=== PATIENT | female | born 1935 | race Hispanic/Latino ===

== ENCOUNTER 2018-05-26 19:24 | Inpatient (IN) | payer OTHER ==
--- OUTSIDE RECORDS SUMMARY | 2018-05-26 19:30 | XMS REPORT | Continuity of Care Document ---
:1935 Author Organization Interface Problems Problem Status Onset Classification Date Comments Source Date Reported WEAK/FEVER Active 10/25/19 [place] 16 PNEUMONIA Active 10/25/19 [place] 16 SYNCOPE, Active 12/17/19 [facility] VOMITING, UTI 14 ESOPHAGITIS Active 04/16/20 [facility] 11 SOB Active 04/12/20 [facility] 11 368.40 - VISUAL Active 04/06/20 [facility] FIELD DE 11 [place] 571.8 - CHRONIC Active 03/12/20 [facility] L[facility] D 789.01 11 [place] - ABDMNAL PAIN RT CHEST PAIN Active 03/07/20 [facility] 11 Diabetes 07/22/19 Problem 06/11/2016 4FBS Surgical mellitus<sup>4< 10 90-110, Specialty /sup> MED X1 [facility] COPD - Chronic 07/22/18 Problem 06/11/2016 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 DR SUGGS Specialty pulmonary [facility] of disease<sup>2</ YR, NO [place] sup> PULN STUDY, USES ADVAIR BID AND NEB TX TID Hypertension<akhtar 07/22/18 Problem 06/11/2016 5MED X1 Surgical p>5</sup> 75 [facility] Diabetes Resolved Problem 11/02/2015 [facility] Hypertension Resolved Problem 11/02/2015 [facility] Seasonal Resolved Problem 11/02/2015 [facility] allergies Allergy<sup>1</ Problem 06/11/2016 1SEASONAL, Surgical sup> MED X1 [facility] Cough<sup>3</akhtar Problem 06/11/2016 3OCCASSION Surgical p> AL COUGH Specialty WITH COPD, [facility] HAS A MED [place] FOR THIS, I SPENT 45 MIN WITH HER IN PAT AND SHE DID NOT COUGH OR CLEAR THROAT ONCE Ventral hernia Problem 06/11/2016 Surgical Specialty [facility] UPDATE Active [facility] PNEUMONIA, Active [place] UNSPECIFIED ORGANISM Medications Medication Details Route Status Patient Ordering Order Source Instructions Provider Date insulin regular 2 - 10 units, Inactive [place] 06/09/ Surgical sliding scale Injection, 2015 Specialty LOW Subcutaneous, Hospital first dose [place] 06/09/16 [place] 11:30:00 QUALITY CONTROL INSPECTOR insulin regular 2 - 10 units, Inactive [place] 06/09/ Surgical sliding scale Injection, 2015 Specialty LOW Subcutaneous, Hospital first dose [place] 06/09/16 [place] 7:30:00 QUALITY CONTROL INSPECTOR insulin regular 2 - 10 units, Inactive [place] 06/09/ Surgical sliding scale Injection, 2015 Specialty LOW Subcutaneous, Hospital first dose [place] 06/08/16 [place] 18:00:00 QUALITY CONTROL INSPECTOR Lasix 40 mg=4 mL, Inactive [place] 06/08/ Surgical Injection, IV 2015 Specialty Push, Once, Hospital first dose [place] 06/08/16 [place] 9:30:00 QUALITY CONTROL INSPECTOR, stop date 06/08/16 9:30:00 QUALITY CONTROL INSPECTOR Xanax 0.5 mg=2 tabs, No Longer [place] 06/08/ Surgical Tab, Oral, TID Active 2015 Specialty PRN for Hospital anxiety, first [place] dose 06/08/16 [place] 9:19:00 QUALITY CONTROL INSPECTOR lisinopril 10 mg=1 tabs, Inactive [place] 06/08/ Surgical Tab, Oral, 2015 Specialty Daily, first Hospital dose 06/08/16 [place] 7:30:00 QUALITY CONTROL INSPECTOR [place] hydrALAZINE 10 mg=0.5 mL, No Longer [place] 06/08/ Surgical Injection, IV Active 2015 Specialty Push, q4hr PRN Hospital for of [place] hypertension, [place] first dose 06/08/16 5:22:00 QUALITY CONTROL INSPECTOR, SBP >150 D5W 1,000 mL 1,000 mL, IV, No Longer [place] 06/08/ Surgical 50 mL/hr, Active 2015 Specialty start date Hospital 06/07/16 [place] 19:07:00 QUALITY CONTROL INSPECTOR [place] albuterol 2.5 2.5 mg=3 mL, Inactive [place] 06/07/ Surgical mg/3 mL (0.083%) JOSE LUIS Bush, 2016 Specialty inhalation Once PRN for Hospital solution wheezing, of [place] first dose [place] 06/07/16 16:35:00 QUALITY CONTROL INSPECTOR albuterol 180 mcg=2 inh, Inactive [place] 06/07/ Surgical Aerosol, INH, 2015 Specialty Once PRN for Hospital wheezing, of [place] first dose [place] 06/07/16 16:30:00 QUALITY CONTROL INSPECTOR Lasix 40 mg=4 mL, Inactive [place] 06/07/ Surgical Injection, IV 2016 Specialty Push, Once PRN Hospital for wheezing, [place] first dose [place] 06/07/16 16:29:00 QUALITY CONTROL INSPECTOR D5W 1000 mL 1,000 mL, IV, Inactive [place] 06/07/ Surgical 125 mL/hr, 2016 Specialty start date Hospital 06/07/16 [place] 13:55:00 QUALITY CONTROL INSPECTOR [place] D5W with NS 1,000 mL, IV, No Longer [place] 06/06/ Surgical 1,000 mL 125 mL/hr, Active 2015 Specialty start date Hospital 06/06/16 [place] 17:12:00 QUALITY CONTROL INSPECTOR [place] albuterol 2.5 2.5 mg=3 mL, No Longer [place] 06/06/ Surgical mg/3 mL (0.083%) JOSE LUIS Bush, Active 2015 Specialty inhalation q6hr, first Hospital solution dose 06/06/16 [place] 12:00:00 QUALITY CONTROL INSPECTOR [place] insulin regular 2 - 10 units, No Longer [place] 06/05/ Surgical sliding scale Injection, Active 2015 Specialty LOW Subcutaneous, [facility], first of [place] dose 06/05/16 [place] 7:30:00 QUALITY CONTROL INSPECTOR NS 1,000 mL 1,000 mL, IV, No Longer [place] 06/05/ Surgical 125 mL/hr, Active 2015 Specialty start date [facility] 06/05/16 of [place] 7:03:00 QUALITY CONTROL INSPECTOR [place] NS bolus 1,000 1,000 mL, IV, No Longer [place] 06/05/ Surgical mL BOLUS, start Active 2015 Specialty date 06/05/16 [facility] 7:02:00 QUALITY CONTROL INSPECTOR of [place] insulin regular 2 - 10 units, No Longer [place] 06/05/ Surgical sliding scale Injection, Active 2015 Specialty LOW Subcutaneous, [facility] q6hr, first of [place] dose 06/05/16 [place] 0:00:00 QUALITY CONTROL INSPECTOR levofloxacin 500 mg, Inactive [facility] 06/05/ Surgical IVPB Soln-IV, IV 2015 [facility], infuse [place] over 1 hr, [place] first dose 06/04/16 23:00:00 QUALITY CONTROL INSPECTOR, stop date 06/04/16 23:00:00 QUALITY CONTROL INSPECTOR, Prophylaxis Flagyl IVPB 500 mg, [id number] [facility] 06/05/ Surgical Soln-IV, IV [facility] infuse [place] over 60 [place] minutes, order duration: 3 doses, first dose 06/04/16 23:00:00 QUALITY CONTROL INSPECTOR, stop date 06/05/16 22:59:00 QUALITY CONTROL INSPECTOR, Prophylaxis Zofran 4 mg=2 mL, No Longer [facility] 06/05/ Surgical Injection, IV Active 2015 Specialty Push, q6hr PRN Hospital for of [place] nausea/vomitin [place] g, first dose 06/04/16 22:19:00 QUALITY CONTROL INSPECTOR morphine 2 mg=0.2 mL, No Longer [facility] 06/05/ Surgical Injection, IV Active 2015 Specialty Push, q1hr PRN Hospital for pain, of [place] first dose [place] 06/04/16 22:19:00 QUALITY CONTROL INSPECTOR NS 1,000 mL 1,000 mL, IV, No Longer [place] 06/05/ Surgical 75 mL/hr, Active 2015 Specialty start date Hospital 06/04/16 [place] 22:19:00 QUALITY CONTROL INSPECTOR [place] Lactated Ringers IV, start date Inactive Nj 06/05/ Surgical Injection 06/04/16 2016 Specialty 20:35:00 QUALITY CONTROL INSPECTOR, Hospital stop date [place] 06/04/16 [place] 20:35:00 QUALITY CONTROL INSPECTOR acetaminophen 1,000 mg, Inactive [place] 06/05/ Surgical Soln-IV, IV, 2015 Specialty Once, first Hospital dose 06/04/16 [place] 20:25:00 QUALITY CONTROL INSPECTOR, [place] stop date 06/04/16 20:25:00 QUALITY CONTROL INSPECTOR traMADol 50 mg 50 mg=1 tabs, Active [facility] 06/05/ Surgical oral tablet Oral, q6hr, 2016 Specialty PRN for pain, Hospital # 24 tabs, 0 [place] Refill(s) [facility] fentaNYL 25 mcg=0.5 mL, Inactive [place] 06/05/ Surgical Injection, IV, 2015 Specialty Once, first Hospital dose 06/04/16 [place] 20:06:00 QUALITY CONTROL INSPECTOR, [place] stop date 06/04/16 20:06:00 QUALITY CONTROL INSPECTOR fentaNYL 50 mcg=1 mL, Inactive [place] 06/05/ Surgical Injection, IV, 2015 Specialty Once, first Hospital dose 06/04/16 [place] 19:48:00 QUALITY CONTROL INSPECTOR, [place] stop date 06/04/16 19:48:00 QUALITY CONTROL INSPECTOR neostigmine 4 mg=8 mL, Inactive [place] 06/05/ Surgical Injection, IV, 2015 Specialty Once, first Hospital dose 06/04/16 [place] 19:44:00 QUALITY CONTROL INSPECTOR, [place] stop date 06/04/16 19:44:00 QUALITY CONTROL INSPECTOR glycopyrrolate 0.6 mg=3 mL, Inactive [place] 06/05/ Surgical Injection, IV, 2016 Specialty Once, first Hospital dose 06/04/16 [place] 19:44:00 QUALITY CONTROL INSPECTOR, [place] stop date 06/04/16 19:44:00 QUALITY CONTROL INSPECTOR ondansetron 4 mg=2 mL, Inactive [place] 06/05/ Surgical Injection, IV, 2016 Specialty Once, first Hospital dose 06/04/16 [place] 19:35:00 QUALITY CONTROL INSPECTOR, [place] stop date 06/04/16 19:35:00 QUALITY CONTROL INSPECTOR ePHEDrine 5 mg=0.1 mL, Inactive [place] 06/05/ Surgical Injection, IV, 2016 Specialty Once, first Hospital dose 06/04/16 [place] 19:19:00 QUALITY CONTROL INSPECTOR, [place] stop date 06/04/16 19:19:00 QUALITY CONTROL INSPECTOR vecuronium 1 mg=1 mL, Inactive [place] 06/05/ Surgical Powder-Inj, 2016 Specialty IV, Once, Hospital first dose [place] 06/04/16 [place] 19:10:00 QUALITY CONTROL INSPECTOR, stop date 06/04/16 19:10:00 QUALITY CONTROL INSPECTOR ePHEDrine 5 mg=0.1 mL, Inactive [place] 06/05/ Surgical Injection, IV, 2016 Specialty Once, first Hospital dose 06/04/16 [place] 19:02:00 QUALITY CONTROL INSPECTOR, [place] stop date 06/04/16 19:02:00 QUALITY CONTROL INSPECTOR vecuronium 1 mg=1 mL, Inactive [place] 06/05/ Surgical Powder-Inj, 2016 Specialty IV, Once, Hospital first dose [place] 06/04/16 [place] 18:28:00 QUALITY CONTROL INSPECTOR, stop date 06/04/16 18:28:00 QUALITY CONTROL INSPECTOR vecuronium 1 mg=1 mL, Inactive [place] 06/05/ Surgical Powder-Inj, 2016 Specialty IV, Once, Hospital first dose [place] 06/04/16 [place] 18:13:00 QUALITY CONTROL INSPECTOR, stop date 06/04/16 18:13:00 QUALITY CONTROL INSPECTOR ePHEDrine 5 mg=0.1 mL, Inactive [place] 06/05/ Surgical Injection, IV, 2016 Specialty Once, first Hospital dose 06/04/16 [place] 18:10:00 QUALITY CONTROL INSPECTOR, [place] stop date 06/04/16 18:10:00 QUALITY CONTROL INSPECTOR vecuronium 1 mg=1 mL, Inactive [place] 06/05/ Surgical Powder-Inj, 2016 Specialty IV, Once, Hospital first dose [place] 06/04/16 [place] 18:04:00 QUALITY CONTROL INSPECTOR, stop date 06/04/16 18:04:00 QUALITY CONTROL INSPECTOR vecuronium 1 mg=1 mL, Inactive [place] 06/04/ Surgical Powder-Inj, 2016 Specialty IV, Once, Hospital first dose of [place] 06/04/16 [place] 17:49:00 QUALITY CONTROL INSPECTOR, stop date 06/04/16 17:49:00 QUALITY CONTROL INSPECTOR ePHEDrine 5 mg=0.1 mL, Inactive [place] 06/04/ Surgical Injection, IV, MANHOLE STRIPPER 2016 Specialty Once, first Hospital dose 06/04/16 [place] 17:40:00 QUALITY CONTROL INSPECTOR, [place] stop date 06/04/16 17:40:00 QUALITY CONTROL INSPECTOR vecuronium 1 mg=1 mL, Inactive Jorge 06/04/ Surgical Powder-Inj, MANHOLE STRIPPER 2016 Specialty IV, Once, Hospital first dose [place] 06/04/16 [place] 17:21:00 QUALITY CONTROL INSPECTOR, stop date 06/04/16 17:21:00 QUALITY CONTROL INSPECTOR ceFAZolin 1 gm, Inactive [place] 06/04/ Surgical Powder-Inj, MANHOLE STRIPPER 2016 Specialty IV, Once, Hospital first dose [place] 06/04/16 [place] 17:16:00 QUALITY CONTROL INSPECTOR, stop date 06/04/16 17:16:00 QUALITY CONTROL INSPECTOR Lactated Ringers IV, start date Inactive Jorge 06/04/ Surgical Injection 06/04/16 MANHOLE STRIPPER 2016 Specialty 17:04:00 QUALITY CONTROL INSPECTOR, Hospital stop date of [place] 06/04/16 [place] 17:04:00 QUALITY CONTROL INSPECTOR vecuronium 1 mg=1 mL, Inactive Jorge 06/04/ Surgical Powder-Inj, MANHOLE STRIPPER 2016 Specialty IV, Once, Hospital first dose of [place] 06/04/16 [place] 16:45:00 QUALITY CONTROL INSPECTOR, stop date 06/04/16 16:45:00 QUALITY CONTROL INSPECTOR ePHEDrine 5 mg=0.1 mL, Inactive Jorge 06/04/ Surgical Injection, IV, MANHOLE STRIPPER 2016 Specialty Once, first Hospital dose 06/04/16 [place] 16:38:00 QUALITY CONTROL INSPECTOR, [place] stop date 06/04/16 16:38:00 QUALITY CONTROL INSPECTOR ePHEDrine 5 mg=0.1 mL, Inactive Jorge 06/04/ Surgical Injection, IV, MANHOLE STRIPPER 2016 Specialty Once, first Hospital dose 06/04/16 [place] 16:34:00 QUALITY CONTROL INSPECTOR, [place] stop date 06/04/16 16:34:00 QUALITY CONTROL INSPECTOR ePHEDrine 5 mg=0.1 mL, Inactive Jroge 06/04/ Surgical Injection, IV, MANHOLE STRIPPER 2016 Specialty Once, first Hospital dose 06/04/16 [place] 15:54:00 QUALITY CONTROL INSPECTOR, [place] stop date 06/04/16 15:54:00 QUALITY CONTROL INSPECTOR vecuronium 2 mg=2 mL, Inactive Jorge 06/04/ Surgical Powder-Inj, MANHOLE STRIPPER 2016 Specialty IV, Once, Hospital first dose of [place] 06/04/16 [place] 15:53:00 QUALITY CONTROL INSPECTOR, stop date 06/04/16 15:53:00 QUALITY CONTROL INSPECTOR promethazine 12.5 mg=0.5 Inactive [place] 06/04/ Surgical mL, Injection, 2016 Specialty IM, Once PRN Hospital for severe of [place] nausea, first [place] dose 06/04/16 15:24:00 QUALITY CONTROL INSPECTOR ondansetron 4 mg=2 mL, Inactive [place] 06/04/ Surgical Injection, IV 2016 Specialty Push, q15min Hospital PRN for of [place] nausea/vomitin [place] g, order duration: 2 doses, first dose 06/04/16 15:24:00 QUALITY CONTROL INSPECTOR, stop date Limited # of times Xopenex 0.63 0.63 mg=3 mL, Inactive [place] 06/04/ Surgical mg/3 mL JOSE LUIS Bush, 2016 Specialty inhalation Once PRN for Hospital solution shortness of of [place] breath or [place] wheezing, first dose 06/04/16 15:24:00 QUALITY CONTROL INSPECTOR Saline Lock 10 mL, Soln, Erasto Mauro 06/04/ Surgical Flush IV Push, As 2016 Specialty Indicated PRN Hospital for flush, of [place] first dose [place] 06/04/16 15:24:00 QUALITY CONTROL INSPECTOR Dilaudid 0.5 mg=0.25 Inactive [place] 06/04/ Surgical mL, Injection, 2016 Specialty IV Push, Hospital q10min PRN for of [place] pain severe [place] (7-10), first dose 06/04/16 15:24:00 QUALITY CONTROL INSPECTOR vecuronium 2 mg=2 mL, Inactive Jorge 06/04/ Surgical Powder-Inj, MANHOLE STRIPPER 2016 Specialty IV, Once, Hospital first dose of [place] 06/04/16 [place] 15:10:00 QUALITY CONTROL INSPECTOR, stop date 06/04/16 15:10:00 QUALITY CONTROL INSPECTOR ePHEDrine 10 mg=0.2 mL, Inactive Jorge 06/04/ Surgical Injection, IV, MANHOLE STRIPPER 2016 Specialty Once, first Hospital dose 06/04/16 [place] 15:08:00 QUALITY CONTROL INSPECTOR, [place] stop date 06/04/16 15:08:00 QUALITY CONTROL INSPECTOR glycopyrrolate 0.2 mg=1 mL, Inactive Jorge 06/04/ Surgical Injection, IV, MANHOLE STRIPPER 2016 Specialty Once, first Hospital dose 06/04/16 [place] 15:01:00 QUALITY CONTROL INSPECTOR, [place] stop date 06/04/16 15:01:00 QUALITY CONTROL INSPECTOR fentaNYL 50 mcg=1 mL, Inactive Jorge 06/04/ Surgical Injection, IV, MANHOLE STRIPPER 2016 Specialty Once, first Hospital dose 06/04/16 [place] 14:55:00 QUALITY CONTROL INSPECTOR, [place] stop date 06/04/16 14:55:00 QUALITY CONTROL INSPECTOR dexamethasone 4 mg=1 mL, Inactive Jorge 06/04/ Surgical Injection, IV, MANHOLE STRIPPER 2016 Specialty Once, first Hospital dose 06/04/16 [place] 14:41:00 QUALITY CONTROL INSPECTOR, [place] stop date 06/04/16 14:41:00 QUALITY CONTROL INSPECTOR Xopenex 0.63 0.63 mg=3 mL, Inactive Jorge 06/04/ Surgical mg/3 mL Soln, NEB, MANHOLE STRIPPER 2016 Specialty inhalation Once PRN for Hospital solution wheezing, of [place] first dose [place] 06/04/16 14:38:00 QUALITY CONTROL INSPECTOR ondansetron 4 mg=2 mL, Inactive Jorge 06/04/ Surgical Injection, IV MANHOLE STRIPPER 2016 Specialty Push, q15min Hospital PRN for of [place] nausea/vomitin [place] g, order duration: 2 doses, first dose 06/04/16 14:38:00 QUALITY CONTROL INSPECTOR, stop date Limited # of times promethazine 12.5 mg=0.5 Inactive Jorge 06/04/ Surgical mL, Injection, MANHOLE STRIPPER 2016 Specialty IM, Once PRN Hospital for severe of [place] nausea, first [place] dose 06/04/16 14:38:00 QUALITY CONTROL INSPECTOR Dilaudid 0.5 mg=0.25 Inactive Jorge 06/04/ Surgical mL, Injection, MANHOLE STRIPPER 2016 Specialty IV Push, Hospital q10min PRN for of [place] pain severe [place] (7-10), first dose 06/04/16 14:38:00 QUALITY CONTROL INSPECTOR Saline Lock 10 mL, Soln, Erasto Patel 06/04/ Surgical Flush IV Push, As MANHOLE STRIPPER 2016 Specialty Indicated PRN Hospital for flush, of [place] first dose [place] 06/04/16 14:38:00 QUALITY CONTROL INSPECTOR LR 1,000 mL 1,000 mL, IV, Inactive Jorge 06/04/ Surgical 75 mL/hr, MANHOLE STRIPPER 2016 Specialty start date Hospital 06/04/16 [place] 14:38:00 QUALITY CONTROL INSPECTOR [place] lidocaine 2.5 mL, Inactive Jorge 06/04/ Surgical Injection, IV, MANHOLE STRIPPER 2016 Specialty Once, first Hospital dose 06/04/16 [place] 14:26:00 QUALITY CONTROL INSPECTOR, [place] stop date 06/04/16 14:26:00 QUALITY CONTROL INSPECTOR vecuronium 5 mg=5 mL, Inactive Jorge 06/04/ Surgical Powder-Inj, MANHOLE STRIPPER 2016 Specialty IV, Once, Hospital first dose of [place] 06/04/16 [place] 14:26:00 QUALITY CONTROL INSPECTOR, stop date 06/04/16 14:26:00 QUALITY CONTROL INSPECTOR propofol 50 mg=5 mL, Inactive Jorge 06/04/ Surgical Emulsion, IV, MANHOLE STRIPPER 2016 Specialty Once, first Hospital dose 06/04/16 [place] 14:26:00 QUALITY CONTROL INSPECTOR, [place] stop date 06/04/16 14:26:00 QUALITY CONTROL INSPECTOR fentaNYL 50 mcg=1 mL, Inactive Jorge 06/04/ Surgical Injection, IV, MANHOLE STRIPPER 2016 Specialty Once, first Hospital dose 06/04/16 [place] 14:21:00 QUALITY CONTROL INSPECTOR, [place] stop date 06/04/16 14:21:00 QUALITY CONTROL INSPECTOR ceFAZolin 2 gm, Soln-IV, Inactive Joreg 06/04/ Surgical IV Piggyback, MANHOLE STRIPPER 2016 Specialty Once, first Hospital dose 06/04/16 [place] 14:17:00 QUALITY CONTROL INSPECTOR, [place] stop date 06/04/16 14:17:00 QUALITY CONTROL INSPECTOR fentaNYL 50 mcg=1 mL, Inactive Jorge 06/04/ Surgical Injection, IV, MANHOLE STRIPPER 2016 Specialty Once, first Hospital dose 06/04/16 [place] 14:09:00 QUALITY CONTROL INSPECTOR, [place] stop date 06/04/16 14:09:00 QUALITY CONTROL INSPECTOR Misc Medication 1,000 mL, Inactive Jorge 06/04/ Surgical Soln-IV, IV, MANHOLE STRIPPER 2016 Specialty Once, first Hospital dose 06/04/16 [place] 14:08:00 QUALITY CONTROL INSPECTOR, [place] stop date 06/04/16 14:08:00 QUALITY CONTROL INSPECTOR ceFAZolin 2 gm, Soln-IV, Inactive Eduard 06/04/ Surgical IV Piggyback, 2016 Specialty Once, infuse Hospital over 30 of [place] minutes, first [place] dose 06/04/16 9:00:00 QUALITY CONTROL INSPECTOR, stop date 06/04/16 9:00:00 QUALITY CONTROL INSPECTOR, patient weight 50-120 kg, Prophylaxis Lidocaine 2% 0.2 0.2 mL, Inactive [place] 06/04/ Surgical mL IV Start Injection, [facility] Once PRN for of [place] other (see [place] comment), first dose 06/04/16 8:30:00 QUALITY CONTROL INSPECTOR LR 1,000 mL 1,000 mL, IV, Inactive Mauro Surgical 30 mL/hr, 2016 Specialty start date Hospital 06/04/16 [place] 8:30:00 QUALITY CONTROL INSPECTOR [place] lisinopril 20 mg 1/2 tabs, Active Surgical oral tablet Oral, qPM, 0 2015 Specialty Refill(s), Hospital HYPERTENSION of [place] NEBULIZER NEBULIZER, Active Surgical INH, TID, PT 2016 Specialty INST TO USE AM Hospital OF SX, 0 of [place] Refill(s), [place] COPDPT INST TO USE AM OF SX Advair Diskus 1 puffs, INH, Active Surgical 250 mcg-50 mcg BID, PT INST 2016 Specialty inhalation TO USE AM OF Hospital powder SX, # 28 EA, 0 of [place] Refill(s), [place] COPDPT INST TO USE AM OF SX benzonatate 100 100 mg=1 caps, Active 05/30/ Surgical mg oral capsule Oral, BID, PRN 2016 Specialty as needed for Hospital cough, INS TO of [place] USE IF NEEDED [place] AM OF SX, 0 Refill(s), COUGH/COPDINS TO USE IF NEEDED AM OF SX Calcium 500+D 1 tabs, Oral, No Longer Surgical Daily, 0 Active 2015 Specialty Refill(s), Hospital SUPPLEMENT of [place] Iron-150 oral 1 tabs, Oral, Active Surgical tablet Daily, 0 2015 Specialty Refill(s), Hospital SUPPLEMENT of [place] montelukast 10 10 mg=1 tabs, Active 05/30/ Surgical mg oral tablet Oral, qAM, PT 2016 Specialty INST TO TAKE Hospital AM OF SX IF of [place] NEEDED, 0 [place] Refill(s), ALLERGYPT INST TO TAKE AM OF SX IF NEEDED Tylenol Regular 325 mg, Oral, Active 05/30/ Surgical Strength q4hr, 0 2015 Specialty Refill(s), Hospital PAIN of [place] metFORMIN 500 mg 500 mg=1 tabs, Active 05/30/ Surgical oral tablet Oral, BID, PT 2016 Specialty INST TO NOT Hospital TAKE THE AM OF of [place] SX, # 60 tabs, [place] 0 Refill(s), DIABETESPT INST TO NOT TAKE THE AM OF SX Tylenol Oral, 0 Active 05/30/ Surgical Refill(s) 2015 [facility] lisinopril Oral, Daily, 0 Active 05/30/ Surgical Refill(s) 2015 [facility] Levofloxacin 750 750 mg=1 tab, Active [place] MG Oral Tablet PO, Q24H, X 10 2015 [facility] [Levaquin] day, # 10 tab, 0 Refill(s) Levaquin 750 mg, 150 No Longer [place] mL, Route: IV, Active 2015 [facility] Drug form: SOLN, [id number], Start date: 10/28/15 2:00:00, Duration: 30 day, Stop date: 11/25/15 2:00:00Notes: (Same as:Levaquin) montelukast 10 mg, 1 tab, No Longer [place] Route: PO, Active 2015 [facility] Drug form: TAB, Daily, Dosing Weight 49.773, kg, Start date: 10/27/15 9:00:00, Duration: 30 day, Stop date: 11/25/15 9:00:00Notes: (Same as:Singulair) budesonide-formo 2 inhalation, No Longer [place] terol 160 Route: Active 2015 mcg-4.5 mcg/inh INHALATION, inhalation Drug Form: aerosol with AERO/A, BID, adapter Start date: 10/26/15 17:00:00, Duration: 30 day, Stop date: 11/25/15 9:00:00Notes: (Same as: Symbicort) WASTE: Aerosol - Return to Pharmacy Advair Diskus 1 puff, Route: Inactive [place] 500 mcg-50 mcg INHALATION, 2015 inhalation Drug Form: powder AERO, Dosing Weight 49.773, kg, BID, Start date: 10/26/15 17:00:00, Duration: 30 day, Stop date: 11/25/15 9:00:00 benzonatate 200 mg, 2 cap, No Longer [place] Route: PO, Active 2015 [facility] Drug form: CAP, TID, Dosing Weight 49.773, kg, PRN Cough, Start date: 10/26/15 13:00:00, Duration: 30 day, Stop date: 11/25/15 12:59:00Notes: (Same As: Qian Parra) "Do Not Crush" Advair Diskus 1 puff, Active [place] 500 mcg-50 mcg INHALATION, 2015 inhalation BID, # 1 ea, 0 powder Refill(s) benzonatate 200 200 mg=1 cap, Active [place] mg oral capsule PO, TID, PRN 2015 cough, do not crush or chew, # 30 cap, 0 Refill(s) lisinopril 20 mg 20 mg=1 tab, Active [place] oral tablet PO, Daily, # 2015 [place] 30 tab, 0 Refill(s) montelukast 10 10 mg=1 tab, Active [place] mg oral tablet PO, Daily, # 2015 [place] 90 tab, 0 Refill(s) Albuterol 0.833 3 ml, Route: No Longer [place] MG/ML / NEB, Drug Active 2015 Ipratropium Form: SOLN, [place] 0.167 Dosing Weight MG/ML Inhalant 49.773, kg, Solution [id number], Start date: 10/26/15 8:00:00, Duration: 30 day, Stop date: 11/25/15 2:00:00Notes: (Same as: Jaelyn) Levofloxacin 750 mg, Route: Inactive [place] IVPB, Drug 2015 form: SOLN, [id number], Dosing Weight 49.773, kg, Start date: 10/26/15 8:00:00, Duration: 30 day, Stop date: 11/24/15 8:00:00 Insulin, Aspart, 4 unit, 0.04 No Longer [place] Human mL, Route: Active 2015 SUB-Q, Drug form: SOLN, Bedtime, Dosing Weight 49.773, kg, PRN Blood Glucose Results, Start date: 10/26/15 7:23:00, Duration: 30 day, Stop date: 11/25/15 7:22:00Notes: Roll in palms of hands gently; Do not shake vigorously. (Same as: NovoLOG) "single patient use only" WASTE: F/P - Black; E - Municipal Trash Bin Stable for 28 days at room temperature. Expires in days from Date Glucagon 1 mg, Route: No Longer [place] IM, Drug form: Active 2015 [facility] PDR/INJ, PRN, Dosing Weight 49.773, kg, PRN Blood Glucose Results, Start date: 10/26/15 7:23:00, Duration: 30 day, Stop date: 11/25/15 7:22:00 Dextrose 50% 25 gm, 50 mL, No Longer [place] Syringe Route: IVP, Active 2015 [facility] Drug Form: INJ, Dosing Weight 49.773, kg, PRN, PRN Blood Glucose Results, Start date: 10/26/15 7:23:00, Duration: 30 day, Stop date: 11/25/15 7:22:00 Tylenol 650 mg, Route: Inactive [place] PO, Drug form: 2015 TAB, Q6H, Dosing Weight 49.773, kg, PRN Pain Score 1-3, Start date: 10/26/15 7:23:00, Duration: 30 day, Stop date: 11/25/15 7:22:00 Zofran 4 mg, 2 mL, No Longer [place] Route: IV, Active 2015 [facility] Drug form: INJ, Q4H, Dosing Weight 49.773, kg, PRN Nausea, Start date: 10/26/15 7:23:00, Duration: 30 day, Stop date: 11/25/15 7:22:00Notes: (Same as: Zofran) MEDICATION WASTE Product Size: 4 mg Product Wasted: ___ mg Morphine 1 mg, 1 mL, No Longer [place] Route: IVP, Active 2015 [facility] Drug form: INJ, Q6H, Dosing Weight 49.773, kg, PRN Chest Pain, Start date: 10/26/15 7:23:00, Duration: 30 day, Stop date: 11/25/15 7:22:00Notes: (Same as: Astramorph-PF) Albuterol 0.833 3 ml, Route: No Longer Sugar MG/ML / NEB, Drug Active 2015 [facility] Ipratropium Form: SOLN, [place] 0.167 Dosing Weight MG/ML Inhalant 49.773, kg, Solution RQ6H, PRN Shortness of breath, Start date: 10/26/15 7:23:00, Duration: 30 day, Stop date: 11/25/15 7:22:00Notes: (Same as: Duoneb) NS + KCL 20mEq/L 1,000 mL, No Longer Sugar 1000ml (Premix) Rate: 125 Active 2015 [facility] 1,000 mL ml/hr, Infuse over: 8 hr, Route: IV, Dosing Weight 49.773 kg, Total Volume: 1,000, Start date: 10/26/15 7:22:00, Duration: 30 day, Stop date: 11/25/15 7:21:00Notes: PREMIX IV - Do Not Alter WASTE: F/P - Sink; E - [facility] Ceftriaxone 1 gm, Route: Inactive Sugar IVPB, ONCE, 2015 [facility] Dosing Weight 48.636, kg, Priority: STAT, Start date: 10/26/15 0:39:00, Stop date: 10/26/15 0:39:00Notes: (Same As: Rocephin). Use with 100 mL NS and infuse over 30 min MEDICATION WASTE Product Size: 1000 mg Product Wasted: ___ mg Levofloxacin 750 mg, 150 Inactive Sugar mL, Route: 2015 [facility] IVPB, Drug form: SOLN, ONCE, Dosing Weight 48.636, kg, Priority: STAT, Start date: 10/26/15 0:39:00, Stop date: 10/26/15 0:39:00Notes: (Same as:Levaquin) Albuterol 0.833 3 mL, Route: Inactive Sugar MG/ML / NEB, Drug 2015 [facility] Ipratropium Form: SOLN, [place] 0.167 Dosing Weight MG/ML Inhalant 48.636, kg, Solution ONCE, STAT, Start date: 10/25/15 23:22:00, Stop date: 10/25/15 23:22:00Notes: (Same as: Duoneb) Amoxicillin 875 1 tab, Route: Inactive Sugar MG / Clavulanate PO, Dosing 2016 [place] 125 MG Oral Weight 48.636, Tablet kg, ONCE, [Augmentin Start date: 875-mg] 10/25/15 23:13:00, Stop date: 10/25/15 23:13:00 Saline Flush 10 mL, Route: No Longer Sugar 0.9% IVP, Drug Active 2015 [place] Form: INJ, Dosing Weight 48.636, kg, PRN, PRN Line Flush, Start date: 10/25/15 23:02:00, Duration: 30 day, Stop date: 11/24/15 23:01:00Notes: (Same as: BD Posiflush) Sodium Chloride 1,500 mL, Inactive [place] 0.154 MEQ/ML 1,000 ml/hr, 2015 Injectable Infuse Over: Solution 1.5 hr, Route: IV, 1,500, Drug form: INJ, ONCE, Priority: STAT, Dosing Weight 48.636 kg, Start date: 10/25/15 23:02:00, Duration: 1 doses or times, Stop date: 10/25/15 23:02:00 Albuterol 0.833 3 ml, Active MG/ML / INHALATION, 2013 Ipratropium Q6H, as needed [place] 0.167 for shortness MG/ML Inhalant of breath or Solution wheezing, # 30 ea, 0 Refill(s) simvastatin 10 10 mg=1 tab, Active mg oral tablet PO, Bedtime, # 2013 30 tab, 0 Refill(s) lisinopril 20 mg 20 mg=1 tab, Inactive oral tablet PO, Daily, # 2013 30 tab, 0 Refill(s) tiotropium 0.018 18 microgram=1 Active MG/ACTUAT cap, 2013 Inhalant Powder INHALATION, [Spiriva] Daily, # 90 cap, 0 Refill(s) Metformin 500 mg=1 tab, Active hydrochloride PO, BID, # 30 2013 500 MG Oral tab, 0 Tablet Refill(s) Cetirizine 10 mg, PO, Active Bedtime, 0 2013 Refill(s) pantoprazole 40 mg, Route: Inactive IVP, Drug 2013 [facility] form: INJ, Daily, Dosing Weight 47.273, kg, Priority: Routine, Start date: 12/17/13 9:00:00, Duration: 30 day, Stop date: 01/15/14 9:00:00Notes: For IV push reconstitute with 10 ml 0.9% sodium chloride and push over 2 minutes. (Same as: Protonix) nitroglycerin 0.4 mg, 1 tab, Inactive 0.4 mg Route: SL, 2013 [facility] sublingual Drug form: tablet TAB, Q5Min, PRN Chest Pain, Start date: 12/17/13 7:25:00, Duration: 30 day, Stop date: 01/16/14 7:24:00Notes: (Same as:Nitroquick, Nitrostat) "Do Not Crush" Sublingual tablet atropine 0.5 mg, 5 mL, Inactive Route: IV2013 [facility] Drug form: INJ, PRN, PRN Bradycardia, Start date: 12/17/13 7:24:00, Duration: 30 day, Stop date: 01/16/14 7:23:00 Acetaminophen 650 mg, 20.3 Inactive mL, Route: PO, 2013 [facility] Drug form: LIQ, Q4H, Dosing Weight 47.273, kg, PRN Pain 1-3/Temp > 100.4 F, Start date: 12/17/13 6:29:00, Duration: 30 day, Stop date: 01/16/14 6:28:00Notes: Max acetaminophen= 4000mg/day (4 gm/day). (Same as: Tylenol) Morphine 2 mg, 1 mL, Inactive Route: IVP2013 [facility] Drug form: INJ, Q3H, Dosing Weight 47.273, kg, PRN Pain Score 4-6, Start date: 12/17/13 6:29:00, Duration: 30 day, Stop date: 01/16/14 6:28:00Notes: (Same as:MORPhine Sulfate) Ondansetron 4 mg, 2 mL, Inactive Route: IVP2013 [facility] Drug form: INJ, Q4H, Dosing Weight 47.273, kg, PRN Nausea & Vomiting, Start date: 12/17/13 6:29:00, Duration: 30 day, Stop date: 01/16/14 6:28:00Notes: (Same as: Zofran) Sodium Chloride 1,000 mL, Inactive 0.154 MEQ/ML Rate: 90 2013 [facility] Injectable ml/hr, Infuse Solution over: 11.1 hr, Route: IV, Dosing Weight 47.273 kg, Total Volume: 1,000, Start date: 12/17/13 6:29:00, Duration: 30 day, Stop date: 01/16/14 6:28:00 Saline Flush 5 ml, Route: Inactive 0.9% IVP, Drug 2013 [facility] Form: INJ, Dosing Weight 47.273, kg, PRN, PRN Line Flush, Start date: 12/17/13 6:29:00, Duration: 30 day, Stop date: 01/16/14 6:28:00Notes: (Same as: BD Posiflush) Magnesium 1 gm, 100 mL, Inactive Sulfate Route: IVPB, 2013 [facility] Drug form: INJ, ONCE, Dosing Weight 47.273, kg, Start date: 12/17/13 6:27:00, Stop date: 12/17/13 6:27:00 Sodium Chloride 500 mL, 500 Inactive 0.154 MEQ/ML ml/hr, Infuse 2013 [facility] Injectable Over: 1 hr, Solution Route: IV, ONCE, Priority: STAT, Dosing Weight 54.545 kg, Start date: 12/17/13 5:02:00, Duration: 1 doses or times, Stop date: 12/17/13 5:02:00 Ceftriaxone 1 gm, Route: Inactive IVPB, Drug 2013 [facility] form: PDR/INJ, ONCE, Dosing Weight 54.545, kg, Priority: STAT, Start date: 12/17/13 3:56:00, Stop date: 12/17/13 3:56:00 Saline Flush 5 mL, Route: No Longer 0.9% IVP, Drug Active 2013 [facility] Form: INJ, Dosing Weight 54.545, kg, Q8H, PRN Line Flush, Start date: 12/16/13 22:42:00, Duration: 30 day, Stop date: 01/15/14 22:41:00, Administer at least once every 8 hoursSpecial Instructions: Administer at least once every 8 hoursNotes: (Same as: BD Posiflush) Allergies, Adverse Reactions, Alerts Substance Category Reaction Severity Reaction Status Date Comments Source type Reported codeine drug Unknown Allergy Surgical allergy (qualifie Specialty r value) [facility] hydrocodone Assertion Drug Active MH Sugar allergy [facility] Benadryl Assertion Drug Active [facility] Sugar Allergy allergy [facility] Benadryl drug Unknown Allergy Surgical allergy (qualifie Specialty r value) [facility] Immunizations Immunization Date Given Site Status Last Updated Comments Source Results Order Name Results Value Reference Date Interpretation Comments Source Range LABORATORY Blood 118 mg/dL 74 - 106 06/09 HI Surgical Glucose, [facility] LABORATORY Blood 104 mg/dL 74 - 106 06/09 Surgical Glucose, [facility] LABORATORY Blood 104 mg/dL 74 - 106 06/09 Surgical Glucose, [facility] LABORATORY AGAP 14.1 meq/L 10.0 - 06/09 1Reference Surgical 20.0 Lab: [facility], [address] [address] LABORATORY Carbon 28 meq/L 24 - 32 06/09 69Reference Surgical Dioxide Lab: [facility], [address] [address] LABORATORY Sodium Level 147 meq/L 135 - 145 06/09 HI 90Reference Surgical /2016 Lab: [address] [address] LABORATORY Chloride 109 meq/L 95 - 109 06/09 74Reference Surgical Level Lab: [address] [address] LABORATORY Potassium 4.1 meq/L 3.5 - 5.1 06/09 83Reference Surgical Level Lab: [address] [address] LABORATORY Creatinine 0.80 mg/dL 0.50 - 06/09 97Reference Surgical 1.40 /2015 Lab: [facility], [facility] [address] [place] [address] LABORATORY BUN 16 mg/dL 7 - 22 06/09 59Reference Surgical /2016 Lab: [facility], [facility] [address] [place] [address] LABORATORY Glucose Lvl 102 mg/dL 70 - 99 06/09 HI 7Result Comment: Adult reference range values reflect the clinical guidelines Surgical /2016 of the [place] [employer]. [facility] LABORATORY eGFR 69 06/09 49Result Comment: The eGFR is calculated using the CKD-EPI formula. In most young, healthy Surgical mL/min/1.7 /2016 individuals the eGFR will be >90 mL/min/1.73m2. The eGFR declines with age. An Specialty 3m2 eGFR of 60-89 may be normal in some populations, particularly the elderly, for Hospital whom the CKD-EPI formula has not been extensively validated. Use of the eGFR is of Sugar not recommended in the following populations: [facility] Individuals with unstable creatinine concentrations, including patients and those with serious co-morbid conditions. Patients with extremes in muscle mass or diet. The data above are obtained from the National Kidney Disease Education Program (NKDEP) which additionally recommends that when the eGFR is used in patients with extremes of body mass index for purposes of drug dosing, the eGFR should be multiplied by the estimated BMI. LABORATORY Calcium 8.6 mg/dL 8.5 - 10.5 06/09 64Reference Surgical Level /2016 Lab: [facility], [facility] [address] [place] [address] LABORATORY Blood 106 mg/dL 74 - 106 06/09 Surgical Glucose, /2016 [facility] LABORATORY Blood 118 mg/dL 74 - 106 06/09 HI Surgical Glucose, /2016 [facility] LABORATORY Blood 118 mg/dL 74 - 106 06/09 HI Surgical Glucose, /2016 [facility] LABORATORY Calcium 8.5 mg/dL 8.5 - 10.5 06/08 65Reference Surgical Level /2016 Lab: [facility], [facility] [address] [place] [address] LABORATORY eGFR 64 06/08 51Result Comment: The eGFR is calculated using the CKD-EPI formula. In most young, healthy Surgical mL/min/1.7 /2016 individuals the eGFR will be >90 mL/min/1.73m2. The eGFR declines with age. An Specialty 3m2 eGFR of 60-89 may be normal in some populations, particularly the elderly, for Hospital whom the CKD-EPI formula has not been extensively validated. Use of the eGFR is of Sugar not recommended in the following populations: [place] Individuals with unstable creatinine concentrations, including patients and those with serious co-morbid conditions. Patients with extremes in muscle mass or diet. The data above are obtained from the National Kidney Disease Education Program (NKDEP) which additionally recommends that when the eGFR is used in patients with extremes of body mass index for purposes of drug dosing, the eGFR should be multiplied by the estimated BMI. LABORATORY AGAP 13.9 meq/L 10.0 - 06/08 2Reference Surgical 20.0 /2016 Lab: [address] [address] LABORATORY Carbon 26 meq/L 24 - 32 06/08 70Reference Surgical Dioxide /2016 Lab: [address] [address] LABORATORY Creatinine 0.86 mg/dL 0.50 - 06/08 98Reference Surgical 1.40 /2016 Lab: [address] [address] LABORATORY BUN 11 mg/dL 7 - 22 06/08 60Reference Surgical /2016 Lab: [address] [address] LABORATORY Sodium Level 149 meq/L 135 - 145 06/08 HI 91Reference Surgical /2016 Lab: [address] [address] LABORATORY Potassium 3.9 meq/L 3.5 - 5.1 06/08 84Reference Surgical Level /2016 Lab: [address] [address] LABORATORY Chloride 113 meq/L 95 - 109 06/08 HI 75Reference Surgical Level /2016 Lab: [facility], [place] [address] LABORATORY Glucose Lvl 104 mg/dL 70 - 99 06/08 HI 9Result Comment: Adult reference range values reflect the clinical guidelines Surgical /2016 of the [place] [employer]. [facility] LABORATORY Carbon 21 meq/L 24 - 32 06/07 LOW 71Reference Surgical Dioxide /2016 Lab: [facility], [place] [address] LABORATORY Sodium Level 147 meq/L 135 - 145 06/07 HI 92Reference Surgical /2016 Lab: [facility], [place] [address] LABORATORY Potassium 4.1 meq/L 3.5 - 5.1 06/07 85Reference Surgical Level /2016 Lab: [facility], [place] [id number] LABORATORY AGAP 15.1 meq/L 10.0 - 06/07 3Reference Surgical 20.0 /2016 Lab: [place] [address]79 LABORATORY Calcium 8.0 mg/dL 8.5 - 10.5 06/07 LOW 66Reference Surgical Level /2016 Lab: [place] [id number] LABORATORY eGFR 59 06/07 53Result Comment: The eGFR is calculated using the CKD-EPI formula. In most young, healthy Surgical mL/min/1.7 /2016 individuals the eGFR will be >90 mL/min/1.73m2. The eGFR declines with age. An Specialty 3m2 eGFR of 60-89 may be normal in some populations, particularly the elderly, for Hospital whom the CKD-EPI formula has not been extensively validated. Use of the eGFR is of Sugar not recommended in the following populations: [place] Individuals with unstable creatinine concentrations, including patients and those with serious co-morbid conditions. Patients with extremes in muscle mass or diet. The data above are obtained from the National Kidney Disease Education Program (NKDEP) which additionally recommends that when the eGFR is used in patients with extremes of body mass index for purposes of drug dosing, the eGFR should be multiplied by the estimated BMI. LABORATORY Chloride 115 meq/L 95 - 109 06/07 HI 76Reference Surgical Level /2016 Lab: [place] [address] LABORATORY BUN 15 mg/dL 7 - 22 06/07 61Reference Surgical /2016 Lab: [place] [address] LABORATORY Creatinine 0.92 mg/dL 0.50 - 06/07 99Reference Surgical 1.40 Lab: [place] [address] LABORATORY Glucose Lvl 139 mg/dL 70 - 99 06/07 HI 11Result Comment: Adult reference range values reflect the clinical guidelines Surgical /2016 of the [place] [employer]. [facility] LABORATORY Basophil # 0.1 K/CMM 0.0 - 0.2 06/06 42Reference Surgical /2015 Lab: [place] [address] LABORATORY Neutrophil # 9.2 K/CMM 1.5 - 8.1 06/06 HI 34Reference Surgical /2015 Lab: [place] [address] LABORATORY Lymphocyte # 1.1 K/CMM 1.0 - 5.5 06/06 36Reference Surgical /2015 Lab: [place] [id number] LABORATORY Basophil % 0.8 % 0.0 - 1.0 06/06 32Reference Surgical /2015 Lab: [place] [address] LABORATORY Monocyte # 1.2 K/CMM 0.0 - 0.8 06/06 HI 38Reference Surgical /2016 Lab: [facility], [address] [address] LABORATORY Eosinophil % 0.0 K/CMM 0.0 - 0.5 06/06 30Reference Surgical /2015 Lab: [facility], [address] [address] LABORATORY Eosinophil # 0.0 % 0.0 - 4.0 06/06 40Reference Surgical /2015 Lab: [address] [address] LABORATORY Monocyte % 10.4 % 2.0 - 12.0 06/06 28Reference Surgical /2015 Lab: [address] [address] LABORATORY Lymphocyte % 9.4 % 20.0 - 06/06 LOW 26Reference Surgical 40.0 /2016 Lab: [address] [address] LABORATORY Neutrophil % 79.4 % 45.0 - 06/06 HI 24Reference Surgical 75.0 /2016 Lab: [address] [address] LABORATORY Results Reported 06/06 Surgical /2016 Specialty (06/06/2016 04:16:00) [facility] LABORATORY Potassium 4.8 meq/L 3.5 - 5.1 06/06 86Reference Surgical Level /2016 Lab: [address] [address] LABORATORY Chloride 113 meq/L 95 - 109 06/06 HI 77Reference Surgical Level /2015 Lab: [address] [address] LABORATORY Calcium 7.6 mg/dL 8.5 - 10.5 06/06 LOW 67Reference Surgical Level /2015 Lab: [address] [address] LABORATORY Carbon 20 meq/L 24 - 32 06/06 LOW 72Reference Surgical Lab: [facility], [facility] [address] [place] [address] LABORATORY AGAP 16.8 meq/L 10.0 - 06/06 4Reference Surgical 20.0 /2015 Lab: [facility], [facility] [id number] [place] [address] LABORATORY Glucose Lvl 61 mg/dL 70 - 99 06/06 LOW 13Result Comment: Adult reference range values reflect the clinical guidelines Surgical of the [place] [employer]. [facility] LABORATORY Sodium Level 145 meq/L 135 - 145 06/06 93Reference Surgical Lab: [facility], [facility] [address] [place], [place] [address] LABORATORY BUN 18 mg/dL 7 - 22 06/06 62Reference Lab: [facility], [address] [address] LABORATORY Creatinine 0.91 mg/dL 0.50 - 06/06 100Reference Surgical 1.40 /2016 Lab: [facility], [place] [id number] LABORATORY eGFR 60 06/06 55Result Comment: The eGFR is calculated using the CKD-EPI formula. In most young, healthy Surgical mL/min/1.7 individuals the eGFR will be >90 mL/min/1.73m2. The eGFR declines with age. An Specialty 3m2 eGFR of 60-89 may be normal in some populations, particularly the elderly, for Hospital whom the CKD-EPI formula has not been extensively validated. Use of the eGFR is of Sugar not recommended in the following populations: [place] Individuals with unstable creatinine concentrations, including patients and those with serious co-morbid conditions. Patients with extremes in muscle mass or diet. The data above are obtained from the National Kidney Disease Education Program (NKDEP) which additionally recommends that when the eGFR is used in patients with extremes of body mass index for purposes of drug dosing, the eGFR should be multiplied by the estimated BMI. LABORATORY Results Reported 06/06 Surgical /2016 Specialty (06/06/2016 04:16:00) [facility] LABORATORY Results Reported 06/06 Surgical /2016 Specialty (06/06/2016 04:16:00) [facility] LABORATORY White Blood 11.6 K/CMM 3.7 - 10.4 06/06 HI 95Reference Surgical Count /2016 Lab: [facility], [facility] [address] [place] [address] LABORATORY Red Blood 3.30 M/CMM 4.20 - 06/06 LOW 88Reference Surgical Cell Count 5.40 /2016 Lab: [facility], [address] [address] LABORATORY Hemoglobin 9.7 g/dL 12.0 - 06/06 LOW 81Reference Surgical 16.0 /2016 Lab: [facility], [address] [address] LABORATORY Hematocrit 30.1 % 36.0 - 06/06 LOW 79Reference Surgical 48.0 2016 Lab: [facility], [address] [address] LABORATORY MCH 29.4 pg 27.0 - 06/06 16Reference Surgical 31.0 /2016 Lab: [facility], [address] [address] LABORATORY MCV 91.1 fL 80.0 - 06/06 46Reference Surgical 98.0 /2016 Lab: [facility], [address] [address] LABORATORY RDW 16.3 % 11.5 - 06/06 HI 20Reference Surgical 14.5 /2016 Lab: [facility], [address] [address] LABORATORY MCHC 32.3 g/dL 32.0 - 06/06 18Reference Surgical 36.0 /2016 Lab: [facility], [place] [address] [place] [address] LABORATORY Platelet 207 K/CMM 133 - 450 06/06 44Reference Surgical /2016 Lab: [facility], [facility] [address] [place] [address] LABORATORY MPV 10.0 fL 7.4 - 10.4 06/06 22Reference Surgical /2015 Lab: [facility], [facility] [address] [place] [address] LABORATORY Carbon 22 mmol/L 24 - 29 06/06 LOW Surgical Dioxide /2015 [facility] LABORATORY Calcium 1.09 1.12 - 06/06 LOW Surgical Level mmol/L 1.32 /2015 [facility] LABORATORY Sodium Level 141.0 138.0 - 06/06 Surgical mmol/L 146.0 [facility] LABORATORY Potassium 5.0 mmol/L 3.5 - 4.9 06/06 [place] Surgical Level /2016 [facility] LABORATORY AGAP 16 meq/L 8 - 16 06/06 Surgical /2016 [facility] LABORATORY Results Reported 06/06 Surgical /2016 Specialty (06/05/2016 19:25:00) [facility] LABORATORY Hematocrit 35 % 38 - 51 06/06 LOW Surgical /2016 [facility] LABORATORY BUN 25 mg/dL 8 - 26 06/06 Surgical /2016 [facility] LABORATORY Creatinine 1.1 mg/dL 0.6 - 1.3 06/06 Surgical /2016 [facility] LABORATORY Chloride 109 mmol/L 98 - 109 06/06 Surgical Level /2016 [facility] LABORATORY Hemoglobin 11.9 g/dL 12.0 - 06/06 LOW Surgical 17.0 2016 [facility] LABORATORY Glucose Lvl 88 mg/dL 70 - 105 06/06 Surgical /2016 [facility] LABORATORY Results Reported 06/05 Surgical 2016 Specialty (06/05/2016 06:37:00) [facility] LABORATORY Lymphocyte % 6.1 % 20.0 - 06/05 LOW 27Reference Surgical 40.0 /2016 Lab: [facility], [address] [address] LABORATORY Eosinophil # 0.0 % 0.0 - 4.0 06/05 41Reference Surgical Lab: [address], [place] [address] LABORATORY Monocyte % 11.2 % 2.0 - 12.0 06/05 29Reference Surgical Lab: [place] [address] LABORATORY Neutrophil # 11.6 K/CMM 1.5 - 8.1 06/05 HI 35Reference Surgical Lab: [place] [id number] LABORATORY Lymphocyte # 0.9 K/CMM 1.0 - 5.5 06/05 LOW 37Reference Surgical Lab: [place] [address] LABORATORY Monocyte # 1.6 K/CMM 0.0 - 0.8 06/05 HI 39Reference Surgical Lab: [place] [id number] LABORATORY Basophil % 0.2 % 0.0 - 1.0 06/05 33Reference Surgical Lab: [place] [id number] LABORATORY Basophil # 0.0 K/CMM 0.0 - 0.2 06/05 43Reference Surgical Lab: [address] [address] LABORATORY Hypochrom 1+ None Seen 06/05 58Reference Surgical Lab: [address] [address] LABORATORY Eosinophil % 0.0 K/CMM 0.0 - 0.5 06/05 31Reference Surgical Lab: [place] [id number] LABORATORY Neutrophil % 82.5 % 45.0 - 06/05 HI 25Reference Surgical 75.0 2016 Lab: [address], [place] [address] LABORATORY Results Reported 06/05 Surgical /2015 Specialty (06/05/2016 06:37:00) [facility] LABORATORY eGFR 44 06/05 57Result Comment: The eGFR is calculated using the CKD-EPI formula. In most young, healthy Surgical mL/min/1.7 2016 individuals the eGFR will be >90 mL/min/1.73m2. The eGFR declines with age. An Specialty 3m2 eGFR of 60-89 may be normal in some populations, particularly the elderly, for Hospital whom the CKD-EPI formula has not been extensively validated. Use of the eGFR is of Sugar not recommended in the following populations: [facility] Individuals with unstable creatinine concentrations, including patients and those with serious co-morbid conditions. Patients with extremes in muscle mass or diet. The data above are obtained from the National Kidney Disease Education Program (NKDEP) which additionally recommends that when the eGFR is used in patients with extremes of body mass index for purposes of drug dosing, the eGFR should be multiplied by the estimated BMI. LABORATORY Calcium 8.1 mg/dL 8.5 - 10.5 06/05 LOW 68Reference Surgical Level /2015 Lab: [address] [address] LABORATORY AGAP 13.3 meq/L 10.0 - 06/05 5Reference Surgical 20.0 Lab: [address] [address] LABORATORY Carbon 27 meq/L 24 - 32 06/05 73Reference Surgical Dioxide /2015 Lab: [address] [address] LABORATORY Chloride 108 meq/L 95 - 109 06/05 78Reference Surgical Level /2015 Lab: [address] [address] LABORATORY Potassium 5.3 meq/L 3.5 - 5.1 06/05 HI 87Reference Surgical Level /2015 Lab: [address] [address] LABORATORY Sodium Level 143 meq/L 135 - 145 06/05 94Reference Surgical /2016 Lab: [facility], [facility] [address] [place] [address] LABORATORY Glucose Lvl 115 mg/dL 70 - 99 06/05 HI 15Result Comment: Adult reference range values reflect the clinical guidelines Surgical /2016 of the [place] [employer]. [facility] LABORATORY Creatinine 1.16 mg/dL 0.50 - 06/05 101Reference Surgical 1.40 /2016 Lab: [facility], [facility] [address] [place] [address] LABORATORY BUN 24 mg/dL 7 - 22 06/05 HI 63Reference Surgical /2016 Lab: [facility], [address] [address] LABORATORY White Blood 14.1 K/CMM 3.7 - 10.4 06/05 HI 96Reference Surgical Count /2016 Lab: [facility], [address] [address] LABORATORY Red Blood 3.85 M/CMM 4.20 - 06/05 LOW 89Reference Surgical Cell Count 5.40 /2016 Lab: [facility], [address] [address] LABORATORY Hematocrit 34.7 % 36.0 - 06/05 LOW 80Reference Surgical 48.0 /2016 Lab: [facility], [address] [address] LABORATORY Hemoglobin 11.1 g/dL 12.0 - 06/05 LOW 82Reference Surgical 16.0 /2016 Lab: [facility], [address] [address] LABORATORY MCV 90.1 fL 80.0 - 06/05 47[facility] Surgical 98.0 /2016 Lab: [facility], [address] [address] LABORATORY MCHC 32.0 g/dL 32.0 - 06/05 19[facility] Surgical 36.0 /2016 Lab: [facility], [facility] [id number] [place] [id number] LABORATORY RDW 15.2 % 11.5 - 06/05 HI 21[facility] Surgical 14.5 Lab: [facility], [facility] [id number] [place] [id number] LABORATORY MCH 28.8 pg 27.0 - 06/05 17[facility] Surgical 31.0 Lab: [facility], [address] [address] LABORATORY MPV 9.7 fL 7.4 - 10.4 06/05 23[facility] Surgical Lab: [facility], [address] [address] LABORATORY Platelet 237 K/CMM 133 - 450 06/05 45[facility] Surgical Lab: [facility], [address] [address] LABORATORY Results Reported 06/05 Specialty (06/05/2016 06:37:00) [facility] CHEM PANEL eGFR 68 10/29 Result Comment: The eGFR is calculated using the CKD-EPI formula. In most young, healthy individuals the eGFR will be >90 mL/ min/1.73m2. The eGFR declines with age. An eGFR of 60-89 may be normal in [facility] mL/min/1. some populations, particularly the elderly, for whom the CKD-EPI formula has not been extensively validated. Use of the eGFR is not recommended in the following populations: [facility] 3m2 Individuals with unstable creatinine concentrations, including patients and those with serious co-morbid conditions. Patients with extremes in muscle mass or diet. The data above are obtained from the National Kidney Disease Education Program (NKDEP) which additionally recommends that when the eGFR is used in patients with extremes of body mass index for purposes of drug dosing, the eGFR should be multiplied by the estimated BMI. CHEM PANEL Creatinine 0.82 mg/dL 0.50 - 10/29 [place] Lvl 1.40 [facility] CHEM PANEL Calcium Lvl 8.4 mg/dL 8.5 - 10.5 04/10 [facility] [place] /2016 [place] CHEM PANEL CO2 21 meq/L 24 - 32 04/10 [place] /2016 [place] CHEM PANEL Sodium Lvl 141 meq/L 135 - 145 04/10 [facility] [place] /2015 [place] CHEM PANEL Potassium 4.4 meq/L 3.5 - 5.1 04/10 [facility] [place] Lvl /2015 [place] CHEM PANEL Chloride Lvl 111 meq/L 95 - 109 04/ [place] /2015 [place] CHEM PANEL Glucose Lvl 100 mg/dL 70 - 99 04/ [place] /2015 [place] CHEM PANEL BUN 9 mg/dL 7 - 22 04/10 [place] /2016 [place] CHEM PANEL AGAP 13.4 meq/L 10.0 - 04 [place] 20.0 /2015 [place] HEMATOLOGY MCV 92.9 fL 80.0 - 10/29 [place] 98.0 /2015 [place] HEMATOLOGY MCH 30.1 pg 27.0 - 10/29 [place] 31.0 /2015 [place] HEMATOLOGY MCHC 32.4 g/dL 32.0 - 10/29 [place] 36.0 /2015 [place] HEMATOLOGY RDW 14.1 % 11.5 - 10/29 [place] 14.5 [place] HEMATOLOGY MPV 8.4 fL 7.4 - 10.4 10/29 [place] /2015 [place] HEMATOLOGY Platelet 367 K/CMM 133 - 450 04 [place] /2015 [place] HEMATOLOGY WBC 10.8 K/CMM 3.7 - 10.4 10/29 [place] /2015 [place] HEMATOLOGY RBC 3.01 M/CMM 4.20 - 10/29 [place] 5.40 /2015 [place] HEMATOLOGY Hgb 9.1 g/dL 12.0 - 10/29 [place] 16.0 /2015 [place] HEMATOLOGY Hct 28.0 % 36.0 - 10/29 [place] 48.0 /2015 [place] HEMATOLOGY Basophils # 0.1 K/CMM 0.0 - 0.2 04/10 [place] /2016 [place] HEMATOLOGY Monocytes # 1.1 K/CMM 0.0 - 0.8 04/10 [facility] [place] /2016 [place] HEMATOLOGY Eosinophils 0.0 K/CMM 0.0 - 0.5 04/10 [facility] [place] # /2016 [place] HEMATOLOGY Basophils 0.6 % 0.0 - 1.0 10 [place] /2016 [place] HEMATOLOGY Lymphocytes 1.0 K/CMM 1.0 - 5.5 10 [facility] [place] # /2015 [place] HEMATOLOGY Segs-Bands # 8.6 K/CMM 1.5 - 8.1 10/29 [facility] HEMATOLOGY Eosinophils 0.0 % 0.0 - 4.0 10/29 [facility] HEMATOLOGY Segs 79.8 % 45.0 - 10/29 [place] 75.0 [facility] HEMATOLOGY Lymphocytes 9.1 % 20.0 - 10/29 [place] 40.0 [facility] HEMATOLOGY Monocytes 10.5 % 2.0 - 12.0 10/29 [facility] SPECIAL Hgb A1C 5.5 % <=5.6 % 10/29 [place] CHEMISTRY [facility] Chest wo Chest wo EXAM: 10/28 - [facility] contrast contrast CT - [facility] CT CT chest without contrast. Read by: Korey Kong MD Dictated Date/time: 10/29/15 16:06 INDICATION: Electronically Signed by: Korey Kong MD 10/29/15 16:25 FINAL REPORT Cough. Fever. TECHNIQUE: Contiguous axial CT images of the chest. Intravenous contrast: Absent. DLP 333.33 mGy-cm. COMPARISON: Chest x-ray: Earlier today. CT abdomen and pelvis: 08/29/2010 FINDINGS: Upper abdomen: Partially imaged. STOMACH: Trace sliding-type hiatal hernia. Thoracic aorta: Moderate to severe atherosclerosis. Heart: Marked coronary artery calcifications. Mediastinum: Limited evaluation for adenopathy in the absence of intravenous contrast. Within this limitation, there are reactive size subcentimeter mediastinal and neck lymph nodes. Tracheobronchial tree: Unremarkable. Lungs: Posterior costophrenic angles of the lung bases are excluded. Lobar consolidation: Right lower lobe consolidation with air bronchograms and surrounding interstitial thickening/groundglass opacities. A few small scattered bilateral upper lobe areas of peripheral groundglass density. Pleural effusion: Moderate right pleural effusion. Pneumothorax: Negative. Nodule: 0.2 cm right upper lobe pulmonary nodule (series 2 image 33). Calcified granuloma right upper lobe. 0.7 cm subpleural right middle lobe nodular density (image 62). Other: Large fatty density in the region of the right posterior costophrenic angle likely represents large fat-containing diaphragmatic hernia. Bones: Unremarkable. IMPRESSION: 1. Stable right lower lobe pneumonia and parapneumonic effusion. Advise radiographic follow-up until clearance. 2. A few small scattered bilateral upper lobe areas of peripheral groundglass density. These are nonspecific and could represent atelectasis or focal infectious/inflammatory processes. 3. Large fatty density in the region of the right posterior costophrenic angle which likely represents large fat-containing diaphragmatic hernia. Similar appearance was present on prior CT abdomen. 4. Right lung pulmonary nodules, the larger of which measures 0.7 cm. Consider follow-up CT chest in 6-12 months if this is a low risk patient or 3-6 months if this is a high-risk patient, based on Fleischner criteria (as below). Fleischner Society recommendations for incidentally detected pulmonary nodules (Radiology. 2005 [id number]:[id number]. Guidelines for management of small pulmonary nodules detected on CT scans: a statement fro m the Fleischner Society. Viond H, Tayo STERLING, Emmanuel G, et. al): 1. Low Risk Patient: a. <0.4 cm: No followup. b. 0.4-0.6 cm: Repeat CT at 12 months; no further follow up if unchanged. c. 0.7-0.8 cm: Repeat CT at 6-12 months; no further follow up if unchanged. d. >0.8 cm: Repeat CT at 3, 9, and 24 months; PET-CT; or biopsy. 2. High Risk Patient (eg. smoker, history of malignancy, etc.): a. <0.4 cm: Repeat CT at 12 months; no further follow up if unchanged. b. 0.4-0.6 cm: Repeat CT at 6-12 months then at 18-24 months if unchanged. c. 0.7-0.8 cm: Repeat CT at 3-6 months, 9-12 months, and 24 months if no change. d. >0.8 cm: Repeat CT at 3, 9, and 24 months; PET-CT; or biopsy. Fleischner Society recommendations for management of subsolid pulmonary nodules: 1. Groundglass nodules: a. <0.6 cm: No CT followup. Obtain 0.1 cm thick slices to confirm that nodule is pure groundglass. b. >/=0.6 cm: Followup CT at 3 months to confirm persistence then annual surveillance CT for at least 3 years. PET-CT is of limited value and is not recommended. 2. Partly solid nodule: a. Solid component <0.6 cm: Followup CT at 3 months to confirm persistence then annual surveillance CT for at least 3 years. b. Solid component >/=0.6 cm: Followup CT at 3 months and if persistent, then biopsy or surgery. PET/CT can be considered for partly solid nodules greater than 1 cm. Chest Chest 1view EXAM: 10/28 - [place] 1view DX - [place] 1 view(s) of the chest. Read by: Korey Kong MD Dictated Date/time: 10/29/15 11:10 INDICATION: Electronically Signed by: Korey Kong MD 10/29/15 11:11 FINAL REPORT Abnormal chest sounds. COMPARISON: Chest x-ray: 10/27/2015. IMPRESSION: 1. Support apparatus: None. 2. Stable right lower lobe consolidation with parapneumonic effusion. Consider continued follow-up until resolution. 3. Left basilar atelectasis with small pleural effusion. 4. No pneumothorax. ELECTROLYT AGAP 12.4 meq/L 10.0 - 10/28 [place] ES 20.0 [place] ELECTROLYT BUN 9 mg/dL 7 - 22 10/28 [place] ES [place] ELECTROLYT Glucose Lvl 105 mg/dL 70 - 99 10/28 [place] ELECTROLYT Creatinine 0.82 mg/dL 0.50 - 10/28 [place] ES Lvl 1.40 /2015 [place] ELECTROLYT Potassium 4.4 meq/L 3.5 - 5.1 10/28 [place] [facility] Lvl /2015 [place] ELECTROLYT Sodium Lvl 142 meq/L 135 - 145 10/28 [place] ELECTROLYT CO2 22 meq/L 24 - 32 10/28 [facility] [place] ELECTROLYT Chloride Lvl 112 meq/L 95 - 109 10/28 [place] ELECTROLYT Calcium Lvl 8.4 mg/dL 8.5 - 10.5 10/28 [place] ELECTROLYT eGFR 67 10/28 Result Comment: The eGFR is calculated using the CKD-EPI formula. In most young, healthy individuals the eGFR will be >90 mL/ min/1.73m2. The eGFR declines with age. An eGFR of 60-89 may be normal in [place] mL/min/1.7 some populations, particularly the elderly, for whom the CKD-EPI formula has not been extensively validated. Use of the eGFR is not recommended in the following populations: [place] 3m2 Individuals with unstable creatinine concentrations, including patients and those with serious co-morbid conditions. Patients with extremes in muscle mass or diet. The data above are obtained from the National Kidney Disease Education Program (NKDEP) which additionally recommends that when the eGFR is used in patients with extremes of body mass index for purposes of drug dosing, the eGFR should be multiplied by the estimated BMI. HEMATOLOGY MCHC 32.0 g/dL 32.0 - 10/28 [facility] [place] 36.0 /2015 [place] HEMATOLOGY MCH 29.6 pg 27.0 - 10/28 [facility] [place] 31.0 /2015 [place] HEMATOLOGY Platelet 356 K/CMM 133 - 450 10/28 [place] /2015 [facility] HEMATOLOGY MPV 7.4 fL 7.4 - 10.4 10/28 [place] /2015 [facility] HEMATOLOGY RDW 14.1 % 11.5 - 10/28 [facility] [place] 14.5 /2015 [place] HEMATOLOGY MCV 92.6 fL 80.0 - 10/28 [facility] [place] 98.0 /2015 [facility] HEMATOLOGY Hct 28.9 % 36.0 - 10/28 [facility] [place] 48.0 /2015 [place] HEMATOLOGY Hgb 9.2 g/dL 12.0 - 10/28 [facility] [place] 16.0 /2015 [facility] HEMATOLOGY RBC 3.12 M/CMM 4.20 - 10/28 [facility] [place] 5.40 /2015 [facility] HEMATOLOGY WBC 12.8 K/CMM 3.7 - 10.4 10/28 [place] /2015 [facility] HEMATOLOGY Basophils # 0.0 K/CMM 0.0 - 0.2 10/28 [facility] [place] /2015 [facility] HEMATOLOGY Segs-Bands # 10.1 K/CMM 1.5 - 8.1 10/28 [facility] [place] /2016 [place] HEMATOLOGY Lymphocytes 1.2 K/CMM 1.0 - 5.5 / [facility] [place] # /2016 [place] HEMATOLOGY Basophils 0.1 % 0.0 - 1.0 10/28 [facility] [place] /2015 [place] HEMATOLOGY Monocytes # 1.4 K/CMM 0.0 - 0.8 10/28 [facility] [place] /2015 [place] HEMATOLOGY Eosinophils 0.0 K/CMM 0.0 - 0.5 10/28 [facility] [place] # /2016 [place] HEMATOLOGY Monocytes 11.3 % 2.0 - 12.0 10/28 [place] /2015 [place] HEMATOLOGY Eosinophils 0.0 % 0.0 - 4.0 04/09 [facility] [place] /2016 [place] HEMATOLOGY Segs 79.3 % 45.0 - 10/28 [facility] [place] 75.0 /2016 [place] HEMATOLOGY Lymphocytes 9.3 % 20.0 - 10/28 [facility] [place] 40.0 /2015 [place] ELECTROLYT AGAP 13.6 meq/L 10.0 - 10/27 [facility] [place] ES 20.0 [place] ELECTROLYT eGFR 70 10/27 Result Comment: The eGFR is calculated using the CKD-EPI formula. In most young, healthy individuals the eGFR will be >90 mL/ min/1.73m2. The eGFR declines with age. An eGFR of 60-89 may be normal in [place] mL/min/1.7 /2015 some populations, particularly the elderly, for whom the CKD-EPI formula has not been extensively validated. Use of the eGFR is not recommended in the following populations: [place] 3m2 Individuals with unstable creatinine concentrations, including patients and those with serious co-morbid conditions. Patients with extremes in muscle mass or diet. The data above are obtained from the National Kidney Disease Education Program (NKDEP) which additionally recommends that when the eGFR is used in patients with extremes of body mass index for purposes of drug dosing, the eGFR should be multiplied by the estimated BMI. ELECTROLYT Creatinine 0.80 mg/dL 0.50 - 10/27 [facility] [place] Lvl 1.40 [place] ELECTROLYT Sodium Lvl 141 meq/L 135 - 145 10/27 [facility] [place] ELECTROLYT Calcium Lvl 8.2 mg/dL 8.5 - 10.5 10/27 [facility] [place] ELECTROLYT CO2 20 meq/L 24 - 32 10/27 [facility] [place] ELECTROLYT Chloride Lvl 112 meq/L 95 - 109 10/27 [facility] [place] ELECTROLYT Potassium 4.6 meq/L 3.5 - 5.1 10/27 [facility] [place] Lvl /2015 [place] ELECTROLYT BUN 10 mg/dL 7 - 22 10/27 [facility] [place] ES /2015 [place] ELECTROLYT Glucose Lvl 103 mg/dL 70 - 99 / [place] ES /2015 [place] HEMATOLOGY Segs-Bands # 10.7 K/CMM 1.5 - 8.1 04 [facility] [place] HEMATOLOGY Eosinophils 0.0 K/CMM 0.0 - 0.5 10/27 [place] # [place] HEMATOLOGY Basophils # 0.0 K/CMM 0.0 - 0.2 04/ /2015 [facility] HEMATOLOGY Lymphocytes 1.2 K/CMM 1.0 - 5.5 10/27 [place] # /2016 [facility] HEMATOLOGY Monocytes # 1.3 K/CMM 0.0 - 0.8 10/27 [facility] HEMATOLOGY Basophils 0.2 % 0.0 - 1.0 10/27 /2015 [facility] HEMATOLOGY Monocytes 9.5 % 2.0 - 12.0 10/27 [facility] HEMATOLOGY Segs 81.0 % 45.0 - 10/27 [place] 75.0 /2015 [facility] HEMATOLOGY Eosinophils 0.0 % 0.0 - 4.0 10/27 [facility] HEMATOLOGY Lymphocytes 9.3 % 20.0 - 10/27 [place] 40.0 /2015 [facility] HEMATOLOGY MCV 92.8 fL 80.0 - 10/27 [place] 98.0 /2015 [facility] HEMATOLOGY Hct 28.2 % 36.0 - 10/27 [place] 48.0 [facility] HEMATOLOGY Hgb 9.1 g/dL 12.0 - 10/27 [place] 16.0 /2015 [facility] HEMATOLOGY MCHC 32.3 g/dL 32.0 - 10/27 [place] 36.0 /2015 [facility] HEMATOLOGY RDW 14.3 % 11.5 - 10/27 [place] 14.5 /2015 [facility] HEMATOLOGY MCH 29.9 pg 27.0 - 10/27 [place] 31.0 /2015 [facility] HEMATOLOGY Platelet 324 K/CMM 133 - 450 10/27 [facility] HEMATOLOGY MPV 7.5 fL 7.4 - 10.4 10/27 [facility] HEMATOLOGY RBC 3.04 M/CMM 4.20 - 10/27 [place] 5.40 /2015 [facility] HEMATOLOGY WBC 13.2 K/CMM 3.7 - 10.4 10/27 [facility] Chest Chest 1view Chest x-ray 1 view 10/26 - [facility] 1view DX - [place] Comparison:10/25/15 Findings: Heart size and central vasculature are within normal limits. There is continued right basilar (probable lower lobe) consolidation with slight silhouetting of the lateral right hemidiaphragm. M Read by: Omar Manzano MD inimal patchy opacities are noted in the left lung base. No acute osseus pathology. Dictated Date/time: 10/27/15 07:23 Electronically Signed by: Omar Manzano MD 10/27/15 07:25 FINAL REPORT Impression: Right greater than left basilar consolidation may be due to pneumonia or less likely atelectasis. Suspected small right pleural effusion. HEMATOLOGY RBC Morph Normal 10/25 [facility] (10/26/15 11:46 AM) HEMATOLOGY Plt Morph Normal 10/25 [facility] (10/26/15 11:46 AM) URINE AND UA RBC 0-2 /HPF 0 - 2 10/25 [facility] URINE AND UA WBC 0-2 /HPF None Seen 10/25 [place] STOOL /HPF [facility] URINE AND UA Bacteria Occasional None Seen 10/25 [place] STOOL /HPF /HPF [facility] URINE AND UA Bili Negative Negative 10/25 [facility] *NA* (10/26/15 12:50 AM) URINE AND UA Blood Negative Negative 10/25 [place] STOOL [facility] (10/26/15 12:50 AM) URINE AND UA 0.2 EU/dL 0.1 - 1.0 10/25 [facility] Urobilinogen [facility] URINE AND UA Leuk Est Negative Negative 10/25 [place] STOOL [facility] (10/26/15 12:50 AM) URINE AND UA Sq Epi Few /LPF Few /LPF 10/25 [facility] URINE AND UA Nitrite Negative Negative 10/25 [place] STOOL [facility] (10/26/15 12:50 AM) URINE AND UA Color Yellow Yellow 10/25 [place] STOOL [facility] *NA* (10/26/15 12:50 AM) URINE AND UA Spec Grav <=1.005 <=1.030 10/25 [place] STOOL
*NA*< [place] br/>( 12:50 AM) URINE AND UA Turbidity Clear Clear 10/25 [place] STOOL [facility] (10/26/15 12:50 AM) URINE AND UA pH 6.0 5.0 - 8.0 10/25 [place] STOOL [facility] URINE AND UA Glucose Negative Negative 10/25 [place] STOOL [facility] (10/26/15 12:50 AM) URINE AND UA Protein 30 mg/dL Negative 10/25 [place] STOOL mg/dL [facility] URINE AND UA Ketones Negative Negative 10/25 [place] STOOL [place] *NA* (10/26/15 12:50 AM) VIRAL - Influ B Negative Negative 10/25 [place] SEROLOGY [facility] (10/25/15 11:34 PM) VIRAL - Influ A Negative Negative 10/25 [place] SEROLOGY [facility] (10/25/15 11:34 PM) CARDIAC Total CK 64 unit/L 12 - 191 10/25 [place] ENZYMES [facility] CARDIAC Troponin-I null 0.00 - 04 [place] ENZYMES 0.40 /2015 [facility] CARDIAC CK MB null 0.5 - 3.6 04 [place] ENZYMES [facility] CARDIAC CK MB Index null 0.0 - 2.5 04 [place] ENZYMES [facility] CHEM PANEL Procalcitoni 0.43 ng/mL 0.00 - 04 [place] n Lvl 0.10 [place] CHEM PANEL Lactic Acid 1.2 mMol/L 0.5 - 2.2 10/25 [place] Lvl [place] CHEM PANEL A/G Ratio 0.7 0.7 - 1.6 04 [place] CHEM PANEL Globulin 4.4 g/dL 2.0 - 4.0 04/ [place] CHEM PANEL B/C Ratio 12 6 - 25 10/25 [place] CHEM PANEL Total 7.3 g/dL 6.4 - 8.4 10/25 [place] CHEM PANEL Alk Phos 78 unit/L 39 - 136 / [place] CHEM PANEL Albumin Lvl 2.9 g/dL 3.5 - 5.0 / [place] CHEM PANEL AST 13 unit/L 0 - 37 04/ [place] CHEM PANEL ALT 24 unit/L 0 - 65 04/ [place] CHEM PANEL Bili Total 0.5 mg/dL 0.2 - 1.3 04 [place] HEMATOLOGY PT 15.4 s 12.0 - 04/06 [place] 14.7 /2015 [place] HEMATOLOGY INR 1.19 0.85 - 04/ [place] 1.17 /2015 [facility] HEMATOLOGY PTT 41.9 s 22.9 - 04/06 [place] 35.8 /2015 [place] HEMATOLOGY Plt Morph Normal 10/25 [facility] (10/25/15 11:13 PM) HEMATOLOGY RBC Morph Normal 10/25 [place] /2015 [place] (10/25/15 11:13 PM) Chest Chest 1view EXAM: 10/24 - [place] 1view DX DX - [facility] Single view chest. Read by: Christiano Garcia MD Dictated Date/time: 10/25/15 23:49 INDICATION: Electronically Signed by: Christiano Garcia MD 10/25/15 23:50 FINAL REPORT Chest pain. COMPARISON: Chest x-ray: 12/16/2013. FINDINGS: There is a right basilar airspace opacity with small right pleural effusion. There are left basilar interstitial opacities. The heart is normal in size. There is no pneumothorax. The bones are unremarkable IMPRESSION: Right basilar pneumonia with small right pleural effusion. Left basilar interstitial opacities, which may represent atelectasis or pneumonia CHEM PANEL Magnesium 1.5 mg/dL 1.8 - 2.4 12/17 [facility] CHEM PANEL Phosphorus 2.8 mg/dL 2.5 - 4.5 12/17 [place] ELECT[facility]OLYT Chloride Lvl 110 meq/L 95 - 109 12/17 [place] ELECT[facility]OLYT CO2 24 meq/L 24 - 32 12/17 [place] [facility] Calcium Lvl 7.8 mg/dL 8.5 - 10.5 12/17 [place] ELECT[facility]OLYT Total 5.1 g/dL 6.4 - 8.4 12/17 [facility] ELECTROLYT Albumin Lvl 2.7 g/dL 3.5 - 5.0 12/17 [facility] ELECTROLYT Glucose Lvl 95 mg/dL 70 - 99 12/17 3Interpretive Data: Adult reference range values reflect the clinical guidelines of the [place] [employer]. [place] ELECTROLYT BUN 15 mg/dL 7 - 22 12/17 [place] [facility]T Creatinine 0.9 mg/dL 0.5 - 1.4 12/17 ES Lv [place] ELECT[facility]OLYT Sodium Lvl 144 meq/L 135 - 145 12/17 [facility] ELECTROLYT Potassium 4.1 meq/L 3.5 - 5.1 12/17 ES Lv [place] ELECTROLYT eGFR 61 12/17 1Result Comment: The eGFR is calculated using the CKD-EPI formula. In most young, healthy individuals the eGFR will be >90 mL/ min/1.73m2. The eGFR declines with age. An eGFR of 60-89 may be normal in mL/min/1.7 /2013 some populations, particularly the elderly, for whom the CKD-EPI formula has not been extensively validated. Use of the eGFR is not recommended in the following populations: [facility] 3m2 Individuals with unstable creatinine concentrations, including patients and those with serious co-morbid conditions. Patients with extremes in muscle mass or diet. The data above are obtained from the National Kidney Disease Education Program (NKDEP) which additionally recommends that when the eGFR is used in patients with extremes of body mass index for purposes of drug dosing, the eGFR should be multiplied by the estimated BMI. ELECTROLYT ALT 11 unit/L 0 - 65 12/17 [facility] ELECTROLYT AST 10 unit/L 0 - 37 12/17 [facility] ELECTROLYT Alk Phos 48 unit/L 39 - 136 12/17 [facility] ELECTROLYT Bili Total 0.3 mg/dL 0.2 - 1.3 12/17 [facility] ELECTROLYT AGAP 14.1 meq/L 10.0 - 12/17 ES 20.0 [facility] ELECTROLYT B/C Ratio 17 6 - 25 12/17 [facility] ELECTROLYT Globulin 2.4 g/dL 2.0 - 4.0 12/17 ES [facility] ELECTROLYT A/G Ratio 1.1 0.7 - 1.6 12/17 [facility] HEMATOLOGY Lymphocytes 1.1 K/CMM 1.0 - 5.5 12/17 # /2014 [facility] HEMATOLOGY Basophils 0.5 % 0.0 - 1.0 12/17 [facility] HEMATOLOGY Segs-Bands # 3.4 K/CMM 1.5 - 8.1 12/17 [facility] HEMATOLOGY Monocytes 15.5 % 2.0 - 12.0 12/17 [facility] HEMATOLOGY Lymphocytes 20.8 % 20.0 - 12/17 40.0 [facility] HEMATOLOGY Eosinophils 0.7 % 0.0 - 4.0 12/17 [facility] HEMATOLOGY Basophils # 0.0 K/CMM 0.0 - 0.2 12/17 [facility] HEMATOLOGY Segs 62.5 % 45.0 - 12/17 75.0 /2014 [facility] HEMATOLOGY Monocytes # 0.8 K/CMM 0.0 - 0.8 12/17 MH /2013 [facility] HEMATOLOGY Eosinophils 0.0 K/CMM 0.0 - 0.5 12/17 MH # /2014 [facility] HEMATOLOGY MCV 91.6 fL 81.0 - 12/17 99.0 /2013 [facility] HEMATOLOGY MCH 31.2 pg 27.0 - 12/17 31.0 /2013 [facility] HEMATOLOGY RBC 3.15 M/CMM 4.20 - 12/17 5.40 /2014 [facility] HEMATOLOGY Hgb 9.8 g/dL 12.0 - 12/17 16.0 /2013 [facility] HEMATOLOGY Hct 28.9 % 36.0 - 12/17 48.0 /2013 [facility] HEMATOLOGY MPV 8.2 fL 7.4 - 10.4 12/17 [facility] HEMATOLOGY Platelet 266 K/CMM 133 - 450 12/17 /2013 [facility] HEMATOLOGY WBC 5.4 K/CMM 3.7 - 10.4 12/17 /2013 [facility] HEMATOLOGY RDW 14.3 % 11.5 - 12/17 14.5 /2013 [facility] HEMATOLOGY MCHC 34.0 g/dL 32.0 - 12/17 36.0 /2013 [facility] URINE AND UA Ketones Negative Negative 12/17 STOOL mg/dL mg/dL /2013 [facility] URINE AND UA Blood Negative Negative 12/17 STOOL [facility] (12/17/13 1:36 AM) URINE AND UA Sq Epi Occasional Few /LPF 12/17 STOOL /LPF /2013 [facility] URINE AND UA Leuk Est Trace Negative 12/17 [facility] *ABN* (12/17/13 1:36 AM) URINE AND UA RBC 2 /HPF 0 - 2 12/17 STOOL [facility] URINE AND UA Nitrite Negative Negative 12/17 STOOL [facility] (12/17/13 1:36 AM) URINE AND UA WBC 9 /HPF 0 - 5 12/17 [facility] URINE AND UA Color Yellow Yellow 12/17 STOOL [facility] *NA* (12/17/13 1:36 AM) URINE AND UA Turbidity Clear Clear 12/17 STOOL [facility] (12/17/13 1:36 AM) URINE AND UA Spec Grav 1.018 <=1.030 12/17 [facility] URINE AND UA pH 5.0 5.0 - 8.0 12/17 STOOL /2013 [facility] URINE AND UA Glucose Negative Negative 12/17 STOOL mg/dL mg/dL [facility] URINE AND UA Bili Negative Negative 12/17 STOOL [facility] *NA* (12/17/13 1:36 AM) URINE AND UA Protein Negative Negative 12/17 STOOL mg/dL mg/dL [facility] URINE AND UA <=1.0 0.1 - 1.0 12/17 STOOL Urobilinogen mg/dL /2013 [facility] CARDIAC CK MB Index 2.3 0.0 - 2.5 12/17 ENZYMES [facility] CARDIAC BNP 13 pg/mL <=100 12/17 5Interpretive Data: Elevated results are in line with increasing severity of ENZYMES pg/mL /2013 congestive heart failure. Minor elevations between 100 and [address] [place] may be seen with Myocardial Ischemia, Sodium retaining drugs, and compensated/treated heart failure. CARDIAC CK MB 1.1 ng/mL 0.5 - 3.6 12/17 ENZYMES [facility] CARDIAC Total CK 48 unit/L 12 - 191 12/17 ENZYMES [facility] CARDIAC Troponin-I null 0.00 - 12/17 ENZYMES 0.40 [facility] CHEM PANEL Phosphorus 2.8 mg/dL 2.5 - 4.5 12/17 [facility] CHEM PANEL eGFR 61 12/17 2Result Comment: The eGFR is calculated using the CKD-EPI formula. In most young, healthy individuals the eGFR will be >90 mL/ min/1.73m2. The eGFR declines with age. An eGFR of 60-89 may be normal in mL/min/1.7 /2013 some populations, particularly the elderly, for whom the CKD-EPI formula has not been extensively validated. Use of the eGFR is not recommended in the following populations: [facility] 3m2 Individuals with unstable creatinine concentrations, including patients and those with serious co-morbid conditions. Patients with extremes in muscle mass or diet. The data above are obtained from the National Kidney Disease Education Program (NKDEP) which additionally recommends that when the eGFR is used in patients with extremes of body mass index for purposes of drug dosing, the eGFR should be multiplied by the estimated BMI. CHEM PANEL AGAP 12.8 meq/L 10.0 - 12/17 MH 20.0 [facility] CHEM PANEL Alk Phos 53 unit/L 39 - 136 12/17 [facility] CHEM PANEL Bili Total 0.3 mg/dL 0.2 - 1.3 12/17 [facility] CHEM PANEL B/C Ratio 21 6 - 25 12/17 [facility] CHEM PANEL AST 11 unit/L 0 - 37 12/17 [facility] CHEM PANEL ALT 15 unit/L 0 - 65 12/17 [facility] CHEM PANEL Globulin 3.1 g/dL 2.0 - 4.0 12/17 [facility] CHEM PANEL Potassium 3.8 meq/L 3.5 - 5.1 12/17 [facility] CHEM PANEL A/G Ratio 1.0 0.7 - 1.6 12/17 [facility] CHEM PANEL Sodium Lvl 141 meq/L 135 - 145 12/17 [facility] CHEM PANEL Total 6.2 g/dL 6.4 - 8.4 12/17 [facility] CHEM PANEL BUN 19 mg/dL 7 - 22 12/17 [facility] CHEM PANEL Creatinine 0.9 mg/dL 0.5 - 1.4 12/17 [facility] CHEM PANEL Calcium Lvl 8.3 mg/dL 8.5 - 10.5 12/17 [facility] CHEM PANEL CO2 26 meq/L 24 - 32 12/17 [facility] CHEM PANEL Chloride Lvl 106 meq/L 95 - 109 12/17 [facility] CHEM PANEL Albumin Lvl 3.1 g/dL 3.5 - 5.0 12/17 [facility] CHEM PANEL Glucose Lvl 104 mg/dL 70 - 99 12/17 4Interpretive Data: Adult reference range values reflect the clinical guidelines of the [place] [employer]. [facility] CHEM PANEL Magnesium 1.5 mg/dL 1.8 - 2.4 12/17 [facility] HEMATOLOGY Basophils # 0.0 K/CMM 0.0 - 0.2 12/17 [facility] HEMATOLOGY Segs 81.4 % 45.0 - 12/17 75.0 [facility] HEMATOLOGY Eosinophils 0.3 % 0.0 - 4.0 12/17 [facility] HEMATOLOGY Lymphocytes 9.6 % 20.0 - 12/17 MH 40.0 [facility] HEMATOLOGY Monocytes 8.3 % 2.0 - 12.0 12/17 [facility] HEMATOLOGY Monocytes # 0.6 K/CMM 0.0 - 0.8 12/17 [facility] HEMATOLOGY Eosinophils 0.0 K/CMM 0.0 - 0.5 12/17 # /2013 [facility] HEMATOLOGY Lymphocytes 0.7 K/CMM 1.0 - 5.5 12/17 MH # /2013 [facility] HEMATOLOGY Segs-Bands # 5.8 K/CMM 1.5 - 8.1 12/17 [facility] HEMATOLOGY Basophils 0.4 % 0.0 - 1.0 12/17 [facility] WBC 7.1 K/CMM 3.7 - 10.4 12/17 [facility] HEMATOLOGY RBC 3.51 M/CMM 4.20 - 12/17 5.40 /2013 [facility] Hgb 10.9 g/dL 12.0 - 12/17 16.0 [facility] Hct 31.7 % 36.0 - 12/17 48.0 /2013 [facility] MCV 90.4 fL 81.0 - 12/17 99.0 /2013 [facility] MCH 31.1 pg 27.0 - 12/17 31.0 /2013 [facility] MCHC 34.4 g/dL 32.0 - 12/17 36.0 /2013 [facility] RDW 13.8 % 11.5 - 12/17 14. [facility] Platelet 297 K/CMM 133 - 450 12/17 [facility] MPV 8.3 fL 7.4 - 10.4 12/17 [facility] INR 0.99 0.85 - 12/17 6Interpretive Data: RECOMMENDED RANGES FOR PROTIME INR: 1. 2.0-3.0 for most medical and surgical thromboembolic states. [facility] 2.5-3.5 for artificial heart valves and recurrent embolism. INR SHOULD BE USED ONLY FOR PATIENTS ON STABLE ANTICOAGULANT THERAPY. HEMATOLOGY PT 13.0 s 12.0 - 12/17 14.7 [facility] HEMATOLOGY PTT 28.4 s 22.9 - 12/17 7Interpretive 35.8 Data: Heparin [facility] Therapeutic Range: 57 - 92 Seconds Vital Signs Vital Sign Value Date Comments Source Respitory Rate 18 06/09/2016 [facility] Heart Rate 98 06/09/2016 [facility] Systolic (mm Hg) <content 06/09/2016 [facility] ID='[id number] [facility] 449'>152</[place] nt>/<content ID='[id number] 451'>92</c ontent> Temperature Oral (F) 36.5 Sissy 06/09/2016 [facility] Systolic (mm Hg) <content 06/09/2016 [facility] ID='[id number] [facility] 195'>142</[place] nt>/<content ID='[id number] 197'>70</c ontent> Systolic (mm Hg) <content 06/09/2016 [facility] ID='[id number] [facility] 838'>155</[place] nt>/<content ID='[id number]'>84</c ontent> Respitory Rate 18 06/09/2016 [facility] Heart Rate 100 06/09/2016 [facility] Temperature Oral (F) 36.5 Sissy 06/09/2016 [facility] Temperature Oral (F) 36.5 Sissy 06/09/2016 [facility] Heart Rate 99 06/09/2016 [facility] Respitory Rate 18 06/09/2016 [facility] Temperature Oral (F) 36.6 Sissy 06/05/2016 [facility] Temperature Oral (F) 36.9 Sissy 06/05/2016 [facility] Weight 20.51 06/04/2016 [facility] Weight 47.63 06/04/2016 [facility] Height 152.4 cm 06/04/2016 [facility] Peripheral Pulse Rate 64 06/04/2016 [facility] Height 152.4 cm 05/30/2016 [facility] Weight 47.63 05/30/2016 [facility] Weight 20.51 05/30/2016 [facility] Peripheral Pulse Rate 67 05/30/2016 [facility] Heart Rate 92 10/30/2015 [place] Respitory Rate 18 10/30/2015 [place] Temperature Oral (F) 98.2 F 10/30/2015 [place] Systolic (mm Hg) 125 10/30/2015 [place] Diastolic (mm Hg) 72 10/30/2015 [place] Temperature Oral (F) 98.4 F 10/30/2015 [place] Heart Rate 81 10/30/2015 [place] Respitory Rate 18 10/30/2015 [place] Systolic (mm Hg) 131 10/30/2015 [place] Diastolic (mm Hg) 72 10/30/2015 [place] Temperature Oral (F) 98.5 F 10/30/2015 [place] Heart Rate 81 10/30/2015 [place] Respitory Rate 18 10/30/2015 [place] Systolic (mm Hg) 112 10/30/2015 [place] Diastolic (mm Hg) 63 10/30/2015 [place] Weight 49.773 10/26/2015 [place] BMI Calculated 21.43 10/26/2015 [place] Height 152.4 cm 10/26/2015 [place] Weight 48.636 10/26/2015 [place] Systolic (mm Hg) 94 12/17/2013 [facility] Respitory Rate 18 12/17/2013 [facility] Diastolic (mm Hg) 49 12/17/2013 [facility] Diastolic (mm Hg) 50 12/17/2013 [facility] Systolic (mm Hg) 84 12/17/2013 [facility] Respitory Rate 20 12/17/2013 [facility] Heart Rate 71 12/17/2013 [facility] Temperature Oral (F) 98.1 F 12/17/2013 [facility] Height 147.32 cm 12/17/2013 [facility] BMI Calculated 30.58 12/17/2013 [facility] Weight 66.364 12/17/2013 [facility] Respitory Rate 20 12/17/2013 [facility] Systolic (mm Hg) 100 12/17/2013 [facility] Diastolic (mm Hg) 58 12/17/2013 [facility] Temperature Oral (F) 98.7 F 12/17/2013 [facility] Heart Rate 76 12/17/2013 [facility] Temperature Oral (F) 98.5 F 12/17/2013 [facility] Height 149.86 cm 12/17/2013 [facility] Weight 47.273 12/17/2013 [facility] BMI Calculated 21.05 12/17/2013 [facility] Heart Rate 82 12/17/2013 [facility] Encounters Location Location Encounter Encounter Reason Attending ADM DC Status Source Details Type Number For Provider Date Date Visit Emergency [id number] CHEST MATTHIAS 03/07 03/07 Active [facility] 3 PAIN [place]AYAR[place] /2010 [place] [id number] 571.8 - YUDI HARRY 03/15 03/15 Active [facility] 0 CHRONIC /2010 [facility] LIVER D ood 789.01 - ABDMNAL PAIN RT Emergency [id number] SHARI GREEN 03/30 03/31 Active [facility] 4 JR [facility] Emergency [id number] SOB SHARI GREEN 04/12 04/13 Active [id number] Rj [place] 12/17 12/17 [place] [facility] Inpatient [id number] [place] 10/25 10/29 [place] [address] [place] [facility] Inpatient [id number] Adam 06/04 06/09 Active [facility] /2015 [facility] Outpatient [id number] EILEEN DOWNEY 02/21 Active [facility] [id number] EILEENKaylee DOWNEY 03/27 Active [facility] Out[facility] [id number] LILIA 04/09 Active [facility] 2 CI [place] [facility] [id number] EILEEN DOWNEY 04/14 Active [facility] Outpatient [id number] EILEENKaylee DOWNEY 04/28 Active [facility] Outpatient [id number] ESOPHAGI YUDI HARRY Cancel [place] 6 TIS [facility] OD [id number] 368.40 - YUDI HARRY Active [facility] 1 VISUAL [facility] FIELD DE ood Procedures Procedure Code Date Perfomer Comments Source IMPLANTATION OF [place] 2auto-populated Surgical BIOLOGIC IMPLANT 6 from documented Specialty 57004 surgical case [facility] (Other[facility]sup>2</sup> [place] REPAIR HERNIA [facility] 3[facility]-populated [facility] INCISIONAL OR 6 from documented Specialty VENTRAL-W/MESH 58974 surgical case [facility] (Other)<sup>3</sup> [place] REPAIR INITIAL HERNIA [place] 4auto-populated Surgical INCISIONAL OR 6 from documented Specialty VENTRAL-REDUCIBLE surgical case [facility] [id number] [place] (Other)<sup>4</sup> COLONOSCOPY Surgical 1 Specialty [facility] HERNIA 1X2 Surgical REPAIR<sup>1</sup> 1 Specialty [facility] Cholecystectomy [id number] [facility] Hernia repair [id number] [facility] Resection of colon [id number] [facility] for interposition Cholecystectomy [id number] [place] Hernia repair [id number] [facility] Resection of colon [id number] [facility] for interposition
--- OUTSIDE RECORDS SUMMARY | 2018-05-26 19:31 | XMS REPORT | CCD ---
:1935 Author Organization [facility] Care Team Providers Name Role Phone Karey Ely Consulting Provider Unavailable [employer], Login Consulting Provider Unavailable Loraine Rivera Consulting Provider [phone] Ag Blair Referring Provider Josefina Blair Consulting Provider [phone] Jr Cross Consulting Provider Allergies, Adverse Reactions, Alerts Substance Reaction Status codeine ?? Active hydrocodone ?? Active NKDA ?? Canceled
--- OUTSIDE RECORDS SUMMARY | 2018-05-26 19:31 | XMS REPORT | Summary of Care ---
:1935 Author Encounter EVERETTE Velazquez(GALINA) [id number] Date(s): 12/16/13 - 12/17/13 [facility] [address] Discharge Disposition: Home Physician Attending: Rj Lazo MD Physician Admitting: Rj Lazo MD Reason for Visit SYNCOPE, VOMITING, UTI Vital Signs Most recent to oldest 1 2 3 [Reference Range]: Height 147.32 cm 149.86 cm (12/17/13 8:24 AM) (12/17/13 5:03 AM) Temperature Oral [96.4-99.1 98.1 DegF 98.7 DegF 98.5 DegF DegF] (12/17/13 11:47 AM) (12/17/13 7:59 AM) (12/17/13 5:57 AM) Systolic Blood Pressure 94 mmHg 84 mmHg 100 mmHg [90-140 mmHg] (12/17/13 2:43 PM) *LOW* (12/17/13 7:59 AM) (12/17/13 11:47 AM) Diastolic Blood Pressure 49 mmHg 50 mmHg 58 mmHg [60-90 mmHg] *LOW* *LOW* *LOW* (12/17/13 2:43 PM) (12/17/13 11:47 AM) (12/17/13 7:59 AM) Respiratory Rate [14-20 18 BRMIN 20 BRMIN 20 BRMIN BRMIN] (12/17/13 2:43 PM) (12/17/13 11:47 AM) (12/17/13 7:59 AM) Peripheral Pulse Rate 71 bpm 76 bpm 82 bpm [60-100 bpm] (12/17/13 11:47 AM) (12/17/13 7:59 AM) (12/16/13 11:45 PM) Weight 66.364 kg 47.273 kg (12/17/13 8:24 AM) (12/17/13 5:03 AM) Body Mass Index 30.58 m2 21.05 m2 (12/17/13 8:24 AM) (12/17/13 5:03 AM) Problem List Condition Effective Dates Status Health Status Informant Hypertension(Confirmed) Resolved Allergies, Adverse Reactions, Alerts Substance Reaction Severity Status codeine Active hydrocodone Active Medications acetaminophen 650 mg, 20.3 mL, Route: PO, Drug form: LIQ, Q4H, Dosing Weight 47.273, kg, PRN Pain 1-3/Temp > 100.4 F, Start date: 12/17/13 6:29:00, Duration: 30 day, Stop date: 01/16/14 6:28:00 Notes: Max huluisnkxdrrs=6611rg/day (4 gm/day). (Same as: Tylenol) Start Date: 12/17/13 Stop Date: 12/17/13 Status: Discontinuedalbuterol-ipratropium 2.5-0.5 mg inhalation solution 3 ml, INHALATION, Q6H, as needed for shortness of breath or wheezing, # 30 ea, 0 Refill(s) Start Date: 12/17/13 Status: Orderedatropine 0.5 mg, 5 mL, Route: IVP, Drug form: INJ, PRN, PRN Bradycardia, Start date: 7:24:00, Duration: 30 day, Stop date: 01/16/14 7:23:00 Start Date: 12/17/13 Stop Date: 12/17/13 Status: DiscontinuedcefTRIAXone 1 gm, Route: IVPB, Drug form: PDR/INJ, ONCE, Dosing Weight 54.545, kg, Priority : STAT, Start date: 12/17/13 3:56:00, Stop date: 12/17/13 3:56:00 Start Date: 12/17/13 Stop Date: 12/17/13 Status: Completedcetirizine 10 mg, PO, Bedtime, 0 Refill(s) Start Date: 12/17/13 Status: Orderedlisinopril 20 mg oral tablet 20 mg=1 tab, PO, Daily, # 30 tab, 0 Refill(s) Start Date: 12/17/13 Stop Date: 12/17/13 Status: Discontinuedmagnesium sulfate 1 gm, 100 mL, Route: IVPB, Drug form: INJ, ONCE, Dosing Weight 47.273, kg, Start date: 12/17/13 6:27:00, Stop date: 12/17/13 6:27:00 Start Date: 12/17/13 Stop Date: 12/17/13 Status: CompletedmetFORMIN 500 mg oral tablet 500 mg=1 tab, PO, BID, # 30 tab, 0 Refill(s) Start Date: 12/17/13 Status: Orderedmorphine Sulfate 2 mg, 1 mL, Route: IVP, Drug form: INJ, Q3H, Dosing Weight 47.273, kg, PRN Pain Score 4-6, Start date: 12/17/13 6:29:00, Duration: 30 day, Stop date: 01/16/14 6 :28:00 Notes: (Same as:MORPhine Sulfate) Start Date: 12/17/13 Stop Date: 12/17/13 Status: Discontinuednitroglycerin 0.4 mg sublingual tablet 0.4 mg, 1 tab, Route: SL, Drug form: TAB, Q5Min, PRN Chest Pain, Start date: 7:25:00, Duration: 30 day, Stop date: 01/16/14 7:24:00 Notes: (Same as:Nitroquick, Nitrostat)"Do Not Crush" Sublingual tablet Start Date: 12/17/13 Stop Date: 12/17/13 Status: Discontinuedondansetron 4 mg, 2 mL, Route: IVP, Drug form: INJ, Q4H, Dosing Weight 47.273, kg, PRN Nausea & Vomiting, Start date: 12/17/13 6:29:00, Duration: 30 day, Stop date : 01/16/14 6:28:00 Notes: (Same as: Zofran) Start Date: 12/17/13 Stop Date: 12/17/13 Status: Discontinuedpantoprazole 40 mg, Route: IVP, Drug form: INJ, Daily, Dosing Weight 47.273, kg, Priority: Routine, Start date: 12/17/13 9:00:00, Duration: 30 day, Stop date: 01/15/14 9: 00:00 Notes: For IV push reconstitute with 10 ml 0.9% sodium chloride and push over 2 minutes. (Same as: Protonix) Start Date: 12/17/13 Stop Date: 12/17/13 Status: DiscontinuedSaline Flush 0.9% 5 ml, Route: IVP, Drug Form: INJ, Dosing Weight 47.273, kg, PRN, PRN Line Flush , Start date: 12/17/13 6:29:00, Duration: 30 day, Stop date: 01/16/14 6:28:00 Notes: (Same as: BD Posiflush) Start Date: 12/17/13 Stop Date: 12/17/13 Status: DiscontinuedSaline Flush 0.9% 5 mL, Route: IVP, Drug Form: INJ, Dosing Weight 54.545, kg, Q8H, PRN Line Flush , Start date: 12/16/13 22:42:00, Duration: 30 day, Stop date: 01/15/14 22:41:00 , Administer at least once every 8 hours Special Instructions: Administer at least once every 8 hours Notes: (Same as: BD Posiflush) Start Date: 12/16/13 Stop Date: 12/17/13 Status: Discontinuedsimvastatin 10 mg oral tablet 10 mg=1 tab, PO, Bedtime, # 30 tab, 0 Refill(s) Start Date: 12/17/13 Status: OrderedSodium Chloride 0.9% (Bolus) IV - - 500 mL, 500 ml/hr, Infuse Over: 1 hr, Route: IV, ONCE, Priority: STAT, Dosing Weight 54.545 kg, Start date: 12/17/13 5:02:00, Duration: 1 doses or times, Stop date: 12/17/13 5:02:00 Start Date: 12/17/13 Stop Date: 12/17/13 Status: CompletedSodium Chloride 0.9% IV 1,000 mL 1,000 mL, Rate: 90 ml/hr, Infuse over: 11.1 hr, Route: IV, Dosing Weight 47.273 kg, Total Volume: 1,000, Start date: 12/17/13 6:29:00, Duration: 30 day, Stop date: 01/16/14 6:28:00 Start Date: 12/17/13 Stop Date: 12/17/13 Status: DiscontinuedSpiriva 18 mcg inhalation capsule 18 microgram=1 cap, INHALATION, Daily, # 90 cap, 0 Refill(s) Start Date: 12/17/13 Status: Ordered Results ELECTROLYTES Most recent to oldest [Reference Range]: 1 2 Sodium Lvl [135-145 mEq/L] 144 mEq/L 141 mEq/L (12/17/13 7:46 AM) (12/16/13 10:42 PM) Potassium Lvl [3.5-5.1 mEq/L] 4.1 mEq/L 3.8 mEq/L (12/17/13 7:46 AM) (12/16/13 10:42 PM) Chloride Lvl [95-109 mEq/L] 110 mEq/L 106 mEq/L *HI* (12/16/13 10:42 PM) (12/17/13 7:46 AM) CO2 [24-32 mEq/L] 24 mEq/L 26 mEq/L (12/17/13 7:46 AM) (12/16/13 10:42 PM) AGAP [10.0-20.0 mEq/L] 14.1 mEq/L 12.8 mEq/L (12/17/13 7:46 AM) (12/16/13 10:42 PM) CHEM PANEL Most recent to oldest [Reference Range]: 1 2 Creatinine Lvl [0.5-1.4 mg/dL] 0.9 mg/dL 0.9 mg/dL (12/17/13 7:46 AM) (12/16/13 10:42 PM) eGFR 61 mL/min/1.73m2 1 61 mL/min/1.73m2 2 *NA* *NA* (12/17/13 7:46 AM) (12/16/13 10:42 PM) BUN [7-22 mg/dL] 15 mg/dL 19 mg/dL (12/17/13 7:46 AM) (12/16/13 10:42 PM) B/C Ratio [6-25] 17 21 (12/17/13 7:46 AM) (12/16/13 10:42 PM) Glucose Lvl [70-99 mg/dL] 95 mg/dL 3 104 mg/dL 4 (12/17/13 7:46 AM) *HI* (12/16/13 10:42 PM) Total Protein [6.4-8.4 g/dL] 5.1 g/dL 6.2 g/dL *LOW* *LOW* (12/17/13 7:46 AM) (12/16/13 10:42 PM) Albumin Lvl [3.5-5.0 g/dL] 2.7 g/dL 3.1 g/dL *LOW* *LOW* (12/17/13 7:46 AM) (12/16/13 10:42 PM) Globulin [2.0-4.0 g/dL] 2.4 g/dL 3.1 g/dL (12/17/13 7:46 AM) (12/16/13 10:42 PM) A/G Ratio [0.7-1.6] 1.1 1.0 (12/17/13 7:46 AM) (12/16/13 10:42 PM) Calcium Lvl [8.5-10.5 mg/dL] 7.8 mg/dL 8.3 mg/dL *LOW* *LOW* (12/17/13 7:46 AM) (12/16/13 10:42 PM) Phosphorus [2.5-4.5 mg/dL] 2.8 mg/dL 2.8 mg/dL (12/17/13 7:46 AM) (12/16/13 10:42 PM) Magnesium Lvl [1.8-2.4 mg/dL] 1.5 mg/dL 1.5 mg/dL *LOW* *LOW* (12/17/13 7:46 AM) (12/16/13 10:42 PM) ALT [0-65 unit/L] 11 unit/L 15 unit/L (12/17/13 7:46 AM) (12/16/13 10:42 PM) AST [0-37 unit/L] 10 unit/L 11 unit/L (12/17/13 7:46 AM) (12/16/13 10:42 PM) Alk Phos [39-136 unit/L] 48 unit/L 53 unit/L (12/17/13 7:46 AM) (12/16/13 10:42 PM) Bili Total [0.2-1.3 mg/dL] 0.3 mg/dL 0.3 mg/dL (12/17/13 7:46 AM) (12/16/13 10:42 PM) 1Result Comment: The eGFR is calculated using the CKD-EPI formula. In most young , healthy individualsthe eGFR will be >90 mL/min/1.73m2. The eGFR declines with age. An eGFR of 60-89 may be normal in some populations, particularly the elderly, for whom the CKD-EPI formula has not been extensively validated. Use of the eGFR is not recommended in the following populations: Individuals with unstable creatinine concentrations, including patients and those with serious co-morbid conditions. Patients with extremes in muscle mass or diet. The data above are obtained from the National Kid[employer] Disease Education Program ( NK[employer]) which additionally recommends that when the eGFR is used in patients with extremes of body mass index for purposesof drug dosing, the eGFR should be multiplied by the estimated BMI.2Result Comment: The eGFR is calculated using the CKD-EPI formula. In most young, healthy individualsthe eGFR will be >90 mL/ min/1.73m2. The eGFR declines with age. An eGFR of 60-89 may be normal in some populations, particularly the elderly, for whom the CKD-EPI formula has not been extensively validated. Use of the eGFR is not recommended in the following populations: Individuals with unstable creatinine concentrations, including patients and those with serious co-morbid conditions. Patients with extremes in muscle mass or diet. The data above are obtained from the National Kid[employer] Disease Education Program ( NKDEP) which additionally recommends that when the eGFR is used in patients with extremes of body mass index for purposesof drug dosing, the eGFR should be multiplied by the estimated BMI.3Interpretive Data: Adult reference range values reflect the clinical guidelines of the [place] [employer].4Interpretive Data: Adult reference range values reflect the clinical guidelines of the [place] [employer].CARDIAC ENZYMES Most recent to oldest [Reference Range]: 1 2 Total CK [12-191 unit/L] 48 unit/L (12/16/13 10:42 PM) CK MB [0.5-3.6 ng/mL] 1.1 ng/mL (12/16/13 10:42 PM) CK MB Index [0.0-2.5] 2.3 (12/16/13 10:42 PM) Troponin-I [0.00-0.40 ng/mL] <0.02 ng/mL (12/16/13 10:42 PM) BNP [<=100 pg/mL] 13 pg/mL 5 (12/16/13 10:42 PM) 5Interpretive Data: Elevated results are in line with increasing severity of congestive heart failure. Minor elevations between 100 and 300 may be seen with Myocardial Ischemia, Sodium retaining drugs, and compensated/treated heart failure.URINE AND STOOL Most recent to oldest [Reference Range]: 1 2 UA Turbidity [Clear] Clear (12/17/13 1:36 AM) UA Color [Yellow] Yellow *NA* (12/17/13 1:36 AM) UA pH [5.0-8.0] 5.0 (12/17/13 1:36 AM) UA Spec Grav [<=1.030] 1.018 (12/17/13 1:36 AM) UA Glucose [Negative mg/dL] Negative mg/dL *NA* (12/17/13 1:36 AM) UA Blood [Negative] Negative (12/17/13 1:36 AM) UA Ketones [Negative mg/dL] Negative mg/dL *NA* (12/17/13 1:36 AM) UA Protein [Negative mg/dL] Negative mg/dL (12/17/13 1:36 AM) UA Urobilinogen [0.1-1.0 mg/dL] <=1.0 mg/dL *NA* (12/17/13 1:36 AM) UA Bili [Negative] Negative *NA* (12/17/13 1:36 AM) UA Leuk Est [Negative] Trace *ABN* (12/17/13 1:36 AM) UA Nitrite [Negative] Negative (12/17/13 1:36 AM) UA WBC [0-5 /HPF] 9 /HPF *HI* (12/17/13 1:36 AM) UA RBC [0-2 /HPF] 2 /HPF (12/17/13 1:36 AM) UA Sq Epi [Few /LPF] Occasional /LPF *NA* (12/17/13 1:36 AM) HEMATOLOGY Most recent to oldest [Reference Range]: 1 2 WBC [3.7-10.4 K/CMM] 5.4 K/CMM 7.1 K/CMM (12/17/13 7:46 AM) (12/16/13 10:42 PM) RBC [4.20-5.40 M/CMM] 3.15 M/CMM 3.51 M/CMM *LOW* *LOW* (12/17/13 7:46 AM) (12/16/13 10:42 PM) Hgb [12.0-16.0 g/dL] 9.8 g/dL 10.9 g/dL *LOW* *LOW* (12/17/13 7:46 AM) (12/16/13 10:42 PM) Hct [36.0-48.0 %] 28.9 % 31.7 % *LOW* *LOW* (12/17/13 7:46 AM) (12/16/13 10:42 PM) MCV [81.0-99.0 fL] 91.6 fL 90.4 fL (12/17/13 7:46 AM) (12/16/13 10:42 PM) MCH [27.0-31.0 pg] 31.2 pg 31.1 pg *HI* *HI* (12/17/13 7:46 AM) (12/16/13 10:42 PM) MCHC [32.0-36.0 g/dL] 34.0 g/dL 34.4 g/dL (12/17/13 7:46 AM) (12/16/13 10:42 PM) RDW [11.5-14.5 %] 14.3 % 13.8 % (12/17/13 7:46 AM) (12/16/13 10:42 PM) Platelet [133-450 K/CMM] 266 K/CMM 297 K/CMM (12/17/13 7:46 AM) (12/16/13 10:42 PM) MPV [7.4-10.4 fL] 8.2 fL 8.3 fL (12/17/13 7:46 AM) (12/16/13 10:42 PM) Segs [45.0-75.0 %] 62.5 % 81.4 % (12/17/13 7:46 AM) *HI* (12/16/13 10:42 PM) Lymphocytes [20.0-40.0 %] 20.8 % 9.6 % (12/17/13 7:46 AM) *LOW* (12/16/13 10:42 PM) Monocytes [2.0-12.0 %] 15.5 % 8.3 % *HI* (12/16/13 10:42 PM) (12/17/13 7:46 AM) Eosinophils [0.0-4.0 %] 0.7 % 0.3 % (12/17/13 7:46 AM) (12/16/13 10:42 PM) Basophils [0.0-1.0 %] 0.5 % 0.4 % (12/17/13 7:46 AM) (12/16/13 10:42 PM) Segs-Bands # [1.5-8.1 K/CMM] 3.4 K/CMM 5.8 K/CMM (12/17/13 7:46 AM) (12/16/13 10:42 PM) Lymphocytes # [1.0-5.5 K/CMM] 1.1 K/CMM 0.7 K/CMM (12/17/13 7:46 AM) *LOW* (12/16/13 10:42 PM) Monocytes # [0.0-0.8 K/CMM] 0.8 K/CMM 0.6 K/CMM (12/17/13 7:46 AM) (12/16/13 10:42 PM) Eosinophils # [0.0-0.5 K/CMM] 0.0 K/CMM 0.0 K/CMM (12/17/13 7:46 AM) (12/16/13 10:42 PM) Basophils # [0.0-0.2 K/CMM] 0.0 K/CMM 0.0 K/CMM (12/17/13 7:46 AM) (12/16/13 10:42 PM) PT [12.0-14.7 seconds] 13.0 seconds (12/16/13 10:42 PM) INR [0.85-1.17] 0.99 6 (12/16/13 10:42 PM) PTT [22.9-35.8 seconds] 28.4 seconds 7 (12/16/13 10:42 PM) 6Interpretive Data: RECOMMENDED RANGES FOR PROTIME INR: 2.0-3.0 for most medical and surgical thromboembolic states. 2.5-3.5 for artificial heart valves and recurrent embolism. INR SHOULD BE USED ONLY FOR PATIENTS ON STABLE ANTICOAGULANT THERAPY.7Interpretive Data: Heparin Therapeutic Range: 57 - 92 Seconds Medications Administered During Your Visit No data available for this section Immunizations No data available for this section Procedures Procedure Type Body Site Date of Procedure Related Diagnosis Cholecystectomy Hernia repair Resection of colon for interposition Social History Social History Type Response
--- OUTSIDE RECORDS SUMMARY | 2018-05-26 19:31 | XMS REPORT | Summary of Care ---
:1935 Author Organization [facility] Address [address], [place] [address]- Encounter HQ Caroline(GALINA) [id number] Date(s): 10/25/15 - 10/30/15 [facility] [address] [place] [address]- Discharge Disposition: Home Attending Physician: Chago Elliott MD Admitting Physician: Chago Elliott MD Vital Signs Most recent to oldest 1 2 3 [Reference Range]: Height 152.4 cm (10/26/15 2:35 AM) Temperature Oral [96.4-99.1 98.2 DegF 98.4 DegF 98.5 DegF DegF] (10/30/15 10:46 AM) (10/30/15 7:40 AM) (10/30/15 3:52 AM) Blood Pressure [90-140/60-90 125/72 mmHg 131/72 mmHg 112/63 mmHg mmHg] (10/30/15 10:46 AM) (10/30/15 7:40 AM) (10/30/15 3:52 AM) Respiratory Rate [14-20 BRMIN] 18 BRMIN 18 BRMIN 18 BRMIN (10/30/15 10:46 AM) (10/30/15 7:40 AM) (10/30/15 3:52 AM) Peripheral Pulse Rate [60-100 92 bpm 81 bpm 81 bpm bpm] (10/30/15 10:46 AM) (10/30/15 7:40 AM) (10/30/15 3:52 AM) Weight 49.773 kg 48.636 kg (10/26/15 2:35 AM) (10/25/15 10:56 PM) Body Mass Index 21.43 m2 (10/26/15 2:35 AM) Problem List Condition Effective Dates Status Health Status Informant Diabetes(Confirmed) Resolved Hypertension(Confirmed) Resolved Seasonal allergies(Confirmed) Resolved Allergies, Adverse Reactions, Alerts Substance Reaction Severity Status Benadryl Allergy Active codeine Active hydrocodone Active Medications Advair Diskus 500 mcg-50 mcg inhalation powder 1 puff, INHALATION, BID, # 1 ea, 0 Refill(s) Start Date: 10/26/15 Stop Date: 11/09/15 Status: OrderedAdvair Diskus 500 mcg-50 mcg inhalation powder 1 puff, Route: INHALATION, Drug Form: AERO, Dosing Weight 49.773, kg, BID, Start date: 10/26/15 17:00:00, Duration: 30 day, Stop date: 11/25/15 9:00:00 Start Date: 10/26/15 Stop Date: 10/26/15 Status: Deletedalbuterol-ipratropium 2.5-0.5 mg inhalation solution 3 mL, Route: NEB, Drug Form: SOLN, Dosing Weight 48.636, kg, ONCE, STAT, Start date: 10/25/15 23:22:00, Stop date: 10/25/15 23:22:00 Notes: (Same as: Jaelyn) Start Date: 10/25/15 Stop Date: 10/25/15 Status: Completedalbuterol-ipratropium 2.5-0.5 mg inhalation solution 3 ml, Route: NEB, Drug Form: SOLN, Dosing Weight 49.773, kg, RQ6H, PRN Shortness of breath, Start date: 10/26/15 7:23:00, Duration: 30 day, Stop date: 11/25/15 7:22:00 Notes: (Same as: Jaelyn) Start Date: 10/26/15 Stop Date: 10/30/15 Status: Discontinuedalbuterol-ipratropium 2.5-0.5 mg inhalation solution 3 ml, Route: NEB, Drug Form: SOLN, Dosing Weight 49.773, kg, [id number], Start date : 10/26/15 8:00:00, Duration: 30 day, Stop date: 11/25/15 2:00:00 Notes: (Same as: Jaelyn) Start Date: 10/26/15 Stop Date: 10/30/15 Status: DiscontinuedAugmentin 875 mg oral tablet 1 tab, Route: PO, Dosing Weight 48.636, kg, ONCE, Start date: 10/25/15 23:13:00 , Stop date: 10/24/1622:13:00 Start Date: 10/25/15 Stop Date: 10/25/15 Status: Discontinuedbenzonatate 200 mg, 2 cap, Route: PO, Drug form: CAP, TID, Dosing Weight 49.773, kg, PRN Cough, Start date: 10/26/15 13:00:00, Duration: 30 day, Stop date: 11/25/15 12: 59:00 Notes: (Same As: Qian Parra)"Do Not Crush" Start Date: 10/26/15 Stop Date: 10/30/15 Status: Discontinuedbenzonatate 200 mg oral capsule 200 mg=1 cap, PO, TID, PRN cough, do not crush or chew, # 30 cap, 0 Refill(s) Start Date: 10/26/15 Stop Date: 11/05/15 Status: Orderedbudesonide-formoterol 160 mcg-4.5 mcg/inh inhalation aerosol with adapter 2 inhalation, Route: INHALATION, Drug Form: AERO/A, BID, Start date: 10/26/15 17 :00:00, Duration: 30day, Stop date: 11/25/15 9:00:00 Notes: (Same as: Symbicort)WASTE: Aerosol - Return to Pharmacy Start Date: 10/26/15 Stop Date: 10/30/15 Status: DiscontinuedcefTRIAXone + Sodium Chloride 0.9% IV 100 mL 1 gm, Route: IVPB, ONCE, Dosing Weight 48.636, kg, Priority: STAT, Start date: 10/26/15 0:39:00, Stop date: 10/26/15 0:39:00 Notes: (Same As: Rocephin).Use with 100 mL NS and infuse over 30 min MEDICATION WASTE Product Size: 1000 mgProduct Wasted: ___ mg Start Date: 10/26/15 Stop Date: 10/26/15 Status: CompletedDextrose 50% Syringe 25 gm, 50 mL, Route: IVP, Drug Form: INJ, Dosing Weight 49.773, kg, PRN, PRN Blood Glucose Results, Start date: 10/26/15 7:23:00, Duration: 30 day, Stop date : 11/25/15 7:22:00 Start Date: 10/26/15 Stop Date: 10/30/15 Status: DiscontinuedDextrose 50% Syringe 12.5 gm, 25 mL, Route: IVP, Drug Form: INJ, Dosing Weight 49.773, kg, PRN, PRN Blood Glucose Results, Start date: 10/26/15 7:23:00, Duration: 30 day, Stop date : 11/25/15 7:22:00 Start Date: 10/26/15 Stop Date: 10/30/15 Status: Discontinuedglucagon 1 mg, Route: IM, Drug form: PDR/INJ, PRN, Dosing Weight 49.773, kg, PRN Blood Glucose Results, Startdate: 10/26/15 7:23:00, Duration: 30 day, Stop date: 11/24 7:22:00 Start Date: 10/26/15 Stop Date: 10/30/15 Status: Discontinuedinsulin aspart 4 unit, 0.04 mL, Route: SUB-Q, Drug form: SOLN, Bedtime, Dosing Weight 49.773, kg, PRN Blood GlucoseResults, Start date: 10/26/15 7:23:00, Duration: 30 day, Stop date: 11/25/15 7:22:00 Notes: Roll in palms of hands gently; Do not shake vigorously. (Same as: NovoLOG)"single patient use only"WASTE: F/P - Black; E - Municipal Trash Bin Stable for 28 days at room temperature.Expires in days from Date Start Date: 10/26/15 Stop Date: 10/30/15 Status: Discontinuedinsulin aspart 3 unit, 0.03 mL, Route: SUB-Q, Drug form: SOLN, Bedtime, Dosing Weight 49.773, kg, PRN Blood GlucoseResults, Start date: 10/26/15 7:23:00, Duration: 30 day, Stop date: 11/25/15 7:22:00 Notes: Roll in palms of hands gently; Do not shake vigorously. (Same as: Paperspine)"single patient use only"WASTE: F/P - Black; E - Municipal Trash Bin Stable for 28 days at room temperature.Expires in days from Date Start Date: 10/26/15 Stop Date: 10/30/15 Status: Discontinuedinsulin aspart 2 unit, 0.02 mL, Route: SUB-Q, Drug form: SOLN, Bedtime, Dosing Weight 49.773, kg, PRN Blood GlucoseResults, Start date: 10/26/15 7:23:00, Duration: 30 day, Stop date: 11/25/15 7:22:00 Notes: Roll in palms of hands gently; Do not shake vigorously. (Same as: NovoLOG)"single patient use only"WASTE: F/P - Black; E - Municipal Trash Bin Stable for 28 days at room temperature.Expires in days from Date Start Date: 10/26/15 Stop Date: 10/30/15 Status: Discontinuedinsulin aspart 1 unit, 0.01 mL, Route: SUB-Q, Drug form: SOLN, Bedtime, Dosing Weight 49.773, kg, PRN Blood GlucoseResults, Start date: 10/26/15 7:23:00, Duration: 30 day, Stop date: 11/25/15 7:22:00 Notes: Roll in palms of hands gently; Do not shake vigorously. (Same as: NovoLOG)"single patient use only"WASTE: F/P - Black; E - Municipal Trash Bin Stable for 28 days at room temperature.Expires in days from Date Start Date: 10/26/15 Stop Date: 10/30/15 Status: Discontinuedinsulin aspart 1 unit, 0.01 mL, Route: SUB-Q, Drug form: SOLN, TID-Before Meals, Dosing Weight 49.773, kg, PRN Blood Glucose Results, Start date: 10/26/15 7:23:00, Duration: 30 day, Stop date: 11/25/15 7:22:00 Notes: Roll in palms of hands gently; Do not shake vigorously. (Same as: NovoLOG)"single patient use only"WASTE: F/P - Black; E - Municipal Trash Bin Stable for 28 days at room temperature.Expires in days from Date Start Date: 10/26/15 Stop Date: 10/30/15 Status: Discontinuedinsulin aspart 3 unit, 0.03 mL, Route: SUB-Q, Drug form: SOLN, TID-Before Meals, Dosing Weight 49.773, kg, PRN Blood Glucose Results, Start date: 10/26/15 7:23:00, Duration: 30 day, Stop date: 11/25/15 7:22:00 Notes: Roll in palms of hands gently; Do not shake vigorously. (Same as: NovoLOG)"single patient use only"WASTE: F/P - Black; E - Municipal Trash Bin Stable for 28 days at room temperature.Expires in days from Date Start Date: 10/26/15 Stop Date: 10/30/15 Status: Discontinuedinsulin aspart 2 unit, 0.02 mL, Route: SUB-Q, Drug form: SOLN, TID-Before Meals, Dosing Weight 49.773, kg, PRN Blood Glucose Results, Start date: 10/26/15 7:23:00, Duration: 30 day, Stop date: 11/25/15 7:22:00 Notes: Roll in palms of hands gently; Do not shake vigorously. (Same as: NovoLOG)"single patient use only"WASTE: F/P - Black; E - Municipal Trash Bin Stable for 28 days at room temperature.Expires in days from Date Start Date: 10/26/15 Stop Date: 10/30/15 Status: Discontinuedinsulin aspart 5 unit, 0.05 mL, Route: SUB-Q, Drug form: SOLN, TID-Before Meals, Dosing Weight 49.773, kg, PRN Blood Glucose Results, Start date: 10/26/15 7:23:00, Duration: 30 day, Stop date: 11/25/15 7:22:00 Notes: Roll in palms of hands gently; Do not shake vigorously. (Same as: NovoLOG)"single patient use only"WASTE: F/P - Black; E - Municipal Trash Bin Stable for 28 days at room temperature.Expires in days from Date Start Date: 10/26/15 Stop Date: 10/30/15 Status: Discontinuedinsulin aspart 4 unit, 0.04 mL, Route: SUB-Q, Drug form: SOLN, TID-Before Meals, Dosing Weight 49.773, kg, PRN Blood Glucose Results, Start date: 10/26/15 7:23:00, Duration: 30 day, Stop date: 11/25/15 7:22:00 Notes: Roll in palms of hands gently; Do not shake vigorously. (Same as: Paperspine)"single patient use only"WASTE: F/P - Black; E - Municipal Trash Bin Stable for 28 days at room temperature.Expires in days from Date Start Date: 10/26/15 Stop Date: 10/30/15 Status: DiscontinuedLevaquin 750 mg, 150 mL, Route: IV, Drug form: SOLN, [id number], Start date: 10/28/15 2:00: 00, Duration: 30 day,Stop date: 11/25/15 2:00:00 Notes: (Same as:Levaquin) Start Date: 10/28/15 Stop Date: 10/30/15 Status: DiscontinuedLevaquin 750 mg oral tablet 750 mg=1 tab, PO, Q24H, X 10 day, # 10 tab, 0 Refill(s) Start Date: 10/30/15 Stop Date: 11/09/15 Status: Orderedlevofloxacin 750 mg, 150 mL, Route: IVPB, Drug form: SOLN, ONCE, Dosing Weight 48.636, kg, Priority: STAT, Start date: 10/26/15 0:39:00, Stop date: 10/26/15 0:39:00 Notes: (Same as:Levaquin) Start Date: 10/26/15 Stop Date: 10/26/15 Status: Completedlevofloxacin 750 mg, Route: IVPB, Drug form: SOLN, [id number], Dosing Weight 49.773, kg, Start date: 10/26/15 8:00:00, Duration: 30 day, Stop date: 11/24/15 8:00:00 Start Date: 10/26/15 Stop Date: 10/26/15 Status: Deletedlisinopril 20 mg oral tablet 20 mg=1 tab, PO, Daily, # 30 tab, 0 Refill(s) Start Date: 10/26/15 Status: Orderedmontelukast 10 mg, 1 tab, Route: PO, Drug form: TAB, Daily, Dosing Weight 49.773, kg, Start date: 10/27/15 9:00:00, Duration: 30 day, Stop date: 11/25/15 9:00:00 Notes: (Same as:Singulair) Start Date: 10/27/15 Stop Date: 10/30/15 Status: Discontinuedmontelukast 10 mg oral tablet 10 mg=1 tab, PO, Daily, # 90 tab, 0 Refill(s) Start Date: 10/26/15 Status: Orderedmorphine Sulfate 1 mg, 1 mL, Route: IVP, Drug form: INJ, Q6H, Dosing Weight 49.773, kg, PRN Chest Pain, Start date: 10/26/15 7:23:00, Duration: 30 day, Stop date: 11/25/15 7:22:00 Notes: (Same as: Astramorph-PF) Start Date: 10/26/15 Stop Date: 10/30/15 Status: DiscontinuedNS + KCL 20mEq/L 1000ml (Premix) 1,000 mL 1,000 mL, Rate: 125 ml/hr, Infuse over: 8 hr, Route: IV, Dosing Weight 49.773 kg , Total Volume: 1,000, Start date: 10/26/15 7:22:00, Duration: 30 day, Stop date : 11/25/15 7:21:00 Notes: PREMIX IV - Do Not AlterWASTE: F/P - Sink; E - Municipal Trash Bin Start Date: 10/26/15 Stop Date: 10/30/15 Status: DiscontinuedSaline Flush 0.9% 10 mL, Route: IVP, Drug Form: INJ, Dosing Weight 48.636, kg, PRN, PRN Line Flush , Start date: 10/25/15 23:02:00, Duration: 30 day, Stop date: 11/24/15 23:01:00 Notes: (Same as: BD Posiflush) Start Date: 10/25/15 Stop Date: 10/30/15 Status: DiscontinuedSodium Chloride 0.9% IV (Sodium Chloride 0.9% (Bolus) IV) 1,500 mL, 1,000 ml/hr, Infuse Over: 1.5 hr, Route: IV, 1,500, Drug form: INJ, ONCE, Priority: STAT, Dosing Weight 48.636 kg, Start date: 10/25/15 23:02:00, Duration: 1 doses or times, Stop date: 10/25/15 23:02:00 Start Date: 10/25/15 Stop Date: 10/25/15 Status: CompletedTylenol 650 mg, Route: PO, Drug form: TAB, Q6H, Dosing Weight 49.773, kg, PRN Pain Score 1-3, Start date: 10/26/15 7:23:00, Duration: 30 day, Stop date: 11/25/15 7 :22:00 Start Date: 10/26/15 Stop Date: 10/26/15 Status: DeletedTylenol 650 mg, 2 tab, Route: PO, Drug form: TAB, Q6H, Dosing Weight 49.773, kg, PRN Pain 1-3/Temp > 100.4 F, Start date: 10/26/15 7:23:00, Duration: 30 day, Stop date: 11/25/15 7:22:00 Notes: Do not exceed 4 gm/day. (Same as: Tylenol) Start Date: 10/26/15 Stop Date: 10/30/15 Status: DiscontinuedZofran 4 mg, 2 mL, Route: IV, Drug form: INJ, Q4H, Dosing Weight 49.773, kg, PRN Nausea , Start date: 10/26/15 7:23:00, Duration: 30 day, Stop date: 11/25/15 7:22:00 Notes: (Same as: Zofran) MEDICATION WASTE Product Size: 4 mgProduct Wasted: ___ mg Start Date: 10/26/15 Stop Date: 10/30/15 Status: Discontinued Results ELECTROLYTES Most recent to oldest 1 2 3 [Reference Range]: Sodium Lvl [135-145 mEq/L] 141 mEq/L 142 mEq/L 141 mEq/L (10/30/15 5:42 AM) (10/29/15 5:13 AM) (10/28/15 5:11 AM) Potassium Lvl [3.5-5.1 mEq/L] 4.4 mEq/L 4.4 mEq/L 4.6 mEq/L (10/30/15 5:42 AM) (10/29/15 5:13 AM) (10/28/15 5:11 AM) Chloride Lvl [95-109 mEq/L] 111 mEq/L 112 mEq/L 112 mEq/L *HI* *HI* *HI* (10/30/15 5:42 AM) (10/29/15 5:13 AM) (10/28/15 5:11 AM) CO2 [24-32 mEq/L] 21 mEq/L 22 mEq/L 20 mEq/L *LOW* *LOW* *LOW* (10/30/15 5:42 AM) (10/29/15 5:13 AM) (10/28/15 5:11 AM) AGAP [10.0-20.0 mEq/L] 13.4 mEq/L 12.4 mEq/L 13.6 mEq/L (10/30/15 5:42 AM) (10/29/15 5:13 AM) (10/28/15 5:11 AM) CHEM PANEL Most recent to oldest 1 2 3 [Reference Range]: Creatinine Lvl [0.50-1.40 0.82 mg/dL 0.82 mg/dL 0.80 mg/dL mg/dL] (10/30/15 5:42 AM) (10/29/15 5:13 AM) (10/28/15 5:11 AM) eGFR 68 mL/min/1.73m2 1 67 mL/min/1.73m2 2 70 mL/min/1.73m2 3 *NA* *NA* *NA* (10/30/15 5:42 AM) (10/29/15 5:13 AM) (10/28/15 5:11 AM) BUN [7-22 mg/dL] 9 mg/dL 9 mg/dL 10 mg/dL (10/30/15 5:42 AM) (10/29/15 5:13 AM) (10/28/15 5:11 AM) B/C Ratio [6-25] 12 (10/25/15 11:13 PM) Glucose Lvl [70-99 mg/dL] 100 mg/dL 105 mg/dL 103 mg/dL *HI* *HI* *HI* (10/30/15 5:42 AM) (10/29/15 5:13 AM) (10/28/15 5:11 AM) Total Protein [6.4-8.4 g/dL] 7.3 g/dL (10/25/15 11:13 PM) Albumin Lvl [3.5-5.0 g/dL] 2.9 g/dL *LOW* (10/25/15 11:13 PM) Globulin [2.0-4.0 g/dL] 4.4 g/dL *HI* (10/25/15 11:13 PM) A/G Ratio [0.7-1.6] 0.7 (10/25/15 11:13 PM) Calcium Lvl [8.5-10.5 mg/dL] 8.4 mg/dL 8.4 mg/dL 8.2 mg/dL *LOW* *LOW* *LOW* (10/30/15 5:42 AM) (10/29/15 5:13 AM) (10/28/15 5:11 AM) ALT [0-65 unit/L] 24 unit/L (10/25/15 11:13 PM) AST [0-37 unit/L] 13 unit/L (10/25/15 11:13 PM) Alk Phos [39-136 unit/L] 78 unit/L (10/25/15 11:13 PM) Bili Total [0.2-1.3 mg/dL] 0.5 mg/dL (10/25/15 11:13 PM) Lactic Acid Lvl [0.5-2.2 1.2 mMol/L mMol/L] (10/25/15 11:13 PM) Procalcitonin Lvl [0.00-0.10 0.43 ng/mL ng/mL] *HI* (10/25/15 11:13 PM) 1Result Comment: The eGFR is calculated [...] eGFR should be multiplied by the estimated BMI.3Result Comment: The eGFR is calculated using the [...] eGFR should be multiplied by the estimated BMI.CARDIAC ENZYMES Most recent to oldest [Reference Range]: 1 2 3 Total CK [12-191 unit/L] 64 unit/L (10/25/15 11:13 PM) CK MB [0.5-3.6 ng/mL] <0.5 ng/mL (10/25/15 11:13 PM) CK MB Index [0.0-2.5] <0.8 (10/25/15 11:13 PM) Troponin-I [0.00-0.40 ng/mL] <0.02 ng/mL (10/25/15 11:13 PM) SPECIAL CHEMISTRY Most recent to oldest [Reference Range]: 1 2 3 Hgb A1C [<=5.6 %] 5.5 % (10/30/15 5:42 AM) URINE AND STOOL Most recent to oldest [Reference Range]: 1 2 3 UA Turbidity [Clear] Clear (10/26/15 12:50 AM) UA Color [Yellow] Yellow *NA* (10/26/15 12:50 AM) UA pH [5.0-8.0] 6.0 (10/26/15 12:50 AM) UA Spec Grav [<=1.030] <=1.005 *NA* (10/26/15 12:50 AM) UA Glucose [Negative] Negative (10/26/15 12:50 AM) UA Blood [Negative] Negative (10/26/15 12:50 AM) UA Ketones [Negative] Negative *NA* (10/26/15 12:50 AM) UA Protein [Negative mg/dL] 30 mg/dL *ABN* (10/26/15 12:50 AM) UA Urobilinogen [0.1-1.0 EU/dL] 0.2 EU/dL (10/26/15 12:50 AM) UA Bili [Negative] Negative *NA* (10/26/15 12:50 AM) UA Leuk Est [Negative] Negative (10/26/15 12:50 AM) UA Nitrite [Negative] Negative (10/26/15 12:50 AM) UA WBC [None Seen /HPF] 0-2 /HPF (10/26/15 12:50 AM) UA RBC [0-2 /HPF] 0-2 /HPF (10/26/15 12:50 AM) UA Bacteria [None Seen /HPF] Occasional /HPF (10/26/15 12:50 AM) UA Sq Epi [Few /LPF] Few /LPF (10/26/15 12:50 AM) HEMATOLOGY Most recent to oldest 1 2 3 [Reference Range]: WBC [3.7-10.4 K/CMM] 10.8 K/CMM 12.8 K/CMM 13.2 K/CMM *HI* *HI* *HI* (10/30/15 5:42 AM) (10/29/15 5:13 AM) (10/28/15 5:11 AM) RBC [4.20-5.40 M/CMM] 3.01 M/CMM 3.12 M/CMM 3.04 M/CMM *LOW* *LOW* *LOW* (10/30/15 5:42 AM) (10/29/15 5:13 AM) (10/28/15 5:11 AM) Hgb [12.0-16.0 g/dL] 9.1 g/dL 9.2 g/dL 9.1 g/dL *LOW* *LOW* *LOW* (10/30/15 5:42 AM) (10/29/15 5:13 AM) (10/28/15 5:11 AM) Hct [36.0-48.0 %] 28.0 % 28.9 % 28.2 % *LOW* *LOW* *LOW* (10/30/15 5:42 AM) (10/29/15 5:13 AM) (10/28/15 5:11 AM) MCV [80.0-98.0 fL] 92.9 fL 92.6 fL 92.8 fL (10/30/15 5:42 AM) (10/29/15 5:13 AM) (10/28/15 5:11 AM) MCH [27.0-31.0 pg] 30.1 pg 29.6 pg 29.9 pg (10/30/15 5:42 AM) (10/29/15 5:13 AM) (10/28/15 5:11 AM) MCHC [32.0-36.0 g/dL] 32.4 g/dL 32.0 g/dL 32.3 g/dL (10/30/15 5:42 AM) (10/29/15 5:13 AM) (10/28/15 5:11 AM) RDW [11.5-14.5 %] 14.1 % 14.1 % 14.3 % (10/30/15 5:42 AM) (10/29/15 5:13 AM) (10/28/15 5:11 AM) Platelet [133-450 K/CMM] 367 K/CMM 356 K/CMM 324 K/CMM (10/30/15 5:42 AM) (10/29/15 5:13 AM) (10/28/15 5:11 AM) MPV [7.4-10.4 fL] 8.4 fL 7.4 fL 7.5 fL (10/30/15 5:42 AM) (10/29/15 5:13 AM) (10/28/15 5:11 AM) Segs [45.0-75.0 %] 79.8 % 79.3 % 81.0 % *HI* *HI* *HI* (10/30/15 5:42 AM) (10/29/15 5:13 AM) (10/28/15 5:11 AM) Lymphocytes [20.0-40.0 %] 9.1 % 9.3 % 9.3 % *LOW* *LOW* *LOW* (10/30/15 5:42 AM) (10/29/15 5:13 AM) (10/28/15 5:11 AM) Monocytes [2.0-12.0 %] 10.5 % 11.3 % 9.5 % (10/30/15 5:42 AM) (10/29/15 5:13 AM) (10/28/15 5:11 AM) Eosinophils [0.0-4.0 %] 0.0 % 0.0 % 0.0 % (10/30/15 5:42 AM) (10/29/15 5:13 AM) (10/28/15 5:11 AM) Basophils [0.0-1.0 %] 0.6 % 0.1 % 0.2 % (10/30/15 5:42 AM) (10/29/15 5:13 AM) (10/28/15 5:11 AM) Segs-Bands # [1.5-8.1 K/CMM] 8.6 K/CMM 10.1 K/CMM 10.7 K/CMM *HI* *HI* *HI* (10/30/15 5:42 AM) (10/29/15 5:13 AM) (10/28/15 5:11 AM) Lymphocytes # [1.0-5.5 K/CMM] 1.0 K/CMM 1.2 K/CMM 1.2 K/CMM (10/30/15 5:42 AM) (10/29/15 5:13 AM) (10/28/15 5:11 AM) Monocytes # [0.0-0.8 K/CMM] 1.1 K/CMM 1.4 K/CMM 1.3 K/CMM *HI* *HI* *HI* (10/30/15 5:42 AM) (10/29/15 5:13 AM) (10/28/15 5:11 AM) Eosinophils # [0.0-0.5 K/CMM] 0.0 K/CMM 0.0 K/CMM 0.0 K/CMM (10/30/15 5:42 AM) (10/29/15 5:13 AM) (10/28/15 5:11 AM) Basophils # [0.0-0.2 K/CMM] 0.1 K/CMM 0.0 K/CMM 0.0 K/CMM (10/30/15 5:42 AM) (10/29/15 5:13 AM) (10/28/15 5:11 AM) RBC Morph Normal Normal (10/26/15 11:46 AM) (10/25/15 11:13 PM) Plt Morph Normal Normal (10/26/15 11:46 AM) (10/25/15 11:13 PM) PT [12.0-14.7 seconds] 15.4 seconds *HI* (10/25/15 11:13 PM) INR [0.85-1.17] 1.19 *HI* (10/25/15 11:13 PM) PTT [22.9-35.8 seconds] 41.9 seconds *HI* (10/25/15 11:13 PM) VIRAL - SEROLOGY Most recent to oldest [Reference Range]: 1 2 3 Influ A [Negative] Negative (10/25/15 11:34 PM) Influ B [Negative] Negative (10/25/15 11:34 PM) Immunizations No data available for this section Procedures Procedure Date Related Diagnosis Body Site Cholecystectomy Hernia repair Resection of colon for interposition Social History Social History Type Response Smoking Status Never smoker; Exposure to Tobacco Smoke None; Cigarette Smoking Last 365 Days No; Reg Smoking Cessation Counseling No Assessment and Plan No data available for this section
--- OUTSIDE RECORDS SUMMARY | 2018-05-26 19:31 | XMS REPORT | CCD ---
:1935 Author Organization [facility] Outpatient Imaging [facility] Team Providers Name Role Phone Karey Ely Consulting Provider Unavailable ChartServer, Login Consulting Provider Unavailable RiveraLoraine Consulting Provider [phone] Ag Blair Consulting Provider Josefina Blair Consulting Provider [phone] Jr Cross Consulting Provider Allergies, Adverse Reactions, Alerts Substance Reaction Status codeine ?? Active hydrocodone ?? Active NKDA ?? Canceled
--- OUTSIDE RECORDS SUMMARY | 2018-05-26 19:32 | XMS REPORT | CCD ---
:1935 Author Organization [facility] Care Team Providers Name Role Phone Adam Chapa Consulting Provider Allergies, Adverse Reactions, Alerts Substance Reaction Status Benadryl Unknown Active codeine Unknown Active Problem List Condition Effective Dates Status Allergy1 Active COPD - Chronic obstructive pulmonary disease2 1989 Active Cough3 Active Diabetes mellitus4 2009 Active Hypertension5 1974 Active Ventral hernia Active 1SEASONAL, MED X12SEE PULM DR IFEANYI RICE IX YR, NO PULN STUDY, USES ADVAIR BID AND NEB [place] [id number] COUGH WITH COPD, HAS A MED FOR THIS, I SPENT 45 MIN WITH HER IN PAT AND SHE DID NOT COUGH OR CLEAR THROAT [id number], MED X15MED X1 Medications Medication Instructions Start Date End Date Status lisinopril 20 mg oral 1/2 tabs, Oral, qPM, 0 05/30/2016 06/13/2016 Ordered tablet Refill(s), HYPERTENSION D5W 1,000 mL 1,000 mL, IV, 50 mL/hr, 06/07/2016 06/09/2016 Discontinued start date 06/07/16 19:07:00 MAIL PROCESSING MACHINE OPERATOR NS 1,000 mL 1,000 mL, IV, 125 mL/hr, 06/05/2016 06/06/2016 Discontinued start date 06/05/16 7:03:00 MAIL PROCESSING MACHINE OPERATOR NEBULIZER NEBULIZER, INH, TID, PT INST TO USE AM OF SX, 0 Refill(s), COPD 03/2016 Ordered PT INST TO USE AM OF SX lisinopril Oral, Daily, 0 Refill(s) 05/30/2016 06/13/2016 Ordered NS bolus 1,000 mL 1,000 mL, IV, BOLUS, 06/05/2016 06/06/2016 Discontinued start date 06/05/16 7:02:00 MAIL PROCESSING MACHINE OPERATOR Advair Diskus 250 mcg-50 1 puffs, INH, BID, PT INST TO USE AM OF SX, # 28 EA, 0 Refill(s), COPD 05/30/2016 06/13/2016 Ordered mcg inhalation powder PT INST TO USE AM OF SX lisinopril 10 mg=1 tabs, Tab, Oral, 06/08/2016 06/08/2016 Canceled Daily, first dose 06/08/16 7:30:00 MAIL PROCESSING MACHINE OPERATOR hydrALAZINE 10 mg=0.5 mL, Injection, 06/08/2016 06/09/2016 Discontinued IV Push, q4hr PRN for hypertension, first dose 06/08/16 5:22:00 MAIL PROCESSING MACHINE OPERATOR, SBP >150 Lasix 40 mg=4 mL, Injection, 06/08/2016 06/08/2016 Completed IV Push, Once, first dose 06/08/16 9:30:00 MAIL PROCESSING MACHINE OPERATOR, stop date 06/08/16 9:30:00 MAIL PROCESSING MACHINE OPERATOR albuterol 2.5 mg/3 mL 2.5 mg=3 mL, Soln, NEB, 06/06/2016 06/09/2016 Discontinued (0.083%) inhalation q6hr, first dose solution 06/06/16 12:00:00 MAIL PROCESSING MACHINE OPERATOR vecuronium 2 mg=2 mL, Powder-Inj, 06/04/2016 06/04/2016 Completed IV, Once, first dose 06/04/16 15:53:00 MAIL PROCESSING MACHINE OPERATOR, stop date 06/04/16 15:53:00 MAIL PROCESSING MACHINE OPERATOR ePHEDrine 5 mg=0.1 mL, Injection, 06/04/2016 06/04/2016 Completed IV, Once, first dose 06/04/16 15:54:00 MAIL PROCESSING MACHINE OPERATOR, stop date 06/04/16 15:54:00 MAIL PROCESSING MACHINE OPERATOR dexamethasone 4 mg=1 mL, Injection, 06/04/2016 06/04/2016 Completed IV, Once, first dose 06/04/16 14:41:00 MAIL PROCESSING MACHINE OPERATOR, stop date 06/04/16 14:41:00 MAIL PROCESSING MACHINE OPERATOR lidocaine 2.5 mL, Injection, IV, 06/04/2016 06/04/2016 Completed Once, first dose 06/04/16 14:26:00 MAIL PROCESSING MACHINE OPERATOR, stop date 06/04/16 14:26:00 MAIL PROCESSING MACHINE OPERATOR glycopyrrolate 0.2 mg=1 mL, Injection, 06/04/2016 06/04/2016 Completed IV, Once, first dose 06/04/16 15:01:00 MAIL PROCESSING MACHINE OPERATOR, stop date 06/04/16 15:01:00 MAIL PROCESSING MACHINE OPERATOR ePHEDrine 10 mg=0.2 mL, Injection, 06/04/2016 06/04/2016 Completed IV, Once, first dose 06/04/16 15:08:00 MAIL PROCESSING MACHINE OPERATOR, stop date 06/04/16 15:08:00 MAIL PROCESSING MACHINE OPERATOR vecuronium 2 mg=2 mL, Powder-Inj, 06/04/2016 06/04/2016 Completed IV, Once, first dose 06/04/16 15:10:00 MAIL PROCESSING MACHINE OPERATOR, stop date 06/04/16 15:10:00 MAIL PROCESSING MACHINE OPERATOR vecuronium 5 mg=5 mL, Powder-Inj, 06/04/2016 06/04/2016 Completed IV, Once, first dose 06/04/16 14:26:00 MAIL PROCESSING MACHINE OPERATOR, stop date 06/04/16 14:26:00 MAIL PROCESSING MACHINE OPERATOR fentaNYL 50 mcg=1 mL, Injection, 06/04/2016 06/04/2016 Completed IV, Once, first dose 06/04/16 14:55:00 MAIL PROCESSING MACHINE OPERATOR, stop date 06/04/16 14:55:00 MAIL PROCESSING MACHINE OPERATOR propofol 50 mg=5 mL, Emulsion, 06/04/2016 06/04/2016 Completed IV, Once, first dose 06/04/16 14:26:00 MAIL PROCESSING MACHINE OPERATOR, stop date 06/04/16 14:26:00 MAIL PROCESSING MACHINE OPERATOR ePHEDrine 5 mg=0.1 mL, Injection, 06/04/2016 06/04/2016 Completed IV, Once, first dose 06/04/16 16:34:00 MAIL PROCESSING MACHINE OPERATOR, stop date 06/04/16 16:34:00 MAIL PROCESSING MACHINE OPERATOR vecuronium 1 mg=1 mL, Powder-Inj, 06/04/2016 06/04/2016 Completed IV, Once, first dose 06/04/16 16:45:00 MAIL PROCESSING MACHINE OPERATOR, stop date 06/04/16 16:45:00 MAIL PROCESSING MACHINE OPERATOR ePHEDrine 5 mg=0.1 mL, Injection, 06/04/2016 06/04/2016 Completed IV, Once, first dose 06/04/16 16:38:00 MAIL PROCESSING MACHINE OPERATOR, stop date 06/04/16 16:38:00 MAIL PROCESSING MACHINE OPERATOR Lactated Ringers Injection IV, start date 06/04/16 06/04/2016 06/04/2016 Completed 17:04:00 MAIL PROCESSING MACHINE OPERATOR, stop date 06/04/16 17:04:00 MAIL PROCESSING MACHINE OPERATOR benzonatate 100 mg oral 100 mg=1 caps, Oral, BID, PRN as needed for cough, INS TO USE IF NEEDED AM OF SX, 0 Refill(s), COUGH/COPD 05/30/2016 06/13/2016 Ordered capsule INS TO USE IF NEEDED AM OF SX ceFAZolin 2 gm, Soln-IV, IV 06/04/2016 06/04/2016 Completed Piggyback, Once, infuse over 30 minutes, first dose 06/04/16 9:00:00 MAIL PROCESSING MACHINE OPERATOR, stop date 06/04/16 9:00:00 MAIL PROCESSING MACHINE OPERATOR, patient weight 50-120 kg, Prophylaxis ePHEDrine 5 mg=0.1 mL, Injection, 06/04/2016 06/04/2016 Completed IV, Once, first dose 06/04/16 19:19:00 MAIL PROCESSING MACHINE OPERATOR, stop date 06/04/16 19:19:00 MAIL PROCESSING MACHINE OPERATOR neostigmine 4 mg=8 mL, Injection, 06/04/2016 06/04/2016 Completed IV, Once, first dose 06/04/16 19:44:00 MAIL PROCESSING MACHINE OPERATOR, stop date 06/04/16 19:44:00 MAIL PROCESSING MACHINE OPERATOR fentaNYL 50 mcg=1 mL, Injection, 06/04/2016 06/04/2016 Completed IV, Once, first dose 06/04/16 19:48:00 MAIL PROCESSING MACHINE OPERATOR, stop date 06/04/16 19:48:00 MAIL PROCESSING MACHINE OPERATOR glycopyrrolate 0.6 mg=3 mL, Injection, 06/04/2016 06/04/2016 Completed IV, Once, first dose 06/04/16 19:44:00 MAIL PROCESSING MACHINE OPERATOR, stop date 06/04/16 19:44:00 MAIL PROCESSING MACHINE OPERATOR ondansetron 4 mg=2 mL, Injection, 06/04/2016 06/04/2016 Completed IV, Once, first dose 06/04/16 19:35:00 MAIL PROCESSING MACHINE OPERATOR, stop date 06/04/16 19:35:00 MAIL PROCESSING MACHINE OPERATOR insulin regular sliding 2 - 10 units, Injection, 06/08/2016 06/08/2016 Completed scale LOW Subcutaneous, first dose 06/08/16 18:00:00 MAIL PROCESSING MACHINE OPERATOR Lidocaine 2% 0.2 mL IV 0.2 mL, Injection, 06/04/2016 06/04/2016 Deleted Start [[place]] Subcutaneous, Once PRN for other (see comment), first dose 06/04/16 8:30:00 MAIL PROCESSING MACHINE OPERATOR LR 1,000 mL 1,000 mL, IV, 30 mL/hr, 06/04/2016 06/04/2016 Discontinued start date 06/04/16 8:30:00 MAIL PROCESSING MACHINE OPERATOR insulin regular sliding 2 - 10 units, Injection, 06/05/2016 06/08/2016 Discontinued scale LOW Subcutaneous, q6hr, first dose 06/05/16 0:00:00 MAIL PROCESSING MACHINE OPERATOR Calcium 500+D 1 tabs, Oral, Daily, 0 05/30/2016 06/04/2016 Discontinued Refill(s), SUPPLEMENT D5W 1000 mL 1,000 mL, IV, 125 mL/hr, 06/07/2016 06/07/2016 Discontinued start date 06/07/16 13:55:00 MAIL PROCESSING MACHINE OPERATOR Lasix 40 mg=4 mL, Injection, 06/07/2016 06/07/2016 Completed IV Push, Once PRN for wheezing, first dose 06/07/16 16:29:00 MAIL PROCESSING MACHINE OPERATOR albuterol 180 mcg=2 inh, Aerosol, 06/07/2016 06/07/2016 Deleted INH, Once PRN for wheezing, first dose 06/07/16 16:30:00 MAIL PROCESSING MACHINE OPERATOR traMADol 50 mg oral tablet 50 mg=1 tabs, Oral, 06/04/2016 06/18/2016 Ordered q6hr, PRN for pain, # 24 tabs, 0 Refill(s) levofloxacin IVPB 500 mg, Soln-IV, IV 06/04/2016 06/04/2016 Completed Piggyback, Once, infuse over 1 hr, first dose 06/04/16 23:00:00 MAIL PROCESSING MACHINE OPERATOR, stop date 06/04/16 23:00:00 MAIL PROCESSING MACHINE OPERATOR, Prophylaxis Flagyl IVPB 500 mg, Soln-IV, IV 06/04/2016 06/05/2016 Completed Piggyback, q8hr, infuse over 60 minutes, order duration: 3 doses, first dose 06/04/16 23:00:00 MAIL PROCESSING MACHINE OPERATOR, stop date 06/05/16 22:59:00 MAIL PROCESSING MACHINE OPERATOR, Prophylaxis Zofran 4 mg=2 mL, Injection, IV 06/04/2016 06/09/2016 Discontinued Push, q6hr PRN for nausea/vomiting, first dose 06/04/16 22:19:00 MAIL PROCESSING MACHINE OPERATOR morphine 2 mg=0.2 mL, Injection, 06/04/2016 06/09/2016 Discontinued IV Push, q1hr PRN for pain, first dose 06/04/16 22:19:00 MAIL PROCESSING MACHINE OPERATOR Iron-150 oral tablet 1 tabs, Oral, Daily, 0 05/30/2016 06/13/2016 Ordered Refill(s), SUPPLEMENT NS 1,000 mL 1,000 mL, IV, 75 mL/hr, 06/04/2016 06/05/2016 Discontinued start date 06/04/16 22:19:00 MAIL PROCESSING MACHINE OPERATOR albuterol 2.5 mg/3 mL 2.5 mg=3 mL, Soln, NEB, 06/07/2016 06/07/2016 Completed (0.083%) inhalation Once PRN for wheezing, solution first dose 06/07/16 16:35:00 MAIL PROCESSING MACHINE OPERATOR insulin regular sliding 2 - 10 units, Injection, 06/05/2016 06/04/2016 Canceled scale LOW Subcutaneous, QIDACHS, first dose 06/05/16 7:30:00 MAIL PROCESSING MACHINE OPERATOR D5W with NS 1,000 mL 1,000 mL, IV, 125 mL/hr, 06/06/2016 06/07/2016 Discontinued start date 06/06/16 17:12:00 MAIL PROCESSING MACHINE OPERATOR fentaNYL 50 mcg=1 mL, Injection, 06/04/2016 06/04/2016 Completed IV, Once, first dose 06/04/16 14:21:00 MAIL PROCESSING MACHINE OPERATOR, stop date 06/04/16 14:21:00 MAIL PROCESSING MACHINE OPERATOR ceFAZolin 2 gm, Soln-IV, IV 06/04/2016 06/04/2016 Completed Piggyback, Once, first dose 06/04/16 14:17:00 MAIL PROCESSING MACHINE OPERATOR, stop date 06/04/16 14:17:00 MAIL PROCESSING MACHINE OPERATOR fentaNYL 50 mcg=1 mL, Injection, 06/04/2016 06/04/2016 Completed IV, Once, first dose 06/04/16 14:09:00 MAIL PROCESSING MACHINE OPERATOR, stop date 06/04/16 14:09:00 MAIL PROCESSING MACHINE OPERATOR Misc Medication 1,000 mL, Soln-IV, IV, 06/04/2016 06/04/2016 Completed Once, first dose 06/04/16 14:08:00 MAIL PROCESSING MACHINE OPERATOR, stop date 06/04/16 14:08:00 MAIL PROCESSING MACHINE OPERATOR promethazine 12.5 mg=0.5 mL, 06/04/2016 06/04/2016 Discontinued Injection, IM, Once PRN for severe nausea, first dose 06/04/16 15:24:00 MAIL PROCESSING MACHINE OPERATOR ondansetron 4 mg=2 mL, Injection, IV 06/04/2016 06/04/2016 Discontinued Push, q15min PRN for nausea/vomiting, order duration: 2 doses, first dose 06/04/16 15:24:00 MAIL PROCESSING MACHINE OPERATOR, stop date Limited # of times Xopenex 0.63 mg/3 mL 0.63 mg=3 mL, JOSE LUIS Bush, 06/04/2016 06/04/2016 Discontinued inhalation solution Once PRN for shortness of breath or wheezing, first dose 06/04/16 15:24:00 MAIL PROCESSING MACHINE OPERATOR Saline Lock Flush 10 mL, Soln, IV Push, As 06/04/2016 06/04/2016 Discontinued Indicated PRN for flush, first dose 06/04/16 15:24:00 MAIL PROCESSING MACHINE OPERATOR Dilaudid 0.5 mg=0.25 mL, 06/04/2016 06/04/2016 Discontinued Injection, IV Push, q10min PRN for pain severe (7-10), first dose 06/04/16 15:24:00 MAIL PROCESSING MACHINE OPERATOR montelukast 10 mg oral 10 mg=1 tabs, Oral, qAM, PT INST TO TAKE AM OF SX IF NEEDED, 0 Refill(s), ALLERGY 05/30/2016 06/13/2016 Ordered tablet PT INST TO TAKE AM OF SX IF NEEDED Xopenex 0.63 mg/3 mL 0.63 mg=3 mL, JOSE LUIS [place], 06/04/2016 06/04/2016 Deleted inhalation solution Once PRN for wheezing, first dose 06/04/16 14:38:00 MAIL PROCESSING MACHINE OPERATOR ondansetron 4 mg=2 mL, Injection, IV 06/04/2016 06/04/2016 Deleted Push, q15min PRN for nausea/vomiting, order duration: 2 doses, first dose 06/04/16 14:38:00 MAIL PROCESSING MACHINE OPERATOR, stop date Limited # of times promethazine 12.5 mg=0.5 mL, 06/04/2016 06/04/2016 Deleted Injection, IM, Once PRN for severe nausea, first dose 06/04/16 14:38:00 MAIL PROCESSING MACHINE OPERATOR Dilaudid 0.5 mg=0.25 mL, 06/04/2016 06/04/2016 Deleted Injection, IV Push, q10min PRN for pain severe (7-10), first dose 06/04/16 14:38:00 MAIL PROCESSING MACHINE OPERATOR Saline Lock Flush 10 mL, Soln, IV Push, As 06/04/2016 06/04/2016 Deleted Indicated PRN for flush, first dose 06/04/16 14:38:00 MAIL PROCESSING MACHINE OPERATOR LR 1,000 mL 1,000 mL, IV, 75 mL/hr, 06/04/2016 06/04/2016 Deleted start date 06/04/16 14:38:00 MAIL PROCESSING MACHINE OPERATOR ePHEDrine 5 mg=0.1 mL, Injection, 06/04/2016 06/04/2016 Completed IV, Once, first dose 06/04/16 19:02:00 MAIL PROCESSING MACHINE OPERATOR, stop date 06/04/16 19:02:00 MAIL PROCESSING MACHINE OPERATOR vecuronium 1 mg=1 mL, Powder-Inj, 06/04/2016 06/04/2016 Completed IV, Once, first dose 06/04/16 18:28:00 MAIL PROCESSING MACHINE OPERATOR, stop date 06/04/16 18:28:00 MAIL PROCESSING MACHINE OPERATOR vecuronium 1 mg=1 mL, Powder-Inj, 06/04/2016 06/04/2016 Completed IV, Once, first dose 06/04/16 19:10:00 MAIL PROCESSING MACHINE OPERATOR, stop date 06/04/16 19:10:00 MAIL PROCESSING MACHINE OPERATOR ePHEDrine 5 mg=0.1 mL, Injection, 06/04/2016 06/04/2016 Completed IV, Once, first dose 06/04/16 18:10:00 MAIL PROCESSING MACHINE OPERATOR, stop date 06/04/16 18:10:00 MAIL PROCESSING MACHINE OPERATOR vecuronium 1 mg=1 mL, Powder-Inj, 06/04/2016 06/04/2016 Completed IV, Once, first dose 06/04/16 17:21:00 MAIL PROCESSING MACHINE OPERATOR, stop date 06/04/16 17:21:00 MAIL PROCESSING MACHINE OPERATOR ceFAZolin 1 gm, Powder-Inj, IV, 06/04/2016 06/04/2016 Completed Once, first dose 06/04/16 17:16:00 MAIL PROCESSING MACHINE OPERATOR, stop date 06/04/16 17:16:00 MAIL PROCESSING MACHINE OPERATOR ePHEDrine 5 mg=0.1 mL, Injection, 06/04/2016 06/04/2016 Completed IV, Once, first dose 06/04/16 17:40:00 MAIL PROCESSING MACHINE OPERATOR, stop date 06/04/16 17:40:00 MAIL PROCESSING MACHINE OPERATOR vecuronium 1 mg=1 mL, Powder-Inj, 06/04/2016 06/04/2016 Completed IV, Once, first dose 06/04/16 17:49:00 MAIL PROCESSING MACHINE OPERATOR, stop date 06/04/16 17:49:00 MAIL PROCESSING MACHINE OPERATOR vecuronium 1 mg=1 mL, Powder-Inj, 06/04/2016 06/04/2016 Completed IV, Once, first dose 06/04/16 18:04:00 MAIL PROCESSING MACHINE OPERATOR, stop date 06/04/16 18:04:00 MAIL PROCESSING MACHINE OPERATOR vecuronium 1 mg=1 mL, Powder-Inj, 06/04/2016 06/04/2016 Completed IV, Once, first dose 06/04/16 18:13:00 MAIL PROCESSING MACHINE OPERATOR, stop date 06/04/16 18:13:00 MAIL PROCESSING MACHINE OPERATOR insulin regular sliding 2 - 10 units, Injection, 06/09/2016 06/09/2016 Completed scale LOW Subcutaneous, first dose 06/09/16 11:30:00 MAIL PROCESSING MACHINE OPERATOR insulin regular sliding 2 - 10 units, Injection, 06/09/2016 06/09/2016 Completed scale LOW Subcutaneous, first dose 06/09/16 7:30:00 MAIL PROCESSING MACHINE OPERATOR insulin regular sliding 2 - 10 units, Injection, 06/09/2016 06/09/2016 Discontinued scale LOW Subcutaneous, QIDACHS, first dose 06/09/16 7:30:00 MAIL PROCESSING MACHINE OPERATOR Tylenol Regular Strength 325 mg, Oral, q4hr, 0 05/30/2016 06/13/2016 Ordered Refill(s), PAIN Tylenol Oral, 0 Refill(s) 05/30/2016 06/13/2016 Ordered Lactated Ringers Injection IV, start date 06/04/16 06/04/2016 06/04/2016 Completed 20:35:00 MAIL PROCESSING MACHINE OPERATOR, stop date 06/04/16 20:35:00 MAIL PROCESSING MACHINE OPERATOR acetaminophen 1,000 mg, Soln-IV, IV, 06/04/2016 06/04/2016 Completed Once, first dose 06/04/16 20:25:00 MAIL PROCESSING MACHINE OPERATOR, stop date 06/04/16 20:25:00 MAIL PROCESSING MACHINE OPERATOR fentaNYL 25 mcg=0.5 mL, 06/04/2016 06/04/2016 Completed Injection, IV, Once, first dose 06/04/16 20:06:00 MAIL PROCESSING MACHINE OPERATOR, stop date 06/04/16 20:06:00 MAIL PROCESSING MACHINE OPERATOR metFORMIN 500 mg oral 500 mg=1 tabs, Oral, BID, PT INST TO NOT TAKE THE AM OF SX, # 60 tabs, 0 Refill(s), DIABETES 05/30/2016 06/13/2016 Ordered tablet PT INST TO NOT TAKE THE AM OF SX Xanax 0.5 mg=2 tabs, Tab, 06/08/2016 06/09/2016 Discontinued Oral, TID PRN for anxiety, first dose 06/08/16 9:19:00 MAIL PROCESSING MACHINE OPERATOR lisinopril 10 mg=1 tabs, Tab, Oral, 06/08/2016 06/09/2016 Discontinued Daily, first dose 06/08/16 7:30:00 MAIL PROCESSING MACHINE OPERATOR Vital Signs Most recent to oldest 1 2 3 [Reference Range]: Temperature Oral [35.8-37.3 36.5 DegC 36.5 DegC 36.5 DegC DegC] (06/09/2016 12:00:00) (06/09/2016 04:00:00) (06/09/2016 00:00:00) Temperature Temporal Artery 36.6 DegC 36.9 DegC [36.3-37.8 DegC] (06/05/2016 11:00:00) (06/04/2016 20:30:00) Temperature Farenheit 97.7 DegF 97.7 DegF 97.7 DegF (06/09/2016 12:00:00) (06/09/2016 04:00:00) (06/09/2016 00:00:00) Temperature Temporal 97.88 98.42 Fahrenheit (06/05/2016 11:00:00) (06/04/2016 20:30:00) Peripheral Pulse Rate 64 bpm 67 bpm [55-105 bpm] (06/04/2016 08:51:00) (05/30/2016 09:31:00) Heart Rate Monitored 98 bpm 100 bpm 99 bpm [60-100 bpm] (06/09/2016 12:00:00) (06/09/2016 04:00:00) (06/09/2016 00:00: 00) Respiratory Rate [12-20] 18 18 18 (06/09/2016 12:00:00) (06/09/2016 04:00:00) (06/09/2016 00:00:00) SpO2 [90-100 %] 95 % 98 % 95 % (06/09/2016 12:00:00) (06/09/2016 08:15:00) (06/09/2016 04:00:00) Blood Pressure <content ID='[id number]'>152</content>/<content ID=' [id number]'>92</content> mmHg <content ID='[id number]'>142</content>/< content ID='[id number]'>70</content> mmHg <content ID='[id number]'>155< /content>/<content ID='[id number]'>84</content> mmHg [110-120/65-85 mmHg] *HI* *HI* *HI* (06/09/2016 12:00:00) (06/09/2016 05:00:00) (06/09/2016 04:00:00) Mean Arterial Pressure, 112 mmHg 112 mmHg 81 mmHg Cuff (06/09/2016 12:00:00) (06/08/2016 12:00:00) (06/08/2016 07:00:00) Most recent to oldest [Reference 1 2 3 Range]: Height 152.4 cm 152.4 cm (06/04/2016 08:51:00) (05/30/2016 09:31:00) Height/Length Dosing 152.4 cm 152.4 cm (06/04/2016 08:51:00) (05/30/2016 09:31:00) Height Inches 60 in 60 in (06/04/2016 08:51:00) (05/30/2016 09:31:00) Weight 47.63 kg 47.63 kg (06/04/2016 08:51:00) (05/30/2016 09:31:00) Weight Dosing 47.63 kg 47.63 kg (06/04/2016 08:51:00) (05/30/2016 09:31:00) Weight Pounds 105 lb 105 lb (06/04/2016 08:51:00) (05/30/2016 09:31:00) Body Mass Index 20.51 kg/m2 20.51 kg/m2 (06/04/2016 08:51:00) (05/30/2016 09:31:00) Results LABORATORY Most recent 1 2 3 4 5 6 7 to oldest [Reference Range]: Results Reported Reported Reported Reported Reported Reported Reported (06/06/2016 04:16:00) (06/06/2016 04:16:00) (06/06/2016 04:16:00) (2015 19:25:00) (06/05/2016 06:37:00) (06/05/2016 06:37:00) (06/05/2016 06:37: 00) White Blood 11.6 K/CMM 95 14.1 K/CMM 96 Count *HI* *HI* [3.7-10.4 (06/06/2016 04:16:00) (06/05/2016 06:37:00) K/CMM] Red Blood 3.30 M/CMM 88 3.85 M/CMM 89 Cell Count *LOW* *LOW* [4.20-5.40 (06/06/2016 04:16:00) (06/05/2016 06:37:00) M/CMM] Hemoglobin 9.7 gm/dL 81 11.1 gm/dL 82 [12.0-16.0 *LOW* *LOW* gm/dL] (06/06/2016 04:16:00) (06/05/2016 06:37:00) Hemoglobin 11.9 gm/dL [12.0-17.0 *LOW* gm/dL] (06/05/2016 19:25:00) Hematocrit 30.1 % 79 34.7 % 80 [36.0-48.0 %] *LOW* *LOW* (06/06/2016 04:16:00) (06/05/2016 06:37:00) Hematocrit 35 % [38-51 %] *LOW* (06/05/2016 19:25:00) Platelet 207 K/CMM 44 237 K/CMM 45 [133-450 *NA* *NA* K/CMM] (06/06/2016 04:16:00) (06/05/2016 06:37:00) MCV 91.1 fL 46 90.1 fL 47 [80.0-98.0 *NA* *NA* fL] (06/06/2016 04:16:00) (06/05/2016 06:37:00) MCH 29.4 pg 16 28.8 pg 17 [27.0-31.0 *NA* *NA* pg] (06/06/2016 04:16:00) (06/05/2016 06:37:00) MCHC 32.3 gm/dL 18 32.0 gm/dL 19 [32.0-36.0 *NA* *NA* gm/dL] (06/06/2016 04:16:00) (06/05/2016 06:37:00) RDW 16.3 % 20 15.2 % 21 [11.5-14.5 %] *HI* *HI* (06/06/2016 04:16:00) (06/05/2016 06:37:00) MPV [7.4-10.4 10.0 fL 22 9.7 fL 23 fL] *NA* *NA* (06/06/2016 04:16:00) (06/05/2016 06:37:00) Neutrophil % 79.4 % 24 82.5 % 25 [45.0-75.0 %] *HI* *HI* (06/06/2016 04:16:00) (06/05/2016 06:37:00) Lymphocyte % 9.4 % 26 6.1 % 27 [20.0-40.0 %] *LOW* *LOW* (06/06/2016 04:16:00) (06/05/2016 06:37:00) Monocyte % 10.4 % 28 11.2 % 29 [2.0-12.0 %] *NA* *NA* (06/06/2016 04:16:00) (06/05/2016 06:37:00) Eosinophil % 0.0 K/CMM 30 0.0 K/CMM 31 [0.0-0.5 *NA* *NA* K/CMM] (06/06/2016 04:16:00) (06/05/2016 06:37:00) Basophil % 0.8 % 32 0.2 % 33 [0.0-1.0 %] *NA* *NA* (06/06/2016 04:16:00) (06/05/2016 06:37:00) Neutrophil # 9.2 K/CMM 34 11.6 K/CMM 35 [1.5-8.1 *HI* *HI* K/CMM] (06/06/2016 04:16:00) (06/05/2016 06:37:00) Lymphocyte # 1.1 K/CMM 36 0.9 K/CMM 37 [1.0-5.5 *NA* *LOW* K/CMM] (06/06/2016 04:16:00) (06/05/2016 06:37:00) Monocyte # 1.2 K/CMM 38 1.6 K/CMM 39 [0.0-0.8 *HI* *HI* K/CMM] (06/06/2016 04:16:00) (06/05/2016 06:37:00) Eosinophil # 0.0 % 40 0.0 % 41 [0.0-4.0 %] *NA* *NA* (06/06/2016 04:16:00) (06/05/2016 06:37:00) Basophil # 0.1 K/CMM 42 0.0 K/CMM 43 [0.0-0.2 *NA* *NA* K/CMM] (06/06/2016 04:16:00) (06/05/2016 06:37:00) Hypochrom 1+ 58 [None Seen] *NA* (06/05/2016 06:37:00) Sodium Level 147 mEq/L 90 149 mEq/L 91 147 mEq/L 92 145 mEq/L 93 143 mEq/ L 94 [135-145 *HI* *HI* *HI* *NA* *NA* mEq/L] (06/09/2016 04:10:00) (06/08/2016 03:24:00) (06/07/2016 03:28:00) ( 06/06/2016 04:16:00) (06/05/2016 06:37:00) Sodium Level 141.0 mmol/L [138.0-146.0 (06/05/2016 19:25:00) mmol/L] Potassium 4.1 mEq/L 83 3.9 mEq/L 84 4.1 mEq/L 85 4.8 mEq/L 86 5.3 mEq/L 87 Level *NA* *NA* *NA* *NA* *HI* [3.5-5.1 (06/09/2016 04:10:00) (06/08/2016 03:24:00) (06/07/2016 03:28:00) (06/06/2016 04:16:00) (06/05/2016 06:37:00) mEq/L] Potassium 5.0 mmol/L Level *HI* [3.5-4.9 (06/05/2016 19:25:00) mmol/L] Chloride 109 mEq/L 74 113 mEq/L 75 115 mEq/L 76 113 mEq/L 77 108 mEq/L 78 Level [95-109 *NA* *HI* *HI* *HI* *NA* mEq/L] (06/09/2016 04:10:00) (06/08/2016 03:24:00) (06/07/2016 03:28:00) ( 06/06/2016 04:16:00) (06/05/2016 06:37:00) Chloride 109 mmol/L Level [98-109 (06/05/2016 19:25:00) mmol/L] Total Carbon 28 mEq/L 69 26 mEq/L 70 21 mEq/L 71 20 mEq/L 72 27 mEq/L 73 Dioxide Level *NA* *NA* *LOW* *LOW* *NA* [24-32 mEq/L] (06/09/2016 04:10:00) (06/08/2016 03:24:00) (06/07/2016 03:28: 00) (06/06/2016 04:16:00) (06/05/2016 06:37:00) Total Carbon 22 mmol/L Dioxide Level *LOW* [24-29 (06/05/2016 19:25:00) mmol/L] AGAP 14.1 mEq/L 1 13.9 mEq/L 2 15.1 mEq/L 3 16.8 mEq/L 4 13.3 mEq/L 5 [10.0-20.0 *NA* *NA* *NA* *NA* *NA* mEq/L] (06/09/2016 04:10:00) (06/08/2016 03:24:00) (06/07/2016 03:28:00) ( 06/06/2016 04:16:00) (06/05/2016 06:37:00) AGAP [8-16 16 mEq/L mEq/L] (06/05/2016 19:25:00) BUN [7-22 16 mg/dL 59 11 mg/dL 60 15 mg/dL 61 18 mg/dL 62 24 mg/dL 63 mg/dL] *NA* *NA* *NA* *NA* *HI* (06/09/2016 04:10:00) (06/08/2016 03:24:00) (06/07/2016 03:28:00) (2015 04:16:00) (06/05/2016 06:37:00) BUN [8-26 25 mg/dL mg/dL] (06/05/2016 19:25:00) Creatinine 0.80 mg/dL 97 0.86 mg/dL 98 0.92 mg/dL 99 0.91 mg/dL 100 1.16 mg/dL 101 [0.50-1.40 *NA* *NA* *NA* *NA* *NA* mg/dL] (06/09/2016 04:10:00) (06/08/2016 03:24:00) (06/07/2016 03:28:00) ( 06/06/2016 04:16:00) (06/05/2016 06:37:00) Creatinine 1.1 mg/dL [0.6-1.3 (06/05/2016 19:25:00) mg/dL] Blood 118 mg/dL 104 mg/dL 104 mg/dL 106 mg/dL 118 mg/dL 118 mg/dL Glucose, *HI* (06/09/2016 07:01:00) (06/09/2016 06:56:00) (06/08/2016 21:00 :00) *HI* *HI* Capillary (06/09/2016 13:01:00) (06/08/2016 18:01:00) (06/08/2016 18: 00:00) [74-106 mg/dL] Glucose Lvl 102 mg/dL 6, 7 104 mg/dL 8, 9 139 mg/dL 10, 11 61 mg/dL 12, 13 115 mg/dL 14, 15 [70-99 mg/dL] *HI* *HI* *HI* *LOW* *HI* (06/09/2016 04:10:00) (06/08/2016 03:24:00) (06/07/2016 03:28:00) (2015 04:16:00) (06/05/2016 06:37:00) Glucose Lvl 88 mg/dL [70-105 (06/05/2016 19:25:00) mg/dL] Calcium Level 8.6 mg/dL 64 8.5 mg/dL 65 8.0 mg/dL 66 7.6 mg/dL 67 8.1 mg/ dL 68 [8.5-10.5 *NA* *NA* *LOW* *LOW* *LOW* mg/dL] (06/09/2016 04:10:00) (06/08/2016 03:24:00) (06/07/2016 03:28:00) ( 06/06/2016 04:16:00) (06/05/2016 06:37:00) Calcium Level 1.09 mmol/L Ionized *LOW* [1.12-1.32 (06/05/2016 19:25:00) mmol/L] eGFR 69 mL/min/1.73m2 48, 49 64 mL/min/1.73m2 50, 51 59 mL/min/1.73m2 52, 53 60 mL/min/1.73m2 54, 55 44 mL/min/1.73m2 56, 57 *NA* *NA* *NA* *NA* *NA* (06/09/2016 04:10:00) (06/08/2016 03:24:00) (06/07/2016 03:28:00) (2015 04:16:00) (06/05/2016 06:37:00) 1Reference Lab: [facility], [address] [facility], [place] [address]Wxsksmphp Lab: [facility], [address], [place], [place] [address]Ywcwtlobg Lab: [facility], [address], [place], [place] [address]Mofkacnig Lab: [facility], [address], [place], [place] [address]Qvshqfzja Lab: [facility], [address] [facility], [place] [address]Wiogcutvj Lab: [facility], [address], [place], [place] [address]Vcgpxp Comment: Adult reference range values reflect the clinical guidelines of the [place] [employer].8Reference Lab: [facility], [address], [place], [place] [address]Msagda Comment: Adult reference range values reflect the clinical guidelines of the [place] [employer].10Reference Lab: [facility], [address] [facility] [address], [place], [place] [address]Ykbtbr Comment: Adult reference range values reflect the clinical guidelines of the [place] [employer].12Reference Lab: [facility], [address] [facility] [address], [place], [place] [address]Dcofpe Comment: Adult reference range values reflect the clinical guidelines of the [place] [employer].14Reference Lab: [facility], [address] [facility] [address], [place], [place] [address]Xqktge Comment: Adult reference range values reflect the clinical guidelines of the [place] [employer].16Reference Lab: [facility], [address], [place], [place] [address]Fddmwgojk Lab: [facility], [address], [place], [place] [phone] Lab: [facility], [address], [place], [place] [address]Nnppjjzzg Lab: [facility], [address], [place], [place] [address]Vvdaiikhx Lab: [facility], [address], [place], [place] [address]Iinpdmcpc Lab: [facility], [address], [place], [place] [address]Zsrimeokb Lab: [facility], [address], [place], [place] [address]Evugpcoex Lab: [facility], [address], [place], [place] [address]Hfttzxbuu Lab: [facility], [address], [place], [place] [address]Efdgdyynz Lab: [facility], [address], [place], [place] [address]Fiouioyyd Lab: [facility], [address], [place], [place] [address]Kcigbvozn Lab: [facility], [address], [place], [place] [address]Ahzqcbwjn Lab: [facility], [address] [facility] [address], [place], [place] [address]Wnlnbvjac Lab: [facility], [address] [facility] [address], [place], [place] [address]Lvztirfhr Lab: [facility], [address] [facility] [address], [place], [place] [address]Guhnktkxd Lab: [facility], [address] [facility] [address], [place], [place] [address]Pmgkilrja Lab: [facility], [address] [facility] [address], [place], [place] [address]Jkgjtdxdx Lab: [facility], [address] [facility] [address], [place], [place] [address]Pqavghfia Lab: [facility], [address] [facility] [address], [place], [place] [address]Awkikncgt Lab: [facility], [address] [facility] [address], [place], [place] [address]Svstdhcln Lab: [facility], [address] [facility] [address], [place], [place] [address]Qhtgqgqea Lab: [facility], [address], [place], [place] [address]Rpbuwodyx Lab: [facility], [address], [place], [place] [address]Cuiiuukkw Lab: [facility], [address] [facility] [address], [place], [place] [address]Ifumbtxwp Lab: [facility], [address], [place], [place] [address]Mijncycwl Lab: [facility], [address] [facility] [address], [place], [place] [address]Uigysofkr Lab: [facility], [address], [place], [place] [address]Nfcdnvnnh Lab: [facility], [address] [facility] [address], [place], [place] [address]Lcctkzaej Lab: [facility], [address] [facility] [address], [place], [place] [address]Xayexyryp Lab: [facility], [address] [facility] [address], [place], [place] [address]Tuoeopgtx Lab: [facility], [address] [facility] [address], [place], [place] [address]Oizsfpoou Lab: [facility], [address] [facility] [address], [place], [place] [address]Zttyosmru Lab: [facility], [address] [facility] [address], [place], [place] [address]Dlywhe Comment: The eGFR is calculated using the CKD-EPI formula. In most young, healthy individuals the eGFR will be >90 mL/min/1.73m2. [...] eGFR should be multiplied by the estimated BMI.50Reference Lab: [facility], [address] [facility] [address], [place], [place] [address]Bxyjxn Comment: The eGFR is calculated using the CKD-EPI formula. In most young, healthy individuals the eGFR will be >90 mL/min/1.73m2. [...] eGFR should be multiplied by the estimated BMI.52Reference Lab: [facility], [address] [place], [place] [address]Gaibgd Comment: The eGFR is calculated using the CKD-EPI formula. In most young, healthy individuals the eGFR will be >90 mL/min/1.73m2. [...] eGFR should be multiplied by the estimated BMI.54Reference Lab: [facility], [address] [place], [place] [address]Ixjjbz Comment: The eGFR is calculated using the CKD-EPI formula. In most young, healthy individuals the eGFR will be >90 mL/min/1.73m2. [...] eGFR should be multiplied by the estimated BMI.56Reference Lab: [facility], [address] [place], [place] [address]Wwitcz Comment: The eGFR is calculated using the CKD-EPI formula. In most young, healthy individuals the eGFR will be >90 mL/min/1.73m2. [...] eGFR should be multiplied by the estimated BMI.58Reference Lab: [facility], [address] [address], [place], [place] [address]Zikykgypo Lab: [facility], [address] [address], [place], [place] [address]Glafwoyoh Lab: [facility], [address] [facility] [address], [place], [place] [address]Azyeimmmw Lab: [facility], [address] [facility] [address], [place], [place] [address]Nlrappnsv Lab: [facility], [address] [facility] [address], [place], [place] [address]Sbvqtwyoc Lab: [facility], [address] [facility] [address], [place], [place] [address]Hjnmrakyk Lab: [facility], [address] [facility] [address], [place], [place] [address]Zytletnir Lab: [facility], [address] [facility] [address], [place], [place] [address]Jhxxaitij Lab: [facility], [address] [facility] [address], [place], [place] [address]Sxvaeqpdl Lab: [facility], [address] [facility] [address], [place], [place] [address]Rjwyupyad Lab: [facility], [address] [facility] [address], [place], [place] [address]Wjnpvnpcp Lab: [facility], [address] [facility] [address], [place], [place] [address]Hsfxptkyz Lab: [facility], [address], [place], [place] [address]Wdpajzbaw Lab: [facility], [address], [place], [place] [address]Zmmhqqtsy Lab: [facility], [address], [place], [place] [address]Gnovglafl Lab: [facility], [address] [facility] [address], [place], [place] [address]Pkzyscfuw Lab: [facility], [address] [facility] [address], [place], [place] [address]Swumduwts Lab: [facility], [address] [facility] [address], [place], [place] [address]Qiwjkblhh Lab: [facility], [address] [facility] [address], [place], [place] [address]Iqeymvqed Lab: [facility], [address] [facility] [address], [place], [place] [address]Gawvsbslm Lab: [facility], [address] [facility] [address], [place], [place] [address]Lgjrcgxtj Lab: [facility], [address] [facility] [address], [place], [place] [address]Hzdfugkkr Lab: [facility], [address] [facility] [address], [place], [place] [address]Bcyvprktu Lab: [facility], [address] [facility] [address], [place], [place] [address]Eophgxoci Lab: [facility], [address] [facility] [address], [place], [place] [address]Khqrivtka Lab: [facility], [address], [place], [place] [address]Pzsziigqs Lab: [facility], [address], [place], [place] [address]Kayzvukha Lab: [facility], [address] [facility] [address], [place], [place] [address]Ieqsghpgc Lab: [facility], [address] [facility] [address], [place], [place] [address]Awucdokvo Lab: [facility], [address], [place], [place] [address]Pqysgrffk Lab: [facility], [address], [place], [place] [address]Ylpqvtoqd Lab: [facility], [address], [place], [place] [address]Qvfapuaek Lab: [facility], [address], [place], [place] [address]Jbrzgvwce Lab: [facility], [address] [facility] [address], [place], [place] [address]Jvntpnlcr Lab: [facility], [address] [facility] [address], [place], [place] [address]Uhucipdze Lab: [facility], [address] [facility] [address], [place], [place] [address]Iguxstibg Lab: [facility], [address], [place], [place] [address]Zlahwbpef Lab: [facility], [address] [facility] [address], [place], [place] [address]Zgragxnpq Lab: [facility], [address], [place], [place] [address]Gjjwhdggv Lab: [facility], [address], [place], [place] [address]Uxeeiqcmx Lab: [facility], [address], [place], [place] [address]Urpquogtz Lab: [facility], [address] [facility] [address], [place], [place] [address]Cwepnasup Lab: [facility], [address] [facility] [address], [place], [place] [address]Zvvrzkpxz Lab: [facility], [address], [place] [address] Radiology Reports Exam Date Time Procedure Performing Provider Status 06/05/2016 10:14:49 XR Abdomen AP (KUB) 73050 Mariza Jennings; Auth ( Verified) Notes:(XR Abdomen AP (KUB) 17603) Reason For Exam: Other (please specify)FINAL REPORTEXAM DESCRIPTION: XR ABDOMEN 1 VIEW (KUB) CLINICAL HISTORY: 81 y/o ,F, postoperative study, line placement. COMPARISON: None TECHNIQUE: To AP views of the abdomen. FINDINGS: A nasogastric tube is present with tip in the gastric outflow tract. There is a right-sided percutaneous drain in place with tip to the right of midline. Bowel gas pattern is nonobstructive. There is moderate stool in the colon. There are surgical clips throughout the abdomen. There is no large pneumoperitoneum. There are no abnormal calcifications or obvious intra-abdominal mass effect IMPRESSION: No acute intra-abdominal findings Nasogastric tube tip is in the gastric outflow tract Electronically signed by: Bebeto Danielle 06/05/2016 10:47 Final Dictated by: Bebeto Danielle MD Dictated DT/TM: 06/05/2016 10:47 am Signed by: Bebeto Danielle MD Signed (Electronic Signature): 06/05/2016 10:47 am Transcribed by: SHANI Procedures Procedures Date Related Diagnosis COLONOSCOPY 2010 HERNIA REPAIR1 2010 IMPLANTATION OF BIOLOGIC IMPLANT 00353 (Other)2 06/04/2016 14:58:00 REPAIR HERNIA INCISIONAL OR VENTRAL-W/MESH 06/04/2016 14:58:00 62739 (Other)3 REPAIR INITIAL HERNIA INCISIONAL OR 06/04/2016 14:58:00 VENTRAL-REDUCIBLE 41832 (Other)4 [id number] from documented surgical [id number] from documented surgical [id number] from documented surgical case
--- NOTE | 2018-05-26 20:51 | RAD REPORT ---
EXAM DESCRIPTION: RAD - Chest Pa And Lat (2 Views) - 05/26/2018 8:37 pm CLINICAL HISTORY: COUGH Chest pain. COMPARISON: No comparisons FINDINGS: Ill-defined infiltrate is present in the right lung base posteriorly with a right pleural effusion, suspicious for pneumonia. The heart is normal in size. No displaced fractures. IMPRESSION: Right posterior lower lobe pneumonia.
[2018-05-26 21:02] LABS: Absolute Lymphocytes (CBC) 1.3 K/uL (0.7-4.9); Absolute Monocytes 1.2 K/uL (0.1-1.3); Absolute Neutrophil 6.3 K/uL (1.8-8.0); Basophils % 0.7 % (0-1.3); Eosinophils % 0.2 % (0-4.4); Hematocrit 34.7 % (36.0-45.0); Lymphocytes % 14.7 % (15.3-44.8); MCH 29.8 pg (27.0-35.0); MCV 88.8 fL (80-100); MPV 9.8 fL (7.6-11.3); Monocytes % 13.5 % (3.3-12.3)
[2018-05-26 21:04] LABS: Protime INR 1.07
--- NOTE | 2018-05-26 21:08 | ER ---
Nurse's Notes [facility] Name: Therese Siu Age: 83 yrs Sex: Female : 1935 Arrival Date: 05/26/2018 Time: 19:28 Bed 14 Private MD: Diagnosis: Pneumonia, unspecified organism Presentation: 05/26 19:57 Presenting complaint: Patient states: tactile fever for f days, cough getting tl3 progressively worse over the last three days. Transition of care: patient was not received from another setting of care. Onset of symptoms was May 22, 2018. Risk Assessment: Do you want to hurt yourself or someone else? Patient reports no desire to harm self or others. Initial Sepsis Screen: Does the patient meet any 2 criteria? No. Patient's initial sepsis screen is negative. Does the patient have a suspected source of infection? No. Patient's initial sepsis screen is negative. Care prior to arrival: None. 19:57 Method Of Arrival: Ambulatory tl3 19:57 Acuity: KOBI 3 tl3 Triage Assessment: 20:01 General: Appears uncomfortable, Behavior is calm, cooperative, appropriate for age. tl3 Pain: Denies pain. Respiratory: Airway is patent Breath sounds with crackles in left lower lobe, right lower lobe, left posterior lower lobe and right posterior lower lobe Breath sounds are diminished bilaterally. in left lower lobe, right lower lobe, left posterior lower lobe and right posterior lower lobe. Historical: - Allergies: 20:01 Codeine; tl3 20:01 Benadryl; tl3 - Home Meds: 20:01 lisinopril 5 mg Oral tab 1 tab once daily [Active]; albuterol sulfate 90 mcg/actuation tl3 Inhl HFAA 1 puff every 4-6 hours [Active]; albuterol sulfate 1.25 mg/3 mL Nebulizer nebu 3 mL 4 times per day [Active]; Prilosec 40 mg Oral cpDR 1 cap once daily [Active]; - PMHx: 20:10 Hypertension; Asthma; Emphysema; cc3 - PSHx: 20:01 Cholecystectomy; tl3 - Immunization history:: Adult Immunizations up to date. - Social history:: Smoking status: Patient/guardian denies using tobacco, never smoked. - Ebola Screening: : No symptoms or risks identified at this time. Screenin:10 Abuse screen: Denies threats or abuse. Denies injuries from another. Nutritional cc3 screening: No deficits noted. Tuberculosis screening: No symptoms or risk factors identified. Fall Risk Ambulatory Aid- None/Bed Rest/Nurse Assist (0 pts). Gait- Normal/Bed Rest/Wheelchair (0 pts) Mental Status- Oriented to own ability (0 pts). Assessment: 20:10 General: see triage assessment. cc3 21:10 Reassessment: Patient appears in no apparent distress at this time. Patient and/or cc3 family updated on plan of care and expected duration. Pain level reassessed. Patient is alert, oriented x 3, equal unlabored respirations, skin warm/dry/pink. Patient for admission, awaiting admission orders. 22:39 Reassessment: Patient appears in no apparent distress at this time. Patient and/or cc3 family updated on plan of care and expected duration. Pain level reassessed. Patient is alert, oriented x 3, equal unlabored respirations, skin warm/dry/pink. Room available at 408, report handed over to ONEL Foster for continuity of care. 23:00 Reassessment: Patient appears in no apparent distress at this time. Patient and/or cc3 family updated on plan of care and expected duration. Pain level reassessed. Patient is alert, oriented x 3, equal unlabored respirations, skin warm/dry/pink. Patient left ER for admission vitally stable by wheelchair escorted by certified pharmacy technician Zoila. Vital Signs: 20:01 BP 172 / 104; Pulse 93; Resp 18; Temp 98.7; Pulse Ox 95% ; Weight 72.57 kg; Height 5 tl3 ft. (152.40 cm); 21:10 BP 180 / 82; Pulse 75; Resp 21 S; Pulse Ox 95% on R/A; cc3 22:00 BP 193 / 75; Pulse 84; Resp 20 S; Pulse Ox 96% on R/A; cc3 22:30 BP 192 / 80; Pulse 87; Resp 20 S; Temp 99.6(O); Pulse Ox 95% on R/A; cc3 22:45 BP 183 / 80; Pulse 87; Resp 20 S; Pulse Ox 95% on R/A; cc3 20:01 Body Mass Index 31.25 (72.57 kg, 152.40 cm) tl3 ED Course: 19:28 Patient arrived in ED. am2 19:31 Nedra Salazar is Primary Nurse. cc3 19:41 Silvio Singh MD is Attending Physician. gs 19:50 Inserted saline lock: 20 gauge in right antecubital area, using aseptic technique. cc3 Blood collected. 19:58 Triage completed. tl3 20:01 Arm band placed on right wrist. tl3 20:10 Patient has correct armband on for positive identification. Placed in gown. Bed in low cc3 position. Call light in reach. book sewer on. Pulse ox on. NIBP on. 20:38 XRAY Chest Pa And Lat (2 Views) In Process Unspecified. EDMS 20:59 Anh Carlson FNP-C is [facility]. snw 21:07 Wade Collins MD is Hospitalizing Provider. snw 22:40 No provider procedures requiring assistance completed. Patient admitted, IV remains in cc3 place. Administered Medications: 21:05 Drug: Albuterol 2.5 mg Route: Inhalation; cc3 21:40 Follow up: Response: No adverse reaction cc3 21:15 Drug: Rocephin 1 grams Route: IV; Rate: calculated rate; Site: right antecubital; cc3 21:40 Follow up: Response: No adverse reaction; IV Status: Completed infusion; IV Intake: 94nsgh2 21:40 Drug: Magnesium 400 mg Route: PO; cc3 21:59 Follow up: Response: No adverse reaction cc3 21:42 Drug: Potassium Effervescent Tablet 50 mEq Route: PO; cc3 21:59 Follow up: Response: No adverse reaction cc3 22:25 Drug: Lisinopril 10 mg Route: PO; cc3 22:45 Follow up: Response: No adverse reaction; Blood pressure is lowered cc3 Intake: 21:40 IV: 10ml; Total: 10ml. cc3 Outcome: 21:07 Decision to Hospitalize by Provider. snw 22:40 Admitted to Tele accompanied by tech, via wheelchair, room 408, with chart, Report cc3 called to ONEL Foster 22:40 Condition: stable 22:40 Instructed on the need for admit, Demonstrated understanding of instructions. 23:08 Patient left the ED. cc3 Signatures: Dispatcher [employer] EDDC Anh Carlson FNP-C [employer]FFER-Csnw Bridgett Vines am2 Silvio Singh MD MD gs Ashely Hurt, ONEL RN tl3 Nedra Salazar cc3
--- NOTE | 2018-05-26 21:08 | EDPHYS ---
Physician Documentation [facility] Name: Therese Siu Age: 83 yrs Sex: Female : 1935 Arrival Date: 05/26/2018 Time: 19:28 Bed 14 Private MD: ED Physician Silvio Singh HPI: 05/26 20:41 This 83 yrs old Female presents to ER via Ambulatory with complaints of Flu gs Symptoms. 20:41 The patient or guardian reports cough, described as moderate. Onset: The gs symptoms/episode began/occurred 2 day(s) ago, and became persistent. Severity of symptoms: At their worst the symptoms were moderate, in the emergency department the symptoms are unchanged. Modifying factors: The symptoms are alleviated by nothing, the symptoms are aggravated by nothing. Associated signs and symptoms: Pertinent positives: sob. The patient has experienced similar episodes in the past, a few times. flu last month. Historical: - Allergies: 20:01 Codeine; tl3 20:01 Benadryl; tl3 - Home Meds: 20:01 lisinopril 5 mg Oral tab 1 tab once daily [Active]; albuterol sulfate 90 mcg/actuation tl3 Inhl HFAA 1 puff every 4-6 hours [Active]; albuterol sulfate 1.25 mg/3 mL Nebulizer nebu 3 mL 4 times per day [Active]; Prilosec 40 mg Oral cpDR 1 cap once daily [Active]; - PMHx: 20:10 Hypertension; Asthma; Emphysema; cc3 - PSHx: 20:01 Cholecystectomy; tl3 - Immunization history:: Adult Immunizations up to date. - Social history:: Smoking status: Patient/guardian denies using tobacco, never smoked. - Ebola Screening: : No symptoms or risks identified at this time. ROS: 20:41 All other systems are negative. gs Exam: 20:41 Head/Face: Normocephalic, atraumatic. Eyes: Pupils equal round and reactive to light, gs extra-ocular motions intact. Lids and lashes normal. Conjunctiva and sclera are non-icteric and not injected. Cornea within normal limits. Periorbital areas with no swelling, redness, or edema. ENT: Nares patent. No nasal discharge, no septal abnormalities noted. Tympanic membranes are normal and external auditory canals are clear. Oropharynx with no redness, swelling, or masses, exudates, or evidence of obstruction, uvula midline. Mucous membranes moist. Neck: Trachea midline, no thyromegaly or masses palpated, and no cervical lymphadenopathy. Supple, full range of motion without nuchal rigidity, or vertebral point tenderness. No Meningismus. Chest/axilla: Normal chest wall appearance and motion. Nontender with no deformity. No lesions are appreciated. Cardiovascular: Regular rate and rhythm with a normal S1 and S2. No gallops, murmurs, or rubs. Normal PMI, no JVD. No pulse deficits. Abdomen/GI: Soft, non-tender, with normal bowel sounds. No distension or tympany. No guarding or rebound. No evidence of tenderness throughout. Back: No spinal tenderness. No costovertebral tenderness. Full range of motion. Skin: Warm, dry with normal turgor. Normal color with no rashes, no lesions, and no evidence of cellulitis. MS/ Extremity: Pulses equal, no cyanosis. Neurovascular intact. Full, normal range of motion. Neuro: Awake and alert, GCS 15, oriented to person, place, time, and situation. Cranial nerves II-XII grossly intact. Motor strength 5/5 in all extremities. Sensory grossly intact. Cerebellar exam normal. Normal gait. 20:41 Constitutional: The patient appears alert, awake. 20:41 Respiratory: the patient does not display signs of respiratory distress, Respirations: normal, Breath sounds: rales, that are mild, are located in both bases. Vital Signs: 20:01 BP 172 / 104; Pulse 93; Resp 18; Temp 98.7; Pulse Ox 95% ; Weight 72.57 kg; Height 5 tl3 ft. (152.40 cm); 21:10 BP 180 / 82; Pulse 75; Resp 21 S; Pulse Ox 95% on R/A; cc3 22:00 BP 193 / 75; Pulse 84; Resp 20 S; Pulse Ox 96% on R/A; cc3 22:30 BP 192 / 80; Pulse 87; Resp 20 S; Temp 99.6(O); Pulse Ox 95% on R/A; cc3 22:45 BP 183 / 80; Pulse 87; Resp 20 S; Pulse Ox 95% on R/A; cc3 20:01 Body Mass Index 31.25 (72.57 kg, 152.40 cm) tl3 MDM: 20:05 Patient medically screened. 20:41 Differential Diagnosis: Influenza Pneumonia Other chf. Data reviewed: vital signs, nurses notes. 21:06 Counseling: I had a detailed discussion with the patient and/or guardian regarding: the snw historical points, exam findings, and any diagnostic results supporting the discharge/admit diagnosis, the presence of at least one elevated blood pressure reading (>120/80) during this emergency department visit, lab results, radiology results, the need for further work-up and treatment in the hospital. Physician consultation: Wade Collins MD was called at 21:06, was contacted at 21:06, regarding admission, to the telemetry unit. 05/26 20:06 Order name: Basic Metabolic Panel; Complete Time: 21:28 05/26 20:06 Order name: CBC with Diff; Complete Time: 21: 05/26 20:06 Order name: LFT's; Complete Time: 21:28 05/26 20:06 Order name: Magnesium; Complete Time: :28 05/26 20:06 Order name: NT PRO-BNP; Complete Time: 21:28 05/26 20:06 Order name: PT-INR; Complete Time: 21: 05/26 20:06 Order name: Troponin (emerg Dept Use Only); Complete Time: 21:28 05/26 20:06 Order name: Blood Culture* 05/26 20:06 Order name: XRAY Chest Pa And Lat (2 Views); Complete Time: 21:00 05/26 20:06 Order name: Flu; Complete Time: 21:28 05/26 20:06 Order name: EKG; Complete Time: 20: 05/26 20:06 Order name: Cardiac monitoring; Complete Time: 20:40 05/26 20:06 Order name: EKG - Nurse/Tech; Complete Time: 21: 05/26 20:06 Order name: IV Saline Lock; Complete Time: 20:40 05/26 20:06 Order name: Labs collected and sent; Complete Time: 20:40 05/26 20:06 Order name: O2 Per Protocol; Complete Time: 20:40 05/26 20:06 Order name: O2 Sat Monitoring; Complete Time: 20:40 Administered Medications: 21:05 Drug: Albuterol 2.5 mg Route: Inhalation; cc3 21:40 Follow up: Response: No adverse reaction cc3 21:15 Drug: Rocephin 1 grams Route: IV; Rate: calculated rate; Site: right antecubital; cc3 21:40 Follow up: Response: No adverse reaction; IV Status: Completed infusion; IV Intake: [id number] 21:40 Drug: Magnesium 400 mg Route: PO; cc3 21:59 Follow up: Response: No adverse reaction cc3 21:42 Drug: Potassium Effervescent Tablet 50 mEq Route: PO; cc3 21:59 Follow up: Response: No adverse reaction cc3 22:25 Drug: Lisinopril 10 mg Route: PO; cc3 22:45 Follow up: Response: No adverse reaction; Blood pressure is lowered cc3 Disposition: 05/27 17:24 Co-signature as Attending Physician, Silvio Singh MD. Disposition: 05/26/18 21:07 Hospitalization ordered by Wade Collins for Observation. Preliminary diagnosis is Pneumonia, unspecified organism. - Bed requested for Telemetry/MedSurg (observation). - Status is Observation. cc3 - Condition is Stable. - Problem is new. - Symptoms are unchanged. UTI on Admission? No Signatures: Dispatcher [employer] EDAR Tiffanie Acevedo RN RN Anh Avila, WATCH DIAL MAKER-C WATCH DIAL MAKER-Csnw Silvio Singh MD MD Ashely Hurt RN RN tl3 Nedra Salazar cc3 Corrections: (The following items were deleted from the chart) 05/26 22:18 21:07 Hospitalization Ordered by Wade Collins MD for Observation. Preliminary diagnosis is Pneumonia, unspecified organism. Bed requested for Telemetry/MedSurg (observation). Status is Observation. Condition is Stable. Problem is new. Symptoms are unchanged. UTI on Admission? No. snw 23:08 22:18 05/26/2018 21:07 Hospitalization Ordered by Wade Collins MD for Observation. cc3 Preliminary diagnosis is Pneumonia, unspecified organism. Bed requested for Telemetry/MedSurg (observation). Status is Observation. Condition is Stable. Problem is new. Symptoms are unchanged. UTI on Admission? No. kl
[2018-05-26] MEDS ORDERED: CEFTRIAXONE/SWI 1gm 1 GM/10 ML SYR ONE (21:20)
[2018-05-26] MEDS ORDERED: ALBUTEROL 2.5 MG/3 ML NEB SOL ONE (21:20)
[2018-05-26 21:22] LABS: ALT/SGPT 16 U/L (12-78); AST/SGOT 14 U/L (15-37); Albumin 3.3 g/dL (3.4-5.0); Alkaline Phosphatase 79 U/L (45-117); BUN Blood Urea Nitrogen 12 mg/dL (7-18); Bicarbonate 28 mmol/L (21-32); Bilirubin Direct 0.1 mg/dL (0-0.2); Bilirubin Total 0.2 mg/dL (0.2-1.0); Glucose Level 97 mg/dL (74-106); Magnesium 1.6 mg/dL (1.8-2.4); NT PRO-BNP 782 pg/mL (<450); Potassium 3.2 mmol/L (3.5-5.1); Protein, Total 7.4 g/dL (6.4-8.2); Sodium Level 142 mmol/L (136-145); Troponin (Emerg Dept Use Only) < 0.02 ng/mL (0.0-0.045)
[2018-05-26] MEDS ORDERED: MAGNESIUM OXIDE 400 MG TAB ONE (21:49)
[2018-05-26] MEDS ORDERED: POTASSIUM 25 MEQ EFFERV TAB ONE (21:49)
[2018-05-26] MEDS ORDERED: ONDANSETRON 4 MG/2 ML VIAL IV PRN (22:22)
[2018-05-26] MEDS ORDERED: MAGNESIUM HYDROXIDE 8% 30 ML PO PRN (22:22)
[2018-05-26] MEDS ORDERED: ACETAMINOPHEN 500 MG TAB PO PRN (22:22)
[2018-05-26] MEDS ORDERED: LISINOPRIL 10 MG TAB ONE (22:33)
[2018-05-27] MEDS: NA CHLORIDE 0.9% 1,000 ML IV SCH ×2 (00:50→11:47)
[2018-05-27 00:55] LABS: Urine Appearance CLEAR; Urine Bilirubin NEGATIVE (NEG); Urine Blood TRACE (NEG); Urine Color YELLOW; Urine Glucose NEGATIVE (NEG); Urine Protein TRACE (NEG); Urine Urobilinogen 0.2 mg/dL (0.2-1.0); Urine pH 7.5 (5.0-7.0)
[2018-05-27 00:58] LABS: Urine Microscopic Reflex ORDER UMIC
[2018-05-27] MEDS: BENZONATATE 100 MG CAP PO PRN ×2 (02:08→09:25)
[2018-05-27] MEDS: IPRATROPIUM BROM 0.5MG/2.5ML NEB PRN ×2 (02:38→20:20)
[2018-05-27] MEDS: ALBUTEROL 2.5 MG/3 ML NEB SOL NEB PRN ×2 (02:38→20:20)
[2018-05-27] MEDS ORDERED: HYDROCODONE/CHLORPHEN 5 ML/OSYR PO ONE (02:47)
[2018-05-27] MEDS ORDERED: BENZONATATE 100 MG CAP PO PRN (02:48)
[2018-05-27] MEDS ORDERED: METHYLPREDNISOLONE 125 MG INJ IV ONE (02:48)
[2018-05-27] MEDS ORDERED: AZITHROMYCIN 500 MG/250 ML BAG ONE (03:32)
[2018-05-27 03:49] LABS: Urine Bacteria <20 /HPF (<20); Urine Culture Reflex Order REFLEXED; Urine RBC <5 /HPF (NONE SEEN)
--- NOTE | 2018-05-27 04:23 | P.HP ---
Certification for Inpatient Patient admitted to: Inpatient With expected LOS: >2 Midnights Patient will require the following post-hospital care: None Practitioner: I am a practitioner with admitting privileges, knowledge of patient current condition, hospital course, and medical plan of care. Services: Services provided to patient in accordance with Admission requirements found in Title 42 Section 412.3 of the Code of Federal Regulations Patient History Date of Service: 05/26/18 Reason for admission: Right posterior lower lobe pneumonia History of Present Illness: Patient is an 83-year-old female who is been sick for the last 4-5 days. She has been having a cough with purulent mucus production. The cough has gotten progressively worse. Patient has a history of tobacco use but quit in her 40s. That is around the same time her with a heart attack as he had smoked for quite a while. She also states she gets allergies to different things around the house. But over the last few months she has noted she has had a hard time with her breathing. Her blood pressure has been very labile. When she came into the emergency room her blood pressure was 200/100 and she was satting 85% on room air. She was tachypneic as well. Her chest x- ray revealed a right lower lobe pneumonia. Her BNP was elevated suggestive of diastolic dysfunction. She may have baseline CHF that has gone undiagnosed and the pneumonia has caused her to develop an exacerbation. She also has multiple electrolyte abnormalities that will need to be corrected. Will go ahead and admit her to the hospital for further workup. She will benefit from inpatient hospitalization as I believe at her age and with multiple new diagnoses including possible COPD and new onset CHF along with poorly controlled blood pressure she will need more than 48 hrs to get these corrected. Allergies codeine Allergy (Mild, Verified 05/26/18 23:54) Itching diphenhydramine [From Benadryl] Allergy (Mild, Verified 05/26/18 23:54) Itching Home Medications: Benzonatate [Tessalon Perle] 100 mg PO TID PRN 05/26/18 Budesonide/Formoterol Fumarate [Symbicort 80-4.5 Mcg Inhaler] 2 puff IH BID 12/06 Ipratropium/Albuterol Sulfate [Iprat-Albut 0.5-3(2.5) mg/3 ml] 3 ml IH Q6H PRN 05/26/18 Lisinopril [Prinivil] 10 mg PO DAILY 05/26/18 Pantoprazole [Protonix Tab] 40 mg PO DAILY 05/26/18 - Past Medical/Surgical History Has patient received pneumonia vaccine in the past: Yes Diabetic: No -: HTN -: Osteoarthritis -: Hernia repair -: cholecystectomy -: part of colon removed - Family History Mother Medical History: Other (see notes) Notes: anemia Brother Medical History: Liver disease Sister Medical History: Liver disease, Kidney disease - Social History Smoking Status: Former smoker Alcohol use: No CD- Drugs: No Caffeine use: Yes Place of Residence: Home Review of Systems 10-point ROS is otherwise unremarkable Physical Examination - Vital Signs Temperature: 98.2 F Blood Pressure: 203/92 Pulse: 91 Respirations: 18 Pulse Ox (%): 94 - Physical Exam General: Alert, In no apparent distress, Oriented x3 HEENT: Atraumatic, PERRLA, Mucous membr. moist/pink, EOMI, Sclerae nonicteric Neck: Supple, 2+ carotid pulse no bruit, No LAD, Without JVD or thyroid abnormality Respiratory: Crackles/rales, Expiratory wheezes Cardiovascular: Regular rate/rhythm, Normal S1 S2, Systolic murmur Gastrointestinal: Normal bowel sounds, Soft and benign, Non-distended, No tenderness Musculoskeletal: No clubbing, No swelling, No tenderness Integumentary: No rashes Neurological: Normal gait, Normal speech, Normal strength at 5/5 x4 extr, Normal tone, Sensation intact, Cranial nerves 3-12 intact, Normal affect Lymphatics: No axilla or inguinal lymphadenopathy - Studies Laboratory Data (last 24 hrs) 05/26/18 20:20: PT 12.6 H, INR 1.07 05/26/18 20:20: WBC 8.9, Hgb 11.6 L, Hct 34.7 L, Plt Count 255 05/26/18 20:20: Sodium 142, Potassium 3.2 L, BUN 12, Creatinine 1.00, Glucose 97 , Magnesium 1.6 L, Total Bilirubin 0.2, AST 14 L, ALT 16, Alkaline Phosphatase 79 Microbiology Data (last 24 hrs): 05/26/18 20:40 Nasopharnyx Influenza Type A Antigen Screen - Final 05/26/18 20:40 Nasopharnyx Influenza Type B Antigen Screen - Final Assessment & Plan - Problems (Diagnosis) (1) Right lower lobe pneumonia Current Visit: Yes Status: Acute (2) COPD with acute exacerbation Current Visit: Yes Status: Acute (3) Diastolic CHF, acute Current Visit: Yes Status: Acute (4) Hypoxemia Current Visit: Yes Status: Acute (5) Hypertensive urgency Current Visit: Yes Status: Acute - Plan Plan: 1. Continue with IV antibiotics; Continue with nebs as needed as well as 1 dose of steroids 2. Awaiting culture 3. Repeat chest x-ray 4. Will proceed with CT scan of the chest if pneumonia is not improved to evaluate for postobstructive pneumonia 5. Echocardiogram to assess cardiac functioning as BNP is elevated and blood pressure is very poorly control 6. Will add low-dose Lasix for now 7. O2 per protocol 8. Monitor fluid intake closely 9. Repeat labs including CBC and renal function in a.m. 10. GI and DVT prophylaxis Discharge Plan: Home Plan to discharge in: Greater than 2 days - Advance Directives Does patient have a Living Will: No Does patient have a Durable POA for Healthcare: Yes - Code Status/Comfort Care Code Status Assessed: Yes Code Status: Full Code Critical Care: No Time Spent Managing PTS Care (In Minutes): 55
[2018-05-27 04:32] LABS: Absolute Lymphocytes (CBC) 1.5 K/uL (0.7-4.9); Absolute Monocytes 1.3 K/uL (0.1-1.3); Basophils % 0.6 % (0-1.3); Eosinophils % 0.2 % (0-4.4); Hematocrit 32.7 % (36.0-45.0); Lymphocytes % 17.2 % (15.3-44.8); MCH 29.5 pg (27.0-35.0); MCV 88.6 fL (80-100); MPV 8.9 fL (7.6-11.3); Monocytes % 14.7 % (3.3-12.3); RBC Red Blood Cell Count 3.69 M/uL (3.86-4.86)
[2018-05-27 05:20] LABS: Bilirubin Total 0.4 mg/dL (0.2-1.0); Potassium 3.7 mmol/L (3.5-5.1); Protein, Total 6.7 g/dL (6.4-8.2)
[2018-05-27 05:21] LABS: Magnesium 1.4 mg/dL (1.8-2.4)
[2018-05-27] MEDS ORDERED: POTASSIUM CL SA 10 MEQ TAB PO ONE (05:29)
[2018-05-27] MEDS ORDERED: HYDROCODONE/CHLORPHEN 5 ML/OSYR PO PRN (06:00)
[2018-05-27] MEDS ORDERED: AZITHROMYCIN IV 250 MG in NA CHLORIDE 0.9% 250 ML IVPB SCH ×2 (06:00→21:00)
[2018-05-27] MEDS ORDERED: Magnesium Sulfate 2gm IVPB 2 G/50 ML BAG IV ONE (07:30)
[2018-05-27] MEDS: HOME MED 1 EA UNK (Budesonide/Formoterol Fumarate [Symbicort 80-4.5 Mcg Inhaler] 2 PUFF) IH SCH ×2 (09:00→19:52)
[2018-05-27] MEDS ORDERED: CEFTRIAXONE 1 GM/50 ML BAG IV SCH (09:00)
[2018-05-27] MEDS ORDERED: CEFTRIAXONE 1 GM/NS 50 ML 1 GM/50 ML BAG IV SCH (09:00)
[2018-05-27] MEDS: CEFTRIAXONE/SWI 1gm 1 GM/10 ML SYR IV SCH ×2 (09:26→20:02)
[2018-05-27] MEDS: ENOXAPARIN 40 MG/0.4 ML SQ SCH (09:26)
[2018-05-27] MEDS: PANTOPRAZOLE 40MG TABLET PO SCH (09:26)
--- NOTE | 2018-05-27 12:20 | EKG ---
Test Date: 2018-05-26 Test Time: 20:59:46 Education Instructor: CONG MEASUREMENT RESULTS: Intervals: Rate: 81 ME: 132 QRSD: 74 QT: 356 QTc: 413 [place]: P: 72 ME: 132 QRS: 8 T: 55 INTERPRETIVE STATEMENTS: Normal sinus rhythm Septal infarct, age undetermined Abnormal ECG No previous ECG available for comparison Electronically Signed On 05-27-18 12:17:58 CRAFT ARTIST by Neri Hernandez
--- NOTE | 2018-05-27 13:48 | P.PN ---
Subjective Date of Service: 05/27/18 Chief Complaint: Right posterior lower lobe pneumonia Patient seen and examined bedside. No family at bedside. Case discussed with nursing staff. Patient reports feeling a little bit better than admission. Remains afebrile overnight, denies chest pain, chills at this time. Denies any shortness of breath, or orthopnea. Review of Systems As noted above Physical Examination - Vital Signs Temperature: 97.9 F Blood Pressure: 136/64 Pulse: 63 Respirations: 24 Pulse Ox (%): 100 - Physical Exam General: Alert, In no apparent distress, Oriented x3 HEENT: Atraumatic, PERRLA, EOMI Neck: Supple, JVD not distended Respiratory: Diminished (Right lower lobe), Dull Cardiovascular: Regular rate/rhythm, Normal S1 S2 Gastrointestinal: Normal bowel sounds, No tenderness Musculoskeletal: No tenderness Integumentary: No rashes Neurological: Normal speech, Normal tone, Normal affect - Studies Laboratory Data (last 24 hrs) 05/27/18 04:09: Sodium 144, Potassium 3.7, BUN 10, Creatinine 1.00, Glucose 121 H, Phosphorus 3.0, Magnesium 1.4 L*, Total Bilirubin 0.4, AST 12 L, ALT 15, Alkaline Phosphatase 57, Triglycerides 89, Cholesterol 106, HDL Cholesterol 46, Cholesterol/HDL Ratio 2.30 05/27/18 04:09: WBC 8.9, Hgb 10.9 L, Hct 32.7 L, Plt Count 267 05/26/18 20:20: PT 12.6 H, INR 1.07 05/26/18 20:20: WBC 8.9, Hgb 11.6 L, Hct 34.7 L, Plt Count 255 05/26/18 20:20: Sodium 142, Potassium 3.2 L, BUN 12, Creatinine 1.00, Glucose 97 , Magnesium 1.6 L, Total Bilirubin 0.2, AST 14 L, ALT 16, Alkaline Phosphatase 79 Microbiology Data (last 24 hrs): 05/26/18 20:40 Nasopharnyx Influenza Type A Antigen Screen - Final 05/26/18 20:40 Nasopharnyx Influenza Type B Antigen Screen - Final Assessment And Plan - Plan This is a 83-year-old female with: - Right lower lobe pneumonia, POA: Chest x-ray consistent with right lower lobe pneumonia. Does not meet sepsis criteria. Continue IV azithromycin and Rocephin. Sputum cultures ordered, pending. Repeat chest x-ray tomorrow. If no improvement noted on chest x-ray, will consider getting a chest to evaluate further. Oxygen as needed - Possible diastolic CHF, acute No prior diagnosis, BNP elevated on admission Continue low dose Lasix Echo ordered, pending Oxygen as needed - Possible COPD Patient with a vague history of emphysema now with acute respiratory distress. Patient may have a component of COPD as well. She will need outpatient follow up with pulmonology for pulmonary function tests when she is better. Continue breathing treatments Continue antibiotics She is status post 1 dose of IV steroids. May consider low-dose oral steroids if patient not improving. - Hypertension, better controlled Patient on lisinopril at home. Will restart lisinopril. Continue low-dose Lasix Will monitor and make adjustments as needed - Anemia: H&H stable at this time without any evidence of bleeding. Will continue to monitor - Hypomagnesemia: Repleted per protocol, recheck DVT prophylaxis: Lovenox GI prophylaxis: Protonix, home medication Diet: Heart healthy Disposition: Pending symptomatic improvement, echo and repeat chest x-ray. Physician Review: Patient Assessed, Agree with Above Assessment and Plan Time Spent Managing PTS Care (In Minutes): 45
[2018-05-28] MEDS: BENZONATATE 100 MG CAP PO PRN (03:54)
[2018-05-28 04:52] LABS: Potassium 4.2 mmol/L (3.5-5.1)
--- NOTE | 2018-05-28 08:04 | RAD REPORT ---
EXAM DESCRIPTION: Sivan Single View05/28/2018 6:42 am CLINICAL HISTORY: Chest pain COMPARISON: May 26, 2018 FINDINGS: Mild improvement in the right basilar opacities with small pleural effusion. Left lung ap pears clear of acute infiltrate. The heart is normal size IMPRESSION: Mild improvement in right basilar opacities probably representing pneumonia
[2018-05-28] MEDS: CEFTRIAXONE/SWI 1gm 1 GM/10 ML SYR IV SCH ×2 (08:27→21:49)
[2018-05-28] MEDS: ENOXAPARIN 40 MG/0.4 ML SQ SCH (08:27)
[2018-05-28] MEDS: LISINOPRIL 10 MG TAB PO SCH (08:27)
[2018-05-28] MEDS: PANTOPRAZOLE 40MG TABLET PO SCH (08:27)
[2018-05-28] MEDS: ALBUTEROL 2.5 MG/3 ML NEB SOL NEB PRN ×3 (08:30→19:33)
[2018-05-28] MEDS: IPRATROPIUM BROM 0.5MG/2.5ML NEB PRN ×3 (08:30→19:33)
[2018-05-28] MEDS: HOME MED 1 EA UNK (Budesonide/Formoterol Fumarate [Symbicort 80-4.5 Mcg Inhaler] 2 PUFF) IH SCH ×2 (08:32→21:00)
--- NOTE | 2018-05-28 10:41 | ECHO ---
HEIGHT: 5 ft 0 in WEIGHT: 115 lb 12.8 oz DATE OF STUDY: 05/28/[address]: Racheal Campoverde MD 2-DIMENSIONAL: YES M.MODE: YES DOPPLER: YES COLOR FLOW: YES TDS: NO PORTABLE: NO DEFINITY: NO BUBBLE STUDY: NO DIAGNOSIS: SHORTNESS OF BREATH/CONGESTIVE HEART FAILURE CARDIAC HISTORY: CATHERIZATION: NO SURGERY: NO PROSTHETIC VALVE: NO PACEMAKER: NO MEASUREMENTS (cm) DIASTOLIC (NORMALS) SYSTOLIC (NORMALS) IVSd 0.9 (0.6-1.2) LA Diam 3.2 (1.9-4.0) LVEF 73% LVIDd 3.7 (3.5-5.7) LVIDs 2.2 (2.0-3.5) %FS 42% LVPWd 1.1 (0.6-1.2) Ao Diam 2.8 (2.0-3.7) 2 DIMENSIONAL ASSESSMENT: RIGHT ATRIUM: NORMAL LEFT ATRIUM: NORMAL RIGHT VENTRICLE: NORMAL LEFT VENTRICLE: NORMAL TRICUSPID VALVE: NORMAL MITRAL VALVE: NORMAL PULMONIC VALVE: NORMAL AORTIC VALVE: SCLEROSIS PERICARDIAL EFFUSION: NONE AORTIC ROOT: NORMAL LEFT VENTRICULAR WALL MOTION: NORMAL. DOPPLER/COLOR FLOW: NO AORTIC STENOSIS OR AORTIC REGURGITATION. MILD TRICUSPID REGURGITATION. NORMAL RIGHT VENTRICULAR SYSTOLIC PRESSURE. COMMENTS: NORMAL LEFT VENTRICULAR EJECTION FRACTION. AORTIC SCLEROSIS WITH NO AORTIC STENOSIS/ AORTIC REGURGITATION. MILD TRICUSPID REGURGITATION. TECHNOLOGIST: JOE LARSON
[2018-05-28] MEDS: ACETAMINOPHEN 500 MG TAB PO PRN ×2 (11:08→21:52)
--- NOTE | 2018-05-28 14:24 | P.PN ---
Subjective Date of Service: 05/28/18 Chief Complaint: Right posterior lower lobe pneumonia Patient seen and examined bedside. No family at bedside. Case discussed with nursing staff. Patient reports feeling a little bit better. Remains afebrile overnight, denies chest pain, chills at this time. Denies any shortness of breath, or orthopnea. Review of Systems As noted above Physical Examination - Vital Signs Temperature: 98.4 F Blood Pressure: 149/85 Pulse: 69 Respirations: 149 Pulse Ox (%): 96 - Physical Exam General: Alert, In no apparent distress HEENT: Atraumatic, PERRLA, EOMI Neck: Supple, JVD not distended Respiratory: Clear to auscultation bilaterally, Normal air movement Cardiovascular: Regular rate/rhythm, Normal S1 S2 Gastrointestinal: Normal bowel sounds, No tenderness Musculoskeletal: No tenderness Integumentary: No rashes Neurological: Normal speech, Normal tone, Normal affect Lymphatics: No axilla or inguinal lymphadenopathy Assessment And Plan - Plan This is a 83-year-old female with: - Right lower lobe pneumonia, POA: Chest x-ray consistent with right lower lobe pneumonia. Does not meet sepsis criteria. Continue IV azithromycin and Rocephin. Sputum cultures ordered, pending. Repeat chest x-ray with interval improvement. Oxygen as needed Check oxygen saturation with exertion on room air. - Possible diastolic CHF, acute No prior diagnosis, BNP elevated on admission Continue low dose Lasix. May not need Lasix on discharge Echo normal. Oxygen as needed - Possible COPD Patient with a vague history of emphysema now with acute respiratory distress. Patient may have a component of COPD as well. She will need outpatient follow up with pulmonology for pulmonary function tests when she is better. Continue breathing treatments Continue antibiotics She is status post 1 dose of IV steroids. May consider low-dose oral steroids if patient not improving. - Hypertension, better controlled Patient on lisinopril at home. Will restart lisinopril. Continue low-dose Lasix Will monitor and make adjustments as needed - Anemia: H&H stable at this time without any evidence of bleeding. Will continue to monitor - Hypomagnesemia: Repleted per protocol, recheck DVT prophylaxis: Lovenox GI prophylaxis: Protonix, home medication Diet: Heart healthy Disposition: Pending symptomatic improvement. Likely discharge later today for early tomorrow if oxygen saturation above 90% on room air (and with exertion ) On discharge: Will need to be discharged on save oral Zithromax. She will need to follow up with primary care physician. She will need to follow up with pulmonology for outpatient pulmonary function tests. No other medication changes on discharge. Physician Review: Patient Assessed, Agree with Above Assessment and Plan Time Spent Managing PTS Care (In Minutes): 45
[2018-05-28] MEDS ORDERED: HYDRALAZINE HCL 20 MG/ML VIAL IV ONE (17:04)
[2018-05-28] MEDS ORDERED: HYDRALAZINE HCL 20 MG/ML VIAL IV PRN (17:48)
[2018-05-28] MEDS ORDERED: TEMAZEPAM 15 MG CAP PO PRN (21:00)
[2018-05-28] MEDS ORDERED: AZITHROMYCIN 250 MG TAB PO SCH (21:00)
[2018-05-29] MEDS: BENZONATATE 100 MG CAP PO PRN (00:02)
[2018-05-29] MEDS: IPRATROPIUM BROM 0.5MG/2.5ML NEB PRN ×3 (01:19→13:45)
[2018-05-29] MEDS: ALBUTEROL 2.5 MG/3 ML NEB SOL NEB PRN ×3 (01:19→13:45)
[2018-05-29] MEDS: PANTOPRAZOLE 40MG TABLET PO SCH (08:20)
[2018-05-29] MEDS: LISINOPRIL 10 MG TAB PO SCH (08:21)
[2018-05-29] MEDS: ENOXAPARIN 40 MG/0.4 ML SQ SCH (08:21)
[2018-05-29] MEDS: CEFTRIAXONE/SWI 1gm 1 GM/10 ML SYR IV SCH (08:21)
[2018-05-29] MEDS: HOME MED 1 EA UNK (Budesonide/Formoterol Fumarate [Symbicort 80-4.5 Mcg Inhaler] 2 PUFF) IH SCH (08:59)
--- NOTE | 2018-05-29 12:35 | P.DS ---
Admission Date: 05/27/18 Discharge Date: 05/29/18 Primary Care Provider: None, List provided Disposition: ROUTINE DISCHARGE Discharge Condition: GOOD Reason for Admission: Right posterior lower lobe pneumonia Brief History of Present Illness: Patient is an 83-year-old female who is been sick for the last 4-5 days. She has been having a cough with purulent mucus production. The cough has gotten progressively worse. Patient has a history of tobacco use but quit in her 40s. That is around the same time her with a heart attack as he had smoked for quite a while. She also states she gets allergies to different things around the house. But over the last few months she has noted she has had a hard time with her breathing. Her blood pressure has been very labile. When she came into the emergency room her blood pressure was 200/100 and she was satting 85% on room air. She was tachypneic as well. Her chest x- ray revealed a right lower lobe pneumonia. Her BNP was elevated suggestive of diastolic dysfunction. She may have baseline CHF that has gone undiagnosed and the pneumonia has caused her to develop an exacerbation. She also has multiple electrolyte abnormalities that will need to be corrected. Will go ahead and admit her to the hospital for further workup. She will benefit from inpatient hospitalization as I believe at her age and with multiple new diagnoses including possible COPD and new onset CHF along with poorly controlled blood pressure she will need more than 48 hrs to get these corrected. Hospital Course: - Right lower lobe pneumonia, POA: She was admitted to the hospital. Chest x- ray was consistent with right lower lobe pneumonia. She did not meet sepsis criteria. She was started on IV azithromycin and Rocephin. Sputum cultures for ordered, without any growth. Repeat chest x-ray with interval improvement. She was given Oxygen as needed At the time of discharge, she was breathing well on room air and stated she felt much better. She was alert oriented x3. She was discharged with instructions to finish a course of oral azithromycin 250 mg daily for the next 4 days. Prescription was sent to the pharmacy - Possible diastolic CHF, acute No prior diagnosis, BNP elevated on admission. She was given low-dose Lasix, which was stopped on discharge. Echo was done, which was normal with an ejection fraction of 73%. - Possible COPD Patient with a vague history of emphysema now with acute respiratory distress. Patient may have a component of COPD as well. She she was instructed that she will need outpatient follow up with pulmonology for pulmonary function tests. Information for Dr. hCeung was provided. - Hypertension, no changes made to blood pressure medication. She is to be continued on lisinopril upon discharge. She will need outpatient follow up with the primary care physician for further management. She recently moved from [place], list of primary care providers in this area was provided to her. - Anemia: She remains stable from H&H repeat throughout hospitalization. Did not require any transfusions or any other treatment for this. - Hypomagnesemia: Repleted per protocol, repeat magnesium levels normal. Vital Signs/Physical Exam: Temp Pulse Resp BP Pulse Ox 99.1 F 90 18 134/64 97 05/29/18 12:00 05/29/18 12:00 05/29/18 12:00 05/29/18 12:00 05/29/18 12:00 General: Alert, In no apparent distress, Oriented x3 HEENT: Atraumatic, PERRLA, EOMI Neck: Supple, JVD not distended Respiratory: Clear to auscultation bilaterally, Normal air movement Cardiovascular: Regular rate/rhythm, Normal S1 S2 Gastrointestinal: Normal bowel sounds, No tenderness Musculoskeletal: No tenderness Integumentary: No rashes Neurological: Normal speech, Normal tone, Normal affect Laboratory Data at Discharge: WBC 8.9 K/uL (4.3-10.9) 05/27/18 04:09 Hgb 10.9 g/dL (12.0-15.0) L 05/27/18 04:09 Hct 32.7 % (36.0-45.0) L 05/27/18 04:09 Plt Count 267 K/uL (152-406) 05/27/18 04:09 PT 12.6 SECONDS (9.5-12.5) H 05/26/18 20:20 INR 1.07 05/26/18 20:20 Sodium 142 mmol/L (136-145) 05/28/18 04:07 Potassium 4.2 mmol/L (3.5-5.1) 05/28/18 04:07 BUN 20 mg/dL (7-18) H 05/28/18 04:07 Creatinine 1.20 mg/dL (0.55-1.3) 05/28/18 04:07 Glucose 95 mg/dL (74-106) 05/28/18 04:07 Phosphorus 3.0 mg/dL (2.5-4.9) 05/27/18 04:09 Magnesium 2.5 mg/dL (1.8-2.4) H D 05/27/18 13:51 Total Bilirubin 0.4 mg/dL (0.2-1.0) 05/27/18 04:09 AST 12 U/L (15-37) L 05/27/18 04:09 ALT 15 U/L (12-78) 05/27/18 04:09 Alkaline Phosphatase 57 U/L (45-117) 05/27/18 04:09 Triglycerides 89 mg/dL (<150) 05/27/18 04:09 Cholesterol 106 mg/dL (<200) 05/27/18 04:09 HDL Cholesterol 46 mg/dL (40-60) 05/27/18 04:09 Cholesterol/HDL Ratio 2.30 05/27/18 04:09 Home Medications: Budesonide/Formoterol Fumarate [Symbicort 80-4.5 Mcg Inhaler] 2 puff IH BID 12/06 Ipratropium/Albuterol Sulfate [Iprat-Albut 0.5-3(2.5) mg/3 ml] 3 ml IH Q6H PRN 05/26/18 Lisinopril [Prinivil*] 10 mg PO DAILY 05/26/18 Pantoprazole [Protonix Tab*] 40 mg PO DAILY 05/26/18 Azithromycin Tab [Zithromax*] 250 mg PO BEDTIME #4 tab 05/29/18 New Medications: Azithromycin Tab [Zithromax*] 250 mg PO BEDTIME #4 tab Patient Discharge Instructions: You were treated for pneumonia. Please complete a course of azithromycin 250 mg once a day for the next 4 days. Prescription has been sent to pharmacy. Please follow up with her primary care physician in 1 week. Please make an appointment with the laborer operator in 2 weeks for pulmonary function tests to evaluate for COPD. Diet: AHA Activity: Ad sean Followup: Christopher Cheung MD [ACTIVE - CAN ADMIT] - Physician Review: Patient Assessed, Agree with Above Assessment and Plan Time spent managing pt's care (in minutes): 55
== END 2018-05-29 14:15 | disposition home or self-care (01) | DRG 193 ==
LOC: ER 19:24 → ERHOLD 21:23 → 4TH 22:43 → OBSVTOIN 05-27 10:21
PROVIDERS: ADMIT Hospitalist; ATTEND Family Medicine
DX: J18.9 Pneumonia, unspecified organism (principal); I50.31 Acute diastolic (congestive) heart failure; J44.0 Chronic obstructive pulmonary disease with (acute) lower respiratory infection; J44.1 Chronic obstructive pulmonary disease with (acute) exacerbation; I11.0 Hypertensive heart disease with heart failure; D64.9 Anemia, unspecified; E83.42 Hypomagnesemia; Z88.6 Allergy status to analgesic agent; Z88.5 Allergy status to narcotic agent; Z87.891 Personal history of nicotine dependence; M19.90 Unspecified osteoarthritis, unspecified site; R09.02 Hypoxemia; I16.0 Hypertensive urgency
CPT/HCPCS: 36415; 71045; 71046; 80048; 80053; 80061; 80076; 81003; 81015; 83605; 83735; 83880; 84100; 84145; 84484; 85025; 85610; 87040; 87070; 87086; 87088; 87205; 87804; 93005; 93306; 94640; 94760; 96365; 99285; G0378; J0360; J0456; J0696; J1650; J2930; J3475; J7030

== ENCOUNTER 2020-09-11 09:03 | Emergency (ER) | payer OTHER ==
--- OUTSIDE RECORDS SUMMARY | 2020-09-11 09:10 | XMS REPORT | Continuity of Care Document ---
:1935 Author Organization [facility] Care Team Providers Name Role Phone [facility] Unavailable Un available Problems Problem Status Onset Classification Date Comments Sourc e Date Reported WEAK/FEVER Active 10/25/19 [place] 16 PNEUMONIA Active 10/25/19 [place] L and 16 SYNCOPE, Active 12/17/[address] VOMITING, UTI 14 ESOPHAGITIS Active 04/16/20 [place] 11 SOB Active 04/12/[address] 11 368.40 - VISUAL Active 04/06/20 O PID FIELD DE 11 [facility] 571.8 - CHRONIC Active 03/12/20 O PID LIVER D 789.01 11 Frien dswood - ABDMNAL PAIN RT CHEST PAIN Active 03[facility]07[facility]20 [facility] Diabetes 07/22/19 Problem 06/11/2016 4FBS Surgical mellitus 10 90-110, Specialty (disorder) MED X1 [facility] , [place] Chronic 07/22/18 Problem 06/11/2016 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 DR IFEANYI Crews y lung disease [facility] (disorder[facility] YR, NO [place] José d PULN STUDY, USES ADVAIR BID AND NEB TX TID Hypertensive 07/22/18 Problem 06/11/2016 5MED X1 Surgic al disorder, 75 Specialty systemic Hospital o f arterial [place] , (disorder) [facility] [place] Seasonal Resolved Problem 11/02/2015 [place] allergic rhinitis (disorder) Allergic Problem 06/11/2016 1SEASONAL, Surgical disposition MED X1 Specialt y (disorder) [facility] [place] Cough (finding) Problem 06/11/2016 3OCCASSION Stinson rgical AL COUGH Specialty WITH COPD, [facility] HAS A MED [place] FOR THIS, I SPENT 45 MIN WITH HER IN PAT AND SHE DID NOT COUGH OR CLEAR THROAT ONCE Hernia of Problem 06/11/2016 Surgical anterior Specialty abdominal wall 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) [place] José d UPDATE Active [facility] PNEUMONIA, Active [place] UNSPECIFIED ORGANISM Medications Medication Details Route Status Patient Ordering Order Source Instructions Provider Date insulin regular 2 - 10 units, Inactive Sreshta 06/09/ S urgical sliding scale Injection, 2015 Special ty LOW Subcutaneous, Hospital first dose of [place] 06/09/16 [place] 11:30:00 MANAGER STUDIO insulin regular 2 - 10 units, Inactive Sreshta S urgical sliding scale Injection, 2015 Special ty LOW Subcutaneous, Hospital first dose of [place] 06/09/16 [place] 7:30:00 MANAGER STUDIO insulin regular 2 - 10 units, Inactive Sreshta S urgical sliding scale Injection, 2015 Special ty LOW Subcutaneous, Hospital first dose of [place] 06/08/16 [place] 18:00:00 MANAGER STUDIO Lasix 40 mg = 4 mL, Inactive Sreshta 06/08/ Surgical Injection, IV 2015 Specialty Push, Once, Hospital first dose of [place] 06/08/16 Land 9:30:00 MANAGER STUDIO, stop date 06/08/16 9:30:00 MANAGER STUDIO Xanax 0.5 mg = 2 No Longer Sreshta 06/08/ Surgical tabs, Tab, Active 2015 Specialty Oral, TID PRN Hospital for anxiety, of [place] first dose Land 06/08/16 9:19:00 MANAGER STUDIO lisinopril 10 mg = 1 tabs, Inactive Sreshta 06/08/ Surg ical Tab, Oral, 2016 Specialty Daily, first Hospital dose 06/08/16 of [place] 7:30:00 MANAGER STUDIO [place] hydrALAZINE 10 mg = 0.5 mL, No Longer Sreshta 06/08/ Stinson rgical Injection, IV Active 2015 Specialty Push, q4hr PRN Hospital for of [place] hypertension, [place] first dose 06/08/16 5:22:00 MANAGER STUDIO, SBP >150 D5W 1,000 mL 1,000 mL, IV, No Longer Sreshta 06/08/ Amos gical 50 mL/hr, start Active 2015 Specialt y date 06/07/16 [facility] 19:07:00 MANAGER STUDIO of [place] albuterol 2.5 2.5 mg = 3 mL, Inactive Sreshta 06/07/ Stinson rgical mg/3 mL (0.083%) Soln, NEB, Once 2016 Specialty inhalation PRN for Hospital solution wheezing, first of [place] dose 06/07/16 [facility] 16:35:00 MANAGER STUDIO albuterol 180 mcg = 2 Inactive Sreshta 06/07/ Surgical inh, Aerosol, 2016 Specialty INH, Once PRN Hospital for wheezing, of [place] first dose Land 06/07/16 16:30:00 MANAGER STUDIO Lasix 40 mg = 4 mL, Inactive Sreshta 06/07/ Surgical Injection, IV 2015 Specialty Push, Once PRN Hospital for wheezing, of [place] first dose Land 06/07/16 16:29:00 MANAGER STUDIO D5W 1000 mL 1,000 mL, IV, Inactive Sreshta 06/07/ Surgi victorino 125 mL/hr, 2016 Specialty start date Hospital 06/07/16 of [place] 13:55:00 MANAGER STUDIO [place] D5W with NS 1,000 mL, IV, No Longer Sreshta 06/06/ Surg ical 1,000 mL 125 mL/hr, Active 2015 Specialty start date Hospital 06/06/16 of [place] 17:12:00 MANAGER STUDIO [place] albuterol 2.5 2.5 mg = 3 mL, No Longer Sreshta 06/06/ S urgical mg/3 mL (0.083%) JOSE LUIS Bush, Active 2015 Spec ialty inhalation q6hr, first Hospital solution dose 06/06/16 of [place] 12:00:00 MANAGER STUDIO [place] insulin regular 2 - 10 units, No Longer Sreshta 06/05/ Surgical sliding scale Injection, Active 2015 Special ty LOW Subcutaneous, [facility], first of [place] dose 06/05/16 [place] 7:30:00 MANAGER STUDIO NS 1,000 mL 1,000 mL, IV, No Longer Sreshta 06/05/ Surg ical 125 mL/hr, Active 2015 Specialty start date [facility] 06/05/16 of [place] 7:03:00 MANAGER STUDIO [place] NS bolus 1,000 1,000 mL, IV, No Longer Sreshta 06/05/ S urgical mL BOLUS, start Active 2015 Specialty date 06/05/16 Hospital 7:02:00 MANAGER STUDIO of [place] insulin regular 2 - 10 units, No Longer Sreshta 06/05/ Surgical sliding scale Injection, Active 2015 Special ty LOW Subcutaneous, [facility] q6hr, first of [place] dose 06/05/16 Land 0:00:00 MANAGER STUDIO levofloxacin 500 mg, Inactive [facility] 06/05/ Surgical IVPB Soln-IV, IV [facility] infuse of [place] over 1 hr, Land first dose 06/04/16 23:00:00 MANAGER STUDIO, stop date 06/04/16 23:00:00 MANAGER STUDIO, Prophylaxis Flagyl IVPB 500 mg, [id number] [facility] 06/05/ Surgical Soln-IV, IV 2016 Specialty [facility] q8hr, infuse of [place] over 60 Land minutes, order duration: 3 doses, first dose 06/04/16 23:00:00 MANAGER STUDIO, stop date 06/05/16 22:59:00 MANAGER STUDIO, Prophylaxis Zofran 4 mg = 2 mL, No Longer [facility] 06/05/ Surgical Injection, IV Active 2016 Specialty Push, q6hr PRN Hospital for of [place] nausea/vomiting [place] , first dose 06/04/16 22:19:00 MANAGER STUDIO morphine 2 mg = 0.2 mL, No Longer [facility] 06/05/ Surgic al Injection, IV Active 2016 Specialty Push, q1hr PRN Hospital for pain, first of [place] dose 06/04/16 [place] 22:19:00 MANAGER STUDIO NS 1,000 mL 1,000 mL, IV, No Longer Sreshta 06/05/ Surg ical 75 mL/hr, start Active 2016 Specialt y date 06/04/16 Hospital 22:19:00 MANAGER STUDIO of [place] Lactated Ringers IV, start date Inactive Nj 06/05/ Surgical Injection 06/04/16 2016 Specialty 20:35:00 MANAGER STUDIO, Hospital stop date of [place] 06/04/16 [place] 20:35:00 MANAGER STUDIO acetaminophen 1,000 mg, Inactive [place] 06/05/ Surgica l Soln-IV, IV, 2016 Specialty Once, first Hospital dose 06/04/16 of [place] 20:25:00 MANAGER STUDIO, Land stop date 06/04/16 20:25:00 MANAGER STUDIO traMADol 50 mg 50 mg = 1 tabs, Active [facility] 06/05/ S urgical oral tablet Oral, q6hr, PRN 2016 Spec ialty for pain, # 24 Hospital tabs, 0 of [place] Refill(s) [place] fentaNYL 25 mcg = 0.5 Inactive [place] 06/05/ Surgical mL, Injection, 2016 Specialty IV, Once, first Hospital dose 06/04/16 of [place] 20:06:00 MANAGER STUDIO, Land stop date 06/04/16 20:06:00 MANAGER STUDIO fentaNYL 50 mcg = 1 mL, Inactive [place] 06/05/ Surgica l Injection, IV, 2016 Specialty Once, first Hospital dose 06/04/16 of [place] 19:48:00 MANAGER STUDIO, [place] stop date 06/04/16 19:48:00 MANAGER STUDIO neostigmine 4 mg = 8 mL, Inactive [place] 06/05/ Surgic al Injection, IV, 2016 Specialty Once, first Hospital dose 06/04/16 of [place] 19:44:00 MANAGER STUDIO, [place] stop date 06/04/16 19:44:00 MANAGER STUDIO glycopyrrolate 0.6 mg = 3 mL, Inactive [place] 06/05/ S urgical Injection, IV, 2016 Specialty Once, first Hospital dose 06/04/16 of [place] 19:44:00 MANAGER STUDIO, [place] stop date 06/04/16 19:44:00 MANAGER STUDIO ondansetron 4 mg = 2 mL, Inactive [place] 06/05/ Surgic al Injection, IV, 2016 Specialty Once, first Hospital dose 06/04/16 of [place] 19:35:00 MANAGER STUDIO, stop date 06/04/16 19:35:00 MANAGER STUDIO ePHEDrine 5 mg = 0.1 mL, Inactive [place] 06/05/ Surgic al Injection, IV, 2016 Specialty Once, first Hospital dose 06/04/16 of [place] 19:19:00 MANAGER STUDIO, stop date 06/04/16 19:19:00 MANAGER STUDIO vecuronium 1 mg = 1 mL, Inactive [place] 06/05/ Surgica l Powder-Inj, IV, 2016 Specialt y Once, first Hospital dose 06/04/16 of [place] 19:10:00 MANAGER STUDIO, stop 06/04/16 19:10:00 MANAGER STUDIO ePHEDrine 5 mg = 0.1 mL, Inactive [place] 06/05/ Surgic al Injection, IV, 2016 Specialty Once, first Hospital dose 06/04/16 of [place] 19:02:00 MANAGER STUDIO, stop date 06/04/16 19:02:00 MANAGER STUDIO vecuronium 1 mg = 1 mL, Inactive [place] 06/05/ Surgica l Powder-Inj, IV, 2016 Specialt y Once, first Hospital dose 06/04/16 of [place] 18:28:00 MANAGER STUDIO, stop date 06/04/16 18:28:00 MANAGER STUDIO vecuronium 1 mg = 1 mL, Inactive [place] 06/05/ Surgica l Powder-Inj, IV, 2016 Specialt y Once, first Hospital dose 06/04/16 of [place] 18:13:00 MANAGER STUDIO, stop date 06/04/16 18:13:00 MANAGER STUDIO ePHEDrine 5 mg = 0.1 mL, Inactive [place] 06/05/ Surgic al Injection, IV, 2016 Specialty Once, first Hospital dose 06/04/16 of [place] 18:10:00 MANAGER STUDIO, [place] stop date 06/04/16 18:10:00 MANAGER STUDIO vecuronium 1 mg = 1 mL, Inactive [place] 06/05/ Surgica l Powder-Inj, IV, 2016 Specialt y Once, first Hospital dose 06/04/16 of [place] 18:04:00 MANAGER STUDIO, [place] stop date 06/04/16 18:04:00 MANAGER STUDIO vecuronium 1 mg = 1 mL, Inactive [place] 06/04/ Surgica l Powder-Inj, IV, 2016 Specialt y Once, first Hospital dose 06/04/16 of [place] 17:49:00 MANAGER STUDIO, [place] stop date 06/04/16 17:49:00 MANAGER STUDIO ePHEDrine 5 mg = 0.1 mL, Inactive Jorge 06/04/ Surgic al Injection, IV, SHIP'S PILOT 2016 Specialty Once, first Hospital dose 06/04/16 of [place] 17:40:00 MANAGER STUDIO, [place] stop date 06/04/16 17:40:00 MANAGER STUDIO vecuronium 1 mg = 1 mL, Inactive Jorge 06/04/ Surgica l Powder-Inj, IV, SHIP'S PILOT 2016 Specialt y Once, first Hospital dose 06/04/16 of [place] 17:21:00 MANAGER STUDIO, [place] stop date 06/04/16 17:21:00 MANAGER STUDIO ceFAZolin 1 gm, Inactive Jorge 06/04/ Surgical Powder-Inj, IV, SHIP'S PILOT 2016 Specialt y Once, first Hospital dose 06/04/16 of [place] 17:16:00 MANAGER STUDIO, Land stop date 06/04/16 17:16:00 MANAGER STUDIO Lactated Ringers IV, start date Inactive Jorge 06/04/ Surgical Injection 06/04/16 SHIP'S PILOT 2016 Specialty 17:04:00 MANAGER STUDIO, Hospital stop date of [place] 06/04/16 [place] 17:04:00 MANAGER STUDIO vecuronium 1 mg = 1 mL, Inactive Jorge 06/04/ Surgica l Powder-Inj, IV, SHIP'S PILOT 2016 Specialt y Once, first Hospital dose 06/04/16 of [place] 16:45:00 MANAGER STUDIO, [place] stop date 06/04/16 16:45:00 MANAGER STUDIO ePHEDrine 5 mg = 0.1 mL, Inactive Jorge 06/04/ Surgic al Injection, IV, SHIP'S PILOT 2016 Specialty Once, first Hospital dose 06/04/16 of [place] 16:38:00 MANAGER STUDIO, [place] stop date 06/04/16 16:38:00 MANAGER STUDIO ePHEDrine 5 mg = 0.1 mL, Inactive Jorge 06/04/ Surgic al Injection, IV, SHIP'S PILOT 2016 Specialty Once, first Hospital dose 06/04/16 of [place] 16:34:00 MANAGER STUDIO, [place] stop date 06/04/16 16:34:00 MANAGER STUDIO ePHEDrine 5 mg = 0.1 mL, Inactive Jorge 06/04/ Surgic al Injection, IV, SHIP'S PILOT 2016 Specialty Once, first Hospital dose 06/04/16 of [place] 15:54:00 MANAGER STUDIO, [place] stop date 06/04/16 15:54:00 MANAGER STUDIO vecuronium 2 mg = 2 mL, Inactive Jorge 06/04/ Surgica l Powder-Inj, IV, SHIP'S PILOT 2016 Specialt y Once, first Hospital dose 06/04/16 of [place] 15:53:00 MANAGER STUDIO, [place] stop date 06/04/16 15:53:00 MANAGER STUDIO promethazine 12.5 mg = 0.5 Inactive Nj 06/04/ Surg ical mL, Injection, 2016 Specialty IM, Once PRN Hospital for severe of [place] nausea, first Land dose 06/04/16 15:24:00 MANAGER STUDIO ondansetron 4 mg = 2 mL, Inactive Nj 06/04/ Surgic al Injection, IV 2016 Specialty Push, q15min Hospital PRN for of [place] nausea/vomiting [place] , order duration: 2 doses, first dose 06/04/16 15:24:00 MANAGER STUDIO, stop date Limited # of times Xopenex 0.63 0.63 mg = 3 mL, Inactive Nj 06/04/ Stinson rgical mg/3 mL Soln, NEB, Once 2016 Specialt y inhalation PRN for Hospital solution shortness of of [place] breath or Land wheezing, first dose 06/04/16 15:24:00 MANAGER STUDIO Saline Lock 10 mL, Soln, IV Inactive Nj 06/04/ Amos gical Flush Push, As 2016 Specialty Indicated PRN Hospital for flush, of [place] first dose Land 06/04/16 15:24:00 MANAGER STUDIO Dilaudid 0.5 mg = 0.25 Inactive Nj 06/04/ Surgical mL, Injection, 2016 Specialty IV Push, q10min Hospital PRN for pain of [place] severe (7-10), Land first dose 06/04/16 15:24:00 MANAGER STUDIO vecuronium 2 mg = 2 mL, Inactive Jorge 06/04/ Surgica l Powder-Inj, IV, SHIP'S PILOT 2016 Specialt y Once, first Hospital dose 06/04/16 of [place] 15:10:00 MANAGER STUDIO, [place] stop date 06/04/16 15:10:00 MANAGER STUDIO ePHEDrine 10 mg = 0.2 mL, Inactive Jorge 06/04/ Surgi victorino Injection, IV, SHIP'S PILOT 2016 Specialty Once, first Hospital dose 06/04/16 of [place] 15:08:00 MANAGER STUDIO, [place] stop date 06/04/16 15:08:00 MANAGER STUDIO glycopyrrolate 0.2 mg = 1 mL, Inactive Jorge 06/04/ S urgical Injection, IV, SHIP'S PILOT 2016 Specialty Once, first Hospital dose 06/04/16 of [place] 15:01:00 MANAGER STUDIO, [place] stop date 06/04/16 15:01:00 MANAGER STUDIO fentaNYL 50 mcg = 1 mL, Inactive Jorge 06/04/ Surgica l Injection, IV, SHIP'S PILOT 2016 Specialty Once, first Hospital dose 06/04/16 of [place] 14:55:00 MANAGER STUDIO, [place] stop date 06/04/16 14:55:00 MANAGER STUDIO dexamethasone 4 mg = 1 mL, Inactive Jorge 06/04/ Surg ical Injection, IV, SHIP'S PILOT 2016 Specialty Once, first Hospital dose 06/04/16 of [place] 14:41:00 MANAGER STUDIO, [place] stop date 06/04/16 14:41:00 MANAGER STUDIO Xopenex 0.63 0.63 mg = 3 mL, Inactive Jorge 06/04/ Stinson rgical mg/3 mL Soln, NEB, Once SHIP'S PILOT 2016 Specialt y inhalation PRN for Hospital solution wheezing, first of [place] dose 06/04/16 Land 14:38:00 MANAGER STUDIO ondansetron 4 mg = 2 mL, Inactive Jorge 06/04/ Surgic al Injection, IV SHIP'S PILOT 2016 Specialty Push, q15min Hospital PRN for of [place] nausea/vomiting [place] , order duration: 2 doses, first dose 06/04/16 14:38:00 MANAGER STUDIO, stop date Limited # of times promethazine 12.5 mg = 0.5 Inactive Jorge 06/04/ Surg ical mL, Injection, SHIP'S PILOT 2016 Specialty IM, Once PRN Hospital for severe of [place] nausea, first Land dose 06/04/16 14:38:00 MANAGER STUDIO Dilaudid 0.5 mg = 0.25 Inactive Jorge 06/04/ Surgical mL, Injection, SHIP'S PILOT 2016 Specialty IV Push, q10min Hospital PRN for pain of [place] severe (7-10), Land first dose 06/04/16 14:38:00 MANAGER STUDIO Saline Lock 10 mL, Soln, IV Inactive Jorge 06/04/ Amos gical Flush Push, As SHIP'S PILOT 2016 Specialty Indicated PRN Hospital for flush, of [place] first dose Land 06/04/16 14:38:00 MANAGER STUDIO LR 1,000 mL 1,000 mL, IV, Inactive Jorge 06/04/ Surgi victorino 75 mL/hr, start SHIP'S PILOT 2016 Specialt y date 06/04/16 Hospital 14:38:00 MANAGER STUDIO of [place] lidocaine 2.5 mL, Inactive Jorge 06/04/ Surgical Injection, IV, SHIP'S PILOT 2016 Specialty Once, first Hospital dose 06/04/16 of [place] 14:26:00 MANAGER STUDIO, [place] stop date 06/04/16 14:26:00 MANAGER STUDIO vecuronium 5 mg = 5 mL, Inactive Jorge 06/04/ Surgica l Powder-Inj, IV, SHIP'S PILOT 2016 Specialt y Once, first Hospital dose 06/04/16 of [place] 14:26:00 MANAGER STUDIO, [place] stop date 06/04/16 14:26:00 MANAGER STUDIO propofol 50 mg = 5 mL, Inactive Jorge 06/04/ Surgical Emulsion, IV, SHIP'S PILOT 2016 Specialty Once, first Hospital dose 06/04/16 of [place] 14:26:00 MANAGER STUDIO, [place] stop date 06/04/16 14:26:00 MANAGER STUDIO fentaNYL 50 mcg = 1 mL, Inactive Jorge 06/04/ Surgica l Injection, IV, SHIP'S PILOT 2016 Specialty Once, first Hospital dose 06/04/16 of [place] 14:21:00 MANAGER STUDIO, [place] stop date 06/04/16 14:21:00 MANAGER STUDIO ceFAZolin 2 gm, Soln-IV, Inactive Jorge 06/04/ Surgic al IV Piggyback, SHIP'S PILOT 2016 Specialty Once, first Hospital dose 06/04/16 of [place] 14:17:00 MANAGER STUDIO, [place] stop date 06/04/16 14:17:00 MANAGER STUDIO fentaNYL 50 mcg = 1 mL, Inactive Jorge 06/04/ Surgica l Injection, IV, SHIP'S PILOT 2016 Specialty Once, first Hospital dose 06/04/16 of [place] 14:09:00 MANAGER STUDIO, [place] stop date 06/04/16 14:09:00 MANAGER STUDIO Misc Medication 1,000 mL, Inactive Jorge 06/04/ Surgi victorino Soln-IV, IV, SHIP'S PILOT 2016 Specialty Once, first Hospital dose 06/04/16 of [place] 14:08:00 MANAGER STUDIO, [place] stop date 06/04/16 14:08:00 MANAGER STUDIO ceFAZolin 2 gm, Soln-IV, Inactive Eduard 06/04/ Surgic al IV Piggyback, 2016 Specialty Once, infuse Hospital over 30 of [place] minutes, first Land dose 06/04/16 9:00:00 MANAGER STUDIO, stop date 06/04/16 9:00:00 MANAGER STUDIO, patient weight 50-120 kg, Prophylaxis Lidocaine 2% 0.2 0.2 mL, Inactive Nj 06/04/ Surgic al mL IV Start Injection, 2016 Specialty [[facility]] Subcutaneous, Hospit al Once PRN for of [place] other (see Land comment), first dose 06/04/16 8:30:00 MANAGER STUDIO LR 1,000 mL 1,000 mL, IV, Inactive Nj 06/04/ Surgi victorino 30 mL/hr, start 2016 Specialt y date 06/04/16 Hospital 8:30:00 MANAGER STUDIO of [place] lisinopril 20 mg 1/2 tabs, Oral, Active 05/30/ Surgical oral tablet qPM, 0 2015 Specialty Refill(s), Hospital HYPERTENSION of [place] NEBULIZER NEBULIZER, INH, Active 05/30/ Surgic al TID, PT INST TO 2016 Specialt y USE AM OF SX, 0 Hospital Refill(s), of [place] COPDPT INST TO [place] USE AM OF SX Advair Diskus 1 puffs, INH, Active 05/30/ Surg ical 250 mcg-50 mcg BID, PT INST TO 2016 S pecialty inhalation USE AM OF SX, # Hospi janice powder 28 EA, 0 of [place] Refill(s), Land COPDPT INST TO USE AM OF SX benzonatate 100 100 mg = 1 Active 05/30/ Surgi victorino mg oral capsule caps, Oral, 2016 Spec ialty BID, PRN as Hospital needed for of [place] cough, INS TO Land USE IF NEEDED AM OF SX, 0 Refill(s), COUGH/COPDINS TO USE IF NEEDED AM OF SX Calcium 500+D 1 tabs, Oral, No Longer 11/09/ Stinson rgical Daily, 0 Active 2015 Specialty Refill(s), Hospital SUPPLEMENT of [place] Iron-150 oral 1 tabs, Oral, Active Surg ical tablet Daily, 0 2015 Specialty Refill(s), Hospital SUPPLEMENT of [place] montelukast 10 10 mg = 1 tabs, Active urgical mg oral tablet Oral, qAM, PT 2015 Spe cialty INST TO TAKE AM Hospital OF SX IF of [place] NEEDED, 0 Land Refill(s), ALLERGYPT INST TO TAKE AM OF SX IF NEEDED Tylenol Regular 325 mg, Oral, Active rgical Strength q4hr, 0 2015 Specialty Refill(s), PAIN [facility] [place] metFORMIN 500 mg 500 mg = 1 Active Surg ical oral tablet tabs, Oral, 2016 Specialt y BID, PT INST TO Hospital NOT TAKE THE AM of [place] OF SX, # 60 Land tabs, 0 Refill(s), DIABETESPT INST TO NOT TAKE THE AM OF SX Tylenol Oral, 0 Active 05/30/ Surgical Refill(s) 2016 [facility] [place] lisinopril Oral, Daily, 0 Active 05/30/ Surgic al Refill(s) 2015 [facility] [place] Levofloxacin 750 750 mg = 1 tab, Active [place] MG Oral Tablet PO, Q24H, X 10 [place] [Levaquin] day, # 10 tab, 0 Refill(s) Levaquin Notes: (Same No Longer [place] as:Levaquin) Active 2015 [facility] montelukast Notes: (Same No Longer Stinson gar as:Singulair) Active 2015 [facility] budesonide-formo Notes: (Same No Longer [place] terol 160 as: Symbicort) Active 2015 [facility] mcg-4.5 mcg/inh WASTE: Aerosol inhalation - Return to aerosol with Pharmacy adapter Advair Diskus 1 puff, Route: Inactive [place] 500 mcg-50 mcg INHALATION, 2015 [facility] inhalation Drug Form: powder AERO, Dosing Weight 49.773, kg, BID, Start date: 10/26/15 17:00:00, Duration: 30 day, Stop date: 11/25/15 9:00:00 benzonatate Notes: (Same No Longer Stinson gar As: Tessalon Active 2015 [facility] Perles) "Do Not Crush" Advair Diskus 1 puff, Active [place] 500 mcg-50 mcg INHALATION, 2015 inhalation BID, # 1 ea, 0 powder Refill(s) benzonatate 200 200 mg = 1 cap, Active [place] mg oral capsule PO, TID, PRN 2015 José d cough, do not crush or chew, # 30 cap, 0 Refill(s) lisinopril 20 mg 20 mg = 1 tab, Active [place] oral tablet PO, Daily, # 30 2015 [place] tab, 0 Refill(s) montelukast 10 10 mg = 1 tab, Active [place] mg oral tablet PO, Daily, # 90 2015 L and tab, 0 Refill(s) Albuterol 0.833 Notes: (Same No Longer H Sugar MG/ML / as: Duoneb) Active 2015 [facility] Ipratropium Blue Eye 0.167 MG/ML Inhalant Solution Levofloxacin 750 mg, Route: Inactive [place] IVPB, Drug 2015 [facility] form: SOLN, [id number], Dosing Weight 49.773, kg, Start date: 10/26/15 8:00:00, Duration: 30 day, Stop date: 11/24/15 8:00:00 Insulin, Aspart, Notes: Roll in No Longer [place] Human palms of hands Active 2015 [facility] gently; Do not shake vigorously. (Same as: NovoLOG) "single patient use only" WASTE: F/P - Black; E - Municipal Trash Bin Stable for 28 days at room temperature. Expires in days from D ate Glucagon 1 mg, Route: No Longer [place] IM, Drug form: Active 2015 [place] PDR/INJ, PRN, Dosing Weight 49.773, kg, PRN Blood Glucose Results, Start date: 10/26/15 7:23:00, Duration: 30 day, Stop date: 11/25/15 7:22:00 Dextrose 50% 25 gm, 50 mL, No Longer [place] Syringe Route: IVP, Active 2015 [facility] Drug Form: INJ, Dosing Weight 49.773, kg, PRN, PRN Blood Glucose Results, Start date: 10/26/15 7:23:00, Duration: 30 day, Stop date: 11/25/15 7:22:00 Tylenol 650 mg, Route: Inactive [place] PO, Drug form: 2015 TAB, Q6H, Dosing Weight 49.773, kg, PRN Pain Score 1-3, Start date: 10/26/15 7:23:00, Duration: 30 day, Stop date: 11/25/15 7:22:00 Zofran Notes: (Same No Longer [place] as: Zofran) Active 2015 MEDICATION WASTE Product Size: 4 mg Product Wasted: ___ mg Morphine Notes: (Same No Longer [place] as: Active 2015 [facility] Astramorph-PF) Albuterol 0.833 Notes: (Same No Longer [place] MG/ML / as: Duoneb) Active 2015 Ipratropium Blue Eye 0.167 MG/ML Inhalant Solution NS + KCL 20mEq/L Notes: PREMIX No Longer [place] 1000ml (Premix) IV - Do Not Active 2015 1,000 mL Alter WASTE: F/P - Sink; E - Municipal Trash Bin Ceftriaxone Notes: (Same Inactive Sug ar As: Rocephin). 2016 Land Use with 100 mL NS and infuse over 30 min MEDICATION WASTE Product Size: 1000 mg Product Wasted: ___ mg Levofloxacin Notes: (Same Inactive Stinson gar as:Levaquin) 2015 Albuterol 0.833 Notes: (Same Inactive [place] MG/ML / as: Duoneb) 2015 Ipratropium Blue Eye 0.167 MG/ML Inhalant Solution Amoxicillin 875 1 tab, Route: Inactive H Sugar MG / Clavulanate PO, Dosing 2015 125 MG Oral Weight 48.636, Tablet kg, ONCE, Start [Augmentin date: 10/25/15 875-mg] 23:13:00, Stop date: 10/25/15 23:13:00 Saline Flush Notes: (Same No Longer S ugar 0.9% as: BD Active 2015 Land Posiflush) Sodium Chloride 1,500 mL, 1,000 Inactive [place] 0.154 MEQ/ML ml/hr, Infuse 2015 [place] Injectable Over: 1.5 hr, Solution Route: IV, 1,500, Drug form: INJ, ONCE, Priority: STAT, Dosing Weight 48.636 kg, Start date: 10/25/15 23:02:00, Duration: 1 doses or times, Stop date: 10/25/15 23:02:00 Albuterol 0.833 3 ml, Active MG/ML / INHALATION, 2013 Ipratropium Q6H, as needed Blue Eye 0.167 for shortness MG/ML Inhalant of breath or Solution wheezing, # 30 ea, 0 Refill(s) simvastatin 10 10 mg = 1 tab, Active mg oral tablet PO, Bedtime, # 2014 [place] 30 tab, 0 Refill(s) lisinopril 20 mg 20 mg = 1 tab, Inactive oral tablet PO, Daily, # 30 2013 [place] tab, 0 Refill(s) tiotropium 0.018 18 microgram = Active MG/ACTUAT 1 cap, 2013 Inhalant Powder INHALATION, [Spiriva] Daily, # 90 cap, 0 Refill(s) Metformin 500 mg = 1 tab, Active hydrochloride PO, BID, # 30 2013 [place] 500 MG Oral tab, 0 Tablet Refill(s) Cetirizine 10 mg, PO, Active Bedtime, 0 2013 Refill(s) pantoprazole Notes: For IV Inactive push 2013 reconstitute with 10 ml 0.9% sodium chloride and push over 2 minutes. (Same as: Protonix) nitroglycerin Notes: (Same Inactive 0.4 mg as:Nitroquick, 2013 sublingual Nitrostat) "Do tablet Not Crush" Sublingual tablet atropine 0.5 mg, 5 mL, Inactive Route: IVP, 2013 Drug form: INJ, PRN, PRN Bradycardia, Start date: 12/17/13 7:24:00, Duration: 30 day, Stop date: 01/16/14 7:23:00 Acetaminophen Notes: Max Inactive acetaminophen = 2013 [facility] t 4000mg/day (4 gm/day). (Same as: Tylenol) Morphine Notes: (Same Inactive as:MORPhine 2013 [facility] Sulfate) Ondansetron Notes: (Same Inactive as: Zofran) 2013 [facility] Sodium Chloride 1,000 mL, Rate: Inactive 0.154 MEQ/ML 90 ml/hr, 2013 [facility] Injectable Infuse over: Solution 11.1 hr, Route: IV, Dosing Weight 47.273 kg, Total Volume: 1,000, Start date: 12/17/13 6:29:00, Duration: 30 day, Stop date: 01/16/14 6:28:00 Saline Flush Notes: (Same Inactive 0.9% as: BD 2013 [facility] Posiflush) Magnesium 1 gm, 100 mL, Inactive Sulfate Route: IVPB, 2013 [facility] Drug form: INJ, ONCE, Dosing Weight 47.273, kg, Start date: 12/17/13 6:27:00, Stop date: 12/17/13 6:27:00 Sodium Chloride 500 mL, 500 Inactive 0.154 MEQ/ML ml/hr, Infuse 2013 [facility] Injectable Over: 1 hr, Solution Route: IV, ONCE, Priority: STAT, Dosing Weight 54.545 kg, Start date: 12/17/13 5:02:00, Duration: 1 doses or times, Stop date: 12/17/13 5:02:00 Ceftriaxone 1 gm, Route: Inactive IVPB, Drug 2013 [facility] form: PDR/INJ, ONCE, Dosing Weight 54.545, kg, Priority: STAT, Start date: 12/17/13 3:56:00, Stop date: 12/17/13 3:56:00 Saline Flush Notes: (Same No Longer 0.9% as: BD Active 2013 [facility] Posiflush) Allergies, Adverse Reactions, Alerts Substance Category Reaction Severity Reaction Status Date Comments S ource type Reported codeine drug Unknown Allergy Surgical allergy (qualifie Specia lty r value) [facility] hydrocodone Assertion Drug Active MH Sugar allergy [place] Benadryl Assertion Drug Active MH Stinson gar Allergy allergy [place] Benadryl drug Unknown Allergy Surgica l allergy (qualifie Specia lty r value) [facility] Immunizations No Data Provided for This Section Results Order Name Results Value Reference Date Interpretation Comments Leesa rce Range LABORATORY Blood 118 74 - 106 06/09 HI Surgical Glucose, /2015 [facility] Capillary [facility] LABORATORY Blood 104 74 - 106 06/09 Surgical Glucose, Specialty Capillary [facility] LABORATORY Blood 104 74 - 106 06/09 Surgical Glucose, /2015 [facility] LABORATORY AGAP 14.1 10.0 - 06/09 <sup>1</sup>R Surgica l 20.0 /2016 eference Lab: Specialty [facility], [address] [place] [address] LABORATORY Carbon 28 24 - 32 06/09 <sup>69</sup> Surgica l Dioxide /2015 Reference Specialty Level Lab: [facility], [address] [place] [address] LABORATORY Sodium Level 147 135 - 145 06/09 HI <sup>90</sup> Surgical /2016 Reference Specialty Lab: [facility], [address] [place] [address] LABORATORY Chloride 109 95 - 109 06/09 <sup>74</sup> Surgi victorino Level /2015 Reference Specialty Lab: [facility], [address] [place] [address] LABORATORY Potassium 4.1 3.5 - 5.1 06/09 <sup>83</sup> Amos gical Level /2016 Reference Specialty Lab: [facility], [address] [place] [address] LABORATORY Creatinine 0.80 0.50 - 06/09 <sup>97</sup> Surg ical 1.40 /2016 Reference Specialty Lab: [facility], [address] [place] [address] LABORATORY BUN 16 7 - 22 06/09 <sup>59</sup> Surgica l /2015 Reference Specialty Lab: [facility], [address] [place] [address] LABORATORY Glucose Lvl 102 70 - 99 06/09 HI <sup>6</sup>R Amos gi eference Lab: Specialty [facility], [address] [place] [address]
<stinson p>7</sup>Resu lt Comment: Adult reference range values reflect the clinical guidelines
of the [place] [employer]. LABORATORY eGFR 69 06/09 <sup>48</sup> Surgica l 2016 Reference Specialty Lab: [facility], [address] [place] [address]
<stinson p>49</sup>Res ult Comment: The eGFR is calculated using the CKD-EPI formula. In most young, healthy
i ndividuals the eGFR will be >90 mL/min/1.73m2 . The eGFR declines with age. An
eGFR of 60-89 may be normal in some populations, particularly the elderly, for
whom the CKD-EPI formula has not been extensively validated. Use of the eGFR is
not recommended in the following populations:< br/>Individua ls with unstable creatinine concentration s, including
patients and those with serious co-morbid conditions.<b r/>Patients with extremes in muscle mass or diet.
The data above are obtained from the National Kidney Disease Education Program
( NKDEP) which additionally recommends that when the eGFR is used in patients
with extremes of body mass index for purposes of drug dosing, the eGFR should
be multiplied by the estimated BMI. LABORATORY Calcium 8.6 8.5 - 10.5 06/09 <sup>64</sup> Surg ical Level Reference Specialty Lab: [facility], [address] [place] [address] LABORATORY Blood 106 74 - 106 06/09 Surgical Glucose, Specialty Capillary [facility] LABORATORY Blood 118 74 - 106 06/09 HI Surgical Glucose, /2015 Specialty Capillary [facility] LABORATORY Blood 118 74 - 106 06/09 HI Surgical Glucose, /2016 [facility]ty [facility] LABORATORY Calcium 8.5 8.5 - 10.5 06/08 <sup>65</sup> Surg ical Level /2016 Reference Specialty Lab: [facility], [address] [place] [address] LABORATORY eGFR 64 06/08 <sup>50</sup> Surgica l /2016 Reference Specialty Lab: [facility], [facility] [place] [address]
<stinson p>51</sup>Res ult Comment: The eGFR is calculated using the CKD-EPI formula. In most young, healthy
i ndividuals the eGFR will be >90 mL/min/1.73m2 . The eGFR declines with age. An
eGFR of 60-89 may be normal in some populations, particularly the elderly, for
whom the CKD-EPI formula has not been extensively validated. Use of the eGFR is
not recommended in the following populations:< br/>Individua ls with unstable creatinine concentration s, including
patients and those with serious co-morbid conditions.<b r/>Patients with extremes in muscle mass or diet.
The data above are obtained from the National Kidney Disease Education Program
( NKDEP) which additionally recommends that when the eGFR is used in patients
with extremes of body mass index for purposes of drug dosing, the eGFR should
be multiplied by the estimated BMI. LABORATORY AGAP 13.9 10.0 - 06/08 <sup>2</sup>R Surgica l 20.0 /2016 eference Lab: Specialty [facility], [address] [place] [address] LABORATORY Carbon 26 24 - 32 06/08 <sup>70</sup> Surgica l Dioxide /2016 Reference Specialty Level Lab: [facility], [address] [place] [address] LABORATORY Creatinine 0.86 0.50 - 06/08 <sup>98</sup> Surg ical 1.40 /2016 Reference Specialty Lab: [facility], [address] [place] [address] LABORATORY BUN 11 7 - 22 06/08 <sup>60</sup> Surgica l /2016 Reference Specialty Lab: [facility], [facility] [place] [address] LABORATORY Sodium Level 149 135 - 145 06/08 HI <sup>91</sup> Surgical /2016 Reference Specialty Lab: [facility], [facility] [address] [address] LABORATORY Potassium 3.9 3.5 - 5.1 06/08 <sup>84</sup> Amos gical Level /2016 Reference Specialty Lab: [facility], [facility] [place] [address] LABORATORY Chloride 113 95 - 109 06/08 HI <sup>75</sup> Surgi victorino Level /2016 Reference Specialty Lab: [facility], [address] [place] [address] LABORATORY Glucose Lvl 104 70 - 99 06/08 HI <sup>8</sup>R Amos gical /2016 eference Lab: Specialty [facility], [address] [place] [address]
<stinson p>9</sup>Resu lt Comment: Adult reference range values reflect the clinical guidelines
of the [place] [employer]. LABORATORY Carbon 21 24 - 32 06/07 LOW <sup>71</sup> Surgica l Dioxide /2016 Reference Specialty Level Lab: [facility], [facility] [address] [address] LABORATORY Sodium Level 147 135 - 145 06/07 HI <sup>92</sup> Surgical /2016 Reference Specialty Lab: [facility], [address] [place], [place] [address] LABORATORY Potassium 4.1 3.5 - 5.1 06/07 <sup>85</sup> Amos gical Level /2016 Reference Specialty Lab: [facility], [address] [place], [place] [id number] LABORATORY AGAP 15.1 10.0 - 06/07 <sup>3</sup>R Surgica l 20.0 /2016 eference Lab: Specialty [facility], [address] [place] [address] LABORATORY Calcium 8.0 8.5 - 10.5 06/07 LOW <sup>66</sup> Surg ical Level /2016 Reference Specialty Lab: [facility], [address] [place] [address] LABORATORY eGFR 59 06/07 <sup>52</sup> Surgica l /2016 Reference Specialty Lab: [facility], [address] [place] [address]
<stinson p>53</sup>Res ult Comment: The eGFR is calculated using the CKD-EPI formula. In most young, healthy
i ndividuals the eGFR will be >90 mL/min/1.73m2 . The eGFR declines with age. An
eGFR of 60-89 may be normal in some populations, particularly the elderly, for
whom the CKD-EPI formula has not been extensively validated. Use of the eGFR is
not recommended in the following populations:< br/>Individua ls with unstable creatinine concentration s, including
patients and those with serious co-morbid conditions.<b r/>Patients with extremes in muscle mass or diet.
The data above are obtained from the National Kidney Disease Education Program
( NKDEP) which additionally recommends that when the eGFR is used in patients
with extremes of body mass index for purposes of drug dosing, the eGFR should
be multiplied by the estimated BMI. LABORATORY Chloride 115 95 - 109 06/07 HI <sup>76</sup> Surgi victorino Level /2016 Reference Specialty Lab: [facility], [address] [place], [place] [address] LABORATORY BUN 15 7 - 22 06/07 <sup>61</sup> Surgica l /2016 Reference Specialty Lab: [facility], [address] [place] [address] LABORATORY Creatinine 0.92 0.50 - 06/07 <sup>99</sup> Surg ical 1.40 /2016 Reference Specialty Lab: [facility], [address] [place] [address] LABORATORY Glucose Lvl 139 70 - 99 06/07 HI <sup>10</sup> Amos gical /2016 Reference Specialty Lab: [facility], [address] [place] [address]
<stinson p>11</sup>Res ult Comment: Adult reference range values reflect the clinical guidelines
of the [place] [employer]. LABORATORY Basophil # 0.1 0.0 - 0.2 06/06 <sup>42</sup> Stinson rgical Reference Specialty Lab: [facility], [address] [place] [address] LABORATORY Neutrophil # 9.2 1.5 - 8.1 06/06 HI <sup>34</sup> Surgical /2016 Reference Specialty Lab: [facility], [address] [place] [address] LABORATORY Lymphocyte # 1.1 1.0 - 5.5 06/06 <sup>36</sup> Surgical /2016 Reference Specialty Lab: [facility], [address] [place] [address] LABORATORY Basophil % 0.8 0.0 - 1.0 06/06 <sup>32</sup> Stinson rgical Reference Specialty Lab: [facility], [address] [place] [address] LABORATORY Monocyte # 1.2 0.0 - 0.8 06/06 HI <sup>38</sup> Stinson rgical Reference Specialty Lab: [facility], [address] [place] [address] LABORATORY Eosinophil % 0.0 0.0 - 0.5 06/06 <sup>30</sup> Surgical /2016 Reference Specialty Lab: [facility], [address] [place], [place] [id number] LABORATORY Eosinophil # 0.0 0.0 - 4.0 06/06 <sup>40</sup> Surgical /2016 Reference Specialty Lab: [facility], [address] [place] [address] LABORATORY Monocyte % 10.4 2.0 - 12.0 06/06 <sup>28</sup> S urgical /2016 Reference Specialty Lab: [facility], [address] [place] [address] LABORATORY Lymphocyte % 9.4 20.0 - 06/06 LOW <sup>26</sup> Stinson rgical 40.0 /2016 Reference Specialty Lab: [facility], [address] [place] [address] LABORATORY Neutrophil % 79.4 45.0 - 06/06 HI <sup>24</sup> Stinson rgical 75.0 /2015 Reference Specialty Lab: [facility], [address] [place], [place] [address] LABORATORY Results Reported 06/06 Surgical (06/06/2016 04:16:00) /2016 [facility] LABORATORY Potassium 4.8 3.5 - 5.1 06/06 <sup>86</sup> Amos gical Level /2015 Reference Specialty Lab: [facility], [address] [place], [place] [id number] LABORATORY Chloride 113 95 - 109 06/06 HI <sup>77</sup> Surgi victorino Level /2015 Reference Specialty Lab: [facility], [address] [place], [place] [id number] LABORATORY Calcium 7.6 8.5 - 10.5 06/06 LOW <sup>67</sup> Surg ical Level /2015 Reference Specialty Lab: [facility], [address] [place], [place] [id number] LABORATORY Carbon 20 24 - 32 06/06 LOW <sup>72</sup> Surgica l Dioxide /2016 Reference Specialty Level Lab: [facility], [address] [place], [place] [id number] LABORATORY AGAP 16.8 10.0 - 06/06 <sup>4</sup>R Surgica l 20.0 /2016 eference Lab: Specialty [facility], [address] [place] [address] LABORATORY Glucose Lvl 61 70 - 99 06/06 LOW <sup>12</sup> Amos gical /2016 Reference Specialty Lab: [facility], [address] [place] [address]
<stinson p>13</sup>Res ult Comment: Adult reference range values reflect the clinical guidelines
of the [place] [employer]. LABORATORY Sodium Level 145 135 - 145 06/06 <sup>93</sup> Surgical /2016 Reference Specialty Lab: [facility], [address] [place] [address] LABORATORY BUN 18 7 - 22 06/06 <sup>62</sup> Surgica l /2016 Reference Specialty Lab: [facility], [address] [place] [address] LABORATORY Creatinine 0.91 0.50 - 06/06 <sup>100</sup Surg ical 1.40 /2016 >Reference Specialty Lab: [facility], [address] [place] [address] LABORATORY eGFR 60 06/06 <sup>54</sup> Surgica l /2016 Reference Specialty Lab: [facility], [address] [place] [address]
<stinson p>55</sup>Res ult Comment: The eGFR is calculated using the CKD-EPI formula. In most young, healthy
i ndividuals the eGFR will be >90 mL/min/1.73m2 . The eGFR declines with age. An
eGFR of 60-89 may be normal in some populations, particularly the elderly, for
whom the CKD-EPI formula has not been extensively validated. Use of the eGFR is
not recommended in the following populations:< br/>Individua ls with unstable creatinine concentration s, including
patients and those with serious co-morbid conditions.<b r/>Patients with extremes in muscle mass or diet.
The data above are obtained from the National Kidney Disease Education Program
( NKDEP) which additionally recommends that when the eGFR is used in patients
with extremes of body mass index for purposes of drug dosing, the eGFR should
be multiplied by the estimated BMI. LABORATORY Results Reported 06/06 Surgical (06/06/2016 04:16:00) [facility] LABORATORY Results Reported 06/06 Surgical (06/06/2016 04:16:00) [facility] LABORATORY White Blood 11.6 3.7 - 10.4 06/06 HI <sup>95</sup> Surgical Count /2015 Reference Specialty Lab: [facility], [address] [place] [address] LABORATORY Red Blood 3.30 4.20 - 06/06 LOW <sup>88</sup> Surgi victorino Cell Count 5.40 /2016 Reference Specialty Lab: [facility], [address] [place] [address] LABORATORY Hemoglobin 9.7 12.0 - 06/06 LOW <sup>81</sup> Surg ical 16.0 /2016 Reference Specialty Lab: [facility], [address] [place] [address] LABORATORY Hematocrit 30.1 36.0 - 06/06 LOW <sup>79</sup> Surg ical 48.0 /2016 Reference Specialty Lab: [facility], [address] [place] [address] LABORATORY MCH 29.4 27.0 - 06/06 <sup>16</sup> Surgica l 31.0 /2016 Reference Specialty Lab: [facility], [address] [place] [address] LABORATORY MCV 91.1 80.0 - 06/06 <sup>46</sup> Surgica l 98.0 /2016 Reference Specialty Lab: [facility], [address] [place], [place] [address] LABORATORY RDW 16.3 11.5 - 06/06 HI <sup>20</sup> Surgica l 14.5 /2016 Reference Specialty Lab: [facility], [address] [place], [place] [address] LABORATORY MCHC 32.3 32.0 - 06/06 <sup>18</sup> Surgica l 36.0 /2016 Reference Specialty Lab: [facility], [address] [place], [place] [address] LABORATORY Platelet 207 133 - 450 06/06 <sup>44</sup> Surg ical /2016 Reference Specialty Lab: [facility], [address] [place] [address] LABORATORY MPV 10.0 7.4 - 10.4 06/06 <sup>22</sup> Surg ical /2016 Reference Specialty Lab: [facility], [address] [place], [place] [address] LABORATORY Carbon 22 24 - 29 06/06 LOW Surgical Dioxide /2016 [facility] LABORATORY Calcium 1.09 1.12 - 06/06 LOW Surgical Level 1.32 /2016 [facility] LABORATORY Sodium Level 141.0 138.0 - 06/06 Surgical 146.0 /2015 [facility] LABORATORY Potassium 5.0 3.5 - 4.9 06/06 HI Surgical Level /2016 [facility] LABORATORY AGAP 16 8 - 16 06/06 Surgical /2016 [facility] LABORATORY Results Reported 06/06 Surgical (06/05/2016 19:25:00) /2016 [facility] LABORATORY Hematocrit 35 38 - 51 06/06 LOW Surgical /2016 [facility] LABORATORY BUN 25 8 - 26 06/06 Surgical /2016 [facility] LABORATORY Creatinine 1.1 0.6 - 1.3 06/06 Surgical /2016 [facility] LABORATORY Chloride 109 98 - 109 06/06 Surgical Level /2016 [facility] LABORATORY Hemoglobin 11.9 12.0 - 06/06 LOW Surgical 17.0 /2016 [facility] LABORATORY Glucose Lvl 88 70 - 105 06/06 Surgical /2016 [facility] LABORATORY Results Reported 06/05 Surgical (06/05/2016 06:37:00) /2015 [facility] LABORATORY Lymphocyte % 6.1 20.0 - 06/05 LOW <sup>27</sup> Stinson rgical 40.0 Reference Specialty Lab: [facility], [address] [place] [address] LABORATORY Eosinophil # 0.0 0.0 - 4.0 06/05 <sup>41</sup> Surgical /2015 Reference Specialty Lab: [facility], [address] [place] [address] LABORATORY Monocyte % 11.2 2.0 - 12.0 06/05 <sup>29</sup> S urg Reference Specialty Lab: [facility], [address] [place] [address] LABORATORY Neutrophil # 11.6 1.5 - 8.1 06/05 HI <sup>35</sup> Surgical Reference Specialty Lab: [facility], [address] [place] [address] LABORATORY Lymphocyte # 0.9 1.0 - 5.5 06/05 LOW <sup>37</sup> Surgical Reference Specialty Lab: [facility], [address] [place] [address] LABORATORY Monocyte # 1.6 0.0 - 0.8 06/05 HI <sup>39</sup> Stinson rgical Reference Specialty Lab: [facility], [address] [place] [address] LABORATORY Basophil % 0.2 0.0 - 1.0 06/05 <sup>33</sup> Stinson rgical Reference Specialty Lab: [facility], [address] [place] [address] LABORATORY Basophil # 0.0 0.0 - 0.2 06/05 <sup>43</sup> Stinson rgical Reference Specialty Lab: [facility], [address] [place] [address] LABORATORY Hypochrom 1+ None Seen 06/05 <sup>58</sup> Amos gical /2015 Reference Specialty Lab: [facility], [address] [place] [address] LABORATORY Eosinophil % 0.0 0.0 - 0.5 06/05 <sup>31</sup> Surgical /2015 Reference Specialty Lab: [facility], [facility] [place] [address] LABORATORY Neutrophil % 82.5 45.0 - 06/05 HI <sup>25</sup> Stinson rgical 75.0 Reference Specialty Lab: [facility], [address] [place] [address] LABORATORY Results Reported 06/05 Surgical (06/05/2016 06:37:00) [facility] LABORATORY eGFR 44 06/05 <sup>56</sup> Surgica l /2015 Reference Specialty Lab: [facility], [facility] [place] [address]
<stinson p>57</sup>Res ult Comment: The eGFR is calculated using the CKD-EPI formula. In most young, healthy
i ndividuals the eGFR will be >90 mL/min/1.73m2 . The eGFR declines with age. An
eGFR of 60-89 may be normal in some populations, particularly the elderly, for
whom the CKD-EPI formula has not been extensively validated. Use of the eGFR is
not recommended in the following populations:< br/>Individua ls with unstable creatinine concentration s, including
patients and those with serious co-morbid conditions.<b r/>Patients with extremes in muscle mass or diet.
The data above are obtained from the National Kidney Disease Education Program
( NKDEP) which additionally recommends that when the eGFR is used in patients
with extremes of body mass index for purposes of drug dosing, the eGFR should
be multiplied by the estimated BMI. LABORATORY Calcium 8.1 8.5 - 10.5 06/05 LOW <sup>68</sup> Surg ical Level /2016 Reference Specialty Lab: [facility], [address] [place] [address] LABORATORY AGAP 13.3 10.0 - 1115 <sup>5</sup>R Surgica l 20.0 /2016 eference Lab: Specialty [facility], [address] [address] LABORATORY Carbon 27 24 - 32 06/05 <sup>73</sup> Surgica l Dioxide /2016 Reference Specialty Level Lab: [facility], [facility] [address] [place] [id number] LABORATORY Chloride 108 95 - 109 06/05 <sup>78</sup> Surgi victorino Level /2016 Reference Specialty Lab: [facility], [address] [place] [address] LABORATORY Potassium 5.3 3.5 - 5.1 06/05 HI <sup>87</sup> Amos gical Level /2016 Reference Specialty Lab: [facility], [address] [place] [address] LABORATORY Sodium Level 143 135 - 145 06/05 <sup>94</sup> Surgical /2016 Reference Specialty Lab: [facility], [address] [place] [address] LABORATORY Glucose Lvl 115 70 - 99 06/05 HI <sup>14</sup> Amos gical /2016 Reference Specialty Lab: [facility], [facility] [address] [place] [id number]
<stinson p>15</sup>Res ult Comment: Adult reference range values reflect the clinical guidelines
of the [place] [employer]. LABORATORY Creatinine 1.16 0.50 - 11 <sup>101</sup Surg ical 1.40 /2016 >Reference Specialty Lab: [facility], [address] [place] [address] LABORATORY BUN 24 7 - 22 06/05 HI <sup>63</sup> Surgica l /2016 Reference Specialty Lab: [facility], [address] [place] [address] LABORATORY White Blood 14.1 3.7 - 10.4 06/05 HI <sup>96</sup> Surgical Count /2016 Reference Specialty Lab: [facility], [address] [place] [address] LABORATORY Red Blood 3.85 4.20 - 06/05 LOW <sup>89</sup> Surgi victorino Cell Count 5.40 /2016 Reference Specialty Lab: [facility], [address] [place] [address] LABORATORY Hematocrit 34.7 36.0 - 06/05 LOW <sup>80</sup> Surg ical 48.0 /2016 Reference Specialty Lab: [facility], [address] [place] [address] LABORATORY Hemoglobin 11.1 12.0 - 06/05 LOW <sup>82</sup> Surg ical 16.0 /2015 Reference Specialty Lab: [facility], [address] [place] [address] LABORATORY MCV 90.1 80.0 - 06/05 <sup>47</sup> Surgica l 98.0 /2016 Reference Specialty Lab: [facility], [address] [place] [address] LABORATORY MCHC 32.0 32.0 - 06/05 <sup>19</sup> Surgica l 36.0 /2016 Reference Specialty Lab: [facility], [address] [place], [place] [id number] LABORATORY RDW 15.2 11.5 - 06/05 HI <sup>21</sup> Surgica l 14.5 /2016 Reference Specialty Lab: [facility], [address] [place] [address] LABORATORY MCH 28.8 27.0 - 06/05 <sup>17</sup> Surgica l 31.0 /2015 Reference Specialty Lab: [facility], [address] [place] [address] LABORATORY MPV 9.7 7.4 - 10.4 06/05 <sup>23</sup> Surg ical /2016 Reference Specialty Lab: [facility], [address] [facility] [place] [address] LABORATORY Platelet 237 133 - 450 06/05 <sup>45</sup> Surg ical /2016 Reference Specialty Lab: [facility], [address] [facility] [place] [address] LABORATORY Results Reported 06/05 Surgical (06/05/2016 06:37:00) /2016 [facility] CHEM PANEL eGFR 68 10/29 Result MH Comment: The [facility] eGFR is calculated using the CKD-EPI formula. In most young, healthy individuals the eGFR will be >90 mL/min/1.73m2 . The eGFR declines with age. An eGFR of 60-89 may be normal in some populations, particularly the elderly, for whom the CKD-EPI formula has not been extensively validated. Use of the eGFR is not recommended in the following populations:< br/>
Holly viduals with unstable creatinine concentration s, including patients and those with serious co-morbid conditions.<b r/>
Patie nts with extremes in muscle mass or diet.

The data above are obtained from the National Kidney Disease Education Program (NKDEP) which additionally recommends that when the eGFR is used in patients with extremes of body mass index for purposes of drug dosing, the eGFR should be multiplied by the estimated BMI. CHEM PANEL Creatinine 0.82 0.50 - 10/29 [facility] [place] Lvl 1.40 /2015 [place] CHEM PANEL Calcium Lvl 8.4 8.5 - 10.5 /10 [facility] [place] /2016 [place] CHEM PANEL CO2 21 24 - 32 /10 [facility] [place] CHEM PANEL Sodium Lvl 141 135 - 145 /10 [facility] [place] CHEM PANEL Potassium 4.4 3.5 - 5.1 /10 [facility] [place] Lvl /2016 [place] CHEM PANEL Chloride Lvl 111 95 - 109 /10 [facility] [place] CHEM PANEL Glucose Lvl 100 70 - 99 /10 [facility] [place] CHEM PANEL BUN 9 7 - 22 /10 [facility] [place] CHEM PANEL AGAP 13.4 10.0 - 04/10 MH [place] 20.0 /2015 [place] HEMATOLOGY MCV 92.9 80.0 - 04/10 [facility] [place] 98.0 /2016 [place] HEMATOLOGY MCH 30.1 27.0 - 04/10 MH [place] 31.0 /2015 [place] HEMATOLOGY MCHC 32.4 32.0 - 04/10 MH [place] 36.0 /2015 [place] HEMATOLOGY RDW 14.1 11.5 - 04/10 [facility] [place] 14.5 /2016 [place] HEMATOLOGY MPV 8.4 7.4 - 10.4 04/10 [facility] [place] /2016 [place] HEMATOLOGY Platelet 367 133 - 450 04/10 [facility] [place] /2016 [place] HEMATOLOGY WBC 10.8 3.7 - 10.4 04/10 [facility] [place] /2016 [place] HEMATOLOGY RBC 3.01 4.20 - 0410 [facility] [place] 5.40 /2015 [place] HEMATOLOGY Hgb 9.1 12.0 - 0410 MH [place] 16.0 /2015 [place] HEMATOLOGY Hct 28.0 36.0 - 04/10 MH [place] 48.0 /2015 [place] HEMATOLOGY Basophils # 0.1 0.0 - 0.2 04/10 MH [place] /2015 [place] HEMATOLOGY Monocytes # 1.1 0.0 - 0.8 04/10 MH [place] /2016 [place] HEMATOLOGY Eosinophils 0.0 0.0 - 0.5 04/10 MH [place] # /2015 [place] HEMATOLOGY Basophils 0.6 0.0 - 1.0 04/10 MH [place] /2016 [place] HEMATOLOGY Lymphocytes 1.0 1.0 - 5.5 04/10 MH [place] # /2015 [place] HEMATOLOGY Segs-Bands # 8.6 1.5 - 8.1 04/10 MH [place] /2015 [place] HEMATOLOGY Eosinophils 0.0 0.0 - 4.0 04/10 MH [place] /2015 [place] HEMATOLOGY Segs 79.8 45.0 - 04/10 MH [place] 75.0 /2016 [place] HEMATOLOGY Lymphocytes 9.1 20.0 - 04/10 [facility] [place] 40.0 /2016 [place] HEMATOLOGY Monocytes 10.5 2.0 - 12.0 04/10 [facility] [place] /2016 [place] SPECIAL Hgb A1C 5.5 <=5.6 % 04/10 [facility] [place] CHEMISTRY /2016 [place] ELECTROLYT AGAP 12.4 10.0 - 04/09 MH [place] ES 20.0 /2016 [place] ELECTROLYT BUN 9 7 - 22 04/09 MH [place] ES /2016 [place] ELECTROLYT Glucose Lvl 105 70 - 99 04/09 MH [place] ES /2016 [place] ELECTROLYT Creatinine 0.82 0.50 - 10/28 MH [place] Lvl 1.40 /2015 [place] ELECTROLYT Potassium 4.4 3.5 - 5.1 10/28 [place] ES Lvl [place] ELECTROLYT Sodium Lvl 142 135 - 145 10/28 [place] ES [place] ELECTROLYT CO2 22 24 - 32 10/28 [place] ES [place] ELECTROLYT Chloride Lvl 112 95 - 109 10/28 [place] ELECTROLYT Calcium Lvl 8.4 8.5 - 10.5 10/28 [place] ES [place] ELECTROLYT eGFR 67 10/28 [place] Comment: [place] eGFR is calculated using the CKD-EPI formula. In most young, healthy individuals the eGFR will be >90 mL/min/1.73m2 . The eGFR declines with age. An eGFR of 60-89 may be normal in some populations, particularly the elderly, for whom the CKD-EPI formula has not been extensively validated. Use of the eGFR is not recommended in the following populations:< br/>
Holly viduals with unstable creatinine concentration s, including patients and those with serious co-morbid conditions.<b r/>
Patie nts with extremes in muscle mass or diet.

The data above are obtained from the National Kidney Disease Education Program (NKDEP) which additionally recommends that when the eGFR is used in patients with extremes of body mass index for purposes of drug dosing, the eGFR should be multiplied by the estimated BMI. HEMATOLOGY MCHC 32.0 32.0 - 10/28 [place] 36.0 /2015 [place] HEMATOLOGY MCH 29.6 27.0 - 10/28 [place] 31.0 [facility] HEMATOLOGY Platelet 356 133 - 450 10/28 MH [facility] HEMATOLOGY MPV 7.4 7.4 - 10.4 10/28 [place] HEMATOLOGY RDW 14.1 11.5 - 10/28 [place] 14.5 [facility] HEMATOLOGY MCV 92.6 80.0 - 10/28 [place] 98.0 /2015 [place] HEMATOLOGY Hct 28.9 36.0 - 10/28 [place] 48.0 /2015 [facility] HEMATOLOGY Hgb 9.2 12.0 - 10/28 [place] 16.0 [facility] HEMATOLOGY RBC 3.12 4.20 - 04/09 MH [place] 5.40 /2016 [place] HEMATOLOGY WBC 12.8 3.7 - 10.4 04/ MH [place] /2016 [place] HEMATOLOGY Basophils # 0.0 0.0 - 0.2 04/09 MH [place] /2016 [place] HEMATOLOGY Segs-Bands # 10.1 1.5 - 8.1 04/ MH [place] /2016 [place] HEMATOLOGY Lymphocytes 1.2 1.0 - 5.5 04/09 MH [place] # /2016 [place] HEMATOLOGY Basophils 0.1 0.0 - 1.0 04/09 MH [place] /2016 [place] HEMATOLOGY Monocytes # 1.4 0.0 - 0.8 04/09 MH [place] /2016 [place] HEMATOLOGY Eosinophils 0.0 0.0 - 0.5 04/09 MH [place] # /2016 [place] HEMATOLOGY Monocytes 11.3 2.0 - 12.0 04/ MH [place] /2016 [place] HEMATOLOGY Eosinophils 0.0 0.0 - 4.0 04/ MH [place] /2016 [place] HEMATOLOGY Segs 79.3 45.0 - 04 MH [place] 75.0 /2016 [place] HEMATOLOGY Lymphocytes 9.3 20.0 - 04/09 MH [place] 40.0 /2016 [place] ELECTROLYT AGAP 13.6 10.0 - 0408 MH [place] ES 20.0 /2016 [place] ELECTROLYT eGFR 70 10/27 Result MH [place] ES /2015 Comment: [place] eGFR is calculated using the CKD-EPI formula. In most young, healthy individuals the eGFR will be >90 mL/min/1.73m2 . The eGFR declines with age. An eGFR of 60-89 may be normal in some populations, particularly the elderly, for whom the CKD-EPI formula has not been extensively validated. Use of the eGFR is not recommended in the following populations:< br/>
Holly viduals with unstable creatinine concentration s, including patients and those with serious co-morbid conditions.<b r/>
Patie nts with extremes in muscle mass or diet.

The data above are obtained from the National Kidney Disease Education Program (NKDEP) which additionally recommends that when the eGFR is used in patients with extremes of body mass index for purposes of drug dosing, the eGFR should be multiplied by the estimated BMI. ELECTROLYT Creatinine 0.80 0.50 - 04 MH [place] Lvl 1.40 /2015 [place] ELECTROLYT Sodium Lvl 141 135 - 145 04/08 [place] ES /2016 [place] ELECTROLYT Calcium Lvl 8.2 8.5 - 10.5 04/08 [place] ES /2015 [place] ELECTROLYT CO2 20 24 - 32 04/08 [place] ES /2016 [place] ELECTROLYT Chloride Lvl 112 95 - 109 04/ [place] ES /2015 [place] ELECTROLYT Potassium 4.6 3.5 - 5.1 04/ [place] Lvl /2015 [place] ELECTROLYT BUN 10 7 - 22 04/08 [place] ES /2016 [place] ELECTROLYT Glucose Lvl 103 70 - 99 04/08 [place] ES 2016 [place] HEMATOLOGY Segs-Bands # 10.7 1.5 - 8.1 04/ [place] /2015 [place] HEMATOLOGY Eosinophils 0.0 0.0 - 0.5 04/ [place] # /2015 [place] HEMATOLOGY Basophils # 0.0 0.0 - 0.2 04/ [place] /2015 [place] HEMATOLOGY Lymphocytes 1.2 1.0 - 5.5 04/ [place] # /2015 [place] HEMATOLOGY Monocytes # 1.3 0.0 - 0.8 04/ [place] /2015 [place] HEMATOLOGY Basophils 0.2 0.0 - 1.0 04/08 [place] HEMATOLOGY Monocytes 9.5 2.0 - 12.0 04/08 [place] /2015 [place] HEMATOLOGY Segs 81.0 45.0 - 04/08 [place] 75.0 /2016 [place] HEMATOLOGY Eosinophils 0.0 0.0 - 4.0 04/ [place] /2015 [place] HEMATOLOGY Lymphocytes 9.3 20.0 - 04/08 [place] 40.0 /2016 [place] HEMATOLOGY MCV 92.8 80.0 - 04/08 [place] 98.0 /2016 [place] HEMATOLOGY Hct 28.2 36.0 - 04/08 [place] 48.0 /2016 [place] HEMATOLOGY Hgb 9.1 12.0 - 04/08 [place] 16.0 /2016 [place] HEMATOLOGY MCHC 32.3 32.0 - 04/08 [place] 36.0 /2016 [place] HEMATOLOGY RDW 14.3 11.5 - 04/08 [place] 14.5 /2016 [place] HEMATOLOGY MCH 29.9 27.0 - 04/08 [place] 31.0 /2016 [place] HEMATOLOGY Platelet 324 133 - 450 04/08 [place] /2016 [place] HEMATOLOGY MPV 7.5 7.4 - 10.4 10/27 [place] HEMATOLOGY RBC 3.04 4.20 - 10/27 [place] 5.40 /2015 [facility] HEMATOLOGY WBC 13.2 3.7 - 10.4 10/27 [place] HEMATOLOGY RBC Morph Normal 10/25 [place] (10/26/15 11:46 AM) [facility] HEMATOLOGY Plt Morph Normal 10/25 [place] (10/26/15 11:46 AM) [place] URINE AND UA RBC 0-2 /HPF 0 - 2 10/25 [place] STOOL [place] URINE AND UA WBC 0-2 /HPF None Seen 10/25 [place] STOOL /HPF /2015 [place] URINE AND UA Bacteria Occasional None Seen 10/25 [facility] gar STOOL /HPF /HPF /2015 [place] URINE AND UA Bili Negative Negative 10/25 [place] STOOL *NA* /2015 [place] (10/26/15 12:50 AM) URINE AND UA Blood Negative Negative 10/25 [place] [facility] (10/26/15 12:50 AM) [place] URINE AND UA 0.2 0.1 - 1.0 10/25 [place] STOOL Urobilinogen /2015 [place] URINE AND UA Leuk Est Negative Negative 10/25 [place] [facility] (10/26/15 12:50 AM) [place] URINE AND UA Sq Epi Few /LPF Few /LPF 10/25 [place] ST[place]OL [place] URINE AND UA Nitrite Negative Negative 10/25 [place] [facility] (10/26/15 12:50 AM) [place] URINE AND UA Color Yellow Yellow 10/25 [place] STOOL *NA* /2015 [facility] (10/26/15 12:50 AM) URINE AND UA Spec Grav <=1.005 <=1.030 10/25 [place] STOOL *NA* /2015 [place] (10/26/15 12:50 AM) URINE AND UA Turbidity Clear Clear 10/25 [place] [facility] (10/26/15 12:50 AM) [place] URINE AND UA pH 6.0 5.0 - 8.0 10/25 [place] STOOL [place] URINE AND UA Glucose Negative Negative 10/25 [place] [facility] (10/26/15 12:50 AM) [place] URINE AND UA Protein 30 mg/dL Negative 10/25 [place] STOOL mg/dL [place] URINE AND UA Ketones Negative Negative 10/25 [place] STOOL *NA* /2015 [place] (10/26/15 12:50 AM) VIRAL - Influ B Negative Negative 10/25 [place] SEROLOGY (10/25/15 11:34 PM) /2015 [place] VIRAL - Influ A Negative Negative 10/25 [place] SEROLOGY (10/25/15 11:34 PM) [facility] CARDIAC Total CK 64 12 - 191 10/25 [place] ENZYMES /2015 [facility] CARDIAC Troponin-I <0.02 0.00 - 04 [place] ENZYMES 0.40 /2015 [facility] CARDIAC CK MB <0.5 0.5 - 3.6 / [place] ENZYMES /2015 [facility] CARDIAC CK MB Index <0.8 0.0 - 2.5 / [place] ENZYMES /2015 [place] CHEM PANEL Procalcitoni 0.43 0.00 - 04 [place] n Lvl 0.10 [place] CHEM PANEL Lactic Acid 1.2 0.5 - 2.2 10/25 [place] Lvl /2015 [place] CHEM PANEL A/G Ratio 0.7 0.7 - 1.6 / [place] CHEM PANEL Globulin 4.4 2.0 - 4.0 04/ [place] /2015 [place] CHEM PANEL B/C Ratio 12 6 - 25 / [place] /2015 [place] CHEM PANEL Total 7.3 6.4 - 8.4 10/25 [place] Protein [place] CHEM PANEL Alk Phos 78 39 - 136 / [place] /2015 [place] CHEM PANEL Albumin Lvl 2.9 3.5 - 5.0 / [place] /2015 [place] CHEM PANEL AST 13 0 - 37 / MH [place] CHEM PANEL ALT 24 0 - 65 / [place] /2015 [place] CHEM PANEL Bili Total 0.5 0.2 - 1.3 / [place] /2016 [place] HEMATOLOGY PT 15.4 12.0 - 04/06 [place] 14.7 /2016 [place] HEMATOLOGY INR 1.19 0.85 - 04/ [place] 1.17 /2015 [place] HEMATOLOGY PTT 41.9 22.9 - 04/ [place] 35.8 /2015 [place] HEMATOLOGY Plt Morph Normal 04/ [place] (10/25/15 11:13 PM) /2015 [place] HEMATOLOGY RBC Morph Normal 10/25 [place] (10/25/15 11:13 PM) [place] CHEM PANEL Magnesium 1.5 1.8 - 2.4 12/17 Lvl [facility] CHEM PANEL Phosphorus 2.8 2.5 - 4.5 12/17 [facility] ELECTROLYT Chloride Lvl 110 95 - 109 12/17 [facility] ELECTROLYT CO2 24 24 - 32 12/17 [facility] ELECTROLYT Calcium Lvl 7.8 8.5 - 10.5 12/17 ES [facility] ELECTROLYT Total 5.1 6.4 - 8.4 12/17 ES Protein [facility] ELECTROLYT Albumin Lvl 2.7 3.5 - 5.0 12/17 [facility] ELECTROLYT Glucose Lvl 95 70 - 99 12/17 <sup>3</sup>I nterpretive [facility] Data: Adult reference range values reflect the clinical guidelines
of the [place] [employer]. ELECTROLYT BUN 15 7 - 22 12/17 [facility] ELECTROLYT Creatinine 0.9 0.5 - 1.4 12/17 ES Lvl [facility] ELECTROLYT Sodium Lvl 144 135 - 145 12/17 [facility] ELECTROLYT Potassium 4.1 3.5 - 5.1 12/17 ES Lvl [facility] ELECTROLYT eGFR 61 12/17 <sup>1</sup>R esult [facility] Comment: The eGFR is calculated using the CKD-EPI formula. In most young, healthy individuals the eGFR will be >90 mL/min/1.73m2 . The eGFR declines with age. An eGFR of 60-89 may be normal in some populations, particularly the elderly, for whom the CKD-EPI formula has not been extensively validated. Use of the eGFR is not recommended in the following populations:& lt;br/>
I ndividuals with unstable creatinine concentration s, including patients and those with serious co-morbid conditions.<b r/>
Patie nts with extremes in muscle mass or diet.

The data above are obtained from the National Kidney Disease Education Program (NKDEP) which additionally recommends that when the eGFR is used in patients with extremes of body mass index for purposes of drug dosing, the eGFR should be multiplied by the estimated BMI. ELECTROLYT ALT 11 0 - 65 12/17 [place] ELECTROLYT AST 10 0 - 37 12/17 ES [place] ELECTROLYT Alk Phos 48 39 - 136 12/17 ES [place] ELECTROLYT Bili Total 0.3 0.2 - 1.3 12/17 [place] ELECTROLYT AGAP 14.1 10.0 - 12/17 ES 20.0 [place] ELECTROLYT B/C Ratio 17 6 - 25 12/17 [place] ELECTROLYT Globulin 2.4 2.0 - 4.0 12/17 ES [place] ELECTROLYT A/G Ratio 1.1 0.7 - 1.6 12/17 ES [place] HEMATOLOGY Lymphocytes 1.1 1.0 - 5.5 12/17 # /2013 [place] HEMATOLOGY Basophils 0.5 0.0 - 1.0 12/17 [facility] HEMATOLOGY Segs-Bands # 3.4 1.5 - 8.1 12/17 [facility] HEMATOLOGY Monocytes 15.5 2.0 - 12.0 12/17 [place] HEMATOLOGY Lymphocytes 20.8 20.0 - 12/17 40.0 /2013 [facility] HEMATOLOGY Eosinophils 0.7 0.0 - 4.0 12/17 [facility] HEMATOLOGY Basophils # 0.0 0.0 - 0.2 12/17 [place] HEMATOLOGY Segs 62.5 45.0 - 12/17 75.0 /2013 [facility] HEMATOLOGY Monocytes # 0.8 0.0 - 0.8 12/17 [facility] HEMATOLOGY Eosinophils 0.0 0.0 - 0.5 12/17 MH # /2013 [facility] HEMATOLOGY MCV 91.6 81.0 - 12/17 99.0 /2013 [facility] HEMATOLOGY MCH 31.2 27.0 - 12/17 MH 31.0 /2013 [facility] HEMATOLOGY RBC 3.15 4.20 - 12/17 MH 5.40 /2013 [facility] HEMATOLOGY Hgb 9.8 12.0 - 12/17 16.0 [facility] HEMATOLOGY Hct 28.9 36.0 - 12/17 48.0 /2013 [facility] HEMATOLOGY MPV 8.2 7.4 - 10.4 12/17 [facility] HEMATOLOGY Platelet 266 133 - 450 12/17 [facility] HEMATOLOGY WBC 5.4 3.7 - 10.4 12/17 [facility] HEMATOLOGY RDW 14.3 11.5 - 12/17 14.5 [facility] 34.[facility] 32.0 - 12/17 36.0 /2013 [facility] URINE AND UA Ketones Negative Negative 12/17 STOOL mg/dL mg/dL /2013 [facility] URINE AND UA Blood Negative Negative 12/17 STOOL (12/17/13 1:36 AM) [facility] Sq Epi Occasional Few /LPF 12/17 STOOL /LPF /2013 [facility] URINE AND UA Leuk Est Trace Negative 12/17 STOOL *ABN* /2013 [facility] (12/17/13 1:36 AM) URINE AND UA RBC 2 0 - 2 12/17 STOOL /2013 [facility] URINE AND UA Nitrite Negative Negative 12/17 STOOL (12/17/13 1:36 AM) /2013 [facility] UR[facility]A WBC 9 0 - 5 12/17 STOOL [facility] URINE AND UA Color Yellow Yellow 12/17 STOOL *NA* /2013 [facility] (12/17/13 1:36 AM) URINE AND UA Turbidity Clear Clear 12/17 [facility] (12/17/13 1:36 AM) [place] [facility] URINE AND UA Spec Grav 1.018 <=1.030 12/17 STOOL [facility] URINE AND UA pH 5.0 5.0 - 8.0 12/17 STOOL [facility] URINE AND UA Glucose Negative Negative 12/17 STOOL mg/dL mg/dL /2013 [facility] URINE AND UA Bili Negative Negative 12/17 STOOL *NA* /2013 [facility] (12/17/13 1:36 AM) URINE AND UA Protein Negative Negative 12/17 STOOL mg/dL mg/dL [facility] URINE AND UA <=1.0 0.1 - 1.0 12/17 STOOL Urobilinogen mg/dL /2013 [facility] CARDIAC CK MB Index 2.3 0.0 - 2.5 12/17 ENZYMES /2013 [facility] CARDIAC BNP 13 <=100 12/17 <sup>5</sup>I ENZYMES pg/mL /2013 nterpretive [facility] Data: Elevated results are in line with increasing severity of
con gestive heart failure. Minor elevations between 100 and 300
may be seen with Myocardial Ischemia, Sodium retaining drugs,
an d compensated/t reated heart failure. CARDIAC CK MB 1.1 0.5 - 3.6 12/17 ENZYMES /2013 [facility] CARDIAC Total CK 48 12 - 191 12/17 ENZYMES [facility] CARDIAC Troponin-I <0.02 0.00 - 05 ENZYMES 0.40 /2013 [facility] CHEM PANEL Phosphorus 2.8 2.5 - 4.5 12/17 [facility] CHEM PANEL eGFR 61 12/17 <sup>2</sup>R esult [facility] Comment: The eGFR is calculated using the CKD-EPI formula. In most young, healthy individuals the eGFR will be >90 mL/min/1.73m2 . The eGFR declines with age. An eGFR of 60-89 may be normal in some populations, particularly the elderly, for whom the CKD-EPI formula has not been extensively validated. Use of the eGFR is not recommended in the following populations:& lt;br/>
I ndividuals with unstable creatinine concentration s, including patients and those with serious co-morbid conditions.<b r/>
Patie nts with extremes in muscle mass or diet.

The data above are obtained from the National Kidney Disease Education Program (NKDEP) which additionally recommends that when the eGFR is used in patients with extremes of body mass index for purposes of drug dosing, the eGFR should be multiplied by the estimated BMI. CHEM PANEL AGAP 12.8 10.0 - 12/17 MH 20.0 /2013 [facility] CHEM PANEL Alk Phos 53 39 - 136 12/17 [facility] CHEM PANEL Bili Total 0.3 0.2 - 1.3 12/17 [facility] CHEM PANEL B/C Ratio 21 6 - 25 12/17 [facility] CHEM PANEL AST 11 0 - 37 12/17 [facility] CHEM PANEL ALT 15 0 - 65 12/17 [facility] CHEM PANEL Globulin 3.1 2.0 - 4.0 12/17 [facility] CHEM PANEL Potassium 3.8 3.5 - 5.1 12/17 Lvl /2013 [facility] CHEM PANEL A/G Ratio 1.0 0.7 - 1.6 12/17 [facility] CHEM PANEL Sodium Lvl 141 135 - 145 12/17 [facility] CHEM PANEL Total 6.2 6.4 - 8.4 12/17 Protein [facility] CHEM PANEL BUN 19 7 - 22 12/17 [facility] CHEM PANEL Creatinine 0.9 0.5 - 1.4 12/17 Lvl /2013 [facility] CHEM PANEL Calcium Lvl 8.3 8.5 - 10.5 12/17 [facility] CHEM PANEL CO2 26 24 - 32 12/17 [facility] CHEM PANEL Chloride Lvl 106 95 - 109 12/17 [facility] CHEM PANEL Albumin Lvl 3.1 3.5 - 5.0 12/17 [facility] CHEM PANEL Glucose Lvl 104 70 - 99 12/17 <sup>4</sup>I nterpretive [facility] Data: Adult reference range values reflect the clinical guidelines
of the [place] [employer]. CHEM PANEL Magnesium 1.5 1.8 - 2.4 12/17l [facility] HEMATOLOGY Basophils # 0.0 0.0 - 0.2 12/17 [facility] HEMATOLOGY Segs 81.4 45.0 - 12/17 MH 75.0 /2013 [facility] HEMATOLOGY Eosinophils 0.3 0.0 - 4.0 12/17 [facility] HEMATOLOGY Lymphocytes 9.6 20.0 - 12/17 MH 40.0 /2013 [facility] HEMATOLOGY Monocytes 8.3 2.0 - 12.0 12/17 [facility] HEMATOLOGY Monocytes # 0.6 0.0 - 0.8 12/17 [facility] HEMATOLOGY Eosinophils 0.0 0.0 - 0.5 12/17 MH # /2013 [facility] HEMATOLOGY Lymphocytes 0.7 1.0 - 5.5 12/17 MH # /2013 [facility] HEMATOLOGY Segs-Bands # 5.8 1.5 - 8.1 12/17 [facility] HEMATOLOGY Basophils 0.4 0.0 - 1.0 12/17 [facility] HEMATOLOGY WBC 7.1 3.7 - 10.4 12/17 [facility] HEMATOLOGY RBC 3.51 4.20 - 12/17 MH 5.40 /2013 [facility] HEMATOLOGY Hgb 10.9 12.0 - 12/17 MH 16.0 /2013 [facility] HEMATOLOGY Hct 31.7 36.0 - 12/17 MH 48.0 /2013 [facility] HEMATOLOGY MCV 90.4 81.0 - 12/17 MH 99.0 /2013 [facility] HEMATOLOGY MCH 31.1 27.0 - 12/17 MH 31.0 /2013 [facility] HEMATOLOGY MCHC 34.4 32.0 - 12/17 MH 36.0 /2013 [facility] HEMATOLOGY RDW 13.8 11.5 - 12/17 14. [facility] HEMATOLOGY Platelet 297 133 - 450 12/17 [facility] HEMATOLOGY MPV 8.3 7.4 - 10.4 12/17 [facility] HEMATOLOGY INR 0.99 0.85 - 12/17 <sup>6</sup>I 1.17 nterpretive [facility] Data: RECOMMENDED RANGES FOR PROTIME INR:
2.0-3.0 for most medical and surgical thromboemboli c states.
2.5-3.5 for artificial heart valves and recurrent embolism.<br/ >
INR SHOULD BE USED ONLY FOR PATIENTS ON STABLE ANTICOAGULANT THERAPY. HEMATOLOGY PT 13.0 12.0 - 12/17 14. [facility] HEMATOLOGY PTT 28.4 22.9 - 12/17 <sup>7</sup>I 35.8 nterpretive [facility] Data: Heparin Therapeutic Range: 57 - 92 Seconds Pathology Reports No Data Provided for This Section Diagnostic Reports Report Value Date Source Chest wo contrast CT EXAM: 10/29/[address] chest without contrast. INDICATION: Cough. Fever. TECHNIQUE: Contiguous axial CT images of the chest. Intravenous contrast: Absent. DLP 333.33 mGy-cm. COMPARISON: Chest x-ray: Earlier today. CT abdomen and pelvis: 08/29/2010 FINDINGS: Upper abdomen: Partially imaged. STOMACH: Trace sliding-type hiatal hernia. Thoracic aorta: Moderate to severe atheroscleros is. Heart: Marked coronary artery calcifications. Mediastinum: Limited evaluat ion for adenopathy in the absence of intravenous contrast. Within this limitation, there are reactive size subcentimeter mediastinal and neck lymph nodes. Tracheobronchial tree: Unremarkable. Lungs: Posterior costophrenic angles of the lung bases are excluded. Lobar consolidation: Right l ower lobe consolidation with air bronchograms and surrounding interstitial thickening/groundglass opacities. A few small scattered bilateral upper lobe areas of peripheral groundglass density. Pleural effusion: Moderate right pleural effusio n. Pneumothorax: Negative. Nodule: 0.2 cm right upper l obe pulmonary nodule (series 2 image 33). Calcified granuloma right upper lobe. 0.7 cm subpleural right middle lobe nodular density (image 62). Other: Large fatty density in the region of the right posterior costophrenic angle likely represents large fat-containing diaphragmatic hernia. Bones: Unremarkable. IMPRESSION: 1. Stable right lower lobe p neumonia and parapneumonic effusion. Advise radiographic follow-up until clearance. 2. A few small scattered alfredo ateral upper lobe areas of peripheral groundglass density. These are nonspecific and could represent atelectasis or focal infectious/inflammatory processes. 3. Large fatty density in th e region of the right posterior costophrenic angle which likely represents large fat-containing diaphragmatic hernia. Similar appearance was present on prior CT abdomen. 4. Right lung pulmonary nodu les, the larger of which measures 0.7 cm. Consider follow-up CT chest in 6-12 months if this is a low risk patient or 3-6 months if this is a high-risk patient, based on Fleischner criteria (as below). Fleischner Society recomme ndations for incidentally detected pulmonary nodules (Radiology. [phone]:395-400. Guidelines for management of small pulmonary nodules detected on CT scans: a statement fro m the Fleischner Society. Vinod H, Tayo STERLING, Emmanuel G, et. al): 1. Low Risk Patient: a. <0.4 cm: No followup. b. 0.4-0.6 cm: Repeat CT at 12 months; no furthe r follow up if unchanged. c. 0.7-0.8 cm: Repeat CT at 6-12 months; no furt her follow up if unchanged. d. >0.8 cm: Repeat CT at 3, 9, and 24 months; PE T-CT; or biopsy. 2. High Risk Patient (eg. smoker, history of ma lignancy, etc.): a. <0.4 cm: Repeat CT at 12 months; no further f ollow up if unchanged. b. 0.4-0.6 cm: Repeat CT at 6-12 months then at 18-24 months if unchanged. c. 0.7-0.8 cm: Repeat CT at 3-6 months, 9-12 months, and 24 months if no change. d. >0.8 cm: Repeat CT at 3, 9, and 24 months; PE T-CT; or biopsy. Fleischner Society recommend ations for management of subsolid pulmonary nodules: 1. Groundglass nodules: a. <0.6 cm: No CT followup. Obtain 0.1 cm thick slices to confirm that nodule is pure groundglass. b. >/= 0.6 cm: Followup CT a t 3 months to confirm persistence then annual surveillance CT for at least 3 years. PET-CT is of limited value and is not recommended. 2. Partly solid nodule: a. Solid component <0.6 cm: Followup CT at 3 months to confirm persistence then annual surveillance CT for at least 3 years. b. Solid component >/= 0.6 c m: Followup CT at 3 months and if persistent, then biopsy or surgery. PET/CT can be considered for partly solid nodule s greater than 1 cm. Chest 1view DX EXAM: 10/29/2015 [facility] 1 view(s) of the chest. INDICATION: Abnormal chest sounds. COMPARISON: Chest x-ray: 10/27/2015. IMPRESSION: 1. Support apparatus: None. 2. Stable right lower lobe c onsolidation with parapneumonic effusion. Consider continued follow-up until resolution. 3. Left basilar atelectasis with small pleural e ffusion. 4. No pneumothorax. Chest 1view DX Chest x-ray 1 view 10/27/2015 [facility] Comparison:10/25/15 Findings: Heart size and padmini tral vasculature are within normal limits. There is continued right basilar (probable lower lobe) consolidation with slight silhouetting of the lateral right hemidiaphragm. M inimal patchy opacities are noted in the left lung base. No acute osseus pathology. Impression: Right greater than left basi lar consolidation may be due to pneumonia or less likely atelectasis. Suspected small right pleural effusion. Chest 1view DX EXAM: 10/25/2015 [facility] Single view chest. INDICATION: Chest pain. COMPARISON: Chest x-ray: 12/16/2013. FINDINGS: There is a right basilar air space opacity with small right pleural effusion. There are left basilar interstitial opacities. The heart is normal in size. There is no pneumothorax. The bones are unremarkable IMPRESSION: Right basilar pneumonia with small right pleural effusion. Left basilar interstitial opacities, which may represent atelectasis or pneumonia Consultation Notes No Data Provided for This Section Discharge Summaries No Data Provided for This Section History and Physicals No Data Provided for This Section Vital Signs Vital Sign Value Date Comments Source Respitory Rate 18 [facility]09[facility] [place] [facility] 98 06/09[facility]2016 [facility] [place] Systolic (mm Hg) 152/92 06/09/2016 Surgical [facility] [place] Temperature Oral (F) 36.5 Sissy 06/09/2016 [facility] [place] Systolic (mm Hg) 142/70 06/09/2016 [facility] [place] Systolic (mm Hg) 155/84 06/09/2016 [facility] [place] Respitory Rate 18 06/09/2016 Surgical [facility] [place] Heart Rate 100 06/09/2016 [facility] [place] Temperature Oral (F) 36.5 Sissy 06/09/2016 [facility] [place] Temperature Oral (F) 36.5 Sissy 06/09/2016 [facility] [place] Heart Rate 99 06/09/2016 Surgical [facility] [place] Respitory Rate 18 06/09/2016 Surgical Spec [facility] [place] Temperature Oral (F) 36.6 Sissy 06/05/2016 [facility] [place] Temperature Oral (F) 36.9 Sissy 06/05/2016 [facility] [place] Weight 20.51 06/04/2016 [facility] [place] Weight 47.63 06/04/2016 [facility] [place] Height 152.4 cm 06/04/2016 Surgical [facility] [place] Peripheral Pulse Rate 64 [facility]04[facility] [place] Height 152.4 cm 05/30/2016 [facility] [place] Weight 47.63 05/30/2016 [facility] [place] Weight 20.51 05/30/2016 [facility] [place] Peripheral Pulse Rate 67 05/30/2016 [facility] [place] Heart Rate 92 10/30/2015 [facility] Respitory Rate 18 10/30/2015 [facility] Temperature Oral (F) 98.2 F 10/30/2015 [place] Systolic (mm Hg) 125 10/30/2015 [place] Diastolic (mm Hg) 72 10/30/2015 [place] Temperature Oral (F) 98.4 F 10/30/2015 [place] Heart Rate 81 10/30/2015 [facility] Respitory Rate 18 10/30/2015 [facility] Systolic (mm Hg) 131 10/30/2015 [place] Diastolic (mm Hg) 72 10/30/2015 [place] Temperature Oral (F) 98.5 F 10/30/2015 [place] Heart Rate 81 10/30/2015 [facility] Respitory Rate 18 10/30/2015 [facility] Systolic (mm Hg) 112 10/30/2015 [place] Diastolic (mm Hg) 63 10/30/2015 [place] Weight 49.773 10/26/2015 [facility] BMI Calculated 21.43 10/26/2015 [facility] Height 152.4 cm 10/26/2015 [facility] Weight 48.636 10/26/2015 [facility] Systolic (mm Hg) 94 12/17/2013 [place] Resp[place] Rate 18 12/17/2013 [facility] Diastolic (mm Hg) 49 12/17/[address] Diastolic (mm Hg) 50 12/17/[address] [facility] [address] Systolic (mm Hg) 84 12/17/2013 [place] Respitory Rate 20 12/17/2013 [facility] Heart Rate 71 12/17/2013 [facility] Temperature Oral (F) 98.1 F 12/17/2013 [place] Height 147.32 cm 12/17/2013 [facility] BMI Calculated 30.58 12/17/2013 [facility] Weight 66.364 12/17/2013 [facility] Respitory Rate 20 12/17/2013 [facility] Systolic (mm Hg) 100 12/17/2013 [place] Diastolic (mm Hg) 58 12/17/[address] [facility] [address] Temperature Oral (F) 98.7 F 12/17/2013 [place] Heart Rate 76 12/17/2013 [facility] Temperature Oral (F) 98.5 F 12/17/2013 [place] Height 149.86 cm 12/17/2013 [facility] Weight 47.273 12/17/2013 [facility] BMI Calculated 21.05 12/17/2013 [facility] Heart Rate 82 12/17/2013 [facility] Encounters Location Location Encounter Encounter Reason Attending ADM DC Stat us Source Details Type Number For Provider Date Date Visit Emergency [id number] CHEST MATTHIAS 03/07 03/07 Activ [facility] [place] 3 PAIN JAYARAMA /2010 [facility] OD [id number] 571.8 - YUDI HARRY 03/15 03/15 Active [facility] 0 CHRONIC /2010 [facility] L[facility] D wood 789.01 - ABDMNAL PAIN RT Emergency [id number] SHARI GREEN 03/30 03/31 Discha rg [facility] 4 JR /2010 ed [facility] Emergency [id number] SOB SHARI GREEN 04/12 04/13 Active [facility] 5 JR /2010 [facility] OBS [id number] Rj Clifton 12/17 12/17 [facility] Patient [facility] Inpatient [id number] [place] 10/25 10/29 [place] 8 Elliott /2015 [place] [facility] Inpatient [id number] Adam 06/04 06/09 [facility] [id number] EILEEN DOWNEY 02/21 Act l[facility] [place] [facility] [id number] EILEEN DOWNEY 03/27 [facility] [place] [facility] [id number] LILIA 04/09 Active M emoria 2 CI l [place] Outpatient [id number] EILEEN DOWNEY 04/14 [facility] [place] [facility] [id number] EILEEN DOWNEY 04/28 [facility] [place] [facility] [id number] ESOPHAGI YUDI [facility] 6 TIS [facility] OD [id number] 368.40 - YUDI HARRY Activ e OPID 1 VISUAL [facility] Procedures Procedure Code Date Perfomer Comments Source IMPLANTATION OF Eduard 2auto-populated Surg ical BIOLOGIC IMPLANT 6 from documented Spe cialty [address] surgical case Hospital [facility] (Other)<sup>2</sup> [facility] REPAIR HERNIA Eduard 3auto-populated Surgic al INCISIONAL OR 6 from documented Specia lty VENTRAL-W/MESH 58594 surgical case [facility] (Other)<sup>3</sup> [facility] REPAIR INITIAL HERNIA Eduard 4auto-populate d Surgical INCISIONAL OR 6 from documented Specia lty [place] [address] [facility] (Other)<sup>4</sup> COLONOSCOPY Surgical 1 [facility] HERNIA 1X2 Surgical REPAIR<sup>1</sup> 1 Specia lty [facility] Cholecystectomy [id number] [facility] Hernia repair [id number] [facility] [place] Resection of colon [id number] for interposition [facility] Assessment and Plan No Data Provided for This Section Plan of Care No Data Provided for This Section Social History Social History Date Source Social History TypeResponse 10/26/2015 Katya duenas Smoking Status Never smoker; Exposure to Tobacco Smoke None; Cigarette Smoking Last 365 Days No; Reg Smoking Cessation Counseling No Social History TypeResponse 12/17/2013 [facility] Family History No Data Provided for This Section Advance Directives No Data Provided for This Section Functional Status No Data Provided for This Section
--- NOTE | 2020-09-11 09:53 | ER ---
Nurse's Notes [facility] Name: Therese Siu Age: 85 yrs Sex: Female : 1935 Arrival Date: 09/11/2020 Time: 09:05 Bed 8 Private MD: Diagnosis: Insect bite (nonvenomous) of right forearm Presentation: 09/11 09:16 Chief complaint: Patient's son or daughter states: started a couple days ago and had iw some itching to her right forearm, then there was a blister and now there's a spot that looks like a spider bite. Coronavirus screen: At this time, the client does not indicate any symptoms associated with coronavirus-19. Ebola Screen: Patient negative for fever greater than or equal to 101.5 degrees Fahrenheit, and additional compatible Ebola Virus Disease symptoms Patient denies exposure to infectious person. Patient denies travel to an Ebola-affected area in the 21 days before illness onset. No symptoms or risks identified at this time. Initial Sepsis Screen: Does the patient meet any 2 criteria? No. Patient's initial sepsis screen is negative. Does the patient have a suspected source of infection? No. Patient's initial sepsis screen is negative. Risk Assessment: Do you want to hurt yourself or someone else? Patient reports no desire to harm self or others. Onset of symptoms was September 08, 2020. 09:16 Method Of Arrival: Ambulatory iw 09:16 Acuity: KOBI 4 iw Triage Assessment: 09:20 Bite description: bite sustained to dorsal aspect of right forearm. Bite description: bp by a spider, animal information: vaccination(s) is not applicable. General: Appears in no apparent distress. uncomfortable, Behavior is cooperative, appropriate for age, anxious. Pain: Complains of pain in dorsal aspect of right forearm. EENT: No deficits noted. Neuro: No deficits noted. Cardiovascular: No deficits noted. Respiratory: No deficits noted. GI: No signs and/or symptoms were reported involving the gastrointestinal system. : No signs and/or symptoms were reported regarding the genitourinary system. Derm: Reports itching. Musculoskeletal: No deficits noted. Historical: - Allergies: 09:18 Benadryl; iw 09:18 Codeine; iw - Home Meds: 09:18 albuterol sulfate 90 mcg/actuation Inhl HFAA 1 puff every 4-6 hours [Active]; albuterol iw sulfate 1.25 mg/3 mL Inhl nebu 3 mL 4 times per day [Active]; lisinopril 5 mg Oral tab 1 tab once daily [Active]; - PMHx: 09:18 Asthma; Emphysema; Hypertension; iw - PSHx: 09:18 Cholecystectomy; iw - Immunization history:: Adult Immunizations up to date. - Social history:: Smoking status: Patient/guardian denies using tobacco, but has a distant history of tobacco abuse. Screenin:18 Abuse screen: Denies threats or abuse. Denies injuries from another. Nutritional bp screening: No deficits noted. Tuberculosis screening: No symptoms or risk factors identified. Fall Risk None identified. Assessment: 09:20 General: SEE TRIAGE NOTE. bp 10:00 Derm: Skin is intact, is healthy with good turgor, Skin is pink, warm \T\ dry. Wound bp noted dorsal aspect of right forearm. 10:18 Reassessment: Patient is alert, oriented x 3, equal unlabored respirations, skin bp warm/dry/pink. Patient is alert/active/playful, equal unlabored respirations, skin warm/dry/pink. PT D/C HOME AMBULATORY, DX WITH CELLULITIS Patient denies pain at this time. Patient states symptoms have improved. Patient states symptoms have not improved. Vital Signs: 09:16 BP 201 / 76; Pulse 72; Resp 16; Temp 97.6; Pulse Ox 100% on R/A; iw 10:15 BP 187 / 67; Pulse 75; Resp 16; Temp 97.5; Pulse Ox 100% ; bp ED Course: 09:05 Patient arrived in ED. ag5 09:17 Triage completed. iw 09:18 Arm band placed on. iw 09:39 Kunal Moore, ONEL is Primary Nurse. bp 09:43 Timmy Mesa, DOMENICA is PHCP. pm1 09:43 Jasen Warner MD is Attending Physician. pm1 10:18 Patient has correct armband on for positive identification. Bed in low position. Call bp light in reach. Side rails up X2. 10:18 No provider procedures requiring assistance completed. Patient did not have IV access bp during this emergency room visit. 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 Exp: bp 02/08/2022. Lot #: [id number]. } Route: IM; Site: right deltoid; 10:12 Follow up: Response: No adverse reaction bp Outcome: 09:52 Discharge ordered by . pm1 10:18 Discharged to Home w/ Home Health bp 10:18 Condition: stable 10:18 Discharge instructions given to patient, family, Instructed on discharge instructions, follow up and referral plans. medication usage, wound care, Demonstrated understanding of instructions, follow-up care, medications, wound care, Prescriptions given X 2. 10:21 Patient left the ED. bp Signatures: Stephanie Verde, RN RN iw Timmy Mesa, DOMENICA [employer] pm1 Kunal Moore RN RN bp Camilo Pérez ag5 Corrections: (The following items were deleted from the chart) 09:20 09:16 Acuity: KOBI 3 iw
--- NOTE | 2020-09-11 09:53 | EDPHYS ---
Physician Documentation [facility] Name: Therese Siu Age: 85 yrs Sex: Female : 1935 Arrival Date: 09/11/2020 Time: 09:05 Bed 8 Private MD: ED Physician Jasen Warner HPI: 09/11 09:51 This 85 yrs old Female presents to ER via Ambulatory with complaints of Insect pm1 Bite. 09:51 The patient's rash thought to be caused by insect bites. The rash is located on the pm1 dorsal aspect of right forearm. The rash can be described as raised, vesicular. Onset: The symptoms/episode began/occurred 2 day(s) ago. Associated signs and symptoms: Pertinent positives: itching, Pertinent negatives: fever. Severity of symptoms: in the emergency department the symptoms are worse. Treatment given at home: None. The patient has not experienced similar symptoms in the past. The patient has not recently seen a physician. Historical: - Allergies: 09:18 Benadryl; iw 09:18 Codeine; iw - Home Meds: 09:18 albuterol sulfate 90 mcg/actuation Inhl HFAA 1 puff every 4-6 hours [Active]; albuterol iw sulfate 1.25 mg/3 mL Inhl nebu 3 mL 4 times per day [Active]; lisinopril 5 mg Oral tab 1 tab once daily [Active]; - PMHx: 09:18 Asthma; Emphysema; Hypertension; iw - PSHx: 09:18 Cholecystectomy; iw - Immunization history:: Adult Immunizations up to date. - Social history:: Smoking status: Patient/guardian denies using tobacco, but has a distant history of tobacco abuse. ROS: 09:51 Constitutional: Negative for fever, chills, and weight loss, Cardiovascular: Negative pm1 for chest pain, palpitations, and edema, Respiratory: Negative for shortness of breath, cough, wheezing, and pleuritic chest pain, MS/Extremity: Negative for injury and deformity. 09:51 Neuro: Negative for headache, weakness, numbness, tingling, and seizure. 09:51 Skin: Positive for swelling, of the dorsal aspect of right forearm, itching, pain. Exam: 09:51 Constitutional: This is a well developed, well nourished patient who is awake, alert, pm1 and in no acute distress. Head/Face: Normocephalic, atraumatic. 09:51 MS/ Extremity: Pulses equal, no cyanosis. Neurovascular intact. Full, normal range of motion. 09:51 Cardiovascular: Exam negative for acute changes, Rate: normal, Rhythm: regular, Pulses: no pulse deficits are appreciated. 09:51 Respiratory: Exam negative for acute changes, respiratory distress, shortness of breath. 09:51 Skin: Exam negative for cellulitis, is not appreciated, lesion(s), probable pustule(s) noted, located on the dorsal aspect of right forearm, 2 pustules 2 mm in diameter. De-roofed and no purulence expressed. Vital Signs: 09:16 BP 201 / 76; Pulse 72; Resp 16; Temp 97.6; Pulse Ox 100% on R/A; iw 10:15 BP 187 / 67; Pulse 75; Resp 16; Temp 97.5; Pulse Ox 100% ; bp MDM: 09:50 Patient medically screened. pm1 09:51 Data reviewed: vital signs. pm1 09:51 Counseling: I had a detailed discussion with the patient and/or guardian regarding: the pm1 historical points, exam findings, and any diagnostic results supporting the discharge/admit diagnosis, the need for outpatient follow up, to return to the emergency department if symptoms worsen or persist or if there are any questions or concerns that arise at home. 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 Exp: bp 02/08/2022. Lot #: [id number]. } Route: IM; Site: right deltoid; 10:12 Follow up: Response: No adverse reaction bp Disposition: 13:10 Co-signature as Attending Physician, Jasen Warner MD. rn Disposition: 09/11/20 09:52 Discharged to Home. Impression: Insect bite (nonvenomous) of right forearm. - Condition is Stable. - Discharge Instructions: Insect Bite. - Prescriptions for Bactroban 2 % Topical Ointment - Apply to affected area 1 application by TOPICAL route every 12 hours; 15 gram. Bactrim DS 800- 160 mg Oral Tablet - take 1 tablet by ORAL route every 12 hours for 10 days; 20 tablet. - Medication Reconciliation Form, Thank You Letter, Antibiotic Education, Prescription Opioid Use form. - Follow up: Emergency Department; When: As needed; Reason: Worsening of condition. Follow up: Private Physician; When: 2 - 3 days; Reason: Recheck today's complaints, Continuance of care, Re-evaluation by your physician. - Problem is new. - Symptoms have improved. Signatures: Stephanie Verde RN RN iw Jasen Warner MD MD rn Marinas, Patrick, BUSINESS SUPPORT PROFESSIONAL BUSINESS SUPPORT PROFESSIONAL pm1 Kunal Moore RN RN bp Corrections: (The following items were deleted from the chart) 10:21 09:52 09/11/2020 09:52 Discharged to Home. Impression: Insect bite (nonvenomous) of bp right forearm. Condition is Stable. Forms are Medication Reconciliation Form, Thank You Letter, Antibiotic Education, Prescription Opioid Use. Follow up: Emergency Department; When: As needed; Reason: Worsening of condition. Follow up: Private Physician; When: 2 - 3 days; Reason: Recheck today's complaints, Continuance of care, Re-evaluation by your physician. Problem is new. Symptoms have improved. pm1
[2020-09-11] MEDS ORDERED: TETANUS & DIPHTHERIA TOX,ADULT 0.5 ML VIAL ONE (10:17)
[2020-09-11 11:05] VITALS: BP 187/67; TEMP 97.5; O2SAT 100
== END 2020-09-11 10:21 | disposition home or self-care (01) ==
LOC: ER 09:03
DX: S50.861A Insect bite (nonvenomous) of right forearm, initial encounter (principal); I10 Essential (primary) hypertension; J45.909 Unspecified asthma, uncomplicated; Z23 Encounter for immunization; Z88.5 Allergy status to narcotic agent; Z88.8 Allergy status to other drugs, medicaments and biological substances
CPT/HCPCS: 90471; 90714; 99283

== ENCOUNTER 2020-09-13 14:00 | Emergency (ER) | payer OTHER ==
--- OUTSIDE RECORDS SUMMARY | 2020-09-13 14:07 | XMS REPORT | Continuity of Care Document ---
:1935 Author Organization [employer] Care Team Providers Name Role Phone [employer] Unavailable Un available Problems Problem Status Onset Classification Date Comments Sourc e Date Reported WEAK/FEVER Active 10/25/19 [place] 16 PNEUMONIA Active 10/25/19 [place] L and 16 SYNCOPE, Active 12/17/[address] VOMITING, UTI 14 ESOPHAGITIS Active 04/16/20 [place] 11 SOB Active 04/12/[address] 11 368.40 - VISUAL Active 04/06/20 O PID FIELD DE 11 [facility] 571.8 - CHRONIC Active 03/12/20 O PID LIVER D 789.01 11 Frien [place]wood - ABDMNAL PAIN RT CHEST PAIN [facility] 03[facility]07/20 [facility] Diabetes 07/22/19 Problem 06/11/2016 4FBS Surgical mellitus 10 90-110, Specialty (disorder) MED X1 [facility] , [place] Chronic 07/22/18 Problem 06/11/2016 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 DR IFEANYI Crews y lung disease [facility] (disorder) YR, NO [place] José d PULN STUDY, USES ADVAIR BID AND NEB TX TID Hypertensive 07/22/18 Problem 06/11/2016 5MED X1 Surgic al disorder, 75 Specialty systemic Hospital o f arterial [place] , (disorder) [facility] [place] Seasonal Resolved Problem 11/02/2015 [place] allergic rhinitis (disorder) Allergic Problem 06/11/2016 1SEASONAL, Surgical disposition MED X1 Specialt y (disorder) [facility] [place] Cough (finding) Problem 06/11/2016 3OCCASSION Stinson rgical AL COUGH Specialty WITH COPD, [facility] HAS A MED [place] FOR THIS, I SPENT 45 MIN WITH HER IN PAT AND SHE DID NOT COUGH OR CLEAR THROAT ONCE Hernia of Problem 06/11/2016 Surgical anterior Specialty abdominal wall 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) [place] José d UPDATE Active [facility] [facility] PNEUMONIA, Active [place] UNSPECIFIED ORGANISM Medications Medication Details Route Status Patient Ordering Order Source Instructions Provider Date insulin regular 2 - 10 units, Inactive Sreshta 06/09/ S urgical sliding scale Injection, 2015 Special ty LOW Subcutaneous, Hospital first dose of [place] 06/09/16 [place] 11:30:00 IT DISASTER RECOVERY MANAGER insulin regular 2 - 10 units, Inactive Sreshta S urgical sliding scale Injection, 2015 Special ty LOW Subcutaneous, Hospital first dose of [place] 06/09/16 [place] 7:30:00 IT DISASTER RECOVERY MANAGER insulin regular 2 - 10 units, Inactive Sreshta S urgical sliding scale Injection, 2015 Special ty LOW Subcutaneous, Hospital first dose of [place] 06/08/16 [place] 18:00:00 IT DISASTER RECOVERY MANAGER Lasix 40 mg = 4 mL, Inactive Sreshta 06/08/ Surgical Injection, IV 2015 Specialty Push, Once, Hospital first dose of [place] 06/08/16 [place] 9:30:00 IT DISASTER RECOVERY MANAGER, stop date 06/08/16 9:30:00 IT DISASTER RECOVERY MANAGER Xanax 0.5 mg = 2 No Longer Sreshta 06/08/ Surgical tabs, Tab, Active 2015 Specialty Oral, TID PRN Hospital for anxiety, of [place] first dose [place] 06/08/16 9:19:00 IT DISASTER RECOVERY MANAGER lisinopril 10 mg = 1 tabs, Inactive Sreshta 06/08/ Surg ical Tab, Oral, 2016 Specialty Daily, first Hospital dose 06/08/16 of [place] 7:30:00 IT DISASTER RECOVERY MANAGER [place] hydrALAZINE 10 mg = 0.5 mL, No Longer Sreshta 06/08/ Stinson rgical Injection, IV Active 2015 Specialty Push, q4hr PRN Hospital for of [place] hypertension, [place] first dose 06/08/16 5:22:00 IT DISASTER RECOVERY MANAGER, SBP >150 D5W 1,000 mL 1,000 mL, IV, No Longer Sreshta 06/08/ Amos gical 50 mL/hr, start Active 2015 Specialt y date 06/07/16 [facility] 19:07:00 IT DISASTER RECOVERY MANAGER of [place] albuterol 2.5 2.5 mg = 3 mL, Inactive Sreshta 06/07/ Stinson rgical mg/3 mL (0.083%) Soln, NEB, Once 2016 Specialty inhalation PRN for Hospital solution wheezing, first of [place] dose 06/07/16 [facility] 16:35:00 IT DISASTER RECOVERY MANAGER albuterol 180 mcg = 2 Inactive Sreshta 06/07/ Surgical inh, Aerosol, 2016 Specialty INH, Once PRN Hospital for wheezing, of [place] first dose [place] 06/07/16 16:30:00 IT DISASTER RECOVERY MANAGER Lasix 40 mg = 4 mL, Inactive Sreshta 06/07/ Surgical Injection, IV 2015 Specialty Push, Once PRN Hospital for wheezing, of [place] first dose [place] 06/07/16 16:29:00 IT DISASTER RECOVERY MANAGER D5W 1000 mL 1,000 mL, IV, Inactive Sreshta 06/07/ Surgi victorino 125 mL/hr, 2016 Specialty start date Hospital 06/07/16 of [place] 13:55:00 IT DISASTER RECOVERY MANAGER [place] D5W with NS 1,000 mL, IV, No Longer Sreshta 06/06/ Surg ical 1,000 mL 125 mL/hr, Active 2015 Specialty start date Hospital 06/06/16 of [place] 17:12:00 IT DISASTER RECOVERY MANAGER [place] albuterol 2.5 2.5 mg = 3 mL, No Longer Sreshta 06/06/ S urgical mg/3 mL (0.083%) JOSE LUIS Bush, Active 2015 Spec ialty inhalation q6hr, first Hospital solution dose 06/06/16 of [place] 12:00:00 IT DISASTER RECOVERY MANAGER [place] insulin regular 2 - 10 units, No Longer Sreshta 06/05/ Surgical sliding scale Injection, Active 2015 Special ty LOW Subcutaneous, [facility], first of [place] dose 06/05/16 [place] 7:30:00 IT DISASTER RECOVERY MANAGER NS 1,000 mL 1,000 mL, IV, No Longer Sreshta 06/05/ Surg ical 125 mL/hr, Active 2015 Specialty start date [facility] 06/05/16 of [place] 7:03:00 IT DISASTER RECOVERY MANAGER [place] NS bolus 1,000 1,000 mL, IV, No Longer Sreshta 06/05/ S urgical mL BOLUS, start Active 2015 Specialty date 06/05/16 Hospital 7:02:00 IT DISASTER RECOVERY MANAGER of [place] insulin regular 2 - 10 units, No Longer Sreshta 06/05/ Surgical sliding scale Injection, Active 2015 Special ty LOW Subcutaneous, [facility] q6hr, first of [place] dose 06/05/16 [place] 0:00:00 IT DISASTER RECOVERY MANAGER levofloxacin 500 mg, Inactive [facility] 06/05/ Surgical IVPB Soln-IV, IV [facility] infuse [place] over 1 hr, [place] first dose 06/04/16 23:00:00 IT DISASTER RECOVERY MANAGER, stop date 06/04/16 23:00:00 IT DISASTER RECOVERY MANAGER, Prophylaxis Flagyl IVPB 500 mg, [id number] [facility] 06/05/ Surgical Soln-IV, IV 2016 Specialty [facility] q8hr, infuse of [place] over 60 [place] minutes, order duration: 3 doses, first dose 06/04/16 23:00:00 IT DISASTER RECOVERY MANAGER, stop date 06/05/16 22:59:00 IT DISASTER RECOVERY MANAGER, Prophylaxis Zofran 4 mg = 2 mL, No Longer [facility] 06/05/ Surgical Injection, IV Active 2016 Specialty Push, q6hr PRN Hospital for of [place] nausea/vomiting [place] , first dose 06/04/16 22:19:00 IT DISASTER RECOVERY MANAGER morphine 2 mg = 0.2 mL, No Longer [facility] 06/05/ Surgic al Injection, IV Active 2016 Specialty Push, q1hr PRN Hospital for pain, first of [place] dose 06/04/16 [place] 22:19:00 IT DISASTER RECOVERY MANAGER NS 1,000 mL 1,000 mL, IV, No Longer Sreshta 06/05/ Surg ical 75 mL/hr, start Active 2016 Specialt y date 06/04/16 Hospital 22:19:00 IT DISASTER RECOVERY MANAGER of [place] Lactated Ringers IV, start date Inactive Nj 06/05/ Surgical Injection 06/04/16 2016 Specialty 20:35:00 IT DISASTER RECOVERY MANAGER, Hospital stop date of [place] 06/04/16 [place] 20:35:00 IT DISASTER RECOVERY MANAGER acetaminophen 1,000 mg, Inactive [place] 06/05/ Surgica l Soln-IV, IV, 2016 Specialty Once, first Hospital dose 06/04/16 of [place] 20:25:00 IT DISASTER RECOVERY MANAGER, [place] stop date 06/04/16 20:25:00 IT DISASTER RECOVERY MANAGER traMADol 50 mg 50 mg = 1 tabs, Active [facility] 06/05/ S urgical oral tablet Oral, q6hr, PRN 2016 Spec ialty for pain, # 24 Hospital tabs, 0 of [place] Refill(s) [place] fentaNYL 25 mcg = 0.5 Inactive [place] 06/05/ Surgical mL, Injection, 2016 Specialty IV, Once, first Hospital dose 06/04/16 of [place] 20:06:00 IT DISASTER RECOVERY MANAGER, [place] stop date 06/04/16 20:06:00 IT DISASTER RECOVERY MANAGER fentaNYL 50 mcg = 1 mL, Inactive [place] 06/05/ Surgica l Injection, IV, 2016 Specialty Once, first Hospital dose 06/04/16 of [place] 19:48:00 IT DISASTER RECOVERY MANAGER, [place] stop date 06/04/16 19:48:00 IT DISASTER RECOVERY MANAGER neostigmine 4 mg = 8 mL, Inactive [place] 06/05/ Surgic al Injection, IV, 2016 Specialty Once, first Hospital dose 06/04/16 [place] 19:44:00 IT DISASTER RECOVERY MANAGER, [place] stop date 06/04/16 19:44:00 IT DISASTER RECOVERY MANAGER glycopyrrolate 0.6 mg = 3 mL, Inactive [place] 06/05/ S urgical Injection, IV, 2016 Specialty Once, first Hospital dose 06/04/16 [place] 19:44:00 IT DISASTER RECOVERY MANAGER, [place] stop date 06/04/16 19:44:00 IT DISASTER RECOVERY MANAGER ondansetron 4 mg = 2 mL, Inactive [place] 06/05/ Surgic al Injection, IV, 2016 Specialty Once, first Hospital dose 06/04/16 of [place] 19:35:00 IT DISASTER RECOVERY MANAGER, stop date 06/04/16 19:35:00 IT DISASTER RECOVERY MANAGER ePHEDrine 5 mg = 0.1 mL, Inactive [place] 06/05/ Surgic al Injection, IV, 2016 Specialty Once, first Hospital dose 06/04/16 of [place] 19:19:00 IT DISASTER RECOVERY MANAGER, stop date 06/04/16 19:19:00 IT DISASTER RECOVERY MANAGER vecuronium 1 mg = 1 mL, Inactive [place] 06/05/ Surgica l Powder-Inj, IV, 2016 Specialt y Once, first Hospital dose 06/04/16 [place] 19:10:00 IT DISASTER RECOVERY MANAGER, stop 06/04/16 19:10:00 IT DISASTER RECOVERY MANAGER ePHEDrine 5 mg = 0.1 mL, Inactive [place] 06/05/ Surgic al Injection, IV, 2016 Specialty Once, first Hospital dose 06/04/16 [place] 19:02:00 IT DISASTER RECOVERY MANAGER, stop date 06/04/16 19:02:00 IT DISASTER RECOVERY MANAGER vecuronium 1 mg = 1 mL, Inactive [place] 06/05/ Surgica l Powder-Inj, IV, 2016 Specialt y Once, first Hospital dose 06/04/16 [place] 18:28:00 IT DISASTER RECOVERY MANAGER, stop date 06/04/16 18:28:00 IT DISASTER RECOVERY MANAGER vecuronium 1 mg = 1 mL, Inactive [place] 06/05/ Surgica l Powder-Inj, IV, 2016 Specialt y Once, first Hospital dose 06/04/16 [place] 18:13:00 IT DISASTER RECOVERY MANAGER, stop date 06/04/16 18:13:00 IT DISASTER RECOVERY MANAGER ePHEDrine 5 mg = 0.1 mL, Inactive [place] 06/05/ Surgic al Injection, IV, 2016 Specialty Once, first Hospital dose 06/04/16 [place] 18:10:00 IT DISASTER RECOVERY MANAGER, [place] stop date 06/04/16 18:10:00 IT DISASTER RECOVERY MANAGER vecuronium 1 mg = 1 mL, Inactive [place] 06/05/ Surgica l Powder-Inj, IV, 2016 Specialt y Once, first Hospital dose 06/04/16 [place] 18:04:00 IT DISASTER RECOVERY MANAGER, [place] stop date 06/04/16 18:04:00 IT DISASTER RECOVERY MANAGER vecuronium 1 mg = 1 mL, Inactive [place] 06/04/ Surgica l Powder-Inj, IV, 2016 Specialt y Once, first Hospital dose 06/04/16 [place] 17:49:00 IT DISASTER RECOVERY MANAGER, [place] stop date 06/04/16 17:49:00 IT DISASTER RECOVERY MANAGER ePHEDrine 5 mg = 0.1 mL, Inactive Jorge 06/04/ Surgic al Injection, IV, SOFTWARE INTEGRATION DEVELOPER 2016 Specialty Once, first Hospital dose 06/04/16 of [place] 17:40:00 IT DISASTER RECOVERY MANAGER, [place] stop date 06/04/16 17:40:00 IT DISASTER RECOVERY MANAGER vecuronium 1 mg = 1 mL, Inactive Jorge 06/04/ Surgica l Powder-Inj, IV, SOFTWARE INTEGRATION DEVELOPER 2016 Specialt y Once, first Hospital dose 06/04/16 of [place] 17:21:00 IT DISASTER RECOVERY MANAGER, [place] stop date 06/04/16 17:21:00 IT DISASTER RECOVERY MANAGER ceFAZolin 1 gm, Inactive Jorge 06/04/ Surgical Powder-Inj, IV, SOFTWARE INTEGRATION DEVELOPER 2016 Specialt y Once, first Hospital dose 06/04/16 of [place] 17:16:00 IT DISASTER RECOVERY MANAGER, [place] stop date 06/04/16 17:16:00 IT DISASTER RECOVERY MANAGER Lactated Ringers IV, start date Inactive Jorge 06/04/ Surgical Injection 06/04/16 SOFTWARE INTEGRATION DEVELOPER 2016 Specialty 17:04:00 IT DISASTER RECOVERY MANAGER, Hospital stop date of [place] 06/04/16 [place] 17:04:00 IT DISASTER RECOVERY MANAGER vecuronium 1 mg = 1 mL, Inactive Jorge 06/04/ Surgica l Powder-Inj, IV, SOFTWARE INTEGRATION DEVELOPER 2016 Specialt y Once, first Hospital dose 06/04/16 of [place] 16:45:00 IT DISASTER RECOVERY MANAGER, [place] stop date 06/04/16 16:45:00 IT DISASTER RECOVERY MANAGER ePHEDrine 5 mg = 0.1 mL, Inactive Jorge 06/04/ Surgic al Injection, IV, SOFTWARE INTEGRATION DEVELOPER 2016 Specialty Once, first Hospital dose 06/04/16 of [place] 16:38:00 IT DISASTER RECOVERY MANAGER, [place] stop date 06/04/16 16:38:00 IT DISASTER RECOVERY MANAGER ePHEDrine 5 mg = 0.1 mL, Inactive Jorge 06/04/ Surgic al Injection, IV, SOFTWARE INTEGRATION DEVELOPER 2016 Specialty Once, first Hospital dose 06/04/16 of [place] 16:34:00 IT DISASTER RECOVERY MANAGER, [place] stop date 06/04/16 16:34:00 IT DISASTER RECOVERY MANAGER ePHEDrine 5 mg = 0.1 mL, Inactive Jorge 06/04/ Surgic al Injection, IV, SOFTWARE INTEGRATION DEVELOPER 2016 Specialty Once, first Hospital dose 06/04/16 of [place] 15:54:00 IT DISASTER RECOVERY MANAGER, [place] stop date 06/04/16 15:54:00 IT DISASTER RECOVERY MANAGER vecuronium 2 mg = 2 mL, Inactive Jorge 06/04/ Surgica l Powder-Inj, IV, SOFTWARE INTEGRATION DEVELOPER 2016 Specialt y Once, first Hospital dose 06/04/16 of [place] 15:53:00 IT DISASTER RECOVERY MANAGER, [place] stop date 06/04/16 15:53:00 IT DISASTER RECOVERY MANAGER promethazine 12.5 mg = 0.5 Inactive Nj 06/04/ Surg ical mL, Injection, 2016 Specialty IM, Once PRN Hospital for severe of [place] nausea, first [place] dose 06/04/16 15:24:00 IT DISASTER RECOVERY MANAGER ondansetron 4 mg = 2 mL, Inactive Nj 06/04/ Surgic al Injection, IV 2016 Specialty Push, q15min Hospital PRN for of [place] nausea/vomiting [place] , order duration: 2 doses, first dose 06/04/16 15:24:00 IT DISASTER RECOVERY MANAGER, stop date Limited # of times Xopenex 0.63 0.63 mg = 3 mL, Inactive Nj 06/04/ Stinson rgical mg/3 mL Soln, NEB, Once 2016 Specialt y inhalation PRN for Hospital solution shortness of of [place] breath or [place] wheezing, first dose 06/04/16 15:24:00 IT DISASTER RECOVERY MANAGER Saline Lock 10 mL, Soln, IV Inactive Nj 06/04/ Amos gical Flush Push, As 2016 Specialty Indicated PRN Hospital for flush, of [place] first dose [place] 06/04/16 15:24:00 IT DISASTER RECOVERY MANAGER Dilaudid 0.5 mg = 0.25 Inactive Nj 06/04/ Surgical mL, Injection, 2016 Specialty IV Push, q10min Hospital PRN for pain of [place] severe (7-10), [place] first dose 06/04/16 15:24:00 IT DISASTER RECOVERY MANAGER vecuronium 2 mg = 2 mL, Inactive Jorge 06/04/ Surgica l Powder-Inj, IV, SOFTWARE INTEGRATION DEVELOPER 2016 Specialt y Once, first Hospital dose 06/04/16 of [place] 15:10:00 IT DISASTER RECOVERY MANAGER, [place] stop date 06/04/16 15:10:00 IT DISASTER RECOVERY MANAGER ePHEDrine 10 mg = 0.2 mL, Inactive Jorge 06/04/ Surgi victorino Injection, IV, SOFTWARE INTEGRATION DEVELOPER 2016 Specialty Once, first Hospital dose 06/04/16 of [place] 15:08:00 IT DISASTER RECOVERY MANAGER, [place] stop date 06/04/16 15:08:00 IT DISASTER RECOVERY MANAGER glycopyrrolate 0.2 mg = 1 mL, Inactive Jorge 06/04/ S urgical Injection, IV, SOFTWARE INTEGRATION DEVELOPER 2016 Specialty Once, first Hospital dose 06/04/16 of [place] 15:01:00 IT DISASTER RECOVERY MANAGER, [place] stop date 06/04/16 15:01:00 IT DISASTER RECOVERY MANAGER fentaNYL 50 mcg = 1 mL, Inactive Jorge 06/04/ Surgica l Injection, IV, SOFTWARE INTEGRATION DEVELOPER 2016 Specialty Once, first Hospital dose 06/04/16 of [place] 14:55:00 IT DISASTER RECOVERY MANAGER, [place] stop date 06/04/16 14:55:00 IT DISASTER RECOVERY MANAGER dexamethasone 4 mg = 1 mL, Inactive Jorge 06/04/ Surg ical Injection, IV, SOFTWARE INTEGRATION DEVELOPER 2016 Specialty Once, first Hospital dose 06/04/16 of [place] 14:41:00 IT DISASTER RECOVERY MANAGER, [place] stop date 06/04/16 14:41:00 IT DISASTER RECOVERY MANAGER Xopenex 0.63 0.63 mg = 3 mL, Inactive Jorge 06/04/ Stinson rgical mg/3 mL Soln, NEB, Once SOFTWARE INTEGRATION DEVELOPER 2016 Specialt y inhalation PRN for Hospital solution wheezing, first of [place] dose 06/04/16 Land 14:38:00 IT DISASTER RECOVERY MANAGER ondansetron 4 mg = 2 mL, Inactive Jorge 06/04/ Surgic al Injection, IV SOFTWARE INTEGRATION DEVELOPER 2016 Specialty Push, q15min Hospital PRN for of [place] nausea/vomiting [place] , order duration: 2 doses, first dose 06/04/16 14:38:00 IT DISASTER RECOVERY MANAGER, stop date Limited # of times promethazine 12.5 mg = 0.5 Inactive Jorge 06/04/ Surg ical mL, Injection, SOFTWARE INTEGRATION DEVELOPER 2016 Specialty IM, Once PRN Hospital for severe of [place] nausea, first [place] dose 06/04/16 14:38:00 IT DISASTER RECOVERY MANAGER Dilaudid 0.5 mg = 0.25 Inactive Jorge 06/04/ Surgical mL, Injection, SOFTWARE INTEGRATION DEVELOPER 2016 Specialty IV Push, q10min Hospital PRN for pain of [place] severe (7-10), [place] first dose 06/04/16 14:38:00 IT DISASTER RECOVERY MANAGER Saline Lock 10 mL, Soln, IV Inactive Jorge 06/04/ Amos gical Flush Push, As SOFTWARE INTEGRATION DEVELOPER 2016 Specialty Indicated PRN Hospital for flush, of [place] first dose [place] 06/04/16 14:38:00 IT DISASTER RECOVERY MANAGER LR 1,000 mL 1,000 mL, IV, Inactive Jorge 06/04/ Surgi victorino 75 mL/hr, start SOFTWARE INTEGRATION DEVELOPER 2016 Specialt y date 06/04/16 Hospital 14:38:00 IT DISASTER RECOVERY MANAGER of [place] lidocaine 2.5 mL, Inactive Jorge 06/04/ Surgical Injection, IV, SOFTWARE INTEGRATION DEVELOPER 2016 Specialty Once, first Hospital dose 06/04/16 of [place] 14:26:00 IT DISASTER RECOVERY MANAGER, [place] stop date 06/04/16 14:26:00 IT DISASTER RECOVERY MANAGER vecuronium 5 mg = 5 mL, Inactive Jorge 06/04/ Surgica l Powder-Inj, IV, SOFTWARE INTEGRATION DEVELOPER 2016 Specialt y Once, first Hospital dose 06/04/16 of [place] 14:26:00 IT DISASTER RECOVERY MANAGER, [place] stop date 06/04/16 14:26:00 IT DISASTER RECOVERY MANAGER propofol 50 mg = 5 mL, Inactive Jorge 06/04/ Surgical Emulsion, IV, SOFTWARE INTEGRATION DEVELOPER 2016 Specialty Once, first Hospital dose 06/04/16 of [place] 14:26:00 IT DISASTER RECOVERY MANAGER, [place] stop date 06/04/16 14:26:00 IT DISASTER RECOVERY MANAGER fentaNYL 50 mcg = 1 mL, Inactive Jorge 06/04/ Surgica l Injection, IV, SOFTWARE INTEGRATION DEVELOPER 2016 Specialty Once, first Hospital dose 06/04/16 of [place] 14:21:00 IT DISASTER RECOVERY MANAGER, [place] stop date 06/04/16 14:21:00 IT DISASTER RECOVERY MANAGER ceFAZolin 2 gm, Soln-IV, Inactive Jorge 06/04/ Surgic al IV Piggyback, SOFTWARE INTEGRATION DEVELOPER 2016 Specialty Once, first Hospital dose 06/04/16 of [place] 14:17:00 IT DISASTER RECOVERY MANAGER, [place] stop date 06/04/16 14:17:00 IT DISASTER RECOVERY MANAGER fentaNYL 50 mcg = 1 mL, Inactive Jorge 06/04/ Surgica l Injection, IV, SOFTWARE INTEGRATION DEVELOPER 2016 Specialty Once, first Hospital dose 06/04/16 of [place] 14:09:00 IT DISASTER RECOVERY MANAGER, [place] stop date 06/04/16 14:09:00 IT DISASTER RECOVERY MANAGER Misc Medication 1,000 mL, Inactive Jorge 06/04/ Surgi victorino Soln-IV, IV, SOFTWARE INTEGRATION DEVELOPER 2016 Specialty Once, first Hospital dose 06/04/16 of [place] 14:08:00 IT DISASTER RECOVERY MANAGER, [place] stop date 06/04/16 14:08:00 IT DISASTER RECOVERY MANAGER ceFAZolin 2 gm, Soln-IV, Inactive Eduard 06/04/ Surgic al IV Piggyback, 2016 Specialty Once, infuse Hospital over 30 of [place] minutes, first [place] dose 06/04/16 9:00:00 IT DISASTER RECOVERY MANAGER, stop date 06/04/16 9:00:00 IT DISASTER RECOVERY MANAGER, patient weight 50-120 kg, Prophylaxis Lidocaine 2% 0.2 0.2 mL, Inactive Nj 06/04/ Surgic al mL IV Start Injection, 2016 [facility], Hospit al Once PRN for of [place] other (see [place] comment), first dose 06/04/16 8:30:00 IT DISASTER RECOVERY MANAGER LR 1,000 mL 1,000 mL, IV, Inactive Nj 06/04/ Surgi victorino 30 mL/hr, start 2016 Specialt y date 06/04/16 Hospital 8:30:00 IT DISASTER RECOVERY MANAGER of [place] lisinopril 20 mg 1/2 tabs, Oral, Active 05/30/ Surgical oral tablet qPM, 0 2015 Specialty Refill(s), Hospital HYPERTENSION of [place] NEBULIZER NEBULIZER, INH, Active 05/30/ Surgic al [...] Active 2015 Specialty Refill(s), Hospital SUPPLEMENT of [place] Iron-150 oral 1 tabs, Oral, Active Surg ical tablet Daily, 0 2015 Specialty Refill(s), Hospital SUPPLEMENT of [place] montelukast 10 10 mg = 1 tabs, Active urgical mg oral tablet Oral, qAM, PT 2015 Spe cialty INST TO TAKE AM Hospital OF SX IF of [place] NEEDED, 0 [place] Refill(s), ALLERGYPT INST TO TAKE AM OF SX IF NEEDED Tylenol Regular 325 mg, Oral, Active rgical Strength q4hr, 0 2015 Specialty Refill(s), PAIN [facility] [place] metFORMIN 500 mg 500 mg = 1 Active Surg ical oral tablet tabs, Oral, 2016 Specialt y BID, PT INST TO Hospital NOT TAKE THE AM of [place] OF SX, # 60 [place] tabs, 0 Refill(s), DIABETESPT INST TO NOT TAKE THE AM OF SX Tylenol Oral, 0 Active 05/30/ Surgical Refill(s) 2016 [facility]ty [facility] [place] lisinopril Oral, Daily, 0 Active 05/30/ Surgic al Refill(s) 2015 [facility]ty [facility] [place] Levofloxacin 750 750 mg = 1 tab, Active [place] MG Oral Tablet PO, Q24H, X 10 [place] [Levaquin] day, # 10 tab, 0 Refill(s) Levaquin Notes: (Same No Longer [place] as:Levaquin) Active 2015 [facility] montelukast Notes: (Same No Longer Stinson gar as:Singulair) Active 2015 [facility] budesonide-formo Notes: (Same No Longer [place] terol 160 as: Symbicort) Active 2015 [facility] mcg-4.5 mcg/inh WASTE: Aerosol inhalation - Return to aerosol with Pharmacy adapter Advair Diskus 1 puff, Route: Inactive [place] 500 mcg-50 mcg INHALATION, 2015 [facility] inhalation Drug Form: powder AERO, Dosing Weight 49.773, kg, BID, Start date: 10/26/15 17:00:00, Duration: 30 day, Stop date: 11/25/15 9:00:00 benzonatate Notes: (Same No Longer Stinson gar As: Tessalon Active 2015 [facility] Perles) "Do Not Crush" Advair Diskus 1 [...] [place] MG/ML / as: Duoneb) Active 2015 [facility] Ipratropium [place] 0.167 MG/ML Inhalant Solution Levofloxacin 750 mg, Route: Inactive [place] IVPB, Drug 2015 [facility] form: SOLN, [id number], Dosing Weight 49.773, kg, Start date: 10/26/15 8:00:00, Duration: 30 day, Stop date: 11/24/15 8:00:00 Insulin, Aspart, Notes: Roll in No Longer [place] Human palms of hands Active 2015 [facility] gently; Do not shake vigorously. (Same as: [...] Longer [place] Syringe Route: IVP, Active 2015 [facility] Drug Form: INJ, Dosing Weight 49.773, kg, [...] (Same No Longer [place] as: Active 2015 [facility] Astramorph-PF) Albuterol 0.833 Notes: (Same No Longer [place] MG/ML / as: Duoneb) Active 2015 Ipratropium [place] 0.167 MG/ML Inhalant Solution NS + KCL [...] [place] MG/ML / as: Duoneb) 2015 Ipratropium [place] 0.167 MG/ML Inhalant Solution Amoxicillin 875 1 [...] / INHALATION, 2013 Ipratropium Q6H, as needed [place] 0.167 for shortness MG/ML Inhalant of breath [...] Acetaminophen Notes: Max Inactive acetaminophen = 2013 [facility] t 4000mg/day (4 gm/day). (Same as: Tylenol) Morphine Notes: (Same Inactive as:MORPhine 2013 [facility] Sulfate) Ondansetron Notes: (Same Inactive as: Zofran) 2013 [facility] Sodium Chloride 1,000 mL, Rate: Inactive 0.154 MEQ/ML 90 ml/hr, 2013 [facility] Injectable Infuse over: Solution 11.1 hr, Route: IV, Dosing Weight 47.273 kg, Total Volume: 1,000, Start date: 12/17/13 6:29:00, Duration: 30 day, Stop date: 01/16/14 6:28:00 Saline Flush Notes: (Same Inactive 0.9% as: BD 2013 [facility] Posiflush) Magnesium 1 gm, 100 mL, Inactive Sulfate Route: IVPB, 2013 [facility] Drug form: INJ, ONCE, Dosing Weight 47.273, kg, Start date: 12/17/13 6:27:00, Stop date: 12/17/13 6:27:00 Sodium Chloride 500 mL, 500 Inactive 0.154 MEQ/ML ml/hr, Infuse 2013 [facility] Injectable Over: 1 hr, Solution Route: IV, ONCE, Priority: STAT, Dosing Weight 54.545 kg, Start date: 12/17/13 5:02:00, Duration: 1 doses or times, Stop date: 12/17/13 5:02:00 Ceftriaxone 1 gm, Route: Inactive IVPB, Drug 2013 [facility] form: PDR/INJ, ONCE, Dosing Weight 54.545, kg, Priority: STAT, Start date: 12/17/13 3:56:00, Stop date: 12/17/13 3:56:00 Saline Flush Notes: (Same No Longer 0.9% as: BD Active 2013 [facility] Posiflush) Allergies, Adverse Reactions, Alerts Substance Category Reaction Severity Reaction Status Date Comments S ource type Reported codeine drug Unknown Allergy Surgical allergy (qualifie Specia lty r value) [facility] [place] hydrocodone Assertion Drug Active [facility] [place] allergy [place] Benadryl Assertion Drug Active [facility] gar Allergy allergy [place] Benadryl drug Unknown Allergy Surgica l allergy (qualifie Specia lty r value) [facility] Immunizations No Data Provided for This Section Results Order Name Results Value Reference Date Interpretation Comments Leesa rce [facility] LABORATORY Blood 118 74 - 106 06/09 HI Surgical Glucose, /2015 [facility] Capillary [facility] LABORATORY Blood 104 74 - 106 06/09 Surgical Glucose, Specialty Capillary [facility] LABORATORY Blood 104 74 - 106 06/09 Surgical Glucose, /2015 [facility] LABORATORY AGAP 14.1 10.0 - 06/09 <sup>1</sup>R Surgica l 20.0 /2016 eference Lab: Specialty [facility], [address] [place] [address] LABORATORY Carbon 28 24 - 32 06/09 <sup>69</sup> Surgica l Dioxide /2015 Reference Specialty Level Lab: [facility], [address] [place] [address] LABORATORY Sodium Level 147 135 - 145 06/09 HI <sup>90</sup> Surgical /2016 Reference Specialty Lab: [facility], [address] [place] [address] LABORATORY Chloride 109 95 - 109 06/09 <sup>74</sup> Surgi victorino Level /2015 Reference Specialty Lab: [facility], [address] [place] [address] LABORATORY Potassium 4.1 3.5 - 5.1 06/09 <sup>83</sup> Amos gical Level /2016 Reference Specialty Lab: [facility], [address] [place] [address] LABORATORY Creatinine 0.80 0.50 - 06/09 <sup>97</sup> Surg ical 1.40 /2016 Reference Specialty Lab: [facility], [address] [place] [address] LABORATORY BUN 16 7 - 22 06/09 <sup>59</sup> Surgica l /2015 Reference Specialty Lab: [facility], [address] [place] [address] LABORATORY Glucose Lvl 102 70 - 99 06/09 HI <sup>6</sup>R Amos gi eference Lab: Specialty [facility], [address] [place] [address]
<stinson p>7</sup>Resu lt Comment: Adult reference range values reflect the clinical guidelines
of the [place] [employer]. LABORATORY eGFR 69 06/09 <sup>48</sup> Surgica l 2016 Reference Specialty Lab: [facility], [address] [place] [address]
<stinson p>49</sup>Res ult Comment: The eGFR is [...] <sup>64</sup> Surg ical Level Reference Specialty Lab: [facility], [address] [place] [address] LABORATORY Blood 106 74 - 106 06/09 Surgical Glucose, Specialty Capillary [facility] LABORATORY Blood 118 74 - 106 06/09 HI Surgical Glucose, /2015 Specialty Capillary [facility] LABORATORY Blood 118 74 - 106 06/09 HI Surgical Glucose, /2016 Specialty [facility] LABORATORY Calcium 8.5 8.5 - 10.5 06/08 <sup>65</sup> Surg ical Level /2016 Reference Specialty Lab: [facility], [address] [place] [address] LABORATORY eGFR 64 06/08 <sup>50</sup> Surgica l /2016 Reference Specialty Lab: [facility], [facility] [place] [address]
<stinson p>51</sup>Res ult Comment: The eGFR is [...] Surgica l 20.0 /2016 eference Lab: Specialty [facility], [address] [place] [address] LABORATORY Carbon 26 24 - 32 06/08 <sup>70</sup> Surgica l Dioxide /2016 Reference Specialty Level Lab: [facility], [address] [place] [address] LABORATORY Creatinine 0.86 0.50 - 06/08 <sup>98</sup> Surg ical 1.40 /2016 Reference Specialty Lab: [facility], [address] [place] [address] LABORATORY BUN 11 7 - 22 06/08 <sup>60</sup> Surgica l /2016 Reference Specialty Lab: [facility], [facility] [place] [address] LABORATORY Sodium Level 149 135 - 145 06/08 HI <sup>91</sup> Surgical /2016 Reference Specialty Lab: [facility], [facility] [address] [place] [address] LABORATORY Potassium 3.9 3.5 - 5.1 06/08 <sup>84</sup> Amos gical Level /2016 Reference Specialty Lab: [facility], [facility] [place] [address] LABORATORY Chloride 113 95 - 109 06/08 HI <sup>75</sup> Surgi victorino Level /2016 Reference Specialty Lab: [facility], [address] [place] [address] LABORATORY Glucose Lvl 104 70 - 99 06/08 HI <sup>8</sup>R Amos gical /2016 eference Lab: Specialty [facility], [address] [place] [address]
<stinson p>9</sup>Resu lt Comment: Adult reference range values reflect the clinical guidelines
of the [place] [employer]. LABORATORY Carbon 21 24 - 32 06/07 LOW <sup>71</sup> Surgica l Dioxide /2016 Reference Specialty Level Lab: [facility], [facility] [address] [place] [address] LABORATORY Sodium Level 147 135 - 145 06/07 HI <sup>92</sup> Surgical /2016 Reference Specialty Lab: [facility], [address] [place], [place] [address] LABORATORY Potassium 4.1 3.5 - 5.1 06/07 <sup>85</sup> Amos gical Level /2016 Reference Specialty Lab: [facility], [address] [place], [place] [id number] LABORATORY AGAP 15.1 10.0 - 06/07 <sup>3</sup>R Surgica l 20.0 /2016 eference Lab: Specialty [facility], [address] [place] [address] LABORATORY Calcium 8.0 8.5 - 10.5 06/07 LOW <sup>66</sup> Surg ical Level /2016 Reference Specialty Lab: [facility], [address] [place] [address] LABORATORY eGFR 59 06/07 <sup>52</sup> Surgica l /2016 Reference Specialty Lab: [facility], [address] [place] [address]
<stinson p>53</sup>Res ult Comment: The eGFR is [...] Surgi victorino Level /2016 Reference Specialty Lab: [facility], [address] [place], [place] [address] LABORATORY BUN 15 7 - 22 06/07 <sup>61</sup> Surgica l /2016 Reference Specialty Lab: [facility], [address] [place] [address] LABORATORY Creatinine 0.92 0.50 - 06/07 <sup>99</sup> Surg ical 1.40 /2016 Reference Specialty Lab: [facility], [address] [place] [address] LABORATORY Glucose Lvl 139 70 - 99 06/07 HI <sup>10</sup> Amos gical /2016 Reference Specialty Lab: [facility], [address] [place] [address]
<stinson p>11</sup>Res ult Comment: Adult reference range values reflect the clinical guidelines
of the [place] [employer]. LABORATORY Basophil # 0.1 0.0 - 0.2 06/06 <sup>42</sup> Stinson rgical Reference Specialty Lab: [facility], [address] [place] [address] LABORATORY Neutrophil # 9.2 1.5 - 8.1 06/06 HI <sup>34</sup> Surgical /2016 Reference Specialty Lab: [facility], [address] [place] [address] LABORATORY Lymphocyte # 1.1 1.0 - 5.5 06/06 <sup>36</sup> Surgical /2016 Reference Specialty Lab: [facility], [address] [place] [address] LABORATORY Basophil % 0.8 0.0 - 1.0 06/06 <sup>32</sup> Stinson rgical Reference Specialty Lab: [facility], [address] [place] [address] LABORATORY Monocyte # 1.2 0.0 - 0.8 06/06 HI <sup>38</sup> Stinson rgical Reference Specialty Lab: [facility], [address] [place] [address] LABORATORY Eosinophil % 0.0 0.0 - 0.5 06/06 <sup>30</sup> Surgical /2016 Reference Specialty Lab: [facility], [address] [place], [place] [id number] LABORATORY Eosinophil # 0.0 0.0 - 4.0 06/06 <sup>40</sup> Surgical /2016 Reference Specialty Lab: [facility], [address] [place] [address] LABORATORY Monocyte % 10.4 2.0 - 12.0 06/06 <sup>28</sup> S urgical /2016 Reference Specialty Lab: [facility], [address] [place] [address] LABORATORY Lymphocyte % 9.4 20.0 - 06/06 LOW <sup>26</sup> Stinson rgical 40.0 /2016 Reference Specialty Lab: [facility], [address] [place] [address] LABORATORY Neutrophil % 79.4 45.0 - 06/06 HI <sup>24</sup> Stinson rgical 75.0 /2015 Reference Specialty Lab: [facility], [address] [place], [place] [address] LABORATORY Results Reported 06/06 Surgical (06/06/2016 04:16:00) /2016 [facility] LABORATORY Potassium 4.8 3.5 - 5.1 06/06 <sup>86</sup> Amos gical Level /2015 Reference Specialty Lab: [facility], [address] [place], [place] [id number] LABORATORY Chloride 113 95 - 109 06/06 HI <sup>77</sup> Surgi victorino Level /2015 Reference Specialty Lab: [facility], [address] [place], [place] [id number] LABORATORY Calcium 7.6 8.5 - 10.5 06/06 LOW <sup>67</sup> Surg ical Level /2015 Reference Specialty Lab: [facility], [address] [place], [place] [id number] LABORATORY Carbon 20 24 - 32 06/06 LOW <sup>72</sup> Surgica l Dioxide /2016 Reference Specialty Level Lab: [facility], [address] [place], [place] [id number] LABORATORY AGAP 16.8 10.0 - 06/06 <sup>4</sup>R Surgica l 20.0 /2016 eference Lab: Specialty [facility], [address] [place] [address] LABORATORY Glucose Lvl 61 70 - 99 06/06 LOW <sup>12</sup> Amos gical /2016 Reference Specialty Lab: [facility], [address] [place] [address]
<stinson p>13</sup>Res ult Comment: Adult reference range values reflect the clinical guidelines
of the [place] [employer]. LABORATORY Sodium Level 145 135 - 145 06/06 <sup>93</sup> Surgical /2016 Reference Specialty Lab: [facility], [address] [place] [address] LABORATORY BUN 18 7 - 22 06/06 <sup>62</sup> Surgica l /2016 Reference Specialty Lab: [facility], [address] [place] [address] LABORATORY Creatinine 0.91 0.50 - 06/06 <sup>100</sup Surg ical 1.40 /2016 >Reference Specialty Lab: [facility], [address] [place] [address] LABORATORY eGFR 60 06/06 <sup>54</sup> Surgica l /2016 Reference Specialty Lab: [facility], [address] [place] [address]
<stinson p>55</sup>Res ult Comment: The eGFR is [...] LABORATORY Results Reported 06/06 Surgical (06/06/2016 04:16:00) [facility] LABORATORY Results Reported 06/06 Surgical (06/06/2016 04:16:00) [facility] LABORATORY White Blood 11.6 3.7 - 10.4 06/06 HI <sup>95</sup> Surgical Count /2015 Reference Specialty Lab: [facility], [address] [place] [address] LABORATORY Red Blood 3.30 4.20 - 06/06 LOW <sup>88</sup> Surgi victorino Cell Count 5.40 /2016 Reference Specialty Lab: [facility], [address] [place] [address] LABORATORY Hemoglobin 9.7 12.0 - 06/06 LOW <sup>81</sup> Surg ical 16.0 /2016 Reference Specialty Lab: [facility], [address] [place] [address] LABORATORY Hematocrit 30.1 36.0 - 06/06 LOW <sup>79</sup> Surg ical 48.0 /2016 Reference Specialty Lab: [facility], [address] [place] [address] LABORATORY MCH 29.4 27.0 - 06/06 <sup>16</sup> Surgica l 31.0 /2016 Reference Specialty Lab: [facility], [address] [place] [address] LABORATORY MCV 91.1 80.0 - 06/06 <sup>46</sup> Surgica l 98.0 /2016 Reference Specialty Lab: [facility], [address] [place], [place] [address] LABORATORY RDW 16.3 11.5 - 06/06 HI <sup>20</sup> Surgica l 14.5 /2016 Reference Specialty Lab: [facility], [address] [place], [place] [address] LABORATORY MCHC 32.3 32.0 - 06/06 <sup>18</sup> Surgica l 36.0 /2016 Reference Specialty Lab: [facility], [address] [place], [place] [address] LABORATORY Platelet 207 133 - 450 06/06 <sup>44</sup> Surg ical /2016 Reference Specialty Lab: [facility], [address] [place] [address] LABORATORY MPV 10.0 7.4 - 10.4 06/06 <sup>22</sup> Surg ical /2016 Reference Specialty Lab: [facility], [address] [place], [place] [address] LABORATORY Carbon 22 24 - 29 06/06 LOW Surgical Dioxide /2016 [facility] LABORATORY Calcium 1.09 1.12 - 06/06 LOW Surgical Level 1.32 /2016 [facility] LABORATORY Sodium Level 141.0 138.0 - 06/06 Surgical 146.0 /2015 [facility] LABORATORY Potassium 5.0 3.5 - 4.9 06/06 HI Surgical Level /2016 [facility] LABORATORY AGAP 16 8 - 16 06/06 Surgical /2016 [facility] LABORATORY Results Reported 06/06 Surgical (06/05/2016 19:25:00) /2016 [facility] LABORATORY Hematocrit 35 38 - 51 06/06 LOW Surgical /2016 [facility] LABORATORY BUN 25 8 - 26 06/06 Surgical /2016 [facility] LABORATORY Creatinine 1.1 0.6 - 1.3 06/06 Surgical /2016 [facility] LABORATORY Chloride 109 98 - 109 06/06 Surgical Level /2016 [facility] LABORATORY Hemoglobin 11.9 12.0 - 06/06 LOW Surgical 17.0 /2016 [facility] LABORATORY Glucose Lvl 88 70 - 105 06/06 Surgical /2016 [facility] LABORATORY Results Reported 06/05 Surgical (06/05/2016 06:37:00) /2015 [facility] LABORATORY Lymphocyte % 6.1 20.0 - 06/05 LOW <sup>27</sup> Stinson rgical 40.0 Reference Specialty Lab: [facility], [address] [place] [address] LABORATORY Eosinophil # 0.0 0.0 - 4.0 06/05 <sup>41</sup> Surgical /2015 Reference Specialty Lab: [facility], [address] [place] [address] LABORATORY Monocyte % 11.2 2.0 - 12.0 06/05 <sup>29</sup> S urg Reference Specialty Lab: [facility], [address] [place] [address] LABORATORY Neutrophil # 11.6 1.5 - 8.1 06/05 HI <sup>35</sup> Surgical Reference Specialty Lab: [facility], [address] [place] [address] LABORATORY Lymphocyte # 0.9 1.0 - 5.5 06/05 LOW <sup>37</sup> Surgical Reference Specialty Lab: [facility], [address] [place] [address] LABORATORY Monocyte # 1.6 0.0 - 0.8 06/05 HI <sup>39</sup> Stinson rgical Reference Specialty Lab: [facility], [address] [place] [address] LABORATORY Basophil % 0.2 0.0 - 1.0 06/05 <sup>33</sup> Stinson rgical Reference Specialty Lab: [facility], [address] [place] [address] LABORATORY Basophil # 0.0 0.0 - 0.2 06/05 <sup>43</sup> Stinson rgical Reference Specialty Lab: [facility], [address] [place] [address] LABORATORY Hypochrom 1+ None Seen 06/05 <sup>58</sup> Amos gical /2015 Reference Specialty Lab: [facility], [address] [place] [address] LABORATORY Eosinophil % 0.0 0.0 - 0.5 06/05 <sup>31</sup> Surgical /2015 Reference Specialty Lab: [facility], [facility] [place] [address] LABORATORY Neutrophil % 82.5 45.0 - 06/05 HI <sup>25</sup> Stinson rgical 75.0 Reference Specialty Lab: [facility], [address] [place] [address] LABORATORY Results Reported 06/05 Surgical (06/05/2016 06:37:00) [facility] LABORATORY eGFR 44 06/05 <sup>56</sup> Surgica l /2015 Reference Specialty Lab: [facility], [facility] [place] [address]
<stinson p>57</sup>Res ult Comment: The eGFR is [...] Surg ical Level /2016 Reference Specialty Lab: [facility], [address] [place] [address] LABORATORY AGAP 13.3 10.0 - 1115 <sup>5</sup>R Surgica l 20.0 /2016 eference Lab: Specialty [facility], [address] [address] LABORATORY Carbon 27 24 - 32 06/05 <sup>73</sup> Surgica l Dioxide /2016 Reference Specialty Level Lab: [facility], [facility] [address] [place] [address] LABORATORY Chloride 108 95 - 109 06/05 <sup>78</sup> Surgi victorino Level /2016 Reference Specialty Lab: [facility], [address] [place] [address] LABORATORY Potassium 5.3 3.5 - 5.1 06/05 HI <sup>87</sup> Amos gical Level /2016 Reference Specialty Lab: [facility], [address] [place] [address] LABORATORY Sodium Level 143 135 - 145 06/05 <sup>94</sup> Surgical /2016 Reference Specialty Lab: [facility], [address] [place] [address] LABORATORY Glucose Lvl 115 70 - 99 06/05 HI <sup>14</sup> Amos gical /2016 Reference Specialty Lab: [facility], [facility] [address] [place] [address]
<stinson p>15</sup>Res ult Comment: Adult reference range values reflect the clinical guidelines
of the [place] [employer]. LABORATORY Creatinine 1.16 0.50 - 11 <sup>101</sup Surg ical 1.40 /2016 >Reference Specialty Lab: [facility], [address] [place] [address] LABORATORY BUN 24 7 - 22 06/05 HI <sup>63</sup> Surgica l /2016 Reference Specialty Lab: [facility], [address] [place] [address] LABORATORY White Blood 14.1 3.7 - 10.4 06/05 HI <sup>96</sup> Surgical Count /2016 Reference Specialty Lab: [facility], [address] [place] [address] LABORATORY Red Blood 3.85 4.20 - 06/05 LOW <sup>89</sup> Surgi victorino Cell Count 5.40 /2016 Reference Specialty Lab: [facility], [address] [place] [address] LABORATORY Hematocrit 34.7 36.0 - 06/05 LOW <sup>80</sup> Surg ical 48.0 /2016 Reference Specialty Lab: [facility], [address] [place] [address] LABORATORY Hemoglobin 11.1 12.0 - 06/05 LOW <sup>82</sup> Surg ical 16.0 /2015 Reference Specialty Lab: [facility], [address] [place] [address] LABORATORY MCV 90.1 80.0 - 06/05 <sup>47</sup> Surgica l 98.0 /2016 Reference Specialty Lab: [facility], [address] [place] [address] LABORATORY MCHC 32.0 32.0 - 06/05 <sup>19</sup> Surgica l 36.0 /2016 Reference Specialty Lab: [facility], [address] [place], [place] [address] LABORATORY RDW 15.2 11.5 - 06/05 HI <sup>21</sup> Surgica l 14.5 /2016 Reference Specialty Lab: [facility], [address] [place] [address] LABORATORY MCH 28.8 27.0 - 06/05 <sup>17</sup> Surgica l 31.0 /2015 Reference Specialty Lab: [facility], [address] [place] [address] LABORATORY MPV 9.7 7.4 - 10.4 06/05 <sup>23</sup> Surg ical /2016 Reference Specialty Lab: [facility], [address] [place] [place] [address] LABORATORY Platelet 237 133 - 450 06/05 <sup>45</sup> Surg ical /2016 Reference Specialty Lab: [facility], [address] [place] [address] LABORATORY Results Reported 06/05 Surgical (06/05/2016 06:37:00) /2016 [facility] CHEM PANEL eGFR 68 10/29 Result MH Comment: The [facility] eGFR is calculated using the CKD-EPI formula. [...] MCH 29.6 27.0 - 10/28 Sugar 31.0 [facility] HEMATOLOGY Platelet 356 133 - 450 10/28 MH Sugar [facility] HEMATOLOGY MPV 7.4 7.4 - 10.4 10/28 [place] HEMATOLOGY RDW 14.1 11.5 - 10/28 [place] 14.5 [facility] HEMATOLOGY MCV 92.6 80.0 - 10/28 [place] 98.0 /2015 [place] HEMATOLOGY Hct 28.9 36.0 - 10/28 [place] 48.0 /2015 [facility] HEMATOLOGY Hgb 9.2 12.0 - 10/28 [place] 16.0 [facility] HEMATOLOGY RBC 3.12 4.20 - 04/09 MH [...] 3.04 4.20 - 10/27 [place] 5.40 /2015 [facility] HEMATOLOGY WBC 13.2 3.7 - 10.4 10/27 [place] HEMATOLOGY RBC Morph Normal 10/25 [place] (10/26/15 11:46 AM) [facility] HEMATOLOGY Plt Morph Normal 10/25 [place] (10/26/15 [...] Yellow Yellow 10/25 [place] STOOL *NA* /2015 [facility] (10/26/15 12:50 AM) URINE AND UA Spec [...] Negative 10/25 [place] SEROLOGY (10/25/15 11:34 PM) [facility] CARDIAC Total CK 64 12 - 191 10/25 [place] ENZYMES /2015 [facility] CARDIAC Troponin-I <0.02 0.00 - 04 [place] ENZYMES 0.40 /2015 [facility] CARDIAC CK MB <0.5 0.5 - 3.6 / [place] ENZYMES /2015 [facility] CARDIAC CK MB Index <0.8 0.0 - [...] Magnesium 1.5 1.8 - 2.4 12/[address] [facility] CHEM PANEL Phosphorus 2.8 2.5 - 4.5 12/17 [facility] ELECTROLYT Chloride Lvl 110 95 - 109 12/17 [facility] ELECTROLYT CO2 24 24 - 32 12/17 [facility] ELECTROLYT Calcium Lvl 7.8 8.5 - 10.5 12/[address] [facility] ELECTROLYT Total 5.1 6.4 - 8.4 12/[address] [facility] ELECTROLYT Albumin Lvl 2.7 3.5 - 5.0 12/17 [facility] ELECTROLYT Glucose Lvl 95 70 - 99 12/17 <sup>3</sup>I nterpretive [facility] Data: Adult reference range values reflect the clinical guidelines
of the [place] [employer]. ELECTROLYT BUN 15 7 - 22 12/17 [facility] ELECTROLYT Creatinine 0.9 0.5 - 1.4 12/[address] [facility] ELECTROLYT Sodium Lvl 144 135 - 145 12/17 [facility] ELECTROLYT Potassium 4.1 3.5 - 5.1 12/[address] [facility] ELECTROLYT eGFR 61 12/17 <sup>1</sup>R esult [facility] Comment: The eGFR is calculated using the [...] HEMATOLOGY Basophils 0.5 0.0 - 1.0 12/17 [facility] HEMATOLOGY Segs-Bands # 3.4 1.5 - 8.1 12/17 [facility] HEMATOLOGY Monocytes 15.5 2.0 - 12.0 12/17 [place] HEMATOLOGY Lymphocytes 20.8 20.0 - 12/17 40.0 /2013 [facility] HEMATOLOGY Eosinophils 0.7 0.0 - 4.0 12/17 [facility] HEMATOLOGY Basophils # 0.0 0.0 - 0.2 12/17 [place] HEMATOLOGY Segs 62.5 45.0 - 12/17 75.0 /2013 [facility] HEMATOLOGY Monocytes # 0.8 0.0 - 0.8 12/17 [facility] HEMATOLOGY Eosinophils 0.0 0.0 - 0.5 12/17 MH # /2013 [facility] HEMATOLOGY MCV 91.6 81.0 - 12/17 99.0 /2013 [facility] HEMATOLOGY MCH 31.2 27.0 - 12/17 MH 31.0 /2013 [facility] HEMATOLOGY RBC 3.15 4.20 - 12/17 MH 5.40 /2013 [facility] HEMATOLOGY Hgb 9.8 12.0 - 12/[address] [facility] HEMATOLOGY Hct 28.9 36.0 - 12/17 48.0 /2013 [facility] HEMATOLOGY MPV 8.2 7.4 - 10.4 12/17 [facility] HEMATOLOGY Platelet 266 133 - 450 12/17 [facility] HEMATOLOGY WBC 5.4 3.7 - 10.4 12/17 [facility] HEMATOLOGY RDW 14.3 11.5 - 12/[address] [facility]Y [facility] 34.0 32.0 - 12/17 36.0 /2013 [facility] URINE AND UA Ketones Negative Negative 12/17 STOOL mg/dL mg/dL /2013 [facility] URINE AND UA Blood Negative Negative 12/17 [facility] (12/17/13 1:36 AM[facility] Sq Epi Occasional Few /LPF 12/17 STOOL /LPF /2013 [facility] URINE AND UA Leuk Est Trace Negative 12/17 STOOL *ABN* /2013 [facility] (12/17/13 1:36 AM) URINE AND UA RBC 2 0 - 2 12/17 STOOL /2013 [facility] URINE AND UA Nitrite Negative Negative 12/17 [facility] (12/17/13 1:36 AM) /[facility] UA WBC 9 0 - 5 12/[address] [facility] URINE AND UA Color Yellow Yellow 12/17 STOOL *NA* /2013 [facility] (12/17/13 1:36 AM) URINE AND UA Turbidity Clear Clear 12/17 [facility] (12/17/13 1:36 AM) [facility] URINE AND UA Spec Grav 1.018 <=1.030 12/[address] [facility] URINE AND UA pH 5.0 5.0 - 8.0 12/[address] [facility] URINE AND UA Glucose Negative Negative 12/17 STOOL mg/dL mg/dL /2013 [facility] URINE AND UA Bili Negative Negative 12/17 STOOL *NA* /2013 [facility] (12/17/13 1:36 AM) URINE AND UA Protein Negative Negative 12/17 STOOL mg/dL mg/dL [facility] URINE AND UA <=1.0 0.1 - 1.0 12/17 STOOL Urobilinogen mg/dL /2013 [facility] CARDIAC CK MB Index 2.3 0.0 - 2.5 12/17 ENZYMES /2013 [facility] CARDIAC BNP 13 <=100 12/17 <sup>5</sup>I ENZYMES pg/mL /[address] [facility] Data: Elevated results are in line with increasing severity of
con gestive heart failure. Minor elevations between 100 and 300
may be seen with Myocardial Ischemia, Sodium retaining drugs,
an d compensated/t reated heart failure. CARDIAC CK MB 1.1 0.5 - 3.6 12/17 ENZYMES /2013 [facility] CARDIAC Total CK 48 12 - 191 12/[address] [facility] CARDIAC Troponin-I <0.02 0.00 - 05 ENZYMES 0.40 /2013 [facility] CHEM PANEL Phosphorus 2.8 2.5 - 4.5 12/17 [facility] CHEM PANEL eGFR 61 12/17 <sup>2</sup>R esult [facility] [facility] Comment: The eGFR is calculated using the [...] 12.8 10.0 - 12/17 MH 20.0 /2013 [facility] CHEM PANEL Alk Phos 53 39 - 136 12/17 [facility] CHEM PANEL Bili Total 0.3 0.2 - 1.3 12/17 [facility] CHEM PANEL B/C Ratio 21 6 - 25 12/17 [facility] CHEM PANEL AST 11 0 - 37 12/17 [facility] CHEM PANEL ALT 15 0 - 65 12/17 [facility] CHEM PANEL Globulin 3.1 2.0 - 4.0 12/17 [facility] CHEM PANEL Potassium 3.8 3.5 - 5.1 12/17 Lvl /2013 [facility] CHEM PANEL A/G Ratio 1.0 0.7 - 1.6 12/17 [facility] CHEM PANEL Sodium Lvl 141 135 - 145 12/17 [facility] CHEM PANEL Total 6.2 6.4 - 8.4 12/[address] [facility] CHEM PANEL BUN 19 7 - 22 12/17 [facility] CHEM PANEL Creatinine 0.9 0.5 - 1.4 12/17 Lvl /2013 [facility] CHEM PANEL Calcium Lvl 8.3 8.5 - 10.5 12/17 [facility] CHEM PANEL CO2 26 24 - 32 12/17 [facility] CHEM PANEL Chloride Lvl 106 95 - 109 12/17 [facility] CHEM PANEL Albumin Lvl 3.1 3.5 - 5.0 12/17 [facility] CHEM PANEL Glucose Lvl 104 70 - 99 12/17 <sup>4</sup>I nterpretive [facility] Data: Adult reference range values reflect the clinical guidelines
of the [place] [employer]. CHEM PANEL Magnesium 1.5 1.8 - 2.4 12/17l [facility] HEMATOLOGY Basophils # 0.0 0.0 - 0.2 12/17 [facility] HEMATOLOGY Segs 81.4 45.0 - 12/17 MH 75.0 /2013 [facility] HEMATOLOGY Eosinophils 0.3 0.0 - 4.0 12/17 [facility] HEMATOLOGY Lymphocytes 9.6 20.0 - 12/17 MH 40.0 /2013 [facility] HEMATOLOGY Monocytes 8.3 2.0 - 12.0 12/17 [facility] HEMATOLOGY Monocytes # 0.6 0.0 - 0.8 12/17 [facility] HEMATOLOGY Eosinophils 0.0 0.0 - 0.5 12/17 MH # /2013 [facility] HEMATOLOGY Lymphocytes 0.7 1.0 - 5.5 12/17 MH # /2013 [facility] HEMATOLOGY Segs-Bands # 5.8 1.5 - 8.1 12/17 [facility] HEMATOLOGY Basophils 0.4 0.0 - 1.0 12/17 [facility] HEMATOLOGY WBC 7.1 3.7 - 10.4 12/17 [facility] HEMATOLOGY RBC 3.51 4.20 - 12/17 MH 5.40 /2013 [facility] HEMATOLOGY Hgb 10.9 12.0 - 12/17 MH 16.0 /2013 [facility] HEMATOLOGY Hct 31.7 36.0 - 12/17 MH 48.0 /2013 [facility] HEMATOLOGY MCV 90.4 81.0 - 12/17 MH 99.0 /2013 [facility] HEMATOLOGY MCH 31.1 27.0 - 12/17 MH 31.0 /2013 [facility] HEMATOLOGY MCHC 34.4 32.0 - 12/17 MH 36.0 /2013 [facility] HEMATOLOGY RDW 13.8 11.5 - 12/[address] [facility] HEMATOLOGY Platelet 297 133 - 450 12/17 [facility] HEMATOLOGY MPV 8.3 7.4 - 10.4 12/17 [facility] HEMATOLOGY INR 0.99 0.85 - 12/17 <sup>6</sup>I 1.[address] [facility] Data: RECOMMENDED RANGES FOR PROTIME INR:
2.0-3.0 for most medical and surgical thromboemboli c states.
2.5-3.5 for artificial heart valves and recurrent embolism.<br/ >
INR SHOULD BE USED ONLY FOR PATIENTS ON STABLE ANTICOAGULANT THERAPY. HEMATOLOGY PT 13.0 12.0 - 12/[address] [facility] HEMATOLOGY PTT 28.4 22.9 - 12/17 <sup>7</sup>I 35.[address] [facility] Data: Heparin Therapeutic Range: 57 - 92 [...] 1 cm. Chest 1view DX EXAM: 10/29/2015 [employer] 1 view(s) of the chest. INDICATION: Abnormal chest sounds. COMPARISON: Chest x-ray: 10/27/2015. IMPRESSION: 1. Support apparatus: None. 2. Stable right lower lobe c onsolidation with parapneumonic effusion. Consider continued follow-up until resolution. 3. Left basilar atelectasis with small pleural e ffusion. 4. No pneumothorax. Chest 1view DX Chest x-ray 1 view 10/27/2015 [employer] Comparison:10/25/15 Findings: Heart size and padmini tral [...] pleural effusion. Chest 1view DX EXAM: 10/25/2015 [employer] Single view chest. INDICATION: Chest pain. COMPARISON: [...] Source Respitory Rate 18 06/09/2016 [facility] [place] Heart Rate 98 06/09/2016 [facility] [place] Systolic (mm Hg) 152/92 06/09/2016 Surgical [facility] [place] Temperature Oral (F) 36.5 Sissy 06/09/[facility] [place] Systolic (mm Hg) 142/70 06/09/2016 [facility] [place] Systolic (mm Hg) 155/84 06/09/2016 [facility] [place] Respitory Rate 18 06/09/2016 Surgical [facility] [place] Heart Rate 100 06/09/2016 [facility] [place] Temperature Oral (F) 36.5 Sissy 06/09/2016 [facility] [place] Temperature Oral (F) 36.5 Sissy 06/09/2016 [facility] [place] Heart Rate 99 06/09/2016 Surgical [facility] [place] Respitory Rate 18 06/09/[address] [facility] [place] Temperature Oral (F) 36.6 Sissy 06/05/2016 [facility] [place] Temperature Oral (F) 36.9 Sissy 06/05/2016 [facility] [place] Weight 20.51 06/04/2016 [facility] [place] Weight 47.63 06/04/2016 [facility] [place] Height 152.4 cm 06/04/2016 Surgical [facility] [place] Peripheral Pulse Rate 64 06/04/[facility] [place] Height 152.4 cm 05/30/2016 [facility] [place] Weight 47.63 05/30/2016 [facility] [place] Weight 20.51 05/30/2016 [facility] [place] Peripheral Pulse Rate 67 05/30/[facility] [place] Heart Rate 92 10/30/2015 [place] Respitory Rate 18 10/30/2015 [place] Temperature Oral (F) 98.2 F 10/30/2015 [place] Systolic (mm Hg) 125 10/30/2015 [place] Diastolic (mm Hg) 72 10/30/2015 [place] Temperature Oral (F) 98.4 F 10/30/2015 [place] Heart Rate 81 10/30/2015 [place] Respitory Rate 18 10/30/2015 [place] Systolic (mm Hg) 131 10/30/2015 [place] Diastolic (mm Hg) 72 10/30/2015 [place] Temperature Oral (F) 98.5 F 10/30/2015 [place] Heart Rate 81 10/30/2015 [place] Respitory Rate 18 10/30/2015 [place] Systolic (mm Hg) 112 10/30/2015 [place] Diastolic (mm Hg) 63 10/30/2015 [place] Weight 49.773 10/26/2015 [place] BMI Calculated 21.43 10/26/2015 [place] Height 152.4 cm 10/26/2015 [place] Weight 48.636 10/26/2015 [place] Systolic (mm Hg) 94 12/17/2013 [place] Rate 18 12/17/2013 [facility] Diastolic (mm Hg) 49 12/17/[address] Diastolic (mm Hg) 50 12/17/[address] [facility] [address] Systolic (mm Hg) 84 12/17/2013 [place] Resp[place] Rate 20 12/17/2013 [facility] Heart Rate 71 12/17/2013 [facility] Temperature Oral (F) 98.1 F 12/17/2013 [place] Height 147.32 cm 12/17/2013 [facility] BMI Calculated 30.58 12/17/2013 [facility] Weight 66.364 12/17/2013 [facility] Respitory Rate 20 12/17/2013 [place] Systolic (mm Hg) 100 12/17/2013 [place] Diastolic (mm Hg) 58 12/17/[address] [facility] [address] Temperature Oral (F) 98.7 F 12/17/2013 [place] Heart Rate 76 12/17/2013 [facility] Temperature Oral (F) 98.5 F 12/17/2013 [place] Height 149.86 cm 12/17/2013 [facility] Weight 47.273 12/17/2013 [facility] BMI Calculated 21.05 12/17/2013 [facility] Heart Rate 82 12/17/2013 [facility] Encounters Location Location Encounter Encounter Reason Attending ADM DC Stat us Source Details Type Number For Provider Date Date Visit Emergency [id number] CHEST MATTHIAS 03/07 03/07 Activ e [place] 3 PAIN JAYARAMA /2010 [facility] OD [id number] 571.8 - YUDI HARRY 03/15 03/15 Active [facility] 0 CHRONIC /2010 [facility] D wood 789.01 - ABDMNAL PAIN RT Emergency [id number] SHARI GREEN 03/30 03/31 Discha rg [facility] 4 JR /2010 ed [facility] Emergency [id number] SOB SHARI GREEN 04/12 04/13 Active [facility] 5 JR /2010 [facility] OBS [id number] Rj [place] 12/17 12/17 [facility] [facility] Patient [facility] Inpatient [id number] [place] 10/25 10/29 [place] Elliott /2015 [place] [facility] Inpatient [id number] Adam 06/04 06/09 [facility] [place] [facility] [id number] EILEEN DOWNEY 02/21 Act lore [facility] [place] Out[facility] [id number] EILEEN DOWNEY 03/27 [facility] [place] [facility] [id number] LILIA 04/09 Active M emoria 2 CI l [place] Out[facility] [id number] EILEEN DOWNEY 04/14 [facility] [place] [facility] [id number] EILEEN DOWNEY 04/28 [facility] [place] [facility]patient [id number] ESOPHAGI YUDI walters [facility] 6 TIS [facility] OD [id number] 368.40 - YUDI HARRY Activ e [facility] 1 VISUAL [facility] Procedures Procedure Code Date Perfomer Comments Source IMPLANTATION OF Eduard 2auto-populated Surg ical BIOLOGIC IMPLANT 6 from documented Spe cialty [id number] surgical case Hospital of (Other)<sup>2</sup> [place] REPAIR HERNIA Eduard 3auto-populated Surgic al INCISIONAL OR 6 from documented Specia lty VENTRAL-W/MESH [id number] surgical case H [facility]spital of (Other)<sup>3</sup> [place] REPAIR INITIAL HERNIA Eduard 4auto-populate d Surgical INCISIONAL OR 6 from documented Specia lty [place] [id number] [place] (Other)<sup>4</sup> COLONOSCOPY Surgical 1 [facility] [place] HERNIA 1X2 Surgical REPAIR<sup>1</sup> 1 Specia lty [facility] [place] Cholecystectomy [id number] [facility] [place] Hernia repair [id number] [facility] [place] Resection of colon [id number] for interposition [facility] [place] Assessment and Plan No Data Provided for This Section Plan of Care No Data Provided for This Section Social History Social History Date Source Social History TypeResponse 10/26/2015 Katya duenas Smoking Status Never smoker; Exposure to Tobacco Smoke None; Cigarette Smoking Last 365 Days No; Reg Smoking Cessation Counseling No Social History TypeResponse 12/17/2013 [facility] Family History No Data Provided for This Section Advance Directives No Data Provided for This Section Functional Status No Data Provided for This Section
[2020-09-13] MEDS ORDERED: METHYLPREDNISOLONE 125 MG INJ ONE (15:15)
[2020-09-13 15:27] LABS: Absolute Lymphocytes (CBC) 1.3 K/uL (0.7-4.9); Basophils % 1.4 % (0-1.3); Hematocrit 37.6 % (36.0-45.0); Lymphocytes % 15.4 % (15.3-44.8); MPV 9.9 fL (7.6-11.3); RBC Red Blood Cell Count 4.03 M/uL (3.86-4.86)
[2020-09-13 15:34] LABS: Protime INR 0.98
--- NOTE | 2020-09-13 15:47 | RAD REPORT ---
EXAM DESCRIPTION: RAD - Chest Single View - 09/13/2020 3:02 pm CLINICAL HISTORY: SOB COMPARISON: May 2018 TECHNIQUE: AP portable chest image was obtained 09/13/2020 3:02 pm . FINDINGS: Chronic interstitial lung disease is evident. No superimposed pulmonary edema. No focal in filtrate. Heart and vasculature are normal. No measurable pleural effusion and no pneumothorax. No ac port heiden bony abnormality seen. No acute aortic findings suspected. IMPRESSION: Chronic interstitial lung disease with no acute cardiopulmonary finding.
[2020-09-13 15:48] LABS: ALT/SGPT 26 U/L (12-78); AST/SGOT 21 U/L (15-37); Alkaline Phosphatase 53 U/L (45-117); BUN Blood Urea Nitrogen 22 mg/dL (7-18); Bicarbonate 26 mmol/L (21-32); Bilirubin Direct 0.1 mg/dL (0-0.2); Bilirubin Total 0.4 mg/dL (0.2-1.0); Glucose Level 92 mg/dL (74-106); Magnesium 1.9 mg/dL (1.8-2.4); NT PRO-BNP 247 pg/mL (<450); Potassium 3.9 mmol/L (3.5-5.1); Protein, Total 7.3 g/dL (6.4-8.2); Sodium Level 139 mmol/L (136-145); Troponin (Emerg Dept Use Only) < 0.02 ng/mL (0.0-0.045)
--- NOTE | 2020-09-13 16:58 | EDPHYS ---
Physician Documentation [facility] Name: Therese Siu Age: 85 yrs Sex: Female : 1935 Arrival Date: 09/13/2020 Time: 14:02 Bed 20 Private MD: ED Physician Primo Massey HPI: 09/13 14:44 This 85 yrs old Female presents to ER via Ambulatory with complaints of pm1 Allergic Reaction, Shortness Of Breath. 14:44 The patient presents with shortness of breath. Onset: The symptoms/episode pm1 began/occurred 2 day(s) ago. Associated signs and symptoms: Pertinent negatives: abdominal pain, chest pain, hives, vomiting, sore throat. Possible causes: antibiotics, Bactrim. At home the patient or guardian has treated the symptoms with nothing. Severity of symptoms: in the emergency department the symptoms are unchanged. The patient has not experienced similar symptoms in the past. The patient has been recently seen at the [facility] Emergency Department, Seen by me on Saturday for insect/spider bite to right forearm. Discharged home with bactrim after pustules deroofed. Patient reports improvement in insect bite with the antibiotics but she started to experience some shortness of breath a few hours after taking the first pill of Bactrim. Historical: - Allergies: 14:11 Benadryl; ll1 14:11 Codeine; ll1 - PMHx: 14:11 Asthma; Emphysema; Hypertension; ll1 - PSHx: 14:11 Cholecystectomy; ll1 - Immunization history:: Flu vaccine is up to date. - Social history:: Smoking status: Patient denies any tobacco usage or history of. ROS: 14:44 Constitutional: Negative for fever, chills, and weight loss, Cardiovascular: Negative pm1 for chest pain, palpitations, and edema. 14:44 ENT: Negative for injury, pain, and discharge, Neck: Negative for injury, pain, and swelling, Abdomen/GI: Negative for abdominal pain, nausea, vomiting, diarrhea, and constipation, Back: Negative for injury and pain, MS/Extremity: Negative for injury and deformity, Skin: Negative for injury, rash, and discoloration, Neuro: Negative for headache, weakness, numbness, tingling, and seizure. 14:44 Respiratory: Positive for shortness of breath, Negative for cough, wheezing. Exam: 14:44 Constitutional: This is a well developed, well nourished patient who is awake, alert, pm1 and in no acute distress. Head/Face: Normocephalic, atraumatic. Chest/axilla: Normal chest wall appearance and motion. Nontender with no deformity. No lesions are appreciated. 14:44 MS/ Extremity: Pulses equal, no cyanosis. Neurovascular intact. Full, normal range of motion. 14:44 Cardiovascular: Exam negative for acute changes, Rate: normal, Rhythm: regular, Pulses: no pulse deficits are appreciated. 14:44 Respiratory: Exam negative for acute changes, respiratory distress, shortness of breath, Breath sounds: are clear throughout, no decreased breath sounds, no rales, rhonchi, no wheezing. 14:44 Abdomen/GI: Exam negative for acute changes, Palpation: abdomen is soft and non-tender, in all quadrants. 14:44 Skin: Appearance: Wound recheck: Abscess: the wound has improved, decreased pain, decreased swelling. 14:44 Neuro: Exam negative for acute changes, Orientation: is normal, Mentation: is normal, Motor: is normal, moves all fours. Vital Signs: 14:08 Pulse 75; Resp 16; Temp 98.6; Pulse Ox 99% ; Pain 0/10; ll1 14:31 BP 164 / 70; Pulse 77; Resp 22; Pulse Ox 98% on R/A; vg1 15:00 BP 125 / 106; Pulse 67; Resp 18; Pulse Ox 97% on R/A; vg1 16:00 BP 154 / 63; Pulse 73; Resp 20; Pulse Ox 97% on R/A; vg1 17:00 BP 159 / 58; Pulse 70; Resp 20; Pulse Ox 98% on R/A; vg1 MDM: 14:20 Patient medically screened. pm1 16:53 Data reviewed: vital signs. Data interpreted: Pulse oximetry: on room air is 97 %. pm1 Interpretation: normal. Counseling: I had a detailed discussion with the patient and/or guardian regarding: the historical points, exam findings, and any diagnostic results supporting the discharge/admit diagnosis, lab results, radiology results, the need for outpatient follow up, to return to the emergency department if symptoms worsen or persist or if there are any questions or concerns that arise at home. 09/13 14:43 Order name: Basic Metabolic Panel pm1 09/13 14:43 Order name: CBC with Diff; Complete Time: 15:42 pm1 09/13 14:43 Order name: LFT's; Complete Time: 16:01 pm1 09/13 14:43 Order name: Magnesium; Complete Time: 16:01 pm1 09/13 14:43 Order name: NT PRO-BNP; Complete Time: 16:01 pm1 09/13 14:43 Order name: PT-INR; Complete Time: 15:42 pm1 09/13 14:43 Order name: Troponin (emerg Dept Use Only); Complete Time: 16:01 pm1 09/13 14:43 Order name: XRAY Chest (1 view); Complete Time: 16:01 pm09/13 14:43 Order name: EKG; Complete Time: 14:44 pm1 09/13 14:43 Order name: Cardiac monitoring; Complete Time: 15:31 pm1 09/13 14:43 Order name: EKG - Nurse/Tech; Complete Time: 15:31 pm1 09/13 14:43 Order name: IV Saline Lock; Complete Time: 15:20 pm1 09/13 14:44 Order name: Basic Metabolic Panel; Complete Time: 16:01 EDMS 09/13 14:43 Order name: Labs collected and sent; Complete Time: 15:20 pm1 09/13 14:43 Order name: O2 Per Protocol; Complete Time: 15:07 pm1 09/13 14:43 Order name: O2 Sat Monitoring; Complete Time: 15:07 pm1 Administered Medications: 15:20 Drug: SOLU-Medrol 125 mg Route: IVP; Site: left antecubital; vg1 16:20 Follow up: Response: No adverse reaction vg1 Disposition: 09/14 08:02 Co-signature as Attending Physician, Primo Massey MD I agree with the assessment and speedy plan of care. Disposition: 09/13/20 16:57 Discharged to Home. Impression: Shortness of breath, Allergy status to sulfonamides status. - Condition is Stable. - Discharge Instructions: Drug Allergy, Shortness of Breath. - Prescriptions for Pepcid 20 mg Oral Tablet - take 1 tablet by ORAL route every 12 hours for 10 days; 20 tablet. Doxycycline Hyclate 100 mg Oral Tablet - take 1 tablet by ORAL route every 12 hours for 7 days; 14 tablet. Medrol (Jimbo) 4 mg Oral Tablets, Dose Pack - take 1 tablet by ORAL route as directed - follow package instructions; 1 packet. - Medication Reconciliation Form, Thank You Letter, Antibiotic Education, Prescription Opioid Use form. - Follow up: Emergency Department; When: As needed; Reason: Worsening of condition. Follow up: Private Physician; When: 2 - 3 days; Reason: Recheck today's complaints, Continuance of care, Re-evaluation by your physician. - Problem is new. - Symptoms have improved. Signatures: Dispatcher [employer] EDPrimo Perez MD MD cha Marinas, Patrick, ENDODONTICS DENTIST ENDODONTICS DENTIST pm1 Jennifre Obrien RN RN vg1 Sebastián Acevedo RN RN ll1 Corrections: (The following items were deleted from the chart) 09/13 17:35 16:57 09/13/2020 16:57 Discharged to Home. Impression: Shortness of breath; Allergy vg1 status to sulfonamides status. Condition is Stable. Forms are Medication Reconciliation Form, Thank You Letter, Antibiotic Education, Prescription Opioid Use. Follow up: Emergency Department; When: As needed; Reason: Worsening of condition. Follow up: Private Physician; When: 2 - 3 days; Reason: Recheck today's complaints, Continuance of care, Re-evaluation by your physician. Problem is new. Symptoms have improved. pm1
--- NOTE | 2020-09-13 16:58 | ER ---
Nurse's Notes [facility] Name: Therese Siu Age: 85 yrs Sex: Female : 1935 Arrival Date: 09/13/2020 Time: 14:02 Bed 20 Private MD: Diagnosis: Shortness of breath;Allergy status to sulfonamides status Presentation: 09/13 14:08 Chief complaint: Patient states: Started on Bactrim for ant bite on Saturday. Started ll1 having dizziness and SOB ever since starting the Bactrim. Sent in for eval. of possible allergic reaction. Ant bite is getting better. No fever. Coronavirus screen: Client denies travel out of the [place] in the last 14 days. Ebola Screen: Patient denies travel to an Ebola-affected area in the 21 days before illness onset. Onset: The symptoms/episode began/occurred 2 day(s) ago. Anaphylaxis evaluation, no signs or symptoms of anaphylaxis were noted. Initial Sepsis Screen: Does the patient meet any 2 criteria? No. Patient's initial sepsis screen is negative. Does the patient have a suspected source of infection? Yes: Skin breakdown/wound. Risk Assessment: Do you want to hurt yourself or someone else? Patient reports no desire to harm self or others. Onset of symptoms was September 11, 2020. 14:08 Method Of Arrival: Ambulatory ll1 14:08 Acuity: KOBI 3 ll1 Historical: - Allergies: 14:11 Benadryl; ll1 14:11 Codeine; ll1 - PMHx: 14:11 Asthma; Emphysema; Hypertension; ll1 - PSHx: 14:11 Cholecystectomy; ll1 - Immunization history:: Flu vaccine is up to date. - Social history:: Smoking status: Patient denies any tobacco usage or history of. Screenin:32 Abuse screen: Denies threats or abuse. Nutritional screening: No deficits noted. vg1 Tuberculosis screening: No symptoms or risk factors identified. Fall Risk No fall in past 12 months (0 pts). No secondary diagnosis (0 pts). No IV (0 pts). Ambulatory Aid- None/Bed Rest/Nurse Assist (0 pts). Gait- Normal/Bed Rest/Wheelchair (0 pts) Mental Status- Oriented to own ability (0 pts). Total Fonseca Fall Scale indicates No Risk (0-24 pts). Assessment: 14:30 General: Appears in no apparent distress. comfortable, Behavior is cooperative, vg1 anxious. Pain: Denies pain. Neuro: Level of Consciousness is awake, alert, obeys commands, Oriented to person, place, time. Neuro: Reports dizziness. Cardiovascular: Patient's skin is warm and dry. Respiratory: Airway is patent Respiratory effort is even, unlabored, Respiratory pattern is regular, symmetrical, Breath sounds are clear bilaterally. Respiratory: Reports shortness of breath at rest on exertion. Derm: Skin is intact, is healthy with good turgor. Musculoskeletal: Circulation, motion, and sensation intact. 16:15 Reassessment: Patient appears in no apparent distress at this time. No changes from vg1 previously documented assessment. Patient and/or family updated on plan of care and expected duration. Pain level reassessed. Patient is alert, oriented x 3, equal unlabored respirations, skin warm/dry/pink. 17:34 Reassessment: Patient appears in no apparent distress at this time. No changes from vg1 previously documented assessment. Patient and/or family updated on plan of care and expected duration. Pain level reassessed. Patient is alert, oriented x 3, equal unlabored respirations, skin warm/dry/pink. Vital Signs: 14:08 Pulse 75; Resp 16; Temp 98.6; Pulse Ox 99% ; Pain 0/10; ll1 14:31 BP 164 / 70; Pulse 77; Resp 22; Pulse Ox 98% on R/A; vg1 15:00 BP 125 / 106; Pulse 67; Resp 18; Pulse Ox 97% on R/A; vg1 16:00 BP 154 / 63; Pulse 73; Resp 20; Pulse Ox 97% on R/A; vg1 17:00 BP 159 / 58; Pulse 70; Resp 20; Pulse Ox 98% on R/A; vg1 ED Course: 14:02 Patient arrived in ED. as 14:11 Triage completed. ll1 14:11 Arm band placed on Patient placed in an exam room, on a stretcher. ll1 14:18 Timmy Mesa NP is PHCP. pm1 14:18 Primo Massey MD is Attending Physician. pm1 14:23 Jennifer Obrien RN is Primary Nurse. vg1 14:32 Patient has correct armband on for positive identification. Bed in low position. Call vg1 light in reach. Side rails up X 1. 15:02 XRAY Chest (1 view) In Process Unspecified. EDMS 15:19 Initial lab(s) drawn, by me, sent to lab. Inserted saline lock: 24 gauge in left vg1 antecubital area, using aseptic technique. Blood collected. 15:27 EKG done, by ED staff, reviewed by Timmy Mesa DIGITAL SOLUTIONS ARCHITECT. 3 17:35 No provider procedures requiring assistance completed. IV discontinued, intact, vg1 bleeding controlled, No redness/swelling at site. Pressure dressing applied. Administered Medications: 15:20 Drug: SOLU-Medrol 125 mg Route: IVP; Site: left antecubital; vg1 16:20 Follow up: Response: No adverse reaction vg1 Outcome: 16:57 Discharge ordered by . pm1 17:35 Discharged to home ambulatory, with family. vg1 17:35 Condition: stable 17:35 Discharge instructions given to patient, family, Instructed on discharge instructions, follow up and referral plans. medication usage, Demonstrated understanding of instructions, follow-up care, medications, Prescriptions given X 3. 17:35 Patient left the ED. vg1 Signatures: Dispatcher [employer] EDMS Harriett Merida Patrick, DOMENICA DIGITAL SOLUTIONS ARCHITECT pm1 Silke Hardin 3 Jennifer Obrien, RN RN vg1 Sebastián Acevedo RN RN ll1
[2020-09-13 17:55] VITALS: TEMP 98.6
[2020-09-13 18:00] VITALS: BP 159/58; O2SAT 98
--- NOTE | 2020-09-15 05:40 | EKG ---
Test Date: 2020-09-13 Test Time: 15:27:51 Corporate Strategist: ALEK MEASUREMENT RESULTS: Intervals: Rate: 66 OK: 146 QRSD: 62 QT: 422 QTc: 442 Salters: P: 75 OK: 146 QRS: 66 T: 65 INTERPRETIVE STATEMENTS: Normal sinus rhythm Septal infarct, age undetermined Abnormal ECG Compared to ECG 05/26/2018 20:59:46 No significant changes Electronically Signed On 09-15-20 05:36:01 FINAL INSPECTOR PAPER by Neri Hernandez
== END 2020-09-13 17:35 | disposition home or self-care (01) ==
LOC: ER 14:00
DX: R06.02 Shortness of breath (principal); Z88.2 Allergy status to sulfonamides; I10 Essential (primary) hypertension; Z88.5 Allergy status to narcotic agent; Z88.8 Allergy status to other drugs, medicaments and biological substances
CPT/HCPCS: 93005; 85025; 80048; 36415; 83735; 85610; 80076; 84484; 83880; 71045; 96374; 99284; J2930

== ENCOUNTER 2020-11-08 19:15 | Emergency (ER) | payer OTHER ==
[2020-11-08] MEDS ORDERED: METHYLPREDNISOLONE 125 MG INJ ONE (21:42)
[2020-11-08 22:01] LABS: Absolute Lymphocytes (CBC) 1.9 K/uL (0.7-4.9); Basophils % 1.2 % (0-1.3); Hematocrit 37.9 % (36.0-45.0); Lymphocytes % 15.3 % (15.3-44.8); MPV 10.5 fL (7.6-11.3); RBC Red Blood Cell Count 4.12 M/uL (3.86-4.86)
[2020-11-08 22:15] LABS: BUN Blood Urea Nitrogen 17 mg/dL (7-18); Bicarbonate 24 mmol/L (21-32); Glucose Level 102 mg/dL (74-106); Potassium 3.5 mmol/L (3.5-5.1); Sodium Level 140 mmol/L (136-145); Troponin (Emerg Dept Use Only) < 0.02 ng/mL (0.0-0.045)
--- NOTE | 2020-11-08 22:57 | ER ---
Nurse's Notes [facility] Name: Therese Siu Age: 85 yrs Sex: Female : 1935 Arrival Date: 11/08/2020 Time: 19:16 Bed 27 Private MD: Diagnosis: Chronic obstructive pulmonary disease with (acute) exacerbation Presentation: 11/08 19:38 Chief complaint: Patient states: i am having shortness breath 2 weeks ago and now it rr5 gets worse. no fever no cough. 19:38 Method Of Arrival: Ambulatory rr5 19:38 Coronavirus screen: Client denies travel out of the [place] in the last 14 days. shortness rr5 of breath, Client presents with at least one sign or symptom that may indicate coronavirus-19. Standard/surgical mask placed on the client. Provider contacted for isolation considerations. Ebola Screen: Patient negative for fever greater than or equal to 101.5 degrees Fahrenheit, and additional compatible Ebola Virus Disease symptoms Patient denies exposure to infectious person. Patient denies travel to an Ebola-affected area in the 21 days before illness onset. 19:38 Initial Sepsis Screen: Does the patient meet any 2 criteria? HR > 90 bpm. Does the rr5 patient have a suspected source of infection? Yes: Productive cough/pneumonia. Risk Assessment: Do you want to hurt yourself or someone else? Patient reports no desire to harm self or others. Onset of symptoms was November 08, 2020. 19:38 Acuity: KOBI 3 rr5 Triage Assessment: 21:35 General: Appears uncomfortable, Behavior is calm, cooperative. rr5 21:35 Respiratory: Reports shortness of breath on exertion Onset: The symptoms/episode rr5 began/occurred gradually, the patient has mild shortness of breath. Historical: - Allergies: 19:43 Benadryl; rr5 19:43 Codeine; rr5 - Home Meds: 19:43 albuterol sulfate 90 mcg/actuation Inhl HFAA 1 puff every 4-6 hours [Active]; albuterol rr5 sulfate 1.25 mg/3 mL Inhl nebu 3 mL 4 times per day [Active]; lisinopril 5 mg Oral tab 1 tab once daily [Active]; Prilosec 40 mg Oral cpDR 1 cap once daily [Active]; - PMHx: 19:43 Asthma; Emphysema; Hypertension; rr5 - PSHx: 19:43 None; rr5 - Immunization history:: Adult Immunizations not up to date. - Social history:: Smoking status: unknown Patient/guardian denies using alcohol, street drugs. Screenin:35 Abuse screen: Denies threats or abuse. Denies injuries from another. Nutritional rr5 screening: No deficits noted. Tuberculosis screening: No symptoms or risk factors identified. Fall Risk IV access (20 points). Total Fonseca Fall Scale indicates No Risk (0-24 pts). Assessment: 21:35 General: Appears in no apparent distress. uncomfortable, Behavior is calm, cooperative, rr5 appropriate for age. 21:35 Pain: Denies pain. Neuro: Level of Consciousness is awake, alert, obeys commands, rr5 Oriented to person, place, time. Cardiovascular: Capillary refill < 3 seconds Patient's skin is warm and dry. Respiratory: Reports shortness of breath on exertion Airway is patent Respiratory effort is even, pursed lip, Respiratory pattern is regular, symmetrical, tachypnea. GI: No signs and/or symptoms were reported involving the gastrointestinal system. : No signs and/or symptoms were reported regarding the genitourinary system. EENT: No signs and/or symptoms were reported regarding the EENT system. Derm: No signs and/or symptoms reported regarding the dermatologic system. Musculoskeletal: Capillary refill < 3 seconds. 22:50 Reassessment: Patient appears in no apparent distress at this time. Patient is alert, rr5 oriented x 3, equal unlabored respirations, skin warm/dry/pink. awaiting for results Patient states symptoms have improved. 23:20 Reassessment: Patient appears in no apparent distress at this time. Patient is alert, rr5 oriented x 3, equal unlabored respirations, skin warm/dry/pink. discharge instruction given and explained without complaints made Patient states feeling better. Patient states symptoms have improved. Vital Signs: 19:38 BP 179 / 80; Pulse 101; Resp 20; Temp 99; Pulse Ox 97% ; Weight 51.26 kg; Height 5 ft. rr5 (152.40 cm); Pain 0/10; 21:40 BP 166 / 89; Pulse 105; Resp 20; Pulse Ox 98% 2 lpm ; rr5 22:30 BP 165 / 110; Pulse 105; Resp 18; Pulse Ox 97% 2 lpm ; rr5 23:25 BP 151 / 85; Pulse 95; Resp 19; Pulse Ox 98% ; rr5 19:38 Body Mass Index 22.07 (51.26 kg, 152.40 cm) rr5 ED Course: 19:16 Patient arrived in ED. cf2 19:44 Arm band placed on right wrist. rr5 19:46 Triage completed. rr5 20:52 Shana Nelson FNP-C is [facility]. kb 20:52 Primo Massey MD is Attending Physician. kb 21:06 Earle Payton, RN is Primary Nurse. rr5 21:17 Oxygen administration via nasal cannula \T\ 2L/min Response to oxygen therapy: symptoms jb5 improved. 21:20 Warm blanket given. Pillow given. Verbal reassurance given. Head of bed elevated. jb5 21:30 Inserted saline lock: 20 gauge in right forearm, using aseptic technique. Blood rr5 collected. 21:35 Patient has correct armband on for positive identification. Bed in low position. Call rr5 light in reach. 21:59 EKG done, by ED staff, reviewed by Shana SHEETS. rr5 22:02 Chest Single View XRAY In Process Unspecified. EDMS 23:20 No provider procedures requiring assistance completed. IV discontinued, intact, rr5 bleeding controlled, No redness/swelling at site. Pressure dressing applied. Administered Medications: 21:20 Drug: SOLU-Medrol (methylPrednisoLONE) 125 mg Route: IVP; Site: right forearm; rr5 22:20 Follow up: Response: No adverse reaction; Marked relief of symptoms rr5 Outcome: 22:56 Discharge ordered by . kb 23:20 Discharged to home via wheelchair, with family. rr5 23:20 Condition: stable 23:20 Discharge instructions given to patient, family, Instructed on discharge instructions, follow up and referral plans. medication usage, Demonstrated understanding of instructions, follow-up care, medications, Prescriptions given X 1. 23:25 Patient left the ED. rr5 Signatures: Dispatcher [employer] EDMS Shana Nelson FNP-C FNP-Ckb Broussard, Jennifer jb5 Earle Payton, RN RN rr5 Jeny Lozada cf2 Corrections: (The following items were deleted from the chart) 11/09 00:38 04/20 22:30 BP 165 / 110; Pulse 105bpm; Resp 18bpm; Pulse Ox 97%; rr5 rr5
--- NOTE | 2020-11-08 22:57 | EDPHYS ---
Physician Documentation [facility] Name: Therese Siu Age: 85 yrs Sex: Female : 1935 Arrival Date: 11/08/2020 Time: 19:16 Bed 27 Private MD: ED Physician Primo Massey HPI: 11/08 23:29 This 85 yrs old Female presents to ER via Ambulatory with complaints of kb Shortness Of Breath. 23:29 The patient has shortness of breath at rest. Onset: The symptoms/episode began/occurred kb today. Duration: The symptoms are continuous. The patient's shortness of breath is aggravated by nothing, is alleviated by nothing. Associated signs and symptoms: The patient has no apparent associated signs or symptoms. Severity of symptoms: At their worst the symptoms were moderate in the emergency department the symptoms have resolved. The patient has experienced similar episodes in the past, multiple times. The patient has not recently seen a physician. Pt reports she has been taking her nebs every 4 hours today. States she felt like she couldn't breath after the last treatment, like her lungs were tight and she couldn't get air in so she came in. States she feels fine now, no tightness no shortness of breath. States the feeling just scared her. Historical: - Allergies: 19:43 Benadryl; rr5 19:43 Codeine; rr5 - Home Meds: 19:43 albuterol sulfate 90 mcg/actuation Inhl HFAA 1 puff every 4-6 hours [Active]; albuterol rr5 sulfate 1.25 mg/3 mL Inhl nebu 3 mL 4 times per day [Active]; lisinopril 5 mg Oral tab 1 tab once daily [Active]; Prilosec 40 mg Oral cpDR 1 cap once daily [Active]; - PMHx: 19:43 Asthma; Emphysema; Hypertension; rr5 - PSHx: 19:43 None; rr5 - Immunization history:: Adult Immunizations not up to date. - Social history:: Smoking status: unknown Patient/guardian denies using alcohol, street drugs. ROS: 23:28 Constitutional: Negative for fever, chills, and weight loss, Cardiovascular: Negative kb for chest pain, palpitations, and edema, Abdomen/GI: Negative for abdominal pain, nausea, vomiting, diarrhea, and constipation, MS/Extremity: Negative for injury and deformity, Skin: Negative for injury, rash, and discoloration, Neuro: Negative for headache, weakness, numbness, tingling, and seizure. 23:28 Respiratory: Positive for shortness of breath, wheezing. Exam: 23:28 Constitutional: This is a well developed, well nourished patient who is awake, alert, kb and in no acute distress. Head/Face: Normocephalic, atraumatic. Cardiovascular: Regular rate and rhythm with a normal S1 and S2. No gallops, murmurs, or rubs. No pulse deficits. Respiratory: Respirations even and unlabored. No increased work of breathing, no retractions or nasal flaring. Abdomen/GI: Soft, non-tender. No distention Skin: Warm, dry with normal turgor. Normal color. MS/ Extremity: Pulses equal, no cyanosis. Neurovascular intact. Full, normal range of motion. Neuro: Awake and alert, GCS 15, oriented to person, place, time, and situation. Moves all extremities. Normal gait. Vital Signs: 19:38 BP 179 / 80; Pulse 101; Resp 20; Temp 99; Pulse Ox 97% ; Weight 51.26 kg; Height 5 ft. rr5 (152.40 cm); Pain 0/10; 21:40 BP 166 / 89; Pulse 105; Resp 20; Pulse Ox 98% 2 lpm ; rr5 22:30 BP 165 / 110; Pulse 105; Resp 18; Pulse Ox 97% 2 lpm ; rr5 23:25 BP 151 / 85; Pulse 95; Resp 19; Pulse Ox 98% ; rr5 19:38 Body Mass Index 22.07 (51.26 kg, 152.40 cm) rr5 MDM: 20:52 Patient medically screened. kb 22:55 Data reviewed: vital signs, nurses notes. Data interpreted: Pulse oximetry: on room air kb is 97 %. Interpretation: normal. Counseling: I had a detailed discussion with the patient and/or guardian regarding: the historical points, exam findings, and any diagnostic results supporting the discharge/admit diagnosis, lab results, radiology results, the need for outpatient follow up, a family practitioner, to return to the emergency department if symptoms worsen or persist or if there are any questions or concerns that arise at home. 11/08 21:16 Order name: CBC with Diff kb 11/08 21:16 Order name: Basic Metabolic Panel kb 11/08 21:16 Order name: Chest Single View XRAY kb 11/08 21:16 Order name: Troponin (emerg Dept Use Only); Complete Time: 22:21 kb 11/08 21:16 Order name: CBC with Automated Diff; Complete Time: 22:07 EDMS 11/08 21:17 Order name: Basic Metabolic Panel; Complete Time: 22:21 EDMS 11/08 21:16 Order name: IV Start; Complete Time: 21:59 kb 11/08 21:16 Order name: EKG; Complete Time: 21:17 kb 11/08 21:16 Order name: EKG - Nurse/Tech; Complete Time: 21:59 kb Administered Medications: 21:20 Drug: SOLU-Medrol (methylPrednisoLONE) 125 mg Route: IVP; Site: right forearm; rr5 22:20 Follow up: Response: No adverse reaction; Marked relief of symptoms rr5 Disposition: 11/09 09:59 Co-signature as Attending Physician, Primo Massey MD I agree with the assessment and speedy plan of care. Disposition: 11/08/20 22:56 Discharged to Home. Impression: Chronic obstructive pulmonary disease with (acute) exacerbation. - Condition is Stable. - Discharge Instructions: Chronic Obstructive Pulmonary Disease Exacerbation. - Prescriptions for Prednisone 20 mg Oral Tablet - take 1 tablet by ORAL route once daily for 5 days; 5 tablet. - Medication Reconciliation Form, Thank You Letter, Antibiotic Education, Prescription Opioid Use form. - Follow up: Emergency Department; When: As needed; Reason: Worsening of condition. Follow up: Private Physician; When: 2 - 3 days; Reason: Recheck today's complaints, Continuance of care, Re-evaluation by your physician. Signatures: Dispatcher [employer] Shana Christopher, RN GYN-C VIRA-Primo Hull MD MD cha Roque, Raymond, RN RN rr5 Corrections: (The following items were deleted from the chart) 11/08 23:25 22:56 11/08/2020 22:56 Discharged to Home. Impression: Chronic obstructive pulmonary rr5 disease with (acute) exacerbation. Condition is Stable. Forms are Medication Reconciliation Form, Thank You Letter, Antibiotic Education, Prescription Opioid Use. Follow up: Emergency Department; When: As needed; Reason: Worsening of condition. Follow up: Private Physician; When: 2 - 3 days; Reason: Recheck today's complaints, Continuance of care, Re-evaluation by your physician. kb
[2020-11-08 23:31] VITALS: BP 179/80; TEMP 99; O2SAT 97
--- NOTE | 2020-11-09 08:33 | RAD REPORT ---
EXAM DESCRIPTION: RAD - Chest Single View - 11/08/2020 10:02 pm CLINICAL HISTORY: COUGH Chest pain. COMPARISON: Chest Single View dated 09/13/2020; Chest Single View dated 05/28/2018; Chest Pa And Lat ( 2 Views) dated 05/26/2018 FINDINGS: Portable technique limits examination quality. The lungs are emphysematous but grossly clear. The heart is normal in size. No displaced fractures. IMPRESSION: Mild COPD
--- NOTE | 2020-11-09 16:10 | EKG ---
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
== END 2020-11-08 23:25 | disposition home or self-care (01) ==
LOC: ER 19:15
DX: J44.1 Chronic obstructive pulmonary disease with (acute) exacerbation (principal); I10 Essential (primary) hypertension; Z88.5 Allergy status to narcotic agent; Z88.8 Allergy status to other drugs, medicaments and biological substances
CPT/HCPCS: 93005; 85025; 80048; 36415; 84484; 71045; 96374; 99284; J2930

== ENCOUNTER 2020-11-15 19:09 | Emergency (ER) | payer OTHER ==
--- NOTE | 2020-11-15 20:20 | RAD REPORT ---
EXAM DESCRIPTION: Sivan Single View11/15/2020 8:08 pm CLINICAL HISTORY: Shortness of breath COMPARISON: November 08, 2020 FINDINGS: Lungs are hyperaerated. The lungs appear clear of acute infiltrate. The heart is normal size IMPRESSION: No acute abnormalities displayed
[2020-11-15 20:27] LABS: Absolute Lymphocytes (CBC) 2.1 K/uL (0.7-4.9); Basophils % 0.6 % (0-1.3); Hematocrit 36.1 % (36.0-45.0); Lymphocytes % 18.9 % (15.3-44.8); RBC Red Blood Cell Count 3.89 M/uL (3.86-4.86)
[2020-11-15 20:50] LABS: Protime INR 0.96
[2020-11-15 21:05] LABS: ALT/SGPT 24 U/L (12-78); AST/SGOT 14 U/L (15-37); Albumin 3.6 g/dL (3.4-5.0); Alkaline Phosphatase 89 U/L (45-117); BUN Blood Urea Nitrogen 23 mg/dL (7-18); Bicarbonate 27 mmol/L (21-32); Bilirubin Direct 0.1 mg/dL (0-0.2); Bilirubin Total 0.4 mg/dL (0.2-1.0); Glucose Level 125 mg/dL (74-106); Lipase 208 U/L (73-393); Magnesium 1.7 mg/dL (1.8-2.4); NT PRO-BNP 218 pg/mL (<450); Potassium 3.6 mmol/L (3.5-5.1); Sodium Level 142 mmol/L (136-145); Troponin (Emerg Dept Use Only) < 0.02 ng/mL (0.0-0.045)
[2020-11-15] MEDS ORDERED: MAGNESIUM SULFATE 1 gm IVPB 1 GM/100 ML BAG IV ONE (22:09)
[2020-11-15] MEDS ORDERED: NA CHLORIDE 0.9% 500 ML ONE (22:09)
--- NOTE | 2020-11-15 23:47 | EDPHYS ---
Physician Documentation [facility] Name: Therese Siu Age: 85 yrs Sex: Female : 1935 Arrival Date: 11/15/2020 Time: 19:11 Bed 28 Private MD: ED Physician Jasen Warner HPI: 11/15 20:25 This 85 yrs old Female presents to ER via Ambulatory with complaints of jr8 Abdominal Pain, Shortness Of Breath. 20:25 The patient presents with abdominal pain in the upper abdomen. The symptoms do not jr8 radiate. Associated signs and symptoms: none. The symptoms are described as crampy. Modifying factors: The symptoms are alleviated by nothing, the symptoms are aggravated by nothing. Severity of pain: At its worst the pain was moderate in the emergency department the pain has resolved. The patient has experienced similar episodes in the past, a few times, but today's symptoms are worse, more painful. The patient has not recently seen a physician. Patient stated that she gets a "squeezing" feeling in upper abdomen on/off. Has not been evaluated for this in past. Today had similar episode but made her short of breath. Asked family to bring her to ED at that time . Historical: - Allergies: 19:27 Benadryl; ca1 19:27 Codeine; ca1 - Home Meds: 19:27 albuterol sulfate 90 mcg/actuation Inhl HFAA 1 puff every 4-6 hours [Active]; albuterol ca1 sulfate 1.25 mg/3 mL Inhl nebu 3 mL 4 times per day [Active]; lisinopril 5 mg Oral tab 1 tab once daily [Active]; Prilosec 40 mg Oral cpDR 1 cap once daily [Active]; - PMHx: 19:27 Asthma; Emphysema; Hypertension; ca1 - PSHx: 19:27 None; ca1 - Immunization history:: Client reports having NOT received the Covid vaccine. Pneumococcal vaccine is up to date, Flu vaccine is up to date. - Social history:: Smoking status: Patient denies any tobacco usage or history of. ROS: 20:25 Eyes: Negative for injury, pain, redness, and discharge, ENT: Negative for injury, jr8 pain, and discharge, Neck: Negative for injury, pain, and swelling, Cardiovascular: Negative for chest pain, palpitations, and edema, Back: Negative for injury and pain, MS/Extremity: Negative for injury and deformity, Skin: Negative for injury, rash, and discoloration, Neuro: Negative for headache, weakness, numbness, tingling, and seizure. 20:25 Respiratory: Positive for shortness of breath, Negative for cough, dyspnea on exertion, orthopnea, sputum production, wheezing. 20:25 Abdomen/GI: Positive for abdominal pain, Negative for nausea, vomiting, and diarrhea, constipation, abdominal distension, hematemesis, black/tarry stool, rectal pain, rectal bleeding, bowel incontinence, flatulence. Exam: 20:25 Eyes: Pupils equal round and reactive to light, extra-ocular motions intact. Lids and jr8 lashes normal. Conjunctiva and sclera are non-icteric and not injected. Cornea within normal limits. Periorbital areas with no swelling, redness, or edema. ENT: Nares patent. No nasal discharge, no septal abnormalities noted. Tympanic membranes are normal and external auditory canals are clear. Oropharynx with no redness, swelling, or masses, exudates, or evidence of obstruction, uvula midline. Mucous membranes moist. Neck: Trachea midline, no thyromegaly or masses palpated, and no cervical lymphadenopathy. Supple, full range of motion without nuchal rigidity, or vertebral point tenderness. No Meningismus. Cardiovascular: Regular rate and rhythm with a normal S1 and S2. No gallops, murmurs, or rubs. Normal PMI, no JVD. No pulse deficits. Respiratory: Lungs have equal breath sounds bilaterally, clear to auscultation and percussion. No rales, rhonchi or wheezes noted. No increased work of breathing, no retractions or nasal flaring. Back: No spinal tenderness. No costovertebral tenderness. Full range of motion. Skin: Warm, dry with normal turgor. Normal color with no rashes, no lesions, and no evidence of cellulitis. MS/ Extremity: Pulses equal, no cyanosis. Neurovascular intact. Full, normal range of motion. Neuro: Awake and alert, GCS 15, oriented to person, place, time, and situation. Cranial nerves II-XII grossly intact. Motor strength 5/5 in all extremities. Sensory grossly intact. Cerebellar exam normal. Normal gait. 20:25 Abdomen/GI: Inspection: scar(s), are noted in the mid abdominal , Bowel sounds: active, all quadrants, Palpation: soft, in all quadrants, mild abdominal tenderness, in the mid abdomen , mass, is not appreciated, rebound tenderness, is not appreciated, voluntary guarding, is not appreciated, involuntary guarding, is not appreciated, no appreciated organomegaly, Indicators: McBurney's point is not tender, Padilla's sign is negative, Rovsing's sign is negative, Liver: tenderness, is not appreciated. Vital Signs: 19:22 BP 132 / 65; Pulse 70; Resp 18 S; Temp 98.4(O); Pulse Ox 97% on R/A; Weight 53.07 kg ca1 (R); Height 5 ft. 0 in. (152.40 cm) (R); Pain 10/10; 20:29 Pulse 64; Resp 16; Pulse Ox 100% on 2 lpm NC; zb 22:04 Pulse 60; Resp 20; Pulse Ox 99% on 0.5 lpm NC; zb 23:12 BP 134 / 72; Pulse 63; Resp 18; Pulse Ox 94% on R/A; zb 19:22 Body Mass Index 22.85 (53.07 kg, 152.40 cm) ca1 MDM: 19:35 Patient medically screened. jr8 23:45 Data reviewed: vital signs, nurses notes, lab test result(s), EKG, radiologic studies, [facility] CT scan, plain films. Data interpreted: Pulse oximetry: on room air is 95 %. Interpretation: normal. Counseling: I had a detailed discussion with the patient and/or guardian regarding: the historical points, exam findings, and any diagnostic results supporting the discharge/admit diagnosis, lab results, radiology results, the need for outpatient follow up, a family practitioner, to return to the emergency department if symptoms worsen or persist or if there are any questions or concerns that arise at home. ED course: No acute findings on labs or imaging which would relate to her upper abdominal "squeezing" pain. Recommended f/u at this time. Knows to come back if worse . 11/15 19:36 Order name: Basic Metabolic Panel [facility] 11/15 19:36 Order name: CBC with Diff [facility] 11/15 19:36 Order name: LFT's [facility] 11/15 19:36 Order name: Magnesium [facility] 11/15 19:36 Order name: NT PRO-BNP; Complete Time: 21:12 11/15 19:36 Order name: PT-INR; Complete Time: 21:00 11/15 19:36 Order name: Troponin (emerg Dept Use Only); Complete Time: 21:12 11/15 19:36 Order name: XRAY Chest (1 view); Complete Time: 20:21 11/15 19:36 Order name: Lipase; Complete Time: 21:12 11/15 19:37 Order name: Basic Metabolic Panel; Complete Time: 21:12 EDKS 11/15 19:37 Order name: CBC with Automated Diff; Complete Time: 20:33 EDMS 11/15 19:37 Order name: Liver (Hepatic) Function; Complete Time: 21:12 EDKS 11/15 19:37 Order name: Magnesium; Complete Time: 21:12 EDKS 11/15 21:13 Order name: CT Abd/Pelvis - IV Contrast Only 11/15 19:36 Order name: EKG; Complete Time: 19:38 11/15 19:36 Order name: Cardiac monitoring; Complete Time: 20:34 11/15 19:36 Order name: EKG - Nurse/Tech; Complete Time: 20:33 11/15 19:36 Order name: IV Saline Lock; Complete Time: 20:03 11/15 19:36 Order name: Labs collected and sent; Complete Time: 20:03 11/15 19:36 Order name: O2 Per Protocol; Complete Time: 20:03 11/15 19:36 Order name: O2 Sat Monitoring; Complete Time: 20:03 Administered Medications: 21:56 Drug: Magnesium Sulfate 1 grams Route: IVPB; Infused Over: 1 hrs; Site: left zb antecubital; 11/16 00:00 Follow up: Response: No adverse reaction; IV Status: Completed infusion; IV Intake: zb 100ml 11/15 21:56 Drug: NS 0.9% 500 ml Route: IV; Rate: bolus; Site: left antecubital; zb 23:59 Follow up: IV Status: Completed infusion; IV Intake: 500ml zb Disposition: 11/16 01:07 Co-signature as Attending Physician, Jasen Warner MD. rn Disposition: 11/15/20 23:46 Discharged to Home. Impression: Unspecified abdominal pain. - Condition is Stable. - Discharge Instructions: Abdominal Pain, Adult. - Medication Reconciliation Form, Thank You Letter, Antibiotic Education, Prescription Opioid Use form. - Follow up: Private Physician; When: 2 - 3 days; Reason: Recheck today's complaints, Continuance of care, Re-evaluation by your physician. - Problem is new. - Symptoms have improved. Signatures: Dispatcher [employer] EDMS Jasen Warner MD MD rn Roszak, Josh, PA PA jr8 Laury Canales RN RN ca1 Brown, Zipporah, RN RN zb Corrections: (The following items were deleted from the chart) 00:01 11/15 23:46 11/15/2020 23:46 Discharged to Home. Impression: Unspecified abdominal zb pain. Condition is Stable. Forms are Medication Reconciliation Form, Thank You Letter, Antibiotic Education, Prescription Opioid Use. Follow up: Private Physician; When: 2 - 3 days; Reason: Recheck today's complaints, Continuance of care, Re-evaluation by your physician. Problem is new. Symptoms have improved. jr8
--- NOTE | 2020-11-15 23:47 | ER ---
Nurse's Notes [facility] Name: Therese Siu Age: 85 yrs Sex: Female : 1935 Arrival Date: 11/15/2020 Time: 19:11 Bed 28 Private MD: Diagnosis: Unspecified abdominal pain Presentation: 11/15 19:22 Chief complaint: Patient states: My upper abdominal area feels real right then it goes ca1 up then I get short of breath. 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 Denies N/V/D. Coronavirus screen: Client denies travel out of the [place] in the last 14 days. shortness of breath, Client presents with at least one sign or symptom that may indicate coronavirus-19. Standard/surgical mask placed on the client. Provider contacted for isolation considerations. Ebola Screen: Patient negative for fever greater than or equal to 101.5 degrees Fahrenheit, and additional compatible Ebola Virus Disease symptoms Patient denies exposure to infectious person. Patient denies travel to an Ebola-affected area in the 21 days before illness onset. No symptoms or risks identified at this time. Initial Sepsis Screen: Does the patient meet any 2 criteria? No. Patient's initial sepsis screen is negative. Does the patient have a suspected source of infection? No. Patient's initial sepsis screen is negative. Risk Assessment: Do you want to hurt yourself or someone else? Patient reports no desire to harm self or others. Onset of symptoms was November 15, 2020. 19:22 Method Of Arrival: Ambulatory ca1 19:22 Acuity: KOBI 3 ca1 Historical: - Allergies: 19:27 Benadryl; ca1 19:27 Codeine; ca1 - Home Meds: 19:27 albuterol sulfate 90 mcg/actuation Inhl HFAA 1 puff every 4-6 hours [Active]; albuterol ca1 sulfate 1.25 mg/3 mL Inhl nebu 3 mL 4 times per day [Active]; lisinopril 5 mg Oral tab 1 tab once daily [Active]; Prilosec 40 mg Oral cpDR 1 cap once daily [Active]; - PMHx: 19:27 Asthma; Emphysema; Hypertension; ca1 - PSHx: 19:27 None; ca1 - Immunization history:: Client reports having NOT received the Covid vaccine. Pneumococcal vaccine is up to date, Flu vaccine is up to date. - Social history:: Smoking status: Patient denies any tobacco usage or history of. Screenin:03 Abuse screen: Denies threats or abuse. Denies injuries from another. Nutritional zb screening: No deficits noted. Tuberculosis screening: No symptoms or risk factors identified. Fall Risk Fall in past 12 months (25 points). No secondary diagnosis (0 pts). No IV (0 pts). Ambulatory Aid- Crutches/Cane/Walker (15 pts). Gait- Weak (10 pts.). Mental Status- Oriented to own ability (0 pts). Total Fonseca Fall Scale indicates High Risk Score (45 or more points). Fall prevention measures have been instituted. Side Rails Up X 2 Placed Close to Nursing Station Frequent Obs/Assessments Occuring Family Present and informed to notify staff if the need to leave the bedside As available patient and family educated on Fall Prevention Program and Strategies. Assessment: 20:27 General: Appears uncomfortable, Behavior is calm, cooperative, Denies fever, feeling zb ill, fatigue, chills. Pain: Denies pain. Neuro: Level of Consciousness is awake, alert, obeys commands, Oriented to person, place, time, situation. Cardiovascular: Reports shortness of breath, Heart tones S1 S2 present Capillary refill < 3 seconds Patient's skin is warm and dry. Respiratory: Airway is patent Respiratory effort is even, unlabored, Respiratory pattern is regular, symmetrical, Breath sounds are diminished in right upper lobe and right middle lobe. GI: Abdomen is round Bowel sounds present X 4 quads. Abd is soft and non tender X 4 quads. Derm: Skin is intact, is healthy with good turgor, Skin is normal, Skin temperature is warm. Musculoskeletal: Range of motion: intact in all extremities. 21:30 Reassessment: Patient appears in no apparent distress at this time. Patient and/or zb family updated on plan of care and expected duration. Pain level reassessed. Patient is alert, oriented x 3, equal unlabored respirations, skin warm/dry/pink. family at bedside. no changes at this time. 22:03 Reassessment: Patient appears in no apparent distress at this time. Patient and/or zb family updated on plan of care and expected duration. Pain level reassessed. Patient is alert, oriented x 3, equal unlabored respirations, skin warm/dry/pink. decrease oxygen to 0.5ml oxygen remains at 99%. 23:11 Reassessment: Patient appears in no apparent distress at this time. Patient and/or zb family updated on plan of care and expected duration. Pain level reassessed. Patient is alert, oriented x 3, equal unlabored respirations, skin warm/dry/pink. iv fluids completed. no changes at this time. patient and family at waiting results. patient placed on room air. 23:27 Reassessment: patient ambulatory to restroom. zb 11/16 00:00 Reassessment: d/c instructions given to patient and family. patient wheeled out via wheelchair. Vital Signs: 11/15 19:22 BP 132 / 65; Pulse 70; Resp 18 S; Temp 98.4(O); Pulse Ox 97% on R/A; Weight 53.07 kg ca1 (R); Height 5 ft. 0 in. (152.40 cm) (R); Pain 10/10; 20:29 Pulse 64; Resp 16; Pulse Ox 100% on 2 lpm NC; zb 22:04 Pulse 60; Resp 20; Pulse Ox 99% on 0.5 lpm NC; zb 23:12 BP 134 / 72; Pulse 63; Resp 18; Pulse Ox 94% on R/A; zb 19:22 Body Mass Index 22.85 (53.07 kg, 152.40 cm) ca1 ED Course: 19:11 Patient arrived in ED. ag3 19:26 Triage completed. ca1 19:27 Arm band placed on right wrist. ca1 19:35 Mike Porter PA is PHCP. jr8 19:35 Jasen Warner MD is Attending Physician. jr8 20:02 Erica Downey RN is Primary Nurse. zb 20:04 Patient has correct armband on for positive identification. Bed in low position. Call zb light in reach. Side rails up X 1. monitoring tech on. Pulse ox on. NIBP on. Door closed. Noise minimized. 20:08 XRAY Chest (1 view) In Process Unspecified. EDMS 20:17 Inserted saline lock: 20 gauge in left antecubital area, using aseptic technique. Blood dh4 collected. 22:04 CT Abd/Pelvis - IV Contrast Only In Process Unspecified. EDMS 11/16 00:01 No provider procedures requiring assistance completed. IV discontinued, intact, zb bleeding controlled, No redness/swelling at site. Pressure dressing applied. Administered Medications: 11/15 21:56 Drug: Magnesium Sulfate 1 grams Route: IVPB; Infused Over: 1 hrs; Site: left zb antecubital; 11/16 00:00 Follow up: Response: No adverse reaction; IV Status: Completed infusion; IV Intake: zb 100ml 11/15 21:56 Drug: NS 0.9% 500 ml Route: IV; Rate: bolus; Site: left antecubital; zb 23:59 Follow up: IV Status: Completed infusion; IV Intake: 500ml zb Intake: 23:59 IV: 500ml; Total: 500ml. zb 11/16 00:00 IV: 100ml; Total: 600ml. zb Outcome: 11/15 23:46 Discharge ordered by MD. iraheta 11/16 00:01 Discharged to home ambulatory. zb Condition: stable Discharge instructions given to patient, family, Instructed on discharge instructions, follow up and referral plans. Demonstrated understanding of instructions, follow-up care. 00:01 Patient left the ED. zb Signatures: Dispatcher [employer] EDMS Mike Porter PA PA jr8 Jen Urbina 3 Laury Canales RN RN ca1 Ranjeet Mazariegos 4 Erica Downey RN RN zb Corrections: (The following items were deleted from the chart) 11/15 20:06 19:22 BP 132 / 65; Pulse 70bpm; Resp 18bpm; Spontaneous; Pulse Ox 97% RA; Temp 98.4F ca1 Temporal; 53.07 kg Reported; Height 5 ft. 0 in. Reported; BMI: 22.8; Pain 10/10; ca1 23:13 23:11 Reassessment: Patient appears in no apparent distress at this time. Patient zb and/or family updated on plan of care and expected duration. Pain level reassessed. Patient is alert, oriented x 3, equal unlabored respirations, skin warm/dry/pink. iv fluids completed. no changes at this time. patient and family at waiting results. zb 11/16 00:03 00:02 Response: No adverse reaction; IV Status: Completed infusion; IV Intake: 100ml zb zb
[2020-11-16 03:03] VITALS: BP 134/72; TEMP 98.4; O2SAT 94
--- NOTE | 2020-11-16 07:36 | EKG ---
Test Date: 2020-11-15 Test Time: 20:29:27 [place]: DAVID MEASUREMENT RESULTS: Intervals: Rate: 63 HI: 152 QRSD: 66 QT: 406 QTc: 415 [place]: P: 74 HI: 152 QRS: 29 T: 69 INTERPRETIVE STATEMENTS: Normal sinus rhythm Septal infarct, age undetermined Abnormal ECG Compared to ECG 11/08/2020 21:28:06 Atrial premature complex(es) no longer present Aberrant conduction of supraventricular beat(s) no longer present Atrial abnormality no longer present Myocardial infarct finding still present Electronically Signed On 11-16-20 07:35:01 CDT by Neri Hernandez
--- NOTE | 2020-11-16 12:26 | RAD REPORT ---
EXAM DESCRIPTION: CT - Abdomen Pelvis W Contrast - 11/16/2020 6:24 am CLINICAL HISTORY: ABD PAIN COMPARISON: None Available. TECHNIQUE: CT of the abdomen and pelvis performed following IV administration of iodinated contras t. This exam was performed according to our departmental dose-optimization program, which includes au tomated exposure control, adjustment of the mA and/or kV according to patient size and/or use of iter ative reconstruction technique. FINDINGS: Lung Bases: Minimal linear right basilar opacities may scar or atelectasis. Bones: No destructive bone lesions identified. Abdomen: Liver: The liver has normal size and density. No intrahepatic biliary dilatation. Gallbladder: Prior cholecystectomy. Spleen, Pancreas, and Adrenal Glands: The spleen, pancreas, and adrenal glands are unremarkable. Kidneys: No hydronephrosis or obstructing calculus. 0.9 cm left renal cyst. Vasculature: Aortoiliac atherosclerosis. IVC is unremarkable. The portal vein is patent. The proxim al visceral and renal arteries are patent. Stomach: Small hiatal hernia. Other: No free intraperitoneal air. No free fluid or lymphadenopathy. Pelvis: Bladder: Urinary bladder is unremarkable. Bowel: No dilated loops of large or small bowel. Scattered diverticula colon. Wall thickening of th e sigmoid colon and rectum. Appendix: Not identified. Pelvis: Uterus is not enlarged. Small bilateral fat-containing hernias. IMPRESSION: 1. Wall thickening of the sigmoid colon and rectum. Findings may be related to nonspec ific colitis/proctitis. 2. Diverticulosis without evidence of acute diverticulitis. 3. Small hiatal hernia. Electronically signed by: Randy Ma 11/15/2020 10:27 PM CDT Due to temporary technical issues with the PACS/Fluency reporting system, reports are being signed by the in house radiologist without review as a courtesy to ensure prompt reporting. The interpreting r adiologist is fully responsible for the content of the report.
== END 2020-11-16 00:01 | disposition home or self-care (01) ==
LOC: ER 19:09
DX: R10.10 Upper abdominal pain, unspecified (principal); R06.02 Shortness of breath; I10 Essential (primary) hypertension; J45.909 Unspecified asthma, uncomplicated; Z88.5 Allergy status to narcotic agent; Z88.8 Allergy status to other drugs, medicaments and biological substances
CPT/HCPCS: 96365; 93005; 85025; 80048; 36415; 83735; 85610; 80076; 84484; 83690; 83880; 74177; 71045; 99284; 96366; Q9967; J3475; J7040

== ENCOUNTER 2020-12-13 21:05 | Emergency (ER) | payer OTHER ==
[2020-12-13] MEDS ORDERED: MAGNES/ALUMIN/SIMET 30ML UCUP ONE (22:15)
[2020-12-13] MEDS ORDERED: MORPHINE 4 MG/ML SYR ONE (22:15)
[2020-12-13] MEDS ORDERED: FAMOTIDINE 20 MG/2 ML VIAL IV ONE (22:16)
[2020-12-13] MEDS ORDERED: NA CHLORIDE 0.9% 1,000 ML ONE (22:16)
[2020-12-13] MEDS ORDERED: ONDANSETRON 4 MG/2 ML VIAL ONE (22:16)
[2020-12-13] MEDS ORDERED: LIDOCAINE VISCOUS 2% SOLN 15 ML UDC ONE (22:16)
[2020-12-13 22:38] LABS: Absolute Lymphocytes (CBC) 2.1 K/uL (0.7-4.9); Basophils % 0.7 % (0-1.3); Hematocrit 36.2 % (36.0-45.0); Lymphocytes % 14.2 % (15.3-44.8); MPV 10.5 fL (7.6-11.3); RBC Red Blood Cell Count 3.93 M/uL (3.86-4.86)
[2020-12-13 23:23] LABS: ALT/SGPT 21 U/L (12-78); Albumin 3.4 g/dL (3.4-5.0); Alkaline Phosphatase 84 U/L (45-117); BUN Blood Urea Nitrogen 20 mg/dL (7-18); Bicarbonate 29 mmol/L (21-32); Bilirubin Direct < 0.1 mg/dL (0-0.2); Bilirubin Total 0.3 mg/dL (0.2-1.0); Glucose Level 108 mg/dL (74-106); Lipase 162 U/L (73-393); Protein, Total 6.7 g/dL (6.4-8.2); Sodium Level 142 mmol/L (136-145)
[2020-12-13 23:24] LABS: AST/SGOT 17 U/L (15-37); Potassium 3.6 mmol/L (3.5-5.1)
[2020-12-13 23:34] LABS: Blood Morphology Comment NOT SEEN (NOT SEEN); Platelet Estimate ADEQ
[2020-12-14 00:01] LABS: Urine Blood Trace-intact (Negative); Urine Glucose Negative (Negative); Urine Protein Negative (Negative)
--- NOTE | 2020-12-14 02:14 | EDPHYS ---
Physician Documentation [facility] Name: Therese Siu Age: 85 yrs Sex: Female : 1935 Arrival Date: 12/13/2020 Time: 21:08 Bed 3 Private MD: ED Physician Wade Sethi HPI: 12/13 22:04 This 85 yrs old Female presents to ER via Ambulatory with complaints of ma2 Abdominal Pain, . 22:04 Onset: The symptoms/episode began/occurred gradually, 3 day(s) ago. Associated signs ma2 and symptoms: Pertinent negatives: dizziness, fever. Severity of symptoms: At their worst the symptoms were mild in the emergency department the symptoms are unchanged. The patient has not experienced similar symptoms in the past. Historical: - Allergies: 22:33 Benadryl; jm8 22:33 Codeine; jm8 - Home Meds: 22:33 albuterol sulfate 90 mcg/actuation Inhl HFAA 1 puff every 4-6 hours [Active]; albuterol jm8 sulfate 1.25 mg/3 mL Inhl nebu 3 mL 4 times per day [Active]; lisinopril 5 mg Oral tab 1 tab once daily [Active]; Prilosec 40 mg Oral cpDR 1 cap once daily [Active]; - PMHx: 22:33 Asthma; Emphysema; Hypertension; jm8 - PSHx: 22:33 None; jm8 - Immunization history:: Adult Immunizations up to date. - Social history:: Smoking status: Patient denies any tobacco usage or history of. - Family history:: not pertinent. ROS: 22:04 Constitutional: Negative for fever, chills, and weight loss, Eyes: Negative for injury, ma2 pain, redness, and discharge. 22:04 All other systems are negative. Exam: 22:04 Constitutional: This is a well developed, well nourished patient who is awake, alert, ma2 and in no acute distress. ENT: Nares patent. No nasal discharge, no septal abnormalities noted. Tympanic membranes are normal and external auditory canals are clear. Oropharynx with no redness, swelling, or masses, exudates, or evidence of obstruction, uvula midline. Mucous membranes moist. Neck: Trachea midline, no thyromegaly or masses palpated, and no cervical lymphadenopathy. Supple, full range of motion without nuchal rigidity, or vertebral point tenderness. No Meningismus. Chest/axilla: Normal chest wall appearance and motion. Nontender with no deformity. No lesions are appreciated. Cardiovascular: Regular rate and rhythm with a normal S1 and S2. No gallops, murmurs, or rubs. Normal PMI, no JVD. No pulse deficits. Respiratory: Lungs have equal breath sounds bilaterally, clear to auscultation and percussion. No rales, rhonchi or wheezes noted. No increased work of breathing, no retractions or nasal flaring. Abdomen/GI: Soft, non-tender, with normal bowel sounds. No distension or tympany. No guarding or rebound. No evidence of tenderness throughout. Back: No spinal tenderness. No costovertebral tenderness. Full range of motion. MS/ Extremity: Pulses equal, no cyanosis. Neurovascular intact. Full, normal range of motion. Neuro: Awake and alert, GCS 15, oriented to person, place, time, and situation. Cranial nerves II-XII grossly intact. Motor strength 5/5 in all extremities. Sensory grossly intact. Cerebellar exam normal. Normal gait. Vital Signs: 21:16 BP 131 / 98; Pulse 81; Resp 16; Temp 97.8; Pulse Ox 97% ; Weight 53.07 kg; Height 5 ft. ak2 (152.40 cm); 22:31 BP 163 / 79; Pulse 65; Resp 16 S; Pulse Ox 97% on R/A; ad5 23:06 BP 157 / 75; Pulse 64; Resp 16; Pulse Ox 95% on R/A; jm8 23:28 BP 157 / 75; Pulse 66; Resp 16 S; Pulse Ox 96% on R/A; ad5 12/14 00:56 BP 171 / 76; Pulse 74; Resp 16 S; Pulse Ox 97% on R/A; ad5 01:33 BP 142 / 80; Pulse 71; Resp 16; Pulse Ox 96% on R/A; jm8 12/13 21:16 Body Mass Index 22.85 (53.07 kg, 152.40 cm) ak2 MDM: 12/13 21:46 Patient medically screened. ma2 22:04 Differential diagnosis: Anxiety Reaction Bronchitis abd pain. Data reviewed: vital pa2 signs, nurses notes. 12/14 02:12 Counseling: I had a detailed discussion with the patient and/or guardian regarding: the [facility] historical points, exam findings, and any diagnostic results supporting the discharge/admit diagnosis, the presence of at least one elevated blood pressure reading (>120/80) during this emergency department visit, the need for outpatient follow up. Response to treatment: the patient's symptoms have markedly improved after treatment. 12/13 21:47 Order name: Basic Metabolic Panel; Complete Time: 23:37 pa2 12/13 21:47 Order name: CBC with Diff; Complete Time: 23:37 [facility] 12/13 21:47 Order name: Hepatic Function; Complete Time: 23:37 pa2 12/13 21:47 Order name: Lipase; Complete Time: 23:37 [facility] 12/13 22:56 Order name: Manual Differential; Complete Time: 23:37 [facility] 12/14 00:01 Order name: Urine Dipstick-Ancillary; Complete Time: 00:37 [facility] 12/13 21:47 Order name: IV Saline Lock; Complete Time: 22:35 [facility] 12/13 21:47 Order name: CT Abd/Pelvis - IV Contrast Only [facility] 12/13 21:47 Order name: Labs collected and sent; Complete Time: 22:35 [facility] 12/13 21:47 Order name: Urine Dipstick-Ancillary (obtain specimen); Complete Time: 00:01 [facility] Administered Medications: 12/13 22:11 Not Given (Patient Refused): morphine 4 mg IVP once; RASS on ADMIN: Combtv4, Very jm8 Agttd3, Agttd2, Rstlss1, AlertClm0, Drwsy-1, Lt Sdtn-2, Mod Sdtn-3, Dp Sdtn-4, UnArsble-5 22:11 Not Given (Patient Refused): Zofran (Ondansetron) 4 mg IVP once; over 2 minutes [facility] 22:12 Drug: NS 0.9% 1000 ml Route: IV; Rate: 1 bolus; Site: right antecubital; 12/14 02:02 Follow up: IV Status: Completed infusion; IV Intake: 1000ml ad5 12/13 22:16 Drug: GI Cocktail without - (Maalox Suspension 30 ml, Lidocaine Liquid 2 % 15 jm8 ml) Route: PO; 22:33 Follow up: Response: No adverse reaction 8 22:17 Drug: Pepcid (famotidine) 20 mg Route: IVP; Site: right antecubital; 8 22:33 Follow up: Response: No adverse reaction 8 Disposition: 12/14/20 02:13 Discharged to Home. Impression: Upper abdominal pain, unspecified. - Condition is Stable. - Discharge Instructions: Abdominal Pain, Adult, [id number]. - Prescriptions for Zofran 4 mg Oral Tablet - take 1 tablet by ORAL route every 12 hours As needed; 20 tablet. Diclofenac Sodium 75 mg Oral Tablet Sustained Release - take 1 tablet by ORAL route 2 times per day; 30 tablet. Pepcid 20 mg Oral Tablet - take 1 tablet by ORAL route once daily; 20 tablet. - Medication Reconciliation Form, Thank You Letter, Antibiotic Education, Prescription Opioid Use form. - Follow up: Private Physician; When: Tomorrow; Reason: If symptoms return, Continuance of care. Signatures: Dispatcher [employer] [facility] Wade Sethi MD MD ma2 Russell Gross RN RN [id number] Richie Saunders va2 Laci Smith ad5 Corrections: (The following items were deleted from the chart) 21:57 21:47 Abdomen Limited+[id number] ordered. [facility] 12/14 02:30 02:13 12/14/2020 02:13 Discharged to Home. Impression: Upper abdominal pain, jm8 unspecified. Condition is Stable. Forms are Medication Reconciliation Form, Thank You Letter, Antibiotic Education, Prescription Opioid Use. Follow up: Private Physician; When: Tomorrow; Reason: If symptoms return, Continuance of care. kayla
--- NOTE | 2020-12-14 02:14 | ER ---
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 Coronavirus ak2 screen: Client denies travel out of the [place] in the last 14 days. Ebola Screen: Patient negative for fever greater than or equal to 101.5 degrees Fahrenheit, and additional compatible Ebola Virus Disease symptoms Patient denies exposure to infectious person. Patient denies travel to an Ebola-affected area in the 21 days before illness onset. No symptoms or risks identified at this time. Initial Sepsis Screen: Does the patient meet any 2 criteria? No. Patient's initial sepsis screen is negative. Does the patient have a suspected source of infection? No. Patient's initial sepsis screen is negative. Risk Assessment: Do you want to hurt yourself or someone else? Patient reports no desire to harm self or others. Onset of symptoms was December 13, 2020. 21:16 Method Of Arrival: Ambulatory ak2 21:16 Acuity: KOBI 3 ak2 Triage Assessment: 21:16 General: Appears in no apparent distress. Behavior is calm, cooperative. ak2 21:16 Pain: Denies pain. GI: No deficits noted. ak2 Historical: - Allergies: 22:33 Benadryl; jm8 22:33 Codeine; jm8 - Home Meds: 22:33 albuterol sulfate 90 mcg/actuation Inhl HFAA 1 puff every 4-6 hours [Active]; albuterol jm8 sulfate 1.25 mg/3 mL Inhl nebu 3 mL 4 times per day [Active]; lisinopril 5 mg Oral tab 1 tab once daily [Active]; Prilosec 40 mg Oral cpDR 1 cap once daily [Active]; - PMHx: 22:33 Asthma; Emphysema; Hypertension; jm8 - PSHx: 22:33 None; jm8 - Immunization history:: Adult Immunizations up to date. - Social history:: Smoking status: Patient denies any tobacco usage or history of. - Family history:: not pertinent. Screenin:09 Abuse screen: Denies threats or abuse. Denies injuries from another. Nutritional ad5 screening: No deficits noted. Tuberculosis screening: No symptoms or risk factors identified. Fall Risk No fall in past 12 months (0 pts). Secondary diagnosis (15 points) IV access (20 points). Ambulatory Aid- None/Bed Rest/Nurse Assist (0 pts). Gait- Weak (10 pts.). Mental Status- Oriented to own ability (0 pts). Total Fonseca Fall Scale indicates High Risk Score (45 or more points). Fall prevention measures have been instituted. Side Rails Up X 2 Frequent Obs/Assessments Occuring Family Present and informed to notify staff if the need to leave the bedside. 22:10 Fall Risk Total Fonseca Fall Scale indicates High Risk Score (45 or more points). As ad5 available patient and family educated on Fall Prevention Program and Strategies. Assessment: 22:29 General: Appears in no apparent distress. comfortable, Behavior is calm, cooperative, jm8 appropriate for age. Pain: Denies pain. Neuro: No deficits noted. Level of Consciousness is awake, alert, obeys commands, Oriented to person, place, time. Cardiovascular: No deficits noted. Respiratory: Reports shortness of breath at rest Airway is patent Trachea midline Respiratory effort is even, unlabored, Respiratory pattern is regular, symmetrical. GI: Bowel sounds present X 4 quads. Abd is soft and non tender Reports lower abdominal pain, upper abdominal pain, cramping. : No deficits noted. No signs and/or symptoms were reported regarding the genitourinary system. EENT: No deficits noted. No signs and/or symptoms were reported regarding the EENT system. Derm: No deficits noted. No signs and/or symptoms reported regarding the dermatologic system. Derm: Skin is intact, is healthy with good turgor, Skin is dry, Skin is pink, warm \T\ dry. normal. Musculoskeletal: No deficits noted. No signs and/or symptoms reported regarding the musculoskeletal system. 22:30 General: Appears in no apparent distress. Behavior is calm, cooperative, appropriate ad5 for age. 23:28 Reassessment: Patient appears in no apparent distress at this time. Patient and/or ad5 family updated on plan of care and expected duration. Pain level reassessed. Patient is alert, oriented x 3, equal unlabored respirations, skin warm/dry/pink. Patient denies pain at this time. 12/14 00:57 Reassessment: Patient appears in no apparent distress at this time. No changes from ad5 previously documented assessment. Patient and/or family updated on plan of care and expected duration. Pain level reassessed. Patient is alert, oriented x 3, equal unlabored respirations, skin warm/dry/pink. 02:03 Reassessment: Patient appears in no apparent distress at this time. No changes from ad5 previously documented assessment. Patient and/or family updated on plan of care and expected duration. Pain level reassessed. Patient is alert, oriented x 3, equal unlabored respirations, skin warm/dry/pink. Vital Signs: 12/13 21:16 BP 131 / 98; Pulse 81; Resp 16; Temp 97.8; Pulse Ox 97% ; Weight 53.07 kg; Height 5 ft. ak2 (152.40 cm); 22:31 BP 163 / 79; Pulse 65; Resp 16 S; Pulse Ox 97% on R/A; ad5 23:06 BP 157 / 75; Pulse 64; Resp 16; Pulse Ox 95% on R/A; jm8 23:28 BP 157 / 75; Pulse 66; Resp 16 S; Pulse Ox 96% on R/A; ad5 12/14 00:56 BP 171 / 76; Pulse 74; Resp 16 S; Pulse Ox 97% on R/A; ad5 01:33 BP 142 / 80; Pulse 71; Resp 16; Pulse Ox 96% on R/A; jm8 12/13 21:16 Body Mass Index 22.85 (53.07 kg, 152.40 cm) ak2 ED Course: 12/13 21:08 Patient arrived in ED. ag3 21:18 Triage completed. ak2 21:46 Wade Sethi MD is Attending Physician. ma2 22:09 No provider procedures requiring assistance completed. Inserted saline lock: 20 gauge ad5 in right antecubital area, using aseptic technique. 22:10 Patient has correct armband on for positive identification. Bed in low position. Call ad5 light in reach. Side rails up X2. Adult w/ patient. Pulse ox on. NIBP on. Door closed. Noise minimized. Warm blanket given. 22:31 Arm band placed on right wrist. jm8 23:37 CT Abd/Pelvis - IV Contrast Only Sent. ad5 12/14 00:12 CT Abd/Pelvis - IV Contrast Only In Process Unspecified. EDMS 02:30 IV discontinued, intact, bleeding controlled. 8 Administered Medications: 12/13 22:11 Not Given (Patient Refused): morphine 4 mg IVP once; RASS on ADMIN: Combtv4, Very jm8 Agttd3, Agttd2, Rstlss1, AlertClm0, Drwsy-1, Lt Sdtn-2, Mod Sdtn-3, Dp Sdtn-4, UnArsble-5 22:11 Not Given (Patient Refused): Zofran (Ondansetron) 4 mg IVP once; over 2 minutes [facility] 22:12 Drug: NS 0.9% 1000 ml Route: IV; Rate: 1 bolus; Site: right antecubital; [facility] 12/14 02:02 Follow up: IV Status: Completed infusion; IV Intake: 1000ml ad5 12/13 22:16 Drug: GI Cocktail without - (Maalox Suspension 30 ml, Lidocaine Liquid 2 % 15 jm8 ml) Route: PO; 22:33 Follow up: Response: No adverse reaction [facility] 22:17 Drug: Pepcid (famotidine) 20 mg Route: IVP; Site: right antecubital; [facility] 22:33 Follow up: Response: No adverse reaction [facility] Intake: 12/14 02:02 IV: 1000ml; Total: 1000ml. ad5 Outcome: 02:13 Discharge ordered by . wa2 02:30 Discharged to home via wheelchair, with family. [facility] 02:30 Condition: good 02:30 Discharge instructions given to patient, family, Instructed on discharge instructions, follow up and referral plans. medication usage. 02:30 Patient left the ED. 8 Signatures: Dispatcher [employer] EDMS Wade Sethi MD MD ma2 Jen Urbina3 Russell Gross RN RN 8 Laci Smith ad5 Richie Saunders2
[2020-12-14 02:38] VITALS: TEMP 97.8
[2020-12-14 02:48] VITALS: BP 142/80; O2SAT 96
--- NOTE | 2020-12-14 11:21 | RAD REPORT ---
EXAM DESCRIPTION: Abdomen Pelvis W Contrast 12/14/2020 1:42 AM CDT CLINICAL HISTORY: 85 years, Female, ABD PAIN COMPARISON: Only the report is available for comparison from the study performed 11/15/2020 TECHNIQUE: Contrast-enhanced images of the abdomen and pelvis were performed utilizing 5 mm slice th ickness at 5 mm interval reconstruction from the lung bases to the ischial tuberosities after the adm inistration of IV contrast. No dosing amount was provided for interpretation. In addition multiplanar reformats in the coronal and sagittal plane were obtained and reviewed. This exam was performed according to our departmental dose-optimization protocol, which includes auto mated exposure control, adjustment of the mA and/or kV according to patient size and/or use of iterat lore reconstruction technique. FINDINGS: The lung bases demonstrate presence of minimal bronchial thickening involving the posterior segment r ight lower lobe, right middle lobe and inferior aspect inferior lingular segment perhaps suggesting t he possibility of infection, inflammation and/or atypical mycobacterial infection. Small posterior di aphragmatic herniation. There is coronary atherosclerosis. The liver isdemonstrate to be unremarkable, no focal lesions are noted. Surgical clips within the gal lbladder fossa corresponding to previous cholecystectomy. There is no significant biliary duct dilata tion The kidneys demonstrate normal uptake of contrast media with no evidence for hydronephrosis. Grossly the unopacified stomach, small bowel and large bowel demonstrate to be within normal limits. There is no evidence for bowel dilatation/or free air. Fecal residue within the large bowel could c orrespond to mild fecal stasis. Clips within the upper abdomen could correspond to previous bowel nataliya elmer/omentectomy. There is no evidence for obstruction. Previous described abnormal thickening of the sigmoid colon/rectum has resolved. There is minimal diverticulosis. The urinary bladder demonstrate to be well distended. The uterus is atrophic. There are no adnexal masses. The aorta demonstrate atherosclerotic disease extending into the iliac arteries. There is no retroperitoneal lymphadenopathy. There is no evidence for ascites and/or significant abnormal flu id collections. The bone windows demonstrate mild diffuse bony osteopenia. No significant skeletal le sions and/or compression deformities. There are small bilateral inguinal hernias containing omentum. IMPRESSION: Minimal bronchial thickening involving the lung bases perhaps suggesting the possibility of infection, inflammation and/or atypical mycobacterial infection. Previous bowel surgery. Status post cholecystectomy. Atherosclerotic disease of the aorta. Fecal residue within the large bowel could correspond to mild fecal stasis. No acute intra-abdominal or pelvic findings. Electronically signed by: Richie Chung MD 12/14/2020 1:49 AM CDT Due to temporary technical issues with the PACS/Fluency reporting system, reports are being signed by the in house radiologist without review as a courtesy to ensure prompt reporting. The interpreting r adiologist is fully responsible for the content of the report.
== END 2020-12-14 02:30 | disposition home or self-care (01) ==
LOC: ER 21:05
DX: R10.10 Upper abdominal pain, unspecified (principal); I10 Essential (primary) hypertension; J45.909 Unspecified asthma, uncomplicated; Z88.5 Allergy status to narcotic agent; Z88.8 Allergy status to other drugs, medicaments and biological substances
CPT/HCPCS: 85025; 80048; 36415; 80076; 81003; 83690; 74177; Q9967; J7030; J2405; 96361; 96374; 99284

== ENCOUNTER 2021-02-09 10:38 | Observation (INO) | payer OTHER ==
--- OUTSIDE RECORDS SUMMARY | 2021-02-09 10:44 | XMS REPORT | Continuity of Care Document ---
:1935 Author Organization [facility] t Address [address] [place] [address] Care Team Providers Name Role Phone DR NASREEN Attending Clinician Unavailable Esa Elliott Attending Clinician Delio Lazo Attending Clinician DR NASREEN Admitting Clinician Unavailable Esa Elliott Admitting Clinician Delio Lazo Admitting Clinician Problems Condition Condition Condition Status Onset Resolution Last Treating Co mments Source Name Details Category Date Date Treatment Clinician Date WEAK/FEVER Diagnosis Active 2015-10-26 Memoria 10-24 01:03:00 l 00:00: [place]ell WEAK/FEVER 00 Active 10/25/2015 [facility] PNEUMONIA Diagnosis Active 2015-11-01 Memoria 10-24 16:16:00 l 00:00: [place] PNEUMONIA 00 Active 10/25/2015 [facility] SYNCOPE, Diagnosis Active 2013-12-18 M emoria VOMITING, 12-16 09:51:00 l UTI SYNCOPE, 12:00: Homero n VOMITING, 00 UTI Active 12/16/2013 [facility] ESOPHAGITI Diagnosis Active 2011-05-19 Memoria S 04-16 15:18:00 l 00:00: [place]ell ESOPHAGITI 00 S Active 04/16/2011 [facility] SOB Diagnosis Active 2011-06-20 Mem oria 04-12 15:06:00 l SOB 00:00: [place] 00 Active 04/12/2011 [facility] 368.40 - Diagnosis Active 2011-06-20 M emoria VISUAL 04-06 15:13:00 l FIELD DE 368.40 - 00:01: Herm chace VISUAL 00 FIELD DE Active 04/06/2011 [facility] 571.8 - Diagnosis Active 2011-06-20 Me moria CHRONIC 03-12 15:11:00 l LIVER D 571.8 - 00:01: Homero n 789.01 - CHRONIC 00 ABDMNAL LIVER D PAIN RT 789.01 - ABDMNAL PAIN RT Active 03/12/2011 [facility] CHEST PAIN Diagnosis Active 2011-03-30 Memoria 03-07 19:52:00 l CHEST 00:00: [place] PAIN 00 Active 03/07/2011 [facility] Diabetes Problem 2016-06-11 Mem oria mellitus 07-22 05:00:52 l (disorder) Diabetes 00:00: He rmann mellitus 00 (disorder) 07/22/2009 Problem 06/11/2016 4FBS 90-110, MED X1 [facility] 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: Martell disease obstructiv 00 (disorder) e lung disease (disorder) 07/22/1989 Problem 06/11/[address] IFEANYI RICE IX YR, NO PULN STUDY, USES ADVAIR BID AND NEB TX TID [facility] Hypertensi Problem 2016-06-11 M emoria ve 07-22 05:00:52 l disorder, 00:00: [place] systemic Hypertensi 00 arterial ve (disorder) disorder, systemic arterial (disorder) 07/22/1974 Problem 06/11/2016 5MED X1 [facility] Allergic Problem 2016-06-11 Mem oria dispositio 05:00:52 l n Allergic Homero n (disorder) dispositio n (disorder) Problem 06/11/2016 1SEASONAL , MED X1 [facility] Cough Problem 2016-06-11 Memor ia (finding) 05:00:52 l Cough Martell (finding) Problem 06/11/2016 3OCCASSIO NAL COUGH WITH COPD, HAS A MED FOR THIS, I SPENT 45 MIN WITH HER IN PAT AND SHE DID NOT COUGH OR CLEAR THROAT ONCE [facility] Hernia of Problem 2016-06-11 Me moria anterior 05:00:52 l abdominal Hernia Tri nn wall of (disorder) anterior abdominal wall (disorder) Problem 06/11/2016 [facility] Seasonal Problem Resolve 2015-11-02 Me moria allergic d 00:08:50 l rhinitis Seasonal Herm chace (disorder) allergic rhinitis (disorder) Resolved Problem 11/02/2015 [facility] UPDATE Diagnosis Active 2014-03-19 Mem oria 13:46:00 l UPDATE [place] Active [facility] PNEUMONIA, Diagnosis Active 2015-11-01 Memoria UNSPECIFIE 16:16:00 l D ORGANISM Homero n PNEUMONIA, UNSPECIFIE D ORGANISM Active [place] Allergies, Adverse Reactions, Alerts Allergy Allergy Status Severity Reaction(s) Onset Inactive Treating Comm ents Source Name Type Date Date Clinician codeine codeine Active Unknown Memoria (qualifier l value) [place] hydrocod hydrocod Active Memori a one one l [place] Benadryl Benadryl Active Memori a Allergy Allergy l [place] Benadryl Benadryl Active Unknown Memor ia (qualifier l value) [place] Social History Smoking Status Start Date Stop Date Source Social History [facility] [place] Medications Ordered Filled Start Stop Current Ordering Indication Dosage Frequency Signature Comments Components Source Medication Medication Date Date Medication? Clinician (SIG) Name Name insulin 2015-07 No Jason G 2 - 10 Mem oria regular 1-19 Sreshta units, l sliding 17:30: Injection, Herm chace scale LOW 00 Subcutaneo us, first dose 06/09/16 11:30:00 [employer] insulin 2015-07 No Jason G 2 - 10 Mem oria regular 1-19 Sreshta units, l sliding 13:30: Injection, Herm chace scale LOW 00 Subcutaneo us, first dose 06/09/16 7:30:00 [employer] insulin 2015-07 No Jason G 2 - 10 Mem oria regular 1-19 Sreshta units, l sliding 00:00: Injection, Herm chace scale LOW 00 Subcutaneo us, first dose 06/08/16 18:00:00 [employer] Lasix 2015-07 No Jason G 40 mg = 4 Me moria 1-18 Sreshta mL, l 15:30: Injection, [place] 00 IV Push, Once, first dose 06/08/16 9:30:00 [employer], stop date 06/08/16 9:30:00 [employer] Xanax 2015-07 No Jason G 0.5 mg = 2 M emoria 1-18 Sreshta tabs, Tab, l 15:19: Oral, TID [place] PRN for anxiety, first dose 06/08/16 9:19:00 [employer] lisinopril 2015-07 No Jason G 10 mg = 1 Memoria 1-18 Sreshta tabs, Tab, l 13:30: Oral, [place] 00 Daily, first dose 06/08/16 7:30:00 [employer] hydrALAZINE 2015-07 No Jason G 10 mg = Memoria 1-18 Sreshta 0.5 mL, l 11:22: Injection, [place]nam IV Push, q4hr PRN for hypertensi on, first dose 06/08/16 5:22:00 [employer], SBP >150 D5W 1,000 2015-07 No Jason G 1,000 mL, Memoria mL 1-18 Sreshta IV, 50 l 01:07: mL/hr, [place]nam start date 06/07/16 19:07:00 [employer] albuterol 2015-07 No Jason G 2.5 mg = 3 Memoria 2.5 mg/3 mL 1-17 Sreshta mL, Soln, l (0.083%) 22:35: NEB, Once Herm chace inhalation 00 PRN for solution wheezing, first dose 06/07/16 16:35:00 [employer] albuterol 2015-07 Yes Jason G 180 mcg = Memoria 1-17 Sreshta 2 inh, l 22:30: Aerosol, Martell 00 INH, Once PRN for wheezing, first dose 06/07/16 16:30:00 [employer] Lasix 2015-07 No Jason G 40 mg = 4 Me moria 1-17 Sreshta mL, l 22:29: Injection, [place] IV Push, Once PRN for wheezing, first dose 06/07/16 16:29:00 [employer] D5W 1000 mL 2015-07 No Jason G 1,000 mL, Memoria 1-17 Sreshta IV, 125 l 19:55: mL/hr, [place]nam start date 06/07/16 13:55:00 [employer] D5W with NS 2015-07 No Jason G 1,000 mL, Memoria 1,000 mL 1-16 Sreshta IV, 125 l 23:12: mL/hr, Martell 00 start date 06/06/16 17:12:00 [employer] albuterol 2015-07 No Jason G 2.5 mg = 3 Memoria 2.5 mg/3 mL -16 Sreshta mL, Soln, l (0.083%) 18:00: NEB, q6hr, Her trujillo inhalation 00 first dose solution 06/06/16 12:00:00 [employer] insulin 2015-07 No Jason G 2 - 10 Mem oria regular 1-15 Sreshta units, l sliding 13:30: Injection, Herm chace scale LOW 00 Subcutaneo us, QIDACHS, first dose 06/05/16 7:30:00 [employer] NS 1,000 mL 2015-07 No Jason G 1,000 mL, Memoria 1-15 Sreshta IV, 125 l 13:03: mL/hr, Martell 00 start date 06/05/16 7:03:00 [employer] NS bolus 2015-07 No Jason G 1,000 mL, Memoria 1,000 mL 1-15 Sreshta IV, BOLUS, l 13:02: start date Putnam 06/05/16 7:02:00 [employer] insulin 2015-07 No Jason G 2 - 10 Mem oria regular 1-15 Sreshta units, l sliding 06:00: Injection, Herm chace scale LOW 00 Subcutaneo us, q6hr, first dose 06/05/16 0:00:00 [employer] levofloxaci 2015-07 No Adam 500 mg, M emoria n IVPB 08-05 Hillery Soln-IV, l 05:00: IV [place] 00 Piggyback, Once, infuse over 1 hr, first dose 06/04/16 23:00:00 [employer], stop date 06/04/16 23:00:00 [employer], Prophylaxi s Flagyl IVPB 2015-07 No Adam 500 mg, M emoria -15 Hillery Soln-IV, l 05:00: IV [place] Piggyback, q8hr, infuse over 60 minutes, order duration: 3 doses, first dose 06/04/16 23:00:00 [employer], stop date 06/05/16 22:59:00 [employer], Prophylaxi s Zofran 2015-07 No Adam 4 mg = 2 Memor ia 1-15 Hillery mL, l 04:19: Injection, [place] 00 IV Push, q6hr PRN for nausea/vom iting, first dose 06/04/16 22:19:00 [employer] morphine 2015-07 No Adam 2 mg = 0.2 M emoria 1-15 Hillery mL, l 04:19: Injection, [place] 00 IV Push, q1hr PRN for pain, first dose 06/04/16 22:19:00 [employer] NS 1,000 mL 2015-07 No Jason G 1,000 mL, Memoria 1-15 Sreshta IV, 75 l 04:19: mL/hr, [place] 00 start date 06/04/16 22:19:00 [employer] Lactated 2015-07 No Grayson K IV, start Me moria Ringers 1-15 Mauro date l Injection 02:35: 06/04/16 Herm chace 00 20:35:00 [employer], stop date 06/04/16 20:35:00 [employer] acetaminoph 2015-07 No Prashant 1,000 mg, Memoria en 1-15 Wheat Soln-IV, l 02:25: IV, Once, Martell 00 first dose 06/04/16 20:25:00 [employer], stop date 06/04/16 20:25:00 [employer] traMADol 50 2015-07 Yes Adam 50 mg = 1 Memoria mg oral 1-15 Hillery tabs, l tablet 02:20: Oral, Martell 00 q6hr, PRN for pain, # 24 tabs, 0 Refill(s) fentaNYL 2015-07 No Prashant 25 mcg = Mem oria 1-15 Wheat 0.5 mL, l 02:06: Injection, [place] 00 IV, Once, first dose 06/04/16 20:06:00 [employer], stop date 06/04/16 20:06:00 [employer] fentaNYL 2015-07 No Prashant 50 mcg = 1 M emoria 1-15 Wheat mL, l 01:48: Injection, Martell 00 IV, Once, first dose 06/04/16 19:48:00 [employer], stop date 06/04/16 19:48:00 [employer] neostigmine 2015-07 No Prashant 4 mg = 8 Memoria 1-15 Wheat mL, l 01:44: Injection, [place] 00 IV, Once, first dose 06/04/16 19:44:00 [employer], stop date 06/04/16 19:44:00 [employer] glycopyrrol 2015-07 No Prashant 0.6 mg = 3 Memoria ate 1-15 Wheat mL, l 01:44: Injection, [place] 00 IV, Once, first dose 06/04/16 19:44:00 [employer], stop date 06/04/16 19:44:00 [employer] ondansetron 2015-07 No Prashant 4 mg = 2 Memoria 1-15 Wheat mL, l 01:35: Injection, [place]ell 00 IV, Once, first dose 06/04/16 19:35:00 [employer], stop date 06/04/16 19:35:00 [employer] ePHEDrine 2015-07 No Prashant 5 mg = 0.1 Memoria 1-15 Wheat mL, l 01:19: Injection, [place]ell 00 IV, Once, first dose 06/04/16 19:19:00 [employer], stop date 06/04/16 19:19:00 [employer] vecuronium 2015-07 No Prashant 1 mg = 1 M emoria 1-15 Wheat mL, l 01:10: Powder-Inj [place] 00 , IV, Once, first dose 06/04/16 19:10:00 [employer], stop date 06/04/16 19:10:00 [employer] ePHEDrine 2015-07 No Prashant 5 mg = 0.1 Memoria 1-15 Wheat mL, l 01:02: Injection, [place]ell 00 IV, Once, first dose 06/04/16 19:02:00 [employer], stop date 06/04/16 19:02:00 [employer] vecuronium 2015-07 No Prashant 1 mg = 1 M emoria 1-15 Wheat mL, l 00:28: Powder-Inj [place] 00 , IV, Once, first dose 06/04/16 18:28:00 [employer], stop date 06/04/16 18:28:00 [employer] vecuronium 2015-07 No Prashant 1 mg = 1 M emoria 1-15 Wheat mL, l 00:13: Powder-Inj [place]ell 00 , IV, Once, first dose 06/04/16 18:13:00 [employer], stop date 06/04/16 18:13:00 [employer] ePHEDrine 2015-07 No Prashant 5 mg = 0.1 Memoria 1-15 Wheat mL, l 00:10: Injection, [place] 00 IV, Once, first dose 06/04/16 18:10:00 [employer], stop date 06/04/16 18:10:00 [employer] vecuronium 2015-07 No Prashant 1 mg = 1 M emoria 1-15 Wheat mL, l 00:04: Powder-Inj [place] 00 , IV, Once, first dose 06/04/16 18:04:00 [employer], stop date 06/04/16 18:04:00 [employer] vecuronium 2015-07 No Prashant 1 mg = 1 M emoria 1-14 Wheat mL, l 23:49: Powder-Inj Martell 00 , IV, Once, first dose 06/04/16 17:49:00 [employer], stop date 06/04/16 17:49:00 [employer] ePHEDrine 2015-07 No Marin 5 mg = 0.1 Memoria 1-14 Patel mL, l 23:40: TRANSPORTATION MAINTENANCE 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 Injection, Martell 00 IV, Once, first dose 06/04/16 17:40:00 [employer], stop date 06/04/16 17:40:00 [employer] vecuronium 2015-07 No Marin 1 mg = 1 Memoria 1-14 Patel mL, l 23:21: TRANSPORTATION MAINTENANCE SUPERVISOR Powder-Inj [place] 00 , IV, Once, first dose 06/04/16 17:21:00 [employer], stop date 06/04/16 17:21:00 [employer] ceFAZolin 2015-07 No Marin 1 gm, Nikunj teja 1-14 Patel Powder-Inj l 23:16: TRANSPORTATION MAINTENANCE SUPERVISOR , IV, Martell 00 Once, first dose 06/04/16 17:16:00 [employer], stop date 06/04/16 17:16:00 [employer] Lactated 2015-07 No Marin IV, start M emoria Ringers 1-14 Patel date l Injection 23:04: TRANSPORTATION MAINTENANCE SUPERVISOR 06/04/16 Herm chace 00 17:04:00 [employer], stop date 06/04/16 17:04:00 [employer] vecuronium 2015-07 No Marin 1 mg = 1 Memoria 1-14 Patel mL, l 22:45: TRANSPORTATION MAINTENANCE SUPERVISOR Powder-Inj [place] 00 , IV, Once, first dose 06/04/16 16:45:00 [employer], stop date 06/04/16 16:45:00 [employer] ePHEDrine 2015-07 No Marin 5 mg = 0.1 Memoria 1-14 Patel mL, l 22:38: TRANSPORTATION MAINTENANCE SUPERVISOR Injection, Martell 00 IV, Once, first dose 06/04/16 16:38:00 [employer], stop date 06/04/16 16:38:00 [employer] ePHEDrine 2015-07 No Marin 5 mg = 0.1 Memoria 1-14 Patel mL, l 22:34: TRANSPORTATION MAINTENANCE SUPERVISOR Injection, [place] 00 IV, Once, first dose 06/04/16 16:34:00 [employer], stop date 06/04/16 16:34:00 [employer] ePHEDrine 2015-07 No Marin 5 mg = 0.1 Memoria 1-14 Patel mL, l 21:54: TRANSPORTATION MAINTENANCE SUPERVISOR Injection, Martell 00 IV, Once, first dose 06/04/16 15:54:00 [employer], stop date 06/04/16 15:54:00 [employer] vecuronium 2015-07 No Marin 2 mg = 2 Memoria 1-14 Patel mL, l 21:53: TRANSPORTATION MAINTENANCE SUPERVISOR Powder-Inj [place] 00 , IV, Once, first dose 06/04/16 15:53:00 [employer], stop date 06/04/16 15:53:00 [employer] promethazin 2015-07 No Grayson K 12.5 mg = Memoria e 1-14 Mauro 0.5 mL, l 21:24: Injection, [place] 00 IM, Once PRN for severe nausea, first dose 06/04/16 15:24:00 [employer] ondansetron 2015-07 No Grayson K 4 mg = 2 Memoria 1-14 Mauro mL, l 21:24: Injection, [place] 00 IV Push, q15min PRN for nausea/vom iting, order duration: 2 doses, first dose 06/04/16 15:24:00 [employer], stop date Limited # of times Xopenex 2015-07 No Grayson K 0.63 mg = Mem oria 0.63 mg/3 1-14 Mauro 3 mL, l mL 21:24: Soln, NEB, Putnam inhalation 00 Once PRN solution for shortness of breath or wheezing, first dose 06/04/16 15:24:00 [employer] Saline Lock 2015-07 No Grayson K 10 mL, Me moria Flush -14 Mauro Soln, IV l 21:24: Push, As Martell 00 Indicated PRN for flush, first dose 06/04/16 15:24:00 [employer] Dilaudid 2015-07 No Grayson K 0.5 mg = Mem oria 1-14 Mauro 0.25 mL, l 21:24: Injection, Martell 00 IV Push, q10min PRN for pain severe (7-10), first dose 06/04/16 15:24:00 [employer] vecuronium 2015-07 No Marin 2 mg = 2 Memoria 1-14 Patel mL, l 21:10: TRANSPORTATION MAINTENANCE SUPERVISOR Powder-Inj [place] 00 , IV, Once, first dose 06/04/16 15:10:00 [employer], stop date 06/04/16 15:10:00 [employer] ePHEDrine 2015-07 No Marin 10 mg = Me moria 1-14 Patel 0.2 mL, l 21:08: TRANSPORTATION MAINTENANCE SUPERVISOR Injection, Martell 00 IV, Once, first dose 06/04/16 15:08:00 [employer], stop date 06/04/16 15:08:00 [employer] glycopyrrol 2015-07 No Marin 0.2 mg = 1 Memoria ate -14 Patel mL, l 21:01: TRANSPORTATION MAINTENANCE SUPERVISOR Injection, [place] 00 IV, Once, first dose 06/04/16 15:01:00 [employer], stop date 06/04/16 15:01:00 [employer] fentaNYL 2015-07 No Marin 50 mcg = 1 Memoria 1-14 Patel mL, l 20:55: TRANSPORTATION MAINTENANCE SUPERVISOR Injection, [place]ell 00 IV, Once, first dose 06/04/16 14:55:00 [employer], stop date 06/04/16 14:55:00 [employer] dexamethaso 2015-07 No Marin 4 mg = 1 Dannyoria ne 1-14 Patel mL, l 20:41: TRANSPORTATION MAINTENANCE SUPERVISOR Injection, [place] 00 IV, Once, first dose 06/04/16 14:41:00 [employer], stop date 06/04/16 14:41:00 [employer] Saline Lock 2015-07 Yes Marin 10 mL, M emoria Flush 1-14 Patel Soln, IV l 20:38: TRANSPORTATION MAINTENANCE SUPERVISOR Push, As [place] 00 Indicated PRN for flush, first dose 06/04/16 14:38:00 [employer] LR 1,000 mL 2015-07 Yes Marin 1,000 mL, Memoria 1-14 Patel IV, 75 l 20:38: TRANSPORTATION MAINTENANCE SUPERVISOR mL/hr, Martell 00 start date 06/04/16 14:38:00 [employer] Xopenex 2015-07 Yes Marin 0.63 mg = Me moria 0.63 mg/3 -14 Patel 3 mL, l mL 20:38: TRANSPORTATION MAINTENANCE SUPERVISOR Soln, NEB, Martell inhalation 00 Once PRN solution for wheezing, first dose 06/04/16 14:38:00 [employer] ondansetron 2015-07 Yes Marin 4 mg = 2 Memoria -14 Patel mL, l 20:38: TRANSPORTATION MAINTENANCE SUPERVISOR Injection, [place] 00 IV Push, q15min PRN for nausea/vom iting, order duration: 2 doses, first dose 06/04/16 14:38:00 [employer], stop date Limited # of times promethazin 2015-07 Yes Marin 12.5 mg = Memoria e -14 Patel 0.5 mL, l 20:38: TRANSPORTATION MAINTENANCE SUPERVISOR Injection, Martell 00 IM, Once PRN for severe nausea, first dose 06/04/16 14:38:00 [employer] Dilaudid 2015-07 Yes Marin 0.5 mg = Me moria -14 Patel 0.25 mL, l 20:38: TRANSPORTATION MAINTENANCE SUPERVISOR Injection, Putnam 00 IV Push, q10min PRN for pain severe (7-10), first dose 06/04/16 14:38:00 [employer] lidocaine 2015-07 No Marin 2.5 mL, Me moria -14 Patel Injection, l 20:26: TRANSPORTATION MAINTENANCE SUPERVISOR IV, Once, Martell 00 first dose 06/04/16 14:26:00 [employer], stop date 06/04/16 14:26:00 [employer] vecuronium 2015-07 No Marin 5 mg = 5 Memoria -14 Patel mL, l 20:26: TRANSPORTATION MAINTENANCE SUPERVISOR Powder-Inj [place]nam 00 , IV, Once, first dose 06/04/16 14:26:00 [employer], stop date 06/04/16 14:26:00 [employer] propofol 2015-07 No Marin 50 mg = 5 M emoria 1-14 Patel mL, l 20:26: TRANSPORTATION MAINTENANCE SUPERVISOR Emulsion, Martell 00 IV, Once, first dose 06/04/16 14:26:00 [employer], stop date 06/04/16 14:26:00 [employer] fentaNYL 2015-07 No Marin 50 mcg = 1 Memoria -14 Patel mL, l 20:21: TRANSPORTATION MAINTENANCE SUPERVISOR Injection, [place] 00 IV, Once, first dose 06/04/16 14:21:00 [employer], stop date 06/04/16 14:21:00 [employer] ceFAZolin 2015-07 No Marin 2 gm, Nikunj teja -14 Patel Soln-IV, l 20:17: TRANSPORTATION MAINTENANCE SUPERVISOR IV Martell 00 Piggyback, Once, first dose 06/04/16 14:17:00 [employer], stop date 06/04/16 14:17:00 [employer] fentaNYL 2015-07 No Marin 50 mcg = 1 Memoria 14 Patel mL, l 20:09: TRANSPORTATION MAINTENANCE SUPERVISOR Injection, Martell 00 IV, Once, first dose 06/04/16 14:09:00 [employer], stop date 06/04/16 14:09:00 [employer] Misc 2015-07 No Marin 1,000 mL, Memor ia Medication 08-04 Patel Soln-IV, l 20:08: TRANSPORTATION MAINTENANCE SUPERVISOR IV, Once, first dose 06/04/16 14:08:00 [employer], stop date 06/04/16 14:08:00 [employer] ceFAZolin 2015-07 No Adam 2 gm, Memor ia 08-04 Hillery Soln-IV, l 15:00: IV Martell 00 Piggyback, Once, infuse over 30 minutes, first dose 06/04/16 9:00:00 [employer], stop date 06/04/16 9:00:00 [employer], patient weight 50-120 kg, Prophylaxi s Lidocaine 2015-07 Yes Grayson K 0.2 mL, Mem oria 2% 0.2 mL 08-04 Mauro Injection, l IV Start 14:30: Subcutaneo Her trujillo [[facility]] 00 us, Once PRN for other (see comment), first dose 06/04/16 8:30:00 [employer] LR 1,000 mL 2015-07 No Grayson K 1,000 mL, Memoria 08-04 Mauro IV, 30 l 14:30: mL/hr, start date 06/04/16 8:30:00 [employer] lisinopril 2015-07 Yes 1/2 tabs, Me moria 20 mg oral 1-09 Oral, qPM, l tablet 15:49: 0 Refill(s), HYPERTENSI ON NEBULIZER 2015-07 Yes NEBULIZER, Me moria 07-30 INH, TID, l 15:49: PT INST TO Martell 00 USE AM OF SX, 0 Refill(s), COPDPT INST TO USE AM OF SX Advair 2015-07 Yes 1 puffs, Memoria Diskus 250 07-30 INH, BID, l mcg-50 mcg 15:49: PT INST TO H ermann inhalation 00 USE AM OF powder SX, # 28 EA, 0 Refill(s), COPDPT INST TO USE AM OF SX benzonatate 2015-07 Yes 100 mg = 1 Memoria 100 mg oral 07-30 caps, l capsule 15:49: Oral, BID, Herm chace 00 PRN as needed for cough, INS TO USE IF NEEDED AM OF SX, 0 Refill(s), COUGH/COPD INS TO USE IF NEEDED AM OF SX Calcium 2015-07 No 1 tabs, Memoria 500+D 07-30 Oral, l 15:49: Daily, 0 Martell 00 Refill(s), SUPPLEMENT Iron-150 2015-07 Yes 1 tabs, Memori a oral tablet 07-30 Oral, l 15:49: Daily, 0 Putnam 00 Refill(s), SUPPLEMENT montelukast 2015-07 Yes 10 mg = 1 M emoria 10 mg oral 07-30 tabs, l tablet 15:49: Oral, qAM, Tri nn 00 PT INST TO TAKE AM OF SX IF NEEDED, 0 Refill(s), [place]ERG[place] INST TO TAKE AM OF SX IF NEEDED Tylenol 2015-07 Yes 325 mg, Memoria Regular 07-30 Oral, l Strength 15:49: q4hr, 0 Homero n 00 Refill(s), PAIN metFORMIN 2015-07 Yes 500 mg = 1 Me moria 500 mg oral 07-30 tabs, l tablet 15:49: Oral, BID, Tri nn 00 PT INST TO NOT TAKE THE AM OF SX, # 60 tabs, 0 Refill(s), DIABETESPT INST TO NOT TAKE THE AM OF SX Tylenol 2015-07 Yes Oral, 0 Memoria 07-30 Refill(s) l 15:47: Martell 00 lisinopril 2015-07 Yes Oral, Memori a 07-30 Daily, 0 l 15:46: Refill(s) Martell 00 Levofloxaci Yes 750 mg = 1 Memoria n 750 MG 4-10 tab, PO, l Oral Tablet 18:09: Q24H, X 10 Martell [Levaquin] 00 day, # 10 tab, 0 Refill(s) Levaquin No Notes: Memoria 4-08 (Same l 07:00: as:Levaqui Martell 00 n) montelukast No Notes: Nikunj teja -07 (Same l 14:00: as:Singula Martell 00 ir) budesonide- No Notes: Nikunj teja formoterol 10-25 (Same as: l 160 mcg-4.5 22:00: Symbicort) [place]nam mcg/inh 00 WASTE: inhalation Aerosol - aerosol Return to with Pharmacy adapter Advair No 1 puff, Memoria Diskus 500 10-25 Route: l mcg-50 mcg 22:00: INHALATION H ermann inhalation 00 , Drug powder Form: AERO, Dosing Weight 49.773, kg, BID, Start date: 10/26/15 17:00:00, Duration: 30 day, Stop date: 11/25/15 9:00:00 benzonatate No Notes: Nikunj teja 10-25 (Same As: l 18:00: Tessalon Martell 00 Perles) "Do Not Crush" Advair Yes 1 puff, Memoria Diskus 500 4-06 INHALATION l mcg-50 mcg 15:17: , BID, # 1 H ermann inhalation 00 ea, 0 powder Refill(s) benzonatate Yes 200 mg = 1 Memoria 200 mg oral 4-06 cap, PO, l capsule 15:17: TID, PRN Homero n 00 cough, do not crush or chew, # 30 cap, 0 Refill(s) lisinopril Yes 20 mg = 1 Me moria 20 mg oral 4-06 tab, PO, l tablet 15:17: Daily, # [place] 00 30 tab, 0 Refill(s) montelukast Yes 10 mg = 1 M emoria 10 mg oral 4-06 tab, PO, l tablet 15:17: Daily, # [place] 00 90 tab, 0 Refill(s) Albuterol No Notes: Memori a 0.833 MG/ML 10-25 (Same as: l / 13:00: Duoneb) [place] Ipratropium 00 Lilly 0.167 MG/ML Inhalant Solution Levofloxaci No 750 mg, Mem oria n 10-25 Route: l 13:00: IVPB, Drug form: SOLN, [id number], Dosing Weight 49.773, kg, Start date: 10/26/15 8:00:00, Duration: 30 day, Stop date: 11/24/15 8:00:00 Insulin, No Notes: [facility] Aspart, 10-25 Roll in l Human 12:23: palms of [place] 00 hands gently; Do not shake vigorously . (Same as: NovoLOG) "single patient use only" WASTE: F/P - Black; E - Municipal Trash Bin Stable for 28 days at room temperatur e. Expires in days from ____Date Glucagon No 1 mg, Memoria 10-25 Route: IM, l 12:23: Drug form: [place] 00 PDR/INJ, PRN, Dosing Weight 49.773, kg, PRN Blood Glucose Results, Start date: 10/26/15 7:23:00, Duration: 30 day, Stop date: 11/25/15 7:22:00 Dextrose No 25 gm, 50 Nikunj teja 50% Syringe 4- mL, Route: l 12:23: IVP, Drug Form: INJ, Dosing Weight 49.773, kg, PRN, PRN Blood Glucose Results, Start date: 10/26/15 7:23:00, Duration: 30 day, Stop date: 11/25/15 7:22:00 Tylenol No 650 mg, [facility]oria 10-25 Route: PO, l 12:23: Drug form: [place] 00 TAB, Q6H, Dosing Weight 49.773, kg, PRN Pain Score 1-3, Start date: 10/26/15 7:23:00, Duration: 30 day, Stop date: 11/25/15 7:22:00 Zofran No Notes: [facility] 10-25 (Same as: l 12:23: Zofran) [place] 00 MEDICATION WASTE Product Size: 4 mg Product Wasted: ___ mg Morphine No Notes: [facility] 10-25 (Same as: l 12:23: Astramorph [place] 00 -PF) Albuterol No Notes: Memori a 0.833 MG/ML 10-25 (Same as: l 12:23: Duoneb) [place] Ipratropium 00 Lilly 0.167 MG/ML Inhalant Solution NS + KCL No Notes: [facility] 20mEq/L 10-25 PREMIX IV l 1000ml 12:22: - Do Not [place] (Premix) 00 Alter 1,000 mL WASTE: F/P - Sink; E - Municipal Trash Bin Ceftriaxone No Notes: Nikunj teja 10-25 (Same As: l 05:39: Rocephin). [place] 00 Use with 100 mL NS and infuse over 30 min MEDICATION WASTE Product Size: 1000 mg Product Wasted: ___ mg Levofloxaci No Notes: Nikunj teja n 10-25 (Same l 05:39: as:Levaqui [place] 00 n) Albuterol No Notes: [facility] a 0.833 MG/ML 10-25 (Same as: 04:22: Duoneb) [place] Ipratropium 00 Lilly 0.167 MG/ML Inhalant Solution Amoxicillin No 1 tab, Nikunj teja 875 MG / 10-25 Route: PO, l Clavulanate 04:13: Dosing Herm chace 125 MG Oral 00 Weight Tablet 48.636, [Augmentin kg, ONCE, 875-mg] Start date: 10/25/15 23:13:00, Stop date: 10/25/15 23:13:00 Saline No Notes: [facility] Flush 0.9% 10-25 (Same as: l 04:02: BD [place] 00 Posiflush) Sodium No 1,500 mL, Memori a Chloride 10-25 1,000 l 0.154 04:02: ml/hr, [place] MEQ/ML 00 Infuse Injectable Over: 1.5 Solution hr, Route: IV, 1,500, Drug form: INJ, ONCE, Priority: STAT, Dosing Weight 48.636 kg, Start date: 10/25/15 23:02:00, Duration: 1 doses or times, Stop date: 10/25/15 23:02:00 Albuterol Yes 3 ml, [facility]oria 0.833 MG/ML 5-29 INHALATION l / 19:56: , Q6H, as [place] Ipratropium 00 needed for Lilly shortness 0.167 MG/ML of breath Inhalant or Solution wheezing, # 30 ea, 0 Refill(s) simvastatin Yes 10 mg = 1 M emoria 10 mg oral 5-29 tab, PO, l tablet 19:56: Bedtime, # Tri nn 00 30 tab, 0 Refill(s) lisinopril No 20 mg = 1 Me moria 20 mg oral 5-29 tab, PO, l tablet 19:56: Daily, # [place] 00 30 tab, 0 Refill(s) tiotropium Yes 18 Memoria 0.018 - microgram l MG/ACTUAT 19:56: = 1 cap, Herm chace Inhalant 00 INHALATION Powder , Daily, # [Spiriva] 90 cap, 0 Refill(s) Metformin Yes 500 mg = 1 Me moria hydrochlori 5-29 tab, PO, l de 500 MG 19:56: BID, # 30 Her trujillo Oral Tablet 00 tab, 0 Refill(s) Cetirizine Yes 10 mg, PO, M emoria 29 Bedtime, 0 l 19:56: Refill(s) [place] 00 pantoprazol No Notes: For Memoria e - IV push l 14:00: reconstitu [place] 00 te with 10 ml 0.9% sodium chloride and push over 2 minutes. (Same as: Protonix) nitroglycer No Notes: Nikunj teja in 0.4 mg 12-17 (Same l sublingual 12:25: as:Nitroqu H ermann tablet 00 ick, Nitrostat) "Do Not Crush" Sublingual tablet atropine No 0.5 mg, 5 Nikunj teja 5-29 mL, Route: l 12:24: IVP, Drug [place] 00 form: INJ, PRN, PRN Bradycardi a, Start date: 12/17/13 7:24:00, Duration: 30 day, Stop date: 01/16/14 7:23:00 Acetaminoph No Notes: Max [facility]oria en 12-17 acetaminop l 11:29: hen = [place] 00 4000mg/day (4 gm/day). (Same as: Tylenol) Morphine No Notes: Memoria - (Same l 11:29: as:MORPhin [place] 00 e Sulfate) Ondansetron No Notes: Nikunj teja 12-17 (Same as: l 11:29: Zofran) [place] 00 Sodium No 1,000 mL, Memori a Chloride 12-17 Rate: 90 l 0.154 11:29: ml/hr, [place] MEQ/ML 00 Infuse Injectable over: 11.1 Solution hr, Route: IV, Dosing Weight 47.273 kg, Total Volume: 1,000, Start date: 12/17/13 6:29:00, Duration: 30 day, Stop date: 01/16/14 6:28:00 Saline No Notes: Memoria Flush 0.9% 12-17 (Same as: l 11:: BD [place] 00 Posiflush) Magnesium No 1 gm, 100 Mem oria Sulfate 5-29 mL, Route: l 11:27: IVPB, Drug [place] 00 form: INJ, ONCE, Dosing Weight 47.273, kg, Start date: 12/17/13 6:27:00, Stop date: 12/17/13 6:27:00 Sodium No 500 mL, Memoria Chloride -29 500 ml/hr, l 0.154 10:02: Infuse [place] MEQ/ML 00 Over: 1 Injectable hr, Route: Solution IV, ONCE, Priority: STAT, Dosing Weight 54.545 kg, Start date: 12/17/13 5:02:00, Duration: 1 doses or times, Stop date: 12/17/13 5:02:00 Ceftriaxone No 1 gm, Memor ia - Route: l 08:56: IVPB, Drug [place] 00 form: PDR/INJ, ONCE, Dosing Weight 54.545, kg, Priority: STAT, Start date: 12/17/13 3:56:00, Stop date: 12/17/13 3:56:00 Saline 2014-0 No Notes: Memoria Flush 0.9% 12-17 (Same as: l 03:42: BD [place] 00 Posiflush) Vital Signs Vital Name Observation Time Observation Value Comments Source Respitory Rate 2016-06-09 18:00:00 [facility] al [place] Heart Rate 2016-06-09 18:00:00 [facility] [place] Systolic (mm Hg) 2016-06-09 18:00:00 Nikunj rial [place] Temperature Oral (F) 2016-06-09 18:00:00 36.5 Sissy [facility] [place] Systolic (mm Hg) 2016-06-09 11:00:00 Nikunj rial [place] Systolic (mm Hg) 2016-06-09 10:00:00 Nikunj rial [place] Respitory Rate 2016-06-09 10:00:00 [facility] [place] Heart Rate 2016-06-09 10:00:00 [facility] [place] Temperature Oral (F) 2016-06-09 10:00:00 36.5 Sissy [facility] [place] Temperature Oral (F) 2016-06-09 06:00:00 36.5 S[facility]y [facility] [place] Heart Rate 2016-06-09 06:00:00 [facility] [place] Respitory Rate 2016-06-09 06:00:00 [facility] [place] Temperature Oral (F) 2016-06-05 17:00:00 36.6 Sissy [facility] [place] Temperature Oral (F) 2016-06-05 02:30:00 36.9 S[facility]y [facility] [place] Weight 2016-06-04 14:51:00 [facility] [place] Height 2016-06-04 14:51:00 152.4 cm [facility] [place] Height 2016-05-30 15:31:00 152.4 cm [facility] [place] Weight 2016-05-30 15:31:00 [facility] [place] Heart Rate 2015-10-30 15:46:00 [facility] [place] Respitory Rate 2015-10-30 15:46:00 [facility] al [place] Temperature Oral (F) 2015-10-30 15:46:00 98.2 F [facility] [place] Systolic (mm Hg) 2015-10-30 15:46:00 Nikunj rial [place] Diastolic (mm Hg) 2015-10-30 15:46:00 Mem orial [place] Temperature Oral (F) 2015-10-30 12:40:00 98.4 F [facility] [place] Heart Rate 2015-10-30 12:40:00 [facility] [place] Respitory Rate 2015-10-30 12:40:00 [facility] al [place] Systolic (mm Hg) 2015-10-30 12:40:00 Nikunj rial [place] Diastolic (mm Hg) 2015-10-30 12:40:00 Mem orial [place] Temperature Oral (F) 2015-10-30 08:52:00 98.5 F [facility] [place] Heart Rate 2015-10-30 08:52:00 [facility] [place] Respitory Rate 2015-10-30 08:52:00 [facility] al [place] Systolic (mm Hg) 2015-10-30 08:52:00 Nikunj rial [place] Diastolic (mm Hg) 2015-10-30 08:52:00 [facility] orial [place] Weight 2015-10-26 07:35:00 [facility] [place] BMI Calculated 2015-10-26 07:35:00 [facility] [place] Height 2015-10-26 07:35:00 152.4 cm [facility] [place] Weight 2015-10-26 03:56:00 [facility] [place] Systolic (mm Hg) 2013-12-17 19:43:00 Nikunj rial [place] Respitory Rate 2013-12-17 19:43:00 [facility] al [place] Diastolic (mm Hg) 2013-12-17 19:43:00 Mem orial [place] Diastolic (mm Hg) 2013-12-17 16:47:00 Mem o[facility] [place] Systolic (mm Hg) 2013-12-17 16:47:00 Nikunj rial [place] Respitory Rate 2013-12-17 16:47:00 [facility] [place] Heart Rate 2013-12-17 16:47:00 [facility] [place] Temperature Oral (F) 2013-12-17 16:47:00 98.1 F [facility] [place] Height 2013-12-17 13:24:00 147.32 cm [facility] [place] BMI Calculated 2013-12-17 13:24:00 [facility] [place] Weight 2013-12-17 13:24:00 [facility] [place] Respitory Rate 2013-12-17 12:59:00 [facility] [place] Systolic (mm Hg) 2013-12-17 12:59:00 Nikunj rial [place] Diastolic (mm Hg) 2013-12-17 12:59:00 [facility] orial [place] Temperature Oral (F) 2013-12-17 12:59:00 98.7 F [facility] [place] Heart Rate 2013-12-17 12:59:00 [facility] [place] Temperature Oral (F) 2013-12-17 10:57:00 98.5 F [facility] [place] Height 2013-12-17 10:03:[address] [facility] Weight 2013-12-17 10:03:[address] [facility] BMI Calculated 2013-12-17 10:03:00 Dannyori al [place] Heart Rate 2013-12-17 04:45:[address] [facility] Procedures Procedure Date / Time Performing Clinician Source Performed IMPLANTATION OF BIOLOGIC 2016-06-04 20:58:00 Adam Chapa Mem orial [place] IMPLANT 32287 (Other)<sup>2</sup> REPAIR HERNIA INCISIONAL OR 2016-06-04 20:58:00 Adam Chapa VENTRAL-W/MESH 95502 (Other)<sup>3</sup> REPAIR INITIAL HERNIA 2016-06-04 20:58:00 Adam Chapa [place] INCISIONAL OR VENTRAL-REDUCIBLE 14808 (Other)<sup>4</sup> COLONOSCOPY 2010-07-22 00:00:00 [facility] trujillo HERNIA REPAIR<sup>1</sup> 2010-07-22 00:00:00 Me morial [place] Cholecystectomy [facility] Hernia repair [facility] Resection of colon for [facility] [place] interposition Encounters Start End Encounter Admission Attending Care Care Encounter Source Date/Time Date/Time Type Type Clinicians Facility Department ID 2021-02-05 2021-02-05 Emergency E NASREEN [facility] [id number] [facility] 10:35:00 12:00:00 OLIVER Davidson [facility] 2016-06-04 2016-06-09 Outpatient [facility] [id number] Memoria 06:00:19 14:40:00 [place] Moura l Surgical Surgical [facility] 2015-10-25 2015-10-30 Outpatient KEVIN Elliott [facility] [id number] 22:44:00 17:00:00 Chago eSe 2013-12-16 2013-12-17 Outpatient Clifton [facility] [id number] 21:20:00 15:40:00 [facility] Moy Kebede Results Test Description Test Time Test Comments Results Result Sourc e Comments XR CHEST 1 VIEW 2021-02-05 PORTABLE *WW* 11:35:05 [facility] : 1935 Sex: F EXAM: XR CHEST 1 VIEWLOCATION: [id number]: CoughTECHNIQUE: AP view of the chestCOMPARISON: Chest radiographs 03/31/2016, 03/16/2016FINDINGS: The trachea appears normal. The mediastinum and cardiac silhouette are within normal limits for size.The lungs are slightly hyperexpanded. Mild prominent interstitial markings and suspect trace right-sided pleural effusion.The visualized upper abdomen and peripheral soft tissues are grossly unremarkable.IMPRE SSION:Mild prominent interstitial markings with suspect trace right-sided pleural effusion, possibly representing pulmonary edema with atelectasis.Unchan ged signs of emphysema.Electron ically signed by: Dean Albert DO 02/05/2021 11:35 AM CDT LABORATORY 2016-06-09 118 [facility] 19:01:00 [employer] LABORATORY 2016-06-09 104 [facility] 13:01:00 [employer] LABORATORY 2016-06-09 104 [facility] 12:56:00 [place] LABORATORY 2016-06-09 14.1 [facility] 10:10:00 [place] LABORATORY 2016-06-09 28 [facility] 10:10:00 [place] LABORATORY 2016-06-09 147 [facility] 10:10:00 [place] LABORATORY 2016-06-09 109 [facility] 10:10:00 [place] LABORATORY 2016-06-09 4.1 [facility] 10:10:00 [place] LABORATORY 2016-06-09 0.80 [facility] 10:10:00 [place] LABORATORY 2016-06-09 16 [facility] 10:10:00 [place] LABORATORY 2016-06-09 102 [facility] 10:10:00 [place] LABORATORY 2016-06-09 69 [facility] 10:10:00 [place] LABORATORY 2016-06-09 8.6 [facility] 10:10:00 [place] LABORATORY 2016-06-09 106 [facility] 03:00:00 [place] LABORATORY 2016-06-09 118 [facility] 00:01:00 [place] LABORATORY 2016-06-09 118 [facility] 00:00:00 [place] LABORATORY 2016-06-08 8.5 [facility] 09:24:00 [place] LABORATORY 2016-06-08 64 [facility] 09:24:00 [place] LABORATORY 2016-06-08 13.9 [facility] 09:24:00 [place] LABORATORY 2016-06-08 26 [facility] 09:24:00 [place] LABORATORY 2016-06-08 0.86 [facility] 09:24:00 [place] LABORATORY 2016-06-08 11 [facility] 09:24:00 [place] LABORATORY 2016-06-08 149 [facility] 09:24:00 [place] LABORATORY 2016-06-08 3.9 [facility] 09:24:00 [place] LABORATORY 2016-06-08 113 [facility] 09:24:00 [place] LABORATORY 2016-06-08 104 [facility] 09:24:00 [place] LABORATORY 2016-06-07 21 [facility] 09:28:00 [place] LABORATORY 2016-06-07 147 [facility] 09:28:00 [place] LABORATORY 2016-06-07 4.1 [facility] 09:28:00 [place] LABORATORY 2016-06-07 15.1 [facility] 09:28:00 [place] LABORATORY 2016-06-07 8.0 [facility] 09:28:00 [place] LABORATORY 2016-06-07 59 [facility] 09:28:00 [place] LABORATORY 2016-06-07 115 [facility] 09:28:00 [place] LABORATORY 2016-06-07 15 [facility] 09:28:00 [place] LABORATORY 2016-06-07 0.92 [facility] 09:28:00 [place] LABORATORY 2016-06-07 139 [facility] 09:28:00 [place] LABORATORY 2016-06-06 0.1 [facility] 10:16:00 [place] LABORATORY 2016-06-06 9.2 [facility] 10:16:00 [place] LABORATORY 2016-06-06 1.1 [facility] 10:16:00 [place] LABORATORY 2016-06-06 0.8 [facility] 10:16:00 [place] LABORATORY 2016-06-06 1.2 [facility] 10:16:00 [place] LABORATORY 2016-06-06 0.0 [facility] 10:16:00 [place] LABORATORY 2016-06-06 0.0 [facility] 10:16:00 [place] LABORATORY 2016-06-06 10.4 [facility] 10:16:00 [place] LABORATORY 2016-06-06 9.4 [facility] 10:16:00 [place] LABORATORY 2016-06-06 79.4 [facility] 10:16:00 [place] LABORATORY 2016-06-06 Reported [facility] 10:16:00 (06/06/2016 [place] 04:16:00) LABORATORY 2016-06-06 4.8 [facility] 10:16:00 [place] LABORATORY 2016-06-06 113 [facility] 10:16:00 [place] LABORATORY 2016-06-06 7.6 [facility] 10:16:00 [place] LABORATORY 2016-06-06 20 [facility] 10:16:00 [place] LABORATORY 2016-06-06 16.8 [facility] 10:16:00 [place] LABORATORY 2016-06-06 61 [facility] 10:16:00 [place] LABORATORY 2016-06-06 145 [facility] 10:16:00 [place] LABORATORY 2016-06-06 18 [facility] 10:16:00 [place] LABORATORY 2016-06-06 0.91 [facility] 10:16:00 [place] LABORATORY 2016-06-06 60 [facility] 10:16:00 [place] LABORATORY 2016-06-06 Reported [facility] 10:16:00 (06/06/2016 [place] 04:16:00) LABORATORY 2016-06-06 Reported [facility] 10:16:00 (06/06/2016 [place] 04:16:00) LABORATORY 2016-06-06 11.6 [facility] 10:16:00 [place] LABORATORY 2016-06-06 3.30 [facility] 10:16:00 [place] LABORATORY 2016-06-06 9.7 [facility] 10:16:00 [place] LABORATORY 2016-06-06 30.1 [facility] 10:16:00 [place] LABORATORY 2016-06-06 10:16:00 Test Item Value Reference Range Interpretation Comme nts MCH (test code = MCH) 29.4 pg 27.0-31.0 [facility] ZpwaxlaEVYBQBYGLX8896-95-67 10:16:0091.1[facility] 2016-06-06 10:16:0016.3[facility] QbzzcyhMXBYEOWQKX5097-09-39 10:16:0032.3[facility] CrjskrzWHAZABFMKF3655-07-23 10:16:59958Hpawfghe YdeqlkcRURUNLEIFD2164-85-03 10:16:0010.0[facility] HecnxwnXMHCSRUORR1706-32-89 01:25:0022[facility] [place] JIXSNITDBB1232-24-18 01:25:001.09[facility] DqdoxdnMLQJKCXJYX1935 01:25:00 141.0[facility] NpmlrquGSJMGOUDUD0479-84-21 01:25:005.0[facility] 2016-06-06 01:25:0016[facility] RtyabpfOZHHUWCVLY4347-26-77 01:25:00Reported (06/05/2016 19:25:00)[facility] EzaalqdJJUBCUHJJW9314-03-41 01:25:0035[facility] JjwgpqdSMGJXYMQBH3226-86-07 01:25:0025[facility] UzkdbemTFQUJHLQMW2969-53-02 01:25:001.1[facility] SgbtdgmPGPYHSLBRS4144-32-06 01:25:74075Gbnawabp [place] BCARUWEXDV8090-47-75 01:25:0011.9[facility] KplhxldDGAMWOWMIC5667-16-72 01:25:0088 [facility] YeaywoaEMIVXTQNQE7749-79-01 12:37:00Reported (06/05/2016 06:37:00) [facility] GazoqqpPOTWZWMQCQ6448-46-92 12:37:006.1[facility] 2016-06-05 12:37:000.0[facility] RxkadnmVHCIGMCHSL0980-37-74 12:37:0011.2[facility] HebcfziIOPWUIBCYE4943-46-42 12:37:0011.6[facility] CcfsshnFSAXMJRMGO3994-22-68 12:37:000.9[facility] CdchmjzZKMHUMMQKX8875-04-26 12:37:001.6[facility] [place] PRCNPKHNJM6586-60-35 12:37:000.2[facility] BtyiciqTGEFQYWBDO3629-16-46 12:37:000.0 [facility] BllzxgyQNOEZFPWFC8276-39-17 12:37:000.0[facility] 2016-06-05 12:37:0082.5[facility] VdtnjqpTBEFJPRAXR1011-07-67 12:37:00Reported (06/05/2016 06:37:00)[facility] IgdxrlaVDQNRYDGYX5799-20-76 12:37:0044[facility] KnbfxtxTGPPGLHDIN9774-58-53 12:37:008.1[facility] AievodsUPFFBNXPEL2597-68-43 12:37:0013.3[facility] ZfpzepaUSHRTIILSJ3256-89-76 12:37:0027[facility] [place] YIMIHNSLOE6988-19-98 12:37:01189Ttmvpscu SzqzhntHYUXBQTPVF2540-05-08 12:37:005.3 [facility] JqhboqtRCQIWEHIGV1526-47-56 12:37:64324Zjzggkbq HermannLABORATORY 2016-06-05 12:37:42339Pevchyff NmjihtcERJIUKAUQZ5384-55-79 12:37:001.16[facility] SbeoyhhBTBHEVLYPO9685-71-96 12:37:0024[facility] LikidbzRUGLZQUWRC8567-22-37 12:37:0014.1[facility] BeokovaWDARHCOTDM5095-35-09 12:37:003.85[facility] [place] WTKTVVUPTA8488-74-54 12:37:0034.7[facility] MrcajciMLGVZTASXM5111-13-04 12:37:00 11.1[facility] CzorwqcSLZYDZLCQV8790-25-88 12:37:0090.1[facility] 2016-06-05 12:37:0032.0[facility] WqzfvyiNNJRCPRHNM4638-74-27 12:37:0015.2[facility] IaiskbuDDBUAXYDEI0449-21-56 12:37:00 Test Item Value Reference Range Interpretation Comments MCH (test code = MCH) 28.8 pg 27.0-31.0 [facility] VrhqttpTFSVJMOBKQ8666-63-16 12:37:009.7[facility] 2016-06-05 12:37:29442Aatwphvg XiytebmPUJIRHELFW6650-92-18 12:37:00Reported (06/05/2016 06:37:00)[facility] HermannCHEM KXGUV6558-71-80 10:42:0068[facility] HermannCHEM QALPH7346-58-25 10:42:000.82[facility] HermannCHEM XLJUO0019-28-78 10:42:008.4[facility] HermannCHEM GOJGF8547-85-81 10:42:0021[facility] HermannCHEM DBKRT0670-23-51 10:42:14065Kefhtsai HermannCHEM YHXEE3192-35-50 10:42:004.4 [facility] HermannCHEM ELUIX1564-38-82 10:42:87615Pkekbfev HermannCHEM PANEL 2015-10-30 10:42:17449Xeydcpwd HermannCHEM MOTSJ9406-80-94 10:42:009[facility] HermannCHEM RUUFO5681-91-35 10:42:0013.4[facility] QhzgzldSPNJKSIYNG2642-80-34 10:42:0092.9[facility] HtspapdXINEAVDJZP4058-76-43 10:42:00 Test Item Value Reference Range Interpretation Comments MCH (test code = MCH) 30.1 pg 27.0-31.0 [facility] WcgkohzIDQXBHSZQE9792-92-96 10:42:0032.4[facility] HermannHEMATOLOGY 2015-10-30 10:42:0014.1[facility] VimlualCHLQFGRVLP7818-77-48 10:42:008.4[facility] DgcxqwkMWRXOPKLSR0258-29-30 10:42:24591Saibxakx QjpnksaQINLSRRCZB2186-19-16 10:42:0010.8[facility] MartmdlROFROUCTTH3931-50-68 10:42:003.01[facility] [place] JHHULUPJWC8456-63-26 10:42:009.1[facility] JxqmiuoPGDJDZSFBX0604-97-06 10:42:00 28.0[facility] VcblajlYYODWZEBDS6805-10-15 10:42:000.1[facility] HermannHEMATOLOGY 2015-10-30 10:42:001.1[facility] YfbesosBFIYCVEQXW9026-11-73 10:42:000.0[facility] RonfbfeHARYEKHZLF8093-73-35 10:42:000.6[facility] RjvxfggQLLZBASLSH8366-95-44 10:42:001.0[facility] YrqnkbxLINUJFMNOX1689-16-09 10:42:008.6[facility] NWMRTJYNST5435-48-97 10:42:000.0[facility] PzrhswwDLKJHDXXDQ4321-26-27 10:42:00 79.8[facility] UijanxeAFUYENUIDB9302-70-65 10:42:009.1[facility] HermannHEMATOLOGY 2015-10-30 10:42:0010.5[facility] HermannSPECIAL HGWZZKDAK0799-55-62 10:42:005.5 [facility] JyfosywDKUJVEHLOKDG3006-88-07 10:13:0012.4[facility] HermannELECTROLYTES 2015-10-29 10:13:009[facility] PnqxykvTETSERTSOJSW0720-78-41 10:13:96884Nhyuoskh EubcrtyEGWJOJMPSMWO1615-74-12 10:13:000.82[facility] WlzurboKFHVBXBYKYGW6227-04-06 10:13:004.4[facility] CadptrnEKLYUWGGMXJT8748-05-51 10:13:07946Tylrbroj [place] TOYWNCDRNAUB8405-84-62 10:13:0022[facility] BpzxoelQGEJDTYMEIUJ5030-43-16 10:13:00 112[facility] DpzqlcwYAIPPDTGMMIQ7824-00-84 10:13:008.4[facility] [place] BTCWJAFBIYKD7042-01-95 10:13:0067[facility] OegvnuuQOFBPHOBXH8506-64-19 10:13:00 32.0[facility] PanbpxtAPCSNMQSMC4763-73-17 10:13:00 Test Item Value Reference Range Interpretation Comments MCH (test code = MCH) 29.6 pg 27.0-31.0 [facility] TalslunPNBUBBWUPO4009-15-81 10:13:81447Acbqdjkt HermannHEMATOLOGY 2015-10-29 10:13:007.4[facility] UhzifiyWHDZYZTWBE7310-96-57 10:13:0014.1[facility] ThslmrlOULHDMKJAR0166-31-11 10:13:0092.6[facility] RuqtixqHFKCXMZCYF5718-47-08 10:13:0028.9[facility] RmaffteXCTTBBALYT0927-87-08 10:13:009.2[facility] [place] JODSUVUGYY3483-14-12 10:13:003.12[facility] PqoylonPXNXTBOMYI2036-97-00 10:13:00 12.8[facility] KzaxmerQKOHIPLSEM6848-35-64 10:13:000.0[facility] HermannHEMATOLOGY 2015-10-29 10:13:0010.1[facility] ZbbunwjEGKGLYEWTQ5375-70-30 10:13:001.2[facility] QskquuoNJQUFXBYLV2345-26-16 10:13:000.1[facility] LymskxlCMEEOBNTQV4163-32-06 10:13:001.4[facility] JhvacnfAYJDHPJTAS6089-42-18 10:13:000.0[facility] [place] ZNSHPWEBQS3332-24-69 10:13:0011.3[facility] NaynhwbRGWEOGSHNV9740-33-21 10:13:00 0.0[facility] YmwjwucMIGPZCWQCY5354-47-84 10:13:0079.3[facility]annHEMATOLOGY 2015-10-29 10:13:009.3[facility] SuxohqsTYKBFILFFOGI9467-62-05 10:11:0013.6 [facility] MgtrkdlHHSYRPPLWEYC4240-33-02 10:11:0070[facility]annELECTROLYTES 2015-10-28 10:11:000.80[facility] VpodwesUHPIWCUCMCRM8230-11-19 10:11:15017 [facility] IfgstieRKAYXLDCRJVG3888-63-76 10:11:008.2[facility]annELECTROLYTES 2015-10-28 10:11:0020[facility] HfjviudHICJJVRCPOYS6472-05-48 10:11:17408Zufdulbv ZyqcqoxKFRHPWVWPFAQ2291-65-36 10:11:004.6[facility] UiijwxuONUTTCKWLFBJ9657-21-15 10:11:0010[facility] CkpwdniJZBZKOVNGFCD7978-96-90 10:11:60958Cufpwcgj [place] RHBVOBDSDQ5194-71-61 10:11:0010.7[facility] QzpzpaeLEWNMXCDOM1154-45-76 10:11:00 0.0[facility] XwvnchrFGVTKMLTNF0151-29-98 10:11:000.0[facility]annHEMATOLOGY 2015-10-28 10:11:001.2[facility] SnrvzgfNWXZLCQWSH5171-84-01 10:11:001.3[facility] VbkgwenWRYLRNRONI7643-04-41 10:11:000.2[facility] XpqhaizLAKNALHFNT5484-00-77 10:11:009.5[facility] CgmkwjuWCWUUPXFSD1343-21-95 10:11:0081.0[facility] WNACHXSNLB1187-98-12 10:11:000.0[facility] JdmgakmNJQPYUIPUT0836-18-86 10:11:009.3 [facility] IittucuAOYDVPRZCF0151-28-74 10:11:0092.8[facility]annHEMATOLOGY 2015-10-28 10:11:0028.2[facility] GyxoaqxDSPAPMIING4628-47-97 10:11:009.1[facility] IbzyqqsIZLMKJKHWC9426-08-41 10:11:0032.3[facility] GitvzovRLKZGVCLTN4552-05-07 10:11:0014.3[facility] PwhqgkyCZYVKQAPSA8208-63-63 10:11:00 Test Item Value Reference Range Interpretation Comments MCH (test code = MCH) 29.9 pg 27.0-31.0 [facility] UduxoygPZRWWUWRQG6130-29-55 10:11:45288Rphmqvjg HermannHEMATOLOGY 2015-10-28 10:11:007.5[facility] TlchvysSVGTFJTGJK9392-38-95 10:11:003.04[facility] CerxcklWSRBSTLNXR1519-35-65 10:11:0013.2[facility] LatvtfvRBPYLIFVJL1197-21-34 16:46:00Normal (10/26/15 11:46 AM)[facility] HwksawfBECZPHCKZQ0996-94-88 16:46:00 Normal (10/26/15 11:46 AM)[facility] YPFNL4607-96-73 05:50:00 Negative *NA*(10/26/15 12:50 AM)[facility] TZZOT3589-33-01 05:50:00 Negative (10/26/15 12:50 AM)[facility] PLYDG2815-47-38 05:50:000.2 [facility] ALPTH7457-46-52 05:50:00Negative (10/26/15 12:50 AM) [facility] SXKCA7450-85-04 05:50:00Negative (10/26/15 12:50 AM) [facility] GLRZP8620-67-71 05:50:00Yellow *NA*(10/26/15 12:50 AM) [facility] YSAEZ2219-37-74 05:50:00<=1.005 *NA*(10/26/15 12:50 AM)[facility] NCEFV3803-38-10 05:50:00Clear (10/26/15 12:50 AM) [facility] RVVMB4937-68-14 05:50:00 Test Item Value Reference Range Interpretation Comments UA pH (test code = UA pH) 6.0 1 5.0-8.0 [facility] NCEZL6090-00-44 05:50:00Negative (10/26/15 12:50 AM) [facility] HHNTH0147-74-54 05:50:00Negative *NA*(10/26/15 12:50 AM) [facility]annVIRAL - ZRPREDZJ6663-15-03 04:34:00Negative (10/25/15 11:34 PM) [facility]VIRAL - GICOCIMR4744-54-29 04:34:00Negative (10/25/15 11:34 PM) [facility]annCARDIAC CYGAGKD0266-90-78 04:13:0064[facility]annCARDIAC ZKTIQKF3581-82-45 04:13:00<0.02[facility]annCARDIAC OTMLAOO0356-98-50 04:13:00<0.5[facility]annCARDIAC UVJPYQD7087-25-98 04:13:00<0.8[facility] HermannCHEM GZAPR8828-72-07 04:13:000.43[facility]annCHEM TZGEK5933-91-67 04:13:001.2[facility]annCHEM YJPZP3053-47-75 04:13:000.7[facility]annCHEM FEALH4407-05-73 04:13:004.4[facility]annCHEM FHIKM5263-69-06 04:13:0012 [facility]annCHEM XYYNM7222-38-53 04:13:007.3[facility] HermannCHEM PANEL 2015-10-26 04:13:0078[facility] HermannCHEM ALGOY9310-06-26 04:13:002.9[facility] HermannCHEM GSGEI7959-18-79 04:13:0013[facility]annCHEM WFGYI0802-11-03 04:13:0024[facility] HermannCHEM AGJIK0346-22-71 04:13:000.5[facility] NJREXKFJRN3929-88-77 04:13:00 Test Item Value Reference Range Interpretation Comments PT (test code = PT) 15.4 s 12.0-14.7 [facility] QwrcczjDWXPRGMOYW2224-89-12 04:13:001.19[facility] HermannHEMATOLOGY 2015-10-26 04:13:00 Test Item Value Reference Range Interpretation Comments PTT (test code = PTT) 41.9 s 22.9-35.8 [facility] VfcrjcwETLHKUDDDK4207-81-44 04:13:00Normal (10/25/15 11:13 PM)[facility] DddxsfiDJKYDEBXPV5280-66-32 04:13:00Normal (10/25/15 11:13 PM)[facility] HermannCHEM UKOFQ9125-38-86 12:46:001.5[facility] HermannCHEM IPTWR1221-98-71 12:46:002.8 [facility] IzwoiixPDXKEDVODTRN6037-43-39 12:46:59120Cgbacuyx HermannELECTROLYTES 2013-12-17 12:46:0024[facility] ZrlerlvWIMNETPDSZSL3008-00-01 12:46:007.8[facility] FunifeuZVBQURSDFTRA6581-37-03 12:46:005.1[facility] KkcaxwjCXBZWXTAWKHN1058-70-30 12:46:002.7[facility] CvgakhaCBABQGXYJHUF7022-40-50 12:46:0095[facility] KKIEEPJBUDSB9007-40-07 12:46:0015[facility] VjwylzgZWPCBIKAUJTE8372-05-91 12:46:00 0.9[facility] NabtebvWJFDJKKGIVXP1622-66-87 12:46:63527Bzryflej [place] SBCVJYOKXLBN1929-09-04 12:46:004.1[facility] RletpssVTBRZTDEWXUF7124-91-84 12:46:0061[facility] EiqznpjZNNCDDGIBSOA9420-58-05 12:46:0011[facility] QRXRINNZYJOS8623-66-30 12:46:0010[facility] SbajbngPSYMZPISIECQ5623-43-35 12:46:00 48[facility] AmscyigDBIPCSLZWUGK0486-65-80 12:46:000.3[facility] HermannELECTROLYTES 2013-12-17 12:46:0014.1[facility] HcexlxrVLNDWJPODLNP2418-04-18 12:46:0017[facility] KdvlkhdZUKEVUNFTXFK7923-38-14 12:46:002.4[facility] WvwfxefBWUAGQSQXCBE4235-74-21 12:46:001.1[facility] GxfplapOXLDFLVWVS1019-93-61 12:46:001.1[facility] SFYNLYOOUU7320-56-20 12:46:000.5[facility] IemhiwvIFJZEQBACY0545-66-24 12:46:003.4 [facility] JfrquwuLGBOTCSPTB2055-50-06 12:46:0015.5[facility] HermannHEMATOLOGY 2013-12-17 12:46:0020.8[facility] XsktnhsYPMLEKCOCQ4300-75-89 12:46:000.7[facility] QwdjkogOWXCJEPVOY8544-50-93 12:46:000.0[facility] KkogvneMXLFDYCOYF8752-74-20 12:46:0062.5[facility] AokeuauDFBOKDQBWL7621-66-01 12:46:000.8[facility] HNETPOMEMW5535-52-39 12:46:000.0[facility] MvjzqxlNKQSWWXLVS4834-90-34 12:46:00 91.6[facility] McegxtdWQYDZXCJRF0099-10-94 12:46:00 Test Item Value Reference Range Interpretation Comments MCH (test code = MCH) 31.2 pg 27.0-31.0 [facility] FfbjedqSVLHYTJUUY6577-77-20 12:46:003.15[facility] HermannHEMATOLOGY 2013-12-17 12:46:009.8[facility] TwztsfrNVPKZKTORQ8053-58-45 12:46:0028.9[facility] BgkvmoiQHSAPQKOPP5931-00-12 12:46:008.2[facility] OejdcqqCNLCCVTREV0919-66-63 12:46:35943Cklokhmq JkenihnYJPNKMGIDS9018-50-17 12:46:005.4[facility] PQHQDXKDLR7181-50-12 12:46:0014.3[facility] RacdzxmKBDUPNFQOG3687-20-52 12:46:00 34.0[facility]annURINE AND WLOOY7158-20-27 06:36:00Negative (12/17/13 1:36 AM) [facility] WQCVS8400-73-38 06:36:00Trace *ABN*(12/17/13 1:36 AM) [facility] NCWPT3612-50-12 06:36:002[facility] AND NZLUG4571-55-43 06:36:00Negative (12/17/13 1:36 AM)[facility] QEMHH0664-62-65 06:36:009[facility] XLYVP1020-33-42 06:36:00 Yellow *NA*(12/17/13 1:36 AM)[facility] YYIPU3626-63-54 06:36:00 Clear (12/17/13 1:36 AM)[facility] ASQVW3284-43-30 06:36:001.018 [facility] EBGMW6734-24-17 06:36:005.0[facility] EFNEP3418-49-49 06:36:00Negative *NA*(12/17/13 1:36 AM)[facility] HermannCARDIAC HPZCDYH2265-38-11 03:42:002.3[facility] HermannCARDIAC BDIDQGI5046-54-46 03:42:00 13[facility] HermannCARDIAC VLQYXVC9450-34-03 03:42:001.1[facility] HermannCARDIAC ZKYHIVZ5379-29-85 03:42:0048[facility] HermannCARDIAC HYYWNNL7693-35-11 03:42:00 <0.02[facility] HermannCHEM AEICO7528-95-66 03:42:002.8[facility] HermannCHEM ANATX9442-57-98 03:42:0061[facility] HermannCHEM IXDJZ4559-36-36 03:42:0012.8 [facility]annCHEM ZPNZY3500-85-60 03:42:0053[facility] HermannCHEM PANEL 2013-12-17 03:42:000.3[facility] HermannCHEM SFGTE2075-35-84 03:42:0021[facility] HermannCHEM CLOKR7822-22-49 03:42:0011[facility] HermannCHEM FFHUG8586-85-41 03:42:0015[facility] HermannCHEM DACCA9028-10-36 03:42:003.1[facility] HermannCHEM WWICA8807-81-04 03:42:003.8[facility] HermannCHEM DGZLW1603-66-29 03:42:001.0 [facility]annCHEM WCWVD9199-12-21 03:42:46309Fyztxdsf HermannCHEM PANEL 2013-12-17 03:42:006.2[facility] HermannCHEM LUZGT1320-36-58 03:42:0019[facility] HermannCHEM UBYIN1210-86-16 03:42:000.9[facility] HermannCHEM UVQIC7767-71-49 03:42:008.3[facility] HermannCHEM UHUWC8839-84-82 03:42:0026[facility]annCHEM ZLTYS0497-96-98 03:42:91797Sodggyto HermannCHEM VRNTF7170-66-32 03:42:003.1 [facility]annCHEM WMPPE0085-66-55 03:42:10050Hlckeuyy HermannCHEM PANEL 2013-12-17 03:42:001.5[facility] KlentqxQLAYNZGCQO4307-27-32 03:42:000.0[facility] RyhfkepAHHNQZZCLM1533-48-49 03:42:0081.4[facility] SlxhxxpSKRQYLICCG9374-33-21 03:42:000.3[facility] VzckwquDWXOVHURTX2975-76-54 03:42:009.6[facility] EMQUAFUFWC6158-11-67 03:42:008.3[facility] DlmrrwzXBBGLBTNPB8945-62-44 03:42:000.6 [facility] BcrpyhcYUOKZHUINX3411-59-38 03:42:000.0[facility] HermannHEMATOLOGY 2013-12-17 03:42:000.7[facility] EcpvesnAINKDNSDUE9235-66-92 03:42:005.8[facility] FviykbyIQNDGXCIIJ5987-75-54 03:42:000.4[facility] AfqvztkXQPOOCDCUT2805-66-17 03:42:007.1[facility] XjiwdfrYICPMQPJXS4256-54-01 03:42:003.51[facility] HHHTBFZGKG9451-58-58 03:42:0010.9[facility] CevnqutASUMGDBHOR4207-83-72 03:42:00 31.7[facility] TzytxvwJFRDATWUDB2073-53-60 03:42:0090.4[facility] HermannHEMATOLOGY 2013-12-17 03:42:00 Test Item Value Reference Range Interpretation Comments MCH (test code = MCH) 31.1 pg 27.0-31.0 [facility] MgvebqeRWPAURIVDC6882-61-33 03:42:0034.4[facility] HermannHEMATOLOGY 2013-12-17 03:42:0013.8[facility] PqjlnicQOGTUAYHSV1371-50-06 03:42:40133Xstfcvjm QmbzzswHLZAGYCZZY9532-64-38 03:42:008.3[facility] WvsbvvzTFSMBXUZOY8808-63-80 03:42:000.99[facility]cazxdiWBICINLFLQ9759-27-02 03:42:00 Test Item Value Reference Range Interpretation Comments PT (test code = PT) 13.0 s 12.0-14.7 [facility]TESWEHDBMZ6874-74-38 03:42:00 Test Item Value Reference Range Interpretation Comments PTT (test code = PTT) 28.4 s 22.9-35.8 [facility]
[2021-02-09 13:45] LABS: Absolute Lymphocytes (CBC) 1.1 K/uL (0.7-4.9); Basophils % 0.3 % (0-1.3); Hematocrit 38.4 % (36.0-45.0); Lymphocytes % 11.6 % (15.3-44.8); MPV 9.3 fL (7.6-11.3); RBC Red Blood Cell Count 4.24 M/uL (3.86-4.86)
[2021-02-09 14:29] LABS: Protime INR 0.95
[2021-02-09] MEDS ORDERED: LEVALBUTEROL 1.25 MG/3 ML NEB ONE (14:44)
[2021-02-09] MEDS ORDERED: METHYLPREDNISOLONE 125 MG INJ ONE (14:44)
--- NOTE | 2021-02-09 15:04 | RAD REPORT ---
EXAM DESCRIPTION: Sivan Single View02/09/2021 2:01 pm CLINICAL HISTORY: Shortness of breath COMPARISON: October 2020 FINDINGS: The lungs are moderately hyperaerated. Mild chronic appearing interstitial lung opacities. The lungs appear clear of acute infiltrate. The heart is normal size IMPRESSION: No acute abnormalities displayed
--- NOTE | 2021-02-09 16:50 | EDPHYS ---
Physician Documentation [facility] Name: Therese Siu Age: 85 yrs Sex: Female : 1935 Arrival Date: 02/09/2021 Time: 10:38 Bed 23 Private MD: Nanci Gilman ED Physician HPI: 02/09 13:22 This 85 yrs old Female presents to ER via Ambulatory with complaints of Sore jmm Throat, Shortness Of Breath. 13:22 The patient has shortness of breath with light activity. Onset: The symptoms/episode jmm began/occurred gradually, today. The patient's shortness of breath is aggravated by nothing, is alleviated by nothing. This is an 85-year-old female with history of emphysema, hypertension, asthma the presents emerged part with complaints of shortness of breath beginning earlier today. Patient denies fever, denies chest pain, denies vomiting.. Historical: - Allergies: 11:11 Benadryl; hb 11:11 Codeine; hb - Home Meds: 11:11 albuterol sulfate 90 mcg/actuation Inhl HFAA 1 puff every 4-6 hours [Active]; albuterol hb sulfate 1.25 mg/3 mL Inhl nebu 3 mL 4 times per day [Active]; lisinopril 5 mg Oral tab 1 tab once daily [Active]; Prilosec 40 mg Oral cpDR 1 cap once daily [Active]; - PMHx: 11:11 Asthma; Emphysema; Hypertension; hb - Immunization history:: Flu vaccine is up to date. - Social history:: Smoking status: Patient denies any tobacco usage or history of. ROS: 13:22 Constitutional: Negative for fever, chills, and weight loss, Cardiovascular: Negative jmm for chest pain, palpitations, and edema. 13:22 Constitutional: 13:22 Constitutional: 13:22 Respiratory: Positive for cough, shortness of breath. 13:22 All other systems are negative. Exam: 13:22 Constitutional: This is a well developed, well nourished patient who is awake, alert, jmm and in no acute distress. Head/Face: atraumatic. Eyes: EOMI, no conjunctival erythema appreciated ENT: Moist Mucus Membranes Neck: Trachea midline, Supple Chest/axilla: Normal chest wall appearance and motion. Cardiovascular: Regular rate and rhythm. No edema appreciated Respiratory: Normal respirations, no respiratory distress appreciated Abdomen/GI: Non distended, soft Back: Normal ROM Skin: General appearance color normal MS/ Extremity: Moves all extremities, no obvious deformities appreciated, no edema noted to the lower extremities Neuro: Awake and alert, normal gait Psych: Behavior is normal, Mood is normal, Patient is cooperative and pleasant Vital Signs: 11:10 BP 171 / 103; Pulse 75; Resp 20; Temp 97.5; Pulse Ox 95% on R/A; Pain 3/10; hb 13:06 BP 161 / 73; Pulse 69; Resp 17; Temp 97.6(O); Pulse Ox 90% on R/A; mh5 15:00 BP 166 / 68; Pulse 100; Resp 19; Pulse Ox 97% on 2 lpm NC; tr6 16:00 BP 203 / 88; Pulse 93; Resp 18; Pulse Ox 93% on 2 lpm NC; tr6 17:00 BP 186 / 83; Pulse 63; Resp 18; Pulse Ox 93% on 2 lpm NC; tr6 MDM: 13:22 Patient medically screened. [facility] 16:49 Data reviewed: vital signs, nurses notes. Counseling: I had a detailed discussion with felicita the patient and/or guardian regarding: the historical points, exam findings, and any diagnostic results supporting the discharge/admit diagnosis, radiology results, the need for further work-up and treatment in the hospital. ED course: I discussed the patient with Dr. Ewing whom accepted the patient for admission. . 02/09 13:23 Order name: Basic Metabolic Panel [facility] 02/09 13:23 Order name: CBC with Diff [facility] 02/09 13:23 Order name: LFT's [facility] 02/09 13:23 Order name: Magnesium [facility] 02/09 13:23 Order name: NT PRO-BNP [facility] 02/09 13:23 Order name: PT-INR [facility] 02/09 13:23 Order name: Troponin (emerg Dept Use Only) [facility] 02/09 13:23 Order name: Basic Metabolic Panel [facility] 02/09 13:23 Order name: CBC with Automated Diff; Complete Time: 14:02 [facility] 02/09 13:23 Order name: Liver (Hepatic) Function [facility] 02/09 13:23 Order name: Magnesium [facility] 02/09 13:23 Order name: NT PRO-BNP [facility] 02/09 13:23 Order name: Protime (+INR); Complete Time: 15:06 [facility] 02/09 16:35 Order name: Ferritin [facility] 02/09 16:35 Order name: Procalcitonin [facility] 02/09 16:35 Order name: Lactate [facility] 02/09 16:35 Order name: CRP [facility] 02/09 16:36 Order name: Ferritin [facility] 02/09 16:36 Order name: Procalcitonin [facility] 02/09 16:36 Order name: Lactate [facility] 02/09 16:54 Order name: Flu [facility] 02/09 16:55 Order name: Influenza Screen (A [facility] 02/09 17:04 Order name: Basic Metabolic Panel [facility] 02/09 17:04 Order name: Basic Metabolic Panel [facility] 02/09 17:04 Order name: Magnesium [facility] 02/09 17:04 Order name: Magnesium [facility] 02/09 17:04 Order name: T4 Free [facility] 02/09 17:04 Order name: T4 Free [facility] 02/09 17:04 Order name: Thyroid Stimulating Hormone [facility] 02/09 13:23 Order name: XRAY Chest (1 view); Complete Time: 15:06 [facility] 02/09 13:23 Order name: EKG; Complete Time: 13:24 [facility] 02/09 13:23 Order name: Cardiac monitoring; Complete Time: 13:37 [facility] 02/09 13:23 Order name: EKG - Nurse/Tech; Complete Time: 13:37 [facility] 02/09 13:23 Order name: IV Saline Lock; Complete Time: 13:37 [facility] 02/09 13:23 Order name: Labs collected and sent; Complete Time: 13:37 [facility] 02/09 13:23 Order name: O2 Per Protocol; Complete Time: 13:38 [facility] 02/09 13:23 Order name: O2 Sat Monitoring; Complete Time: 13:38 [facility] 02/09 13:58 Order name: Labs - recollect needed: recollect all please; Complete Time: 14:19 [facility] 02/09 17:04 Order name: Social Service Consult; Complete Time: 02:12 [facility] 02/09 17:04 Order name: Heart Healthy; Complete Time: 02:12 [facility] 02/09 17:04 Order name: Thyroid Stimulating Hormone [facility] 02/09 17:05 Order name: CBC with Automated Diff [facility] 02/09 17:05 Order name: CBC with Automated Diff [facility] 02/09 17:06 Order name: Respiratory Therapy Consult; Complete Time: 02:11 [facility] 02/09 17:06 Order name: Patient Safety Orders; Complete Time: 02:11 [facility] 02/09 17:06 Order name: Urinalysis [facility] 02/10 02:50 Order name: Urine Microscopic Only [facility] 02/10 08:49 Order name: C-Reactive Protein [facility] 02/10 08:49 Order name: Ferritin EDMS Administered Medications: 14:28 Drug: Xopenex (levalbuterol) (3) 1.25 mg Route: Inhalation; tr6 14:56 Follow up: Response: No adverse reaction tr6 14:28 Drug: SOLU-Medrol (methylPrednisoLONE) 125 mg Route: IVP; Site: left antecubital; tr6 14:56 Follow up: Response: No adverse reaction tr6 Disposition Summary: 02/09/21 16:50 Hospitalization Ordered Hospitalization Status: Observation [facility] Provider: Marcos Ewing Condition: Stable jm Problem: an acute exacerbation jm Symptoms: are unchanged [facility] Bed/Room Type: Standard [facility] Location: [facility] ER HOLD(02/10/21 01:54) Room Assignment: ERHOLD-(02/10/21 01:54) cg Diagnosis - Acute upper respiratory infection, unspecified jmm - Hypoxia [facility] Forms: - Medication Reconciliation Form jm - SBAR form [facility] Addendum: 02/12/2021 06:56 Co-signature as Attending Physician, Priom Massey MD I agree with the assessment and c pinon plan of care. Signatures: Dispatcher [employer] Primo Naqvi MD MD cha Mickail, Joel, PA PA Ronaldo Braxton em1 Elizabeth Rodriguez RN RN ss Garcia, Cindy, RN RN Rasheeda Adler RN RN hb Ramnanan, Tiffany, RN RN tr6 Corrections: (The following items were deleted from the chart) 02/09 13:55 13:23 CORONAVIRUS+MR.LAB.BRZ ordered. EDRI EDRI 17:07 16:37 Chest For PE Angio+CT.RAD.BRZ ordered. EDRI EDRI 17:33 16:50 [facility] 02/10 01:54 02/09 16:50 Telemetry/MedSurg (observation) [facility] 02/10 01:54 02/09 17:[address] [place] [address]
--- NOTE | 2021-02-09 16:50 | ER ---
Nurse's Notes [facility] Name: Therese Siu Age: 85 yrs Sex: Female : 1935 Arrival Date: 02/09/2021 Time: 10:38 Bed 23 Private MD: Nanci Gilman Diagnosis: Acute upper respiratory infection, unspecified;Hypoxia Presentation: 02/09 11:10 Chief complaint: SOB, headache, sore throat, and sinus pressure x 2 days. SpO2 90% when hb talking in triage, 95% at rest. Coronavirus screen: Client presents with at least one sign or symptom that may indicate coronavirus-19. Standard/surgical mask placed on the client. Provider contacted for isolation considerations. Ebola Screen: No symptoms or risks identified at this time. Initial Sepsis Screen: Does the patient meet any 2 criteria? No. Patient's initial sepsis screen is negative. Does the patient have a suspected source of infection? No. Patient's initial sepsis screen is negative. Risk Assessment: Do you want to hurt yourself or someone else? Patient reports no desire to harm self or others. Onset of symptoms was February 08, 2021. 11:10 Method Of Arrival: Ambulatory hb 11:10 Acuity: KOBI 3 hb Historical: - Allergies: 11:11 Benadryl; hb 11:11 Codeine; hb - Home Meds: 11:11 albuterol sulfate 90 mcg/actuation Inhl HFAA 1 puff every 4-6 hours [Active]; albuterol hb sulfate 1.25 mg/3 mL Inhl nebu 3 mL 4 times per day [Active]; lisinopril 5 mg Oral tab 1 tab once daily [Active]; Prilosec 40 mg Oral cpDR 1 cap once daily [Active]; - PMHx: 11:11 Asthma; Emphysema; Hypertension; hb - Immunization history:: Flu vaccine is up to date. - Social history:: Smoking status: Patient denies any tobacco usage or history of. Screenin:57 Abuse screen: Denies threats or abuse. Denies injuries from another. Nutritional tr6 screening: No deficits noted. Tuberculosis screening: No symptoms or risk factors identified. Fall Risk None identified. Assessment: 12:56 General: Appears in no apparent distress. comfortable, Behavior is calm, cooperative, tr6 appropriate for age. Pain: Complains of pain in right side of throat and right ear. Neuro: No deficits noted. Cardiovascular: No deficits noted. Cardiovascular: Rhythm is regular. Respiratory: Airway is patent Respiratory effort is even, unlabored, Breath sounds are diminished Parent/caregiver reports the patient having shortness of breath at rest. GI: No deficits noted. : No deficits noted. EENT: No deficits noted. Derm: No deficits noted. Musculoskeletal: No deficits noted. 16:20 Reassessment: pt OOB to bedside commode, pt reports that she feels SOB. O2 on 2L NC tr6 dropped to 83. FORTINO Renee informed. 18:18 Reassessment: report given to Mellissa SYKES. tr6 Vital Signs: 11:10 BP 171 / 103; Pulse 75; Resp 20; Temp 97.5; Pulse Ox 95% on R/A; Pain 3/10; hb 13:06 BP 161 / 73; Pulse 69; Resp 17; Temp 97.6(O); Pulse Ox 90% on R/A; mh5 15:00 BP 166 / 68; Pulse 100; Resp 19; Pulse Ox 97% on 2 lpm NC; tr6 16:00 BP 203 / 88; Pulse 93; Resp 18; Pulse Ox 93% on 2 lpm NC; tr6 17:00 BP 186 / 83; Pulse 63; Resp 18; Pulse Ox 93% on 2 lpm NC; tr6 ED Course: 10:38 Patient arrived in ED. ds1 10:39 Nanic Gilman MD is Private Physician. ds1 11:11 Triage completed. hb 11:11 Arm band placed on. hb 12:47 Tracey Rosen, RN is Primary Nurse. tr6 12:57 Patient has correct armband on for positive identification. Bed in low position. Call tr6 light in reach. Side rails up X 1. Pulse ox on. NIBP on. Door closed. Noise minimized. Visitors limited. Lights dimmed. Moved to private room. Warm blanket given. 12:57 No provider procedures requiring assistance completed. tr6 13:05 Franki Renee PA is PHCP. [facility] 13:05 Primo Massey MD is Attending Physician. [facility] 13:36 Magnesium Sent. 5 13:36 NT PRO-BNP Sent. 5 13:36 Protime (+INR) Sent. mh5 13:36 CBC with Automated Diff Sent. 5 13:36 Liver (Hepatic) Function Sent. 5 13:36 Basic Metabolic Panel Sent. 5 13:36 Basic Metabolic Panel Sent. 5 13:36 CBC with Diff Sent. 5 13:36 LFT's Sent. [facility] 13:36 Magnesium Sent. [facility] 13:38 Troponin (emerg Dept Use Only) Sent. [facility] 13:38 Initial lab(s) drawn, by mt, sent to lab. EKG done, COVID swab sent to lab. Inserted [facility] saline lock: 20 gauge in right antecubital area, using aseptic technique. Blood collected. 13:39 NT PRO-BNP Sent. 5 13:39 PT-INR Sent. 5 14:01 XRAY Chest (1 view) In Process Unspecified. EDMS 14:19 IV discontinued, intact, bleeding controlled, No redness/swelling at site. Pressure tr6 dressing applied. 14:19 Inserted saline lock: 20 gauge in left antecubital area, using aseptic technique. Blood tr6 collected. 16:49 Marcos Ewing DO is Hospitalizing Provider. [facility] 02/10 01:44 Attending Physician role handed off by Primo Massey MD bb 01:44 PHCP role handed off by Franki Renee PA bb 01:44 Primary Nurse role handed off by Tracey Rosen, RN bb 02:11 Lana Guadalupe, RN is Primary Nurse. bs2 02:11 CBC with Automated Diff Sent. bs2 02:11 CBC with Automated Diff Sent. bs2 02:11 T4 Free Sent. bs2 02:11 T4 Free Sent. bs2 02:11 Thyroid Stimulating Hormone Sent. bs2 02:11 Thyroid Stimulating Hormone Sent. bs2 02:12 Basic Metabolic Panel Sent. bs2 02:12 Basic Metabolic Panel Sent. bs2 02:12 Magnesium Sent. bs2 02:12 Magnesium Sent. bs2 02:12 Flu Sent. bs2 02:12 Lactate Sent. bs2 02:12 Procalcitonin Sent. bs2 02:12 Ferritin Sent. bs2 02:13 Urinalysis Sent. bs2 Administered Medications: 02/09 14:28 Drug: Xopenex (levalbuterol) (3) 1.25 mg Route: Inhalation; tr6 14:56 Follow up: Response: No adverse reaction tr6 14:28 Drug: SOLU-Medrol (methylPrednisoLONE) 125 mg Route: IVP; Site: left antecubital; tr6 14:56 Follow up: Response: No adverse reaction tr6 Outcome: 16:50 Decision to Hospitalize by Provider. liliana 17:37 Admitted to Med/surg via wheelchair, room 232, with oxygen. tr6 17:37 Condition: stable 17:37 Instructed on the need for admit. 18:36 Patient left the ED. tr6 02/10 14:26 Patient left the ED. iw Signatures: Dispatcher [employer] EDMS Franki Renee PA PA jmm Sanford, Demi ds1 Shadia Oliveros RN RN bb Stephanie Verde RN RN Rasheeda Adler, Therese Knight RN Tracey Amaya RN RN tr6 Lana Guadalupe RN RN bs2 Corrections: (The following items were deleted from the chart) 02/09 13:55 13:36 CORONAVIRUS+MR.LAB.KELLY drawn and sent. [address]
[2021-02-09] MEDS ORDERED: ACETAMINOPHEN 500 MG TAB PO PRN (16:59)
[2021-02-09] MEDS ORDERED: GABAPENTIN 100 MG CAP PO PRN (16:59)
[2021-02-09] MEDS ORDERED: ALBUTEROL 2.5 MG/3 ML NEB SOL NEB PRN (16:59)
[2021-02-09] MEDS ORDERED: IPRATROPIUM BROM 0.5MG/2.5ML NEB PRN (16:59)
[2021-02-09] MEDS ORDERED: HYDRALAZINE HCL 20 MG/ML VIAL IV PRN (16:59)
[2021-02-09] MEDS ORDERED: ONDANSETRON 4 MG/2 ML VIAL IV PRN (16:59)
--- NOTE | 2021-02-09 17:09 | P.HP ---
Certification for Inpatient Patient admitted to: Observation With expected LOS: <2 Midnights Patient will require the following post-hospital care: Other (Home oxygen) Practitioner: I am a practitioner with admitting privileges, knowledge of patient current condition, hospital course, and medical plan of care. Services: Services provided to patient in accordance with Admission requirements found in Title 42 Section 412.3 of the Code of Federal Regulations Patient History Date of Service: 02/09/21 Primary Care Provider: Patient from [place] Reason for admission: Shortness of breath History of Present Illness: 85-year-old female with history of COPD, hypertension and chronic pain. Patient is visiting family in the area. She reported increasing shortness of breath since yesterday. She was having difficulty breathing. She denies any fever, chills, nausea or vomiting. Slight cough noted. No sick family members noted. She is not vaccinated for Covid. No Covid exposure recently. Patient came to the ER for further evaluation. In the ER patient was evaluated. Patient was found to be hypoxic. CBC u nremarkable. BMP pending. Chest x-ray shows hyperinflated lungs. No evidence of pneumonia. Covid test, influenza tests pending. Patient admitted for further evaluation and observation. Allergies codeine Allergy (Mild, Verified 05/26/18 23:54) Itching diphenhydramine [From Benadryl] Allergy (Mild, Verified 05/26/18 23:54) Itching Home medications list reviewed: Yes Home Medications: Budesonide/Formoterol Fumarate [Symbicort 80-4.5 Mcg Inhaler] 2 puff IH BID 05/26/18 Ipratropium/Albuterol Sulfate [Iprat-Albut 0.5-3(2.5) mg/3 ml] 3 ml IH Q6H PRN 05/26/18 Pantoprazole [Protonix Tab*] 40 mg PO DAILY 05/26/18 lisinopriL [Prinivil*] 10 mg PO DAILY 05/26/18 Azithromycin Tab [Zithromax*] 250 mg PO BEDTIME #4 tab 05/29/18 - Past Medical/Surgical History Diabetic: No -: HTN -: COPD -: Chronic pain -: Hernia repair -: Cholecystectomy -: Partial colectomy Psychosocial/ Personal History: Patient lives in [place]. She is visiting in the area. - Family History Mother -: Other (see notes) Notes: anemia Brother -: Liver disease Sister -: Liver disease, Kidney disease - Social History Smoking Status: Former smoker Alcohol use: No CD- Drugs: No Caffeine use: Yes Place of Residence: Home Review of Systems General: Weakness, As per HPI Eyes: Unremarkable ENT: Unremarkable Respiratory: Shortness of Breath, SOB with Excertion, Wheezing, As per HPI Cardiovascular: Unremarkable Gastrointestinal: Unremarkable Genitourinary: Unremarkable Musculoskeletal: Unremarkable Integumentary: Unremarkable Neurological: Unremarkable Lymphatics: Unremarkable Physical Examination - Studies Laboratory Data (last 24 hrs) 02/09/21 14:13: PT 10.9, INR 0.95 02/09/21 13:35: WBC 9.20, Hgb 12.6, Hct 38.4, Plt Count 255 Assessment and Plan - Plan Chest x-ray: COMPARISON: October 2020 FINDINGS: The lungs are moderately hyperaerated. Mild chronic appearing interstitial lung opacities. The lungs appear clear of acute infiltrate. The heart is normal size IMPRESSION: No acute abnormalities displayed Physical Exam: GENERAL: The patient is a well-developed, well-nourished, in no apparent distress. Alert and oriented x3. VITAL SIGNS: Reviewed HEENT: Head is normocephalic and atraumatic. Extraocular muscles are intact. Pupils are equal, round, and reactive to light and accommodation. Nares appeared normal. Mouth is well hydrated and without lesions. Mucous membranes are moist. NECK: Supple. No carotid bruits. No lymphadenopathy or thyromegaly. LUNGS: Mild wheezing noted. Currently on 2 L per nasal cannula HEART: Regular rate and rhythm, no appreciable gallops, rubs, murmurs or extra heart sounds ABDOMEN: Soft, nontender, and nondistended. Positive bowel sounds. No hepatosplenomegaly was noted. EXTREMITIES: Without any cyanosis, clubbing, rash, lesions or peripheral edema. NEUROLOGIC: The patient is oriented to person, place and time. Strength and sensation are grossly intact. Face is symmetric. SKIN: Normal color, turgor and temperature. No ulcerations or rashes noted. Impression: Dyspnea secondary to COPD exacerbation with hypoxia Hypertension Chronic pain Plan: Dyspnea secondary to COPD exacerbation with hypoxia: Patient will be admitted for further evaluation and treatment. We will continue IV Solu-Medrol and COPD treatment. Currently on 2 L per nasal cannula. We will wean off. Will have respiratory evaluate for possible home oxygen at discharge. Will check for Covid, influenza. Anticipate possible discharge within the next 24 hours likely on home oxygen. Hypertension: Continue with lisinopril. Blood pressures were elevated. Will increase lisinopril to 20 mg 1 pill twice daily. Chronic pain: Continue gabapentin Code Status: Full Code DVT prophylaxis: Lovenox Advanced Care Planning-30 minutes: Anticipate home at final discharge with home oxygen. Discharge Plan: Home Plan to discharge in: 24 Hours - Advance Directives Does patient have a Living Will: Yes Does patient have a Durable POA for Healthcare: Yes - Code Status/Comfort Care Code Status Assessed: Yes (Patient is full code) Time Spent Managing Pts Care (In Minutes): 55
[2021-02-09] MEDS ORDERED: METHYLPREDNISOLONE 40 MG INJ IV SCH (18:00)
[2021-02-09] MEDS: ENOXAPARIN 40 MG/0.4 ML SQ SCH (19:51)
[2021-02-09 19:59] VITALS: BMI 20.6
[2021-02-09] MEDS: ARFORMOTEROL TARTRATE 15 MCG/2 ML VIAL.NEB NEB SCH (20:15)
[2021-02-09] MEDS: lisinopriL 20 MG TAB PO SCH (21:00)
[2021-02-09 22:12] LABS: C-Reactive Protein 55.3 mg/L (<3.00); Ferritin 246.5 ng/mL (8-388)
[2021-02-09] MEDS ORDERED: BENZONATATE 100 MG CAP PO PRN (23:09)
[2021-02-10 01:45] LABS: Urine Appearance CLEAR (Clear); Urine Bilirubin NEGATIVE (Negative); Urine Blood TRACE (Negative); Urine Color YELLOW (Yellow); Urine Glucose NEGATIVE (Negative); Urine Protein 3+ (Negative); Urine Specific Gravity 1.015 (1.005-1.030); Urine Urobilinogen 0.2 mg/dL (0.2-1.0)
[2021-02-10 02:21] LABS: Urine Microscopic Reflex ORDER UMIC
[2021-02-10 02:34] VITALS: TEMP 97.5
[2021-02-10 02:50] LABS: Urine Bacteria <20 /HPF (<20); Urine Mucus 1+ /HPF (NONE SEEN)
[2021-02-10 04:42] LABS: Absolute Lymphocytes (CBC) 0.6 K/uL (0.7-4.9); Basophils % 0.2 % (0-1.3); Hematocrit 36.9 % (36.0-45.0); Lymphocytes % 8.2 % (15.3-44.8); MPV 8.6 fL (7.6-11.3); RBC Red Blood Cell Count 4.13 M/uL (3.86-4.86)
--- NOTE | 2021-02-10 06:03 | P.PN ---
Subjective Date of Service: 02/10/21 Primary Care Provider: Patient from [place] Chief Complaint: Shortness of breath Subjective: Improving, Other (Stable on 2 L/min) Physical Examination - Vital Signs Temperature: 97.5 F Blood Pressure: 158/73 Pulse: 77 Respirations: 20 Pulse Ox (%): 98 - Studies Laboratory Data (last 24 hrs) 02/09/21 14:13: PT 10.9, INR 0.95 02/09/21 13:35: WBC 9.20, Hgb 12.6, Hct 38.4, Plt Count 255 Assessment & Plan Discharge Plan: Home Plan to discharge in: 24 Hours Physician Review Additional Text: COVID: Positive Influenza: Positive B Chest x-ray: COMPARISON: October 2020 FINDINGS: The lungs are moderately hyperaerated. Mild chronic appearing interstitial lung opacities. The lungs appear clear of acute infiltrate. The heart is normal size IMPRESSION: No acute abnormalities displayed Physical Exam: GENERAL: The patient is a well-developed, well-nourished, in no apparent distress. Alert and oriented x3. VITAL SIGNS: Reviewed HEENT: Head is normocephalic and atraumatic. Extraocular muscles are intact. Pupils are equal, round, and reactive to light and accommodation. Nares appeared normal. Mouth is well hydrated and without lesions. Mucous membranes are moist. NECK: Supple. No carotid bruits. No lymphadenopathy or thyromegaly. LUNGS: Mild wheezing noted. Currently on 2 L per nasal cannula HEART: Regular rate and rhythm, no appreciable gallops, rubs, murmurs or extra heart sounds ABDOMEN: Soft, nontender, and nondistended. Positive bowel sounds. No hepatosplenomegaly was noted. EXTREMITIES: Without any cyanosis, clubbing, rash, lesions or peripheral edema. NEUROLOGIC: The patient is oriented to person, place and time. Strength and sensation are grossly intact. Face is symmetric. SKIN: Normal color, turgor and temperature. No ulcerations or rashes noted. Impression: Dyspnea secondary to COPD exacerbation with hypoxia complicated with COVID 19 and Influenza B positive Hypertension Chronic pain Plan: Dyspnea secondary to COPD exacerbation with hypoxia complicated with COVID 19 and Influenza B Positive: Patient stable on oxygen. No distress noted. Will start Tamiflu and Ivermexctin. Continue IV Solu-Medrol, vitamin supplementation and COPD treatment. Currently on 2 L per nasal cannula. Will have respiratory evaluate for possible home oxygen at discharge. PT to evaluate. If stable with PT and this am, then will arrange DC home today with home oxygen. Hypertension: Continue with lisinopril. Blood pressures were elevated. Lisinopril increased to 20 1 pill twice daily for better control. Chronic pain: Continue gabapentin Code Status: Full Code DVT prophylaxis: Lovenox Advanced Care Planning-30 minutes: Anticipate home at final discharge with home oxygen. Discharge Plan: Home with home oxygen Plan to discharge in: 24 Hours Time Spent Managing Pts Care (In Minutes): 55
[2021-02-10] MEDS: ARFORMOTEROL TARTRATE 15 MCG/2 ML VIAL.NEB NEB SCH (08:00)
[2021-02-10 08:48] LABS: C-Reactive Protein 59.6 mg/L (<3.00); Ferritin 256.7 ng/mL (8-388); Magnesium 1.8 mg/dL (1.8-2.4); Thyroid Stimulating Hormone 0.301 uIU/mL (0.360-3.740)
[2021-02-10] MEDS ORDERED: IVERMECTIN 3 MG TABLET PO SCH (09:00)
[2021-02-10] MEDS ORDERED: OSELTAMIVIR PHOSPHATE 30 MG/5 ML SUSPENSION UD PO SCH (09:00)
[2021-02-10] MEDS: ASCORBIC ACID 500 MG TABLET PO SCH ×2 (09:00→13:00)
[2021-02-10] MEDS ORDERED: ZINC SULFATE 220 MG CAP PO SCH (09:00)
[2021-02-10] MEDS ORDERED: VITAMIN D 1000 UNIT TAB PO SCH (09:00)
[2021-02-10] MEDS: lisinopriL 20 MG TAB PO SCH (09:00)
[2021-02-10] MEDS ORDERED: ASPIRIN EC 81 MG TAB PO SCH (09:00)
[2021-02-10] MEDS ORDERED: FOLIC ACID 1 MG TABLET PO SCH (09:00)
[2021-02-10] MEDS ORDERED: THIAMINE HCL 100 MG TABLET PO SCH ×2 (09:00)
[2021-02-10] MEDS: ENOXAPARIN 40 MG/0.4 ML SQ SCH (09:00)
[2021-02-10] MEDS ORDERED: FAMOTIDINE 20 MG TAB PO SCH (09:00)
[2021-02-10] MEDS ORDERED: METHYLPREDNISOLONE 40 MG INJ IV SCH ×2 (09:00→14:00)
[2021-02-10] MEDS ORDERED: OSELTAMIVIR 75 MG CAP PO SCH ×2 (09:00→09:45)
[2021-02-10] MEDS ORDERED: ZINC SULFATE 220 MG CAP ONE (09:16)
[2021-02-10] MEDS ORDERED: VITAMIN D 1000 UNIT TAB ONE (09:17)
[2021-02-10] MEDS ORDERED: FOLIC ACID 1 MG TABLET ONE (09:17)
[2021-02-10] MEDS ORDERED: THIAMINE HCL 100 MG TABLET ONE (09:17)
[2021-02-10] MEDS ORDERED: ASPIRIN EC 81 MG TAB PO ONE (09:17)
[2021-02-10] MEDS ORDERED: ASCORBIC ACID 500 MG TABLET ONE (09:17)
[2021-02-10] MEDS ORDERED: METHYLPREDNISOLONE 40 MG INJ ONE (09:18)
[2021-02-10] MEDS ORDERED: FAMOTIDINE 20 MG TAB ONE (09:18)
[2021-02-10] MEDS ORDERED: ENOXAPARIN 40 MG/0.4 ML SQ ONE (09:18)
[2021-02-10] MEDS ORDERED: lisinopriL 20 MG TAB ONE (09:18)
[2021-02-10 10:32] VITALS: O2SAT 100
[2021-02-10] MEDS ORDERED: OSELTAMIVIR 75 MG CAP ONE (10:51)
[2021-02-10] MEDS ORDERED: HYDRALAZINE HCL 20 MG/ML VIAL ONE (10:52)
[2021-02-10] MEDS ORDERED: NIFEDIPINE XL 30 MG TABLET PO SCH ×2 (11:00→21:00)
[2021-02-10 11:27] LABS: Potassium 3.6
[2021-02-10 11:30] LABS: Bilirubin Total 0.4
[2021-02-10 11:31] LABS: Albumin 4.1; Protein, Total 7.4; Troponin (Emerg Dept Use Only) 0.008
[2021-02-10 11:33] LABS: Magnesium 1.7
--- NOTE | 2021-02-10 12:05 | P.DS ---
Admission Date: 02/09/21 Discharge Date: 02/10/21 Primary Care Provider: Dr. Gilman Disposition: ROUTINE DISCHARGE Discharge Condition: GOOD Reason for Admission: Shortness of breath Consultations: none Procedures: COVID: Positive Influenza: Positive B Chest x-ray: COMPARISON: October 2020 FINDINGS: The lungs are moderately hyperaerated. Mild chronic appearing interstitial lung opacities. The lungs appear clear of acute infiltrate. The heart is normal size IMPRESSION: No acute abnormalities displayed Physical Exam: GENERAL: The patient is a well-developed, well-nourished, in no apparent distress. Alert and oriented x3. VITAL SIGNS: Reviewed HEENT: Head is normocephalic and atraumatic. Extraocular muscles are intact. Pupils are equal, round, and reactive to light and accommodation. Nares appeared normal. Mouth is well hydrated and without lesions. Mucous membranes are moist. NECK: Supple. No carotid bruits. No lymphadenopathy or thyromegaly. LUNGS: Mild wheezing noted. Currently on 2 L per nasal cannula HEART: Regular rate and rhythm, no appreciable gallops, rubs, murmurs or extra heart sounds ABDOMEN: Soft, nontender, and nondistended. Positive bowel sounds. No hepatosplenomegaly was noted. EXTREMITIES: Without any cyanosis, clubbing, rash, lesions or peripheral edema. NEUROLOGIC: The patient is oriented to person, place and time. Strength and sensation are grossly intact. Face is symmetric. SKIN: Normal color, turgor and temperature. No ulcerations or rashes noted. Impression: Dyspnea secondary to COPD exacerbation with hypoxia complicated with COVID 19 and Influenza B positive Hypertension Diabetes mellitus type 2 GERD Chronic pain with neuropathy Brief History of Present Illness: 85-year-old female with history of COPD, hypertension and chronic pain. Patient is visiting family in the area. She reported increasing shortness of breath since yesterday. She was having difficulty breathing. She denies any fever, chills, nausea or vomiting. Slight cough noted. No sick family members noted. She is not vaccinated for Covid. No Covid exposure recently. Patient came to the ER for further evaluation. In the ER patient was evaluated. Patient was found to be hypoxic. CBC unremarkable. BMP pending. Chest x-ray shows hyperinflated lungs. No evidence of pneumonia. Covid test, influenza tests pending. Patient admitted for further evaluation and observation. Hospital Course: Patient presented with shortness of breath secondary to COPD exacerbation with hypoxia. This was complicated with findings of COVID-19 positive and influenza B positive. The patient was admitted for treatment. The patient received IV steroids, supplementation and COPD treatment. Patient also received medication for influenza. The patient has done well. No significant chest pain or shortness of breath at discharge. Patient remains on oxygen. At discharge the patient will continue with home oxygen. She is currently on 2 L per nasal ca nnula. Recommend to maintain oxygen saturations above 93%. This can be weaned off over the next 2 to 4 weeks with the help of her PCP or pulmonology. For influenza B, the patient will continue with Tamiflu 75 mg 1 pill twice daily for 5 days. For her COPD and Covid infection, the patient will continue with prednisone 10 mg 1 pill twice daily for 7 days and 1 pill once daily for 7 days. Tessalon Perles 100 mg 3 times a day as needed for cough will be provided. The patient will also continue with aspirin 81 mg daily. The patient will continue with Symbicort 2 puffs twice daily and ProAir 2 puffs 3 times a day as needed for shortness of breath. The patient will also continue with vitamin C 500 mg 3 times a day, vitamin D 2000 units daily, zinc 220 mg daily, and thiamine 100 mg daily. Patient will need to continue with proning, incentive spirometer at home, ambulation, social distancing, facemask use, and handwashing. Recommend to quarantine for at least 10 days. Recommend follow-up with PCP in 1 week to follow-up this hospitalization and continue her care. Education on Covid, COPD and influenza will be provided. Oxygen will be arranged prior to discharge. If symptoms worsen she is to come back to the hospital for further evaluation. Patient with hypertension. This appears stable. At discharge patient will continue with her current medications of lisinopril 20 mg daily and nifedipine ER 30 mg daily. Recommend to maintain blood pressure less than 130/80. If blood pressures remain above 140/90 further adjustment in her medication can be done with the help of her PCP. Recommend follow-up with her PCP within 1 week to further monitor and address. Patient with diabetes mellitus type 2. This appears well controlled. At discharge we will continue with metformin 500 mg daily. Recommend to maintain blood sugar less than 140 fasting and less than 200 after meals. If blood sugars remain above 200 she is to contact her PCP for further recommendation. Recommend follow-up with her PCP in 1 to 2 weeks to follow-up her care. Recommend to recheck labhemoglobin A1c every 3 months to monitor her care. Patient with GERD. At discharge she will continue with Protonix 20 mg daily. Patient with chronic pain with neuropathy. At discharge she will continue with gabapentin 300 mg 3 times a day as needed for pain. Further adjustment can be done by her PCP. Vital Signs/Physical Exam: Temp Pulse Resp BP Pulse Ox 97.5 F 109 H 20 188/107 H 98 02/10/21 06:39 02/10/21 09:00 02/10/21 06:39 02/10/21 09:00 02/10/21 06:39 General: Alert, In no apparent distress, Oriented x3, Cooperative HEENT: Atraumatic Neck: Supple Respiratory: Clear to auscultation bilaterally, Normal air movement Cardiovascular: Normal pulses, Regular rate/rhythm Gastrointestinal: Normal bowel sounds, No tenderness, No masses, No rebound, No guarding Musculoskeletal: No erythema, No tenderness, No warmth Integumentary: No tenderness/swelling, No erythema, No warmth, No cyanosis Neurological: Normal speech, Normal strength at 5/5 x4 extr, Normal tone, Normal affect Laboratory Data at Discharge: WBC 7.20 K/uL (4.3-10.9) D 02/10/21 04:31 Hgb 12.3 g/dL (12.0-15.0) 02/10/21 04:31 Hct 36.9 % (36.0-45.0) 02/10/21 04:31 Plt Count 230 K/uL (152-406) 02/10/21 04:31 PT 10.9 SECONDS (9.5-12.5) 02/09/21 14:13 INR 0.95 02/09/21 14:13 Sodium 144 mmol/L (136-145) 02/10/21 04:31 Potassium 4.0 mmol/L (3.5-5.1) 02/10/21 04:31 BUN 21 mg/dL (7-18) H 02/10/21 04:31 Creatinine 0.87 mg/dL (0.55-1.3) 02/10/21 04:31 Glucose 119 mg/dL (74-106) H 02/10/21 04:31 Magnesium 1.8 mg/dL (1.8-2.4) 02/10/21 04:31 Total Bilirubin 0.4 02/09/21 14:13 AST 69 02/09/21 14:13 ALT 21 02/09/21 14:13 Alkaline Phosphatase 50 02/09/21 14:13 Home Medications: Albuterol Inhaler [Ventolin Inhaler*] 2 puff IH Q6H PRN #1 hfa.aer.ad 02/10/21 Ascorbic Acid [Vitamin C*] 500 mg PO TID #90 tablet 02/10/21 Aspirin 81 mg PO DAILY 02/10/21 Atorvastatin Calcium [Lipitor] 40 mg PO BEDTIME 02/10/21 Benzonatate 100 mg PO DAILY PRN #10 02/10/21 Budesonide/Formoterol Fumarate [Symbicort 160-4.5 Mcg Inhaler] 2 puff IH BID #1 hfa.aer.ad 02/10/21 Cholecalciferol (Vitamin D3) [Vitamin D 1000 Iu Tab*] 2,000 unit PO DAILY #60 tab 02/10/21 Gabapentin 300 mg PO TIDP PRN 02/10/21 Metformin HCl [Glucophage*] 500 mg PO DAILY 02/10/21 Nifedipine [Nifedipine ER] 30 mg PO BEDTIME 02/10/21 Oseltamivir [Tamiflu*] 75 mg PO BID #10 cap 02/10/21 Pantoprazole [Protonix Tab*] 20 mg PO DAILY 02/10/21 Thiamine HCl [Vitamin B-1*] 100 mg PO DAILY #30 tablet 02/10/21 Zinc Sulfate [Zinc Sulfate*] 220 mg PO DAILY #30 cap 02/10/21 lisinopriL [Lisinopril] 20 mg PO DAILY 02/10/21 predniSONE [Deltasone*] 10 mg PO SEECOM #21 tab 02/10/21 New Medications: Benzonatate 100 mg PO DAILY PRN #10 PRN Reason: Cough predniSONE [Deltasone*] 10 mg PO SEECOM #21 tab Budesonide/Formoterol Fumarate [Symbicort 160-4.5 Mcg Inhaler] 2 puff IH BID #1 hfa.aer.ad Oseltamivir [Tamiflu*] 75 mg PO BID #10 cap Albuterol Inhaler [Ventolin Inhaler*] 2 puff IH Q6H PRN #1 hfa.aer.ad PRN Reason: Shortness Of Breath Thiamine HCl [Vitamin B-1*] 100 mg PO DAILY #30 tablet Ascorbic Acid [Vitamin C*] 500 mg PO TID #90 tablet Cholecalciferol (Vitamin D3) [Vitamin D 1000 Iu Tab*] 2,000 unit PO DAILY #60 tab Zinc Sulfate [Zinc Sulfate*] 220 mg PO DAILY #30 cap Physician Discharge Instructions: Patient presented with shortness of breath secondary to COPD exacerbation with hypoxia. This was complicated with findings of COVID-19 positive and influenza B positive. The patient was admitted for treatment. The patient received IV steroids, supplementation and COPD treatment. Patient also received medication for influenza. The patient has done well. No significant chest pain or shortness of breath at discharge. Patient remains on oxygen. At discharge the patient will continue with home oxygen. She is currently on 2 L per nasal cannula. Recommend to maintain oxygen saturations above 93%. This can be weaned off over the next 2 to 4 weeks with the help of her PCP or pulmonology. For influenza B, the patient will continue with Tamiflu 75 mg 1 pill twice daily for 5 days. For her COPD and Covid infection, the patient will continue with prednisone 10 mg 1 pill twice daily for 7 days and 1 pill once daily for 7 days. Tessalon Perles 100 mg 3 times a day as needed for cough will be provided. The patient will also continue with aspirin 81 mg daily. The patient will continue with Symbicort 2 puffs twice daily and ProAir 2 puffs 3 times a day as needed for shortness of breath. The patient will also continue with vitamin C 500 mg 3 times a day, vitamin D 2000 units daily, zinc 220 mg daily, and thiamine 100 mg daily. Patient will need to continue with proning, incentive spirometer at home, ambulation, social distancing, facemask use, and handwashing. Recommend to quarantine for at least 10 days. Recommend follow-up with PCP in 1 week to follow-up this hospitalization and continue her care. Education on Covid, COPD and influenza will be provided. Oxygen will be arranged prior to discharge. If symptoms worsen she is to come back to the hospital for further evaluation. Patient with hypertension. This appears stable. At discharge patient will continue with her current medications of lisinopril 20 mg daily and nifedipine ER 30 mg daily. Recommend to maintain blood pressure less than 130/80. If blood pressures remain above 140/90 further adjustment in her medication can be done with the help of her PCP. Recommend follow-up with her PCP within 1 week to further monitor and address. Patient with diabetes mellitus type 2. This appears well controlled. At discharge we will continue with metformin 500 mg daily. Recommend to maintain blood sugar less than 140 fasting and less than 200 after meals. If blood sugars remain above 200 she is to contact her PCP for further recommendation. Recommend follow-up with her PCP in 1 to 2 weeks to follow-up her care. Recommend to recheck labhemoglobin A1c every 3 months to monitor her care. Patient with GERD. At discharge she will continue with Protonix 20 mg daily. Patient with chronic pain with neuropathy. At discharge she will continue with gabapentin 300 mg 3 times a day as needed for pain. Further adjustment can be done by her PCP. Diet: ADA Activity: Fall precautions Followup: Nanci Gilman, DO [Primary Care Provider] - Time spent managing pt's care (in minutes): 55
[2021-02-10 12:44] VITALS: BP 146/77
[2021-02-10] MEDS ORDERED: ATORVASTATIN 40 MG TAB PO SCH (21:00)
[2021-02-11] MEDS ORDERED: METFORMIN HCL 500 MG TAB PO SCH (08:00)
[2021-02-11] MEDS ORDERED: ASPIRIN 81 MG CHEWABLE TABLET PO SCH (09:00)
== END 2021-02-10 14:33 | disposition home or self-care (01) ==
LOC: ER 10:38 → ERHOLD 16:58 → 2ND 18:26 → ERHOLD 02-10 00:33
PROVIDERS: ADMIT Family Medicine; ATTEND Family Medicine
DX: J44.1 Chronic obstructive pulmonary disease with (acute) exacerbation (principal); R09.02 Hypoxemia; U07.1 COVID-19; J10.1 Influenza due to other identified influenza virus with other respiratory manifestations; I10 Essential (primary) hypertension; E11.9 Type 2 diabetes mellitus without complications; K21.9 Gastro-esophageal reflux disease without esophagitis; G89.29 Other chronic pain; G62.9 Polyneuropathy, unspecified; Z79.899 Other long term (current) drug therapy; Z88.6 Allergy status to analgesic agent; Z88.8 Allergy status to other drugs, medicaments and biological substances
CPT/HCPCS: 93005; 85025 ×2; 80048 ×2; 36415; 83735 ×2; 85610; 82947; 80076; 83605; 84443; 84484; 84439; 82728 ×2; 84145; 83880; 86140 ×2; 87804 ×2; 71045; 94640; 96374; 99285; U0003; J0360 ×2; J1650 ×2; J7605; J2930; J2920 ×2; G0378 ×3; 81003; 81015